=== PATIENT | female | born 1955 | race Caucasian/White ===

== ENCOUNTER 2017-08-23 13:00 | Outpatient (RCR) | payer MEDICAID, SELFPAY ==
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
--- NOTE | 2017-10-09 13:05 | HP.PT.NRP ---
HP - Discharge Summary (1) - Patient Information SONAM LUGO was seen in my office for initial evaluation on 07/31/17. The following Plan of Care was established for this patient: Initial Frequency: 2-3x /Week Initial Duration: 4 Weeks - Anticipated Interventions Patient/Client Instruction: Educate patient on: Condition, Plan of Care For the Purpose of:: To improve self management Therapeutic Exercise to Include: Strength training, Endurance training, Flexibilty training, In an aquatic setting, Dynamic Lumbar Stabilization For the Purpose of:: To decrease pain, To increase ROM, To improve muscle performance and motor function This patient was last seen in our office . Pertinent comments regarding their Physical therapy will appear below: Pt was last schduled for PT on the date of 08/27/17 for her LBP. Pt cancelled on that date and has not returned through todays date. Pt is discontinued at this time. At this point I will be discontinuing this patient from physical therapy. I would be happy to see this patient again in the future if found appropriate by the physician. Thank you! Stephen Grimm, PT,
== END 2017-08-23 19:00 | disposition home or self-care (01) ==
LOC: PT 13:00
PROVIDERS: Family Provider Family Medicine; PCP Family Medicine
DX: T14.8XXD Other injury of unspecified body region, subsequent encounter (principal); M54.16 Radiculopathy, lumbar region; M47.816 Spondylosis without myelopathy or radiculopathy, lumbar region; M51.36 Other intervertebral disc degeneration, lumbar region; M51.34 Other intervertebral disc degeneration, thoracic region; M47.894 Other spondylosis, thoracic region
CPT/HCPCS: 97113; 97162

== ENCOUNTER 2018-04-22 13:30 | Outpatient (RCR) | payer MEDICAID, SELFPAY ==
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
--- NOTE | 2018-04-22 14:02 | HP.PTDCSUM ---
HP - PT D/C Summary It has been my pleasure to treat SONAM LUOG under orders from DARWIN LARA, for the diagnosis of Compression Fx; Lumbar/Thoracic Degeneration for a total of 9 visit(s). Discharge Date: Please see the following information for a summary of their discharge status. - Subjective Subjective: Pt reports she is in no pain now, she feels 100% better in her LB - Pain low back Pain Intensity (Out of 10): 0 R knee Pain Intensity (Out of 10): 0 - Overall Improvement % Improvement: 100 - Objective Objective/Function: pain is rated at 0/10 this date. B LE strength now 5/5. Pt is now I with posture. Pt has full L/S ROM. Pt reports no functional limitations with IADL's. Rx goals achieved - Goals Goal 1:: Patient will increase core and low back strength by 1 muscle grade for improved posture Goal Progress: Goal Met Goal 2:: Patient will increase B hip strength by 1 muscle grade for improved performance with functional activities Goal Progress: Goal Met Goal 3:: Patient will maintain good upright standing posture for 5 minutes with no verbal prompting Goal Progress: Goal Met Goal 4:: Patient will increase hamstring flexibility by 10* bilaterally for improved mobility Goal Progress: Goal Met Goal 5:: Patient will demonstrate pain free, lumbar motion in all planes for improved mobility Goal Progress: Goal Met - Plan Plan: Discharge - D/C Information If there are questions or concerns regarding this patient's physical therapy, please feel free to call me at [phone]. Thank you for the referral of this patient. Sincerely, Stephen Grimm, PT,
== END 2018-04-22 14:16 | disposition home or self-care (01) ==
LOC: PT 13:30
PROVIDERS: Family Provider Internal Medicine; PCP Internal Medicine
DX: S32.000D Wedge compression fracture of unspecified lumbar vertebra, subsequent encounter for fracture with routine healing (principal); M54.16 Radiculopathy, lumbar region; M47.816 Spondylosis without myelopathy or radiculopathy, lumbar region; M51.36 Other intervertebral disc degeneration, lumbar region; M51.34 Other intervertebral disc degeneration, thoracic region; M47.894 Other spondylosis, thoracic region
CPT/HCPCS: 97113; 97162; 97530

== ENCOUNTER → 2018-10-07 13:36 | Outpatient (CLI) | payer MEDICAID, SELFPAY ==
--- NOTE | 2018-10-07 13:43 | CT_ITS ---
HISTORY: HEARING LOSS TECHNIQUE:Routine noncontrast CT protocol was performed of the internal auditory canals and temporal bones. 2-D reformats were performed by the technologist. A radiation dose optimization technique was used for this scan. IV Contrast dosage and agent: None. COMPARISON: None FINDINGS: The right external auditory canal shows short length focal narrowing which appears developmental rather than postinflammatory. On the right, metallic stapes prosthesis which appears in appropriate position. The middle and inner ear structures on the right show no CT abnormality. The external, middle, and inner ear structures on the left show no CT abnormality. The mastoids are well developed and appear clear. No bony erosions or soft tissue inflammatory change to suggest cholesteatoma. Pansinusitis with mucosal thickening of all sinuses. Bilateral middle meatal antrostomy defects and bilateral partial ethmoidectomies. The surgical defects remain patent. Cerebello-pontine angle regions, as visualized, are unremarkable. Bilateral cavernous carotid calcifications. CT/Orb Sella Post Fossa Ear w/o IMPRESSION: 1. The right external auditory canal shows short length narrowing which appears developmental rather than postinflammatory. 2. The right stapes prosthesis appears in appropriate position. 3. No cholesteatoma, otitis, or inflammatory change of the ears. 4. Pansinusitis with previous intranasal surgery. The surgical defects remain patent. Individualized dose optimization techniques were used for this CT. at 0829 Reported and signed by: Tyshawn Jennings MD Electronically Signed: Tyshawn Jennings, at 8:28 EST Tel , Service support ,
== END ==
PROVIDERS: Family Provider Family Medicine; PCP Family Medicine; Referring Provider Otolaryngology; Visit Provider Otolaryngology
DX: H90.11 Conductive hearing loss, unilateral, right ear, with unrestricted hearing on the contralateral side (principal)
CPT/HCPCS: 70480

== ENCOUNTER 2018-11-17 07:26 | Day surgery (SDC) | payer MEDICAID, SELFPAY ==
[2018-11-06 10:18] VITALS: BP 118/66; PULSE 85; RESP 16; TEMP 36.5; O2SAT 96; BMI 23.1
--- NOTE | 2018-11-06 10:32 | SDCEKG_ITS ---
Test Reason : Blood Pressure : / mmHG Vent. Rate : 082 BPM Atrial Rate : 082 BPM P-R Int : 144 ms QRS Dur : 078 ms QT Int : 384 ms P-R-T Axes : 062 037 051 degrees QTc Int : 448 ms Normal sinus rhythm Normal ECG Confirmed by CHINMAY SANDHU, JAVIER ([id number]), order editor JAN ZUNIGA ([id number]) on 11/11/2018 9:47:57 AM Referred By: Rafal Clemens Confirmed By:JAVIER MOY MD
[2018-11-06 10:49] LABS: Hematocrit 45.7 % (37-47); Hemoglobin 15.1 g/dl (12.0-15.0); Mean Corpuscular Hgb 32.1 pg (27.0-32.0); Mean Corpuscular Volume 97.2 fL (81-99); Mean Platelet Vol. 10.4 fl (6.2-12.0); Platelet Count 204 K/mm3 (150-450); RBC Distribution Width CV 13.1 % (11.6-14.6); RBC Distribution Width SD 46.6 fl (35.1-43.9); White Blood Count 8.1 K/mm3 (4.4-11.0)
[2018-11-06 10:55] LABS: Scan Indicated on CBC? Y/N NO
[2018-11-06 11:14] LABS: Anion Gap 6 (5-15); BUN 6 mg/dL (7-18); BUN/Creat Ratio 9.6 RATIO (10-20); Chloride 105 mmol/L (98-107); Creatinine, Serum 0.63 mg/dL (0.55-1.02); EST Glomerular Filtration Rate 103 mL/min (>60); Est Glom Filt Rate - Afr Amer 124 mL/min (>60); Estimated Creatinine Clearance 87.79 ml/min; Glucose 95 mg/dL (74-106); Potassium 3.8 mmol/L (3.5-5.1); Sodium Level 137 mmol/L (136-145)
[2018-11-17 08:06] VITALS: BP 127/78; PULSE 95; RESP 14; TEMP 36.4; O2SAT 97; BMI 23.1
[2018-11-17] MEDS: Ciprofloxacin 0.3% 2.5ml Bottle 1 DRP (09:30)
--- NOTE | 2018-11-17 09:50 | DCINST_ITS ---
You will use the following diet at home:: Regular Discharge Activity: Return to Normal Activity Additional Activity Instructions:: Change cotton ball as needed. Keep the inside of the right ear dry. Allergies/Adverse Reactions: Allergies No Known Allergies Allergy (Verified 11/06/18 09:48) Medications to take at Discharge Albuterol IH (ProAir) [Proair Hfa] 1 puff INHALATION Q12H PRN PRN 09/29/14 Fluticasone/Salmeterol [Advair 250/50 Mcg Diskus] 2 puff INHALATION BID 09/29/14 Alendronate Sodium 70 mg PO QWEEK 03/02/16 Acetaminophen [Tylenol Extra Strength] 500 - 1,000 mg PO Q6H PRN PRN 11/06/18 Cholecalciferol (VIT D3) [Vitamin D] 1,000 unit PO DAILY 11/06/18 Cyclobenzaprine [Flexeril] 10 mg PO PRN PRN 11/06/18 Duloxetine Hcl [Cymbalta] 30 mg PO DAILY 11/06/18 Gabapentin [Neurontin] 400 mg PO TIDCM 11/06/18 Primary Care Physician: Divina Stewart NP-C [Primary Care Provider] - Test Results: Test results from this visit will be discussed in further detail at your follow- up appointment, if applicable.
[2018-11-17] MEDS: Neomycin/Bacitracin/Polymyxin Ointment 1 APPLIC (10:54)
[2018-11-17 12:00] VITALS: BP 124/78; BP 127/78; PULSE 95; RESP 16; TEMP 36.1; O2SAT 92
--- NOTE | 2018-11-17 12:03 | PCM.OPRPT ---
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 It was not on the incus (Mccauley). New SMART piston placed on foreshortened incus and into oval window fenestra. Type of Anesthesia:: General Anesthesiologist: Bruce Brennan Specimen's removed: none Drains: none Estimated Blood Loss (mL): minimal Description of Procedure: The patient was taken to the OR on 11/17/18. She was placed in the supine position on the operating room table. She was given sufficient general endotracheal anesthesia. The table was turned 90 degrees counter clockwise. The right ear was prepped and draped steriley. The operating microscope was used throughout the entire case. A speculum was inserted into the right ear. 1% lidocaine with epinephrine was injected into the ear canal skin. The speculum stephenson was used. An incision was made from 12 to 6 O clock posteriorly with a round [place] blade. The tympanomeatal flap was elevated sharply and the middle ear was entered. A gimmick was used to reflect the flap anteriorly. There was a mass of scar encasing the bucket of a Mccauley prothesis that was clearly adjacent to the incus. The incus appeared foreshortened. I dissected the scar from the surrounding tissue and dissected the old prosthesis from the scar with a Hanson pick and Belucci scissors. Once the prosthesis was removed from the scar the prosthesis was removed. There was a small fenestra in the oval window once scar was removed from this area. Next, I sized the distance from the oval window to the incus. I chose a 4 mm SMART piston. I placed this into the middle ear. The piston portion was placed into the oval window opening. The hook was draped on top of the incus. I then used the omni guide CO2 laser to crimp the prosthesis. This allowed the prosthesis to nicely petroleum laboratory technician the incus. I then checked the mobility by wiggling the malleus. There was clear movement of the piston with this motion. I placed some of the old scar around the prosthesis. I then placed a few small pieces of cipro impregnated gelfoam on top of that. The tympanomeatal flap was redraped. Antibiotic ointment was placed on the incision. All instrumentation was removed. A cotton ball was placed in the ear canal. The patient was awoken and brought to the recovery room in stable condition. Blood loss minimal, replacement none. Sponge, needle and instrument count were correct at the end of the procedure. Grafts/Implants Used: 4.0x .5 mm SMART piston ([employer])
[2018-11-17 12:15] VITALS: BP 127/78; BP 130/74; PULSE 85; RESP 16; O2SAT 96
--- NOTE | 2018-11-17 12:16 | OP.PCM_ITS ---
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 It was not on the incus (Mccauley). New SMART piston placed on foreshortened incus and into oval window fenestra. Type of Anesthesia:: General Anesthesiologist: Bruce Brennan Specimen's removed: none Drains: none Estimated Blood Loss (mL): minimal Description of Procedure: The patient was taken to the OR on 11/17/18. She was placed in the supine position on the operating room table. She was given sufficient general endo tracheal anesthesia. The table was turned 90 degrees counter clockwise. The right ear was prepped and draped steriley. The operating microscope was used throughout the entire case. A speculum was inserted into the right ear. 1% lidocaine with epinephrine was injected into the ear canal skin. The speculum stephenson was used. An incision was made from 12 to 6 O clock posteriorly with a round [place] blade. The tympanomeatal flap was elevated sharply and the middle ear was entered. A gimmick was used to reflect the flap anteriorly. There was a mass of scar encasing the bucket of a Mccauley prothesis that was clearly adjacent to the incus. The incus appeared foreshortened. I dissected the scar from the surrounding tissue and dissected the old prosthesis from the scar with a Hanson pick and Belucci scissors. Once the prosthesis was removed from the scar the prosthesis was removed. There was a small fenestra in the oval window once scar was removed from this area. Next, I sized the distance from the oval window to the incus. I chose a 4 mm SMART piston. I placed this into the middle ear. The piston portion was placed into the oval window opening. The hook was draped on top of the incus. I then used the omni guide CO2 laser to crimp the prosthesis. This allowed the prosthesis to nicely aerospace engineer officer armament the incus. I then checked the mobility by wiggling the malleus. There was clear movement of the piston with this motion. I placed some of the old scar around the prosthesis. I then placed a few small pieces of cipro impregnated gelfoam on top of that. The tympanomeatal flap was redraped. Antibiotic ointment was placed on the incision. All instrumentation was removed. A cotton ball was placed in the ear canal. The patient was awoken and brought to the recovery room in stable condition. Blood loss minimal, replacement none. Sponge, needle and instrument count were correct at the end of the procedure. Grafts/Implants Used: 4.0x .5 mm SMART piston ([employer])
[2018-11-17 12:30] VITALS: BP 127/78; BP 135/74; PULSE 78; RESP 16; O2SAT 94
[2018-11-17 12:42] VITALS: BP 127/78; BP 138/83; PULSE 85; RESP 16; TEMP 36.4; O2SAT 93
[2018-11-17 13:42] VITALS: BP 127/78; BP 129/73; PULSE 96; RESP 18; TEMP 36.3; O2SAT 93
== END 2018-11-17 13:40 | disposition home or self-care (01) ==
LOC: SDC 07:27 → AC 07:27
PROVIDERS: Family Provider Family Medicine; PCP Family Medicine; Referring Provider Otolaryngology; Visit Provider Otolaryngology
PROC: (CPT 69662; principal; 2018-11-17 09:15)
DX: H80.01 Otosclerosis involving oval window, nonobliterative, right ear (principal); H90.71 Mixed conductive and sensorineural hearing loss, unilateral, right ear, with unrestricted hearing on the contralateral side; H74.21 Discontinuity and dislocation of right ear ossicles; I10 Essential (primary) hypertension; E78.00 Pure hypercholesterolemia, unspecified; J45.909 Unspecified asthma, uncomplicated; F17.210 Nicotine dependence, cigarettes, uncomplicated; Z79.899 Other long term (current) drug therapy
CPT/HCPCS: 00120; 69662; 80048; 85027; 93005; J7120; J2405

== ENCOUNTER → 2019-04-20 13:40 | Outpatient (CLI) | payer MEDICAID, SELFPAY ==
--- NOTE | 2019-04-20 13:50 | CT_ITS ---
STUDY: LOW DOSE CT LUNG CANCER SCREENING REASON FOR EXAM: Female, 64 years old. 50 year smoking history. Lung cancer screening RADIATION DOSAGE (If Supplied By Facility): CTDIvol = ( 1.7 ) mGy, DLP = ( 54.67 ) mGycm Individualized dose optimization techniques were used for this CT. TECHNIQUE: No contrast was administered. Low dose technique was utilized (average mAS-38 and kVp 120). Thin slice transaxial CT imaging of the chest. Nodule measured using lung windows on PACS and/or independent workstation with automated measurement of minimum and maximum diameter. Nodule measurement reported as average diameter rounded to the nearest whole number. Growth is defined as an increase ins size of greater than 1.5 mm. COMPARISON: None. FINDINGS: Total lung nodules (excluding granulomas): There are innumerable tiny pulmonary nodules in the lungs bilaterally. The largest of these pulmonary nodules measures approximately 4.4 mm. Emphysema: Lungs exhibit generalized hyperlucency consistent with COPD with mild features of centrilobular emphysema in particular at the apices. Scattered parenchymal and subpleural reticulation in a pattern consistent with smoking history. Endobronchial lesion: None Aorta: Nonaneurysmal ectasia of the ascending aorta and proximal arch 3.5 cm. Mild/moderate arch atherosclerosis. Coronary arteries: Coronary calcifications are observed in the left main, proximal LAD, proximal circumflex. Heart: No cardiomegaly or pericardial effusion. Pulmonary artery: Nondilated. Mediastinal nodes: Calcified mediastinal and hilar lymph nodes in addition to calcified pulmonary nodules are consistent with old granulomatous disease. No acute lymphadenopathy. Mildly patulous esophagus. Small sliding hiatal hernia. Mild circumferential thickening of wall the distal esophagus may be associated with reflux. Other chest and abdominal findings: Upper abdomen, body wall soft tissues, supraclavicular soft tissues, osseous structures exhibit no acute process. CT/Low Dose CT Lung Screening IMPRESSION: Innumerable tiny pulmonary nodules in the lungs bilaterally. These may be a manifestation of old granulomatous disease without calcification or sequela of other infectious process. Malignancy is considered unlikely. Additional calcified pulmonary nodules and calcified mediastinal and hilar lymph nodes are consistent with old grade robust disease. ACR lung RADS category 2, benign appearance. Follow-up low dose CT chest is recommended for surveillance purposes in 1 year. IMPORTANT NOTES FOR USE: ACR Lung-RADS Version 1.0 Assessment Categories Release Date: December 28, 2013 Category: Coded 0-4 bases on nodule(s) with highest degree of suspicion. Negative screen is defined as categories 1 and 2; a positive screen is defined as categories 3 and 4. Category 3 and 4A nodules that are unchanged on interval CT should be coded as category 2, and individuals returned to screening in 12 months. Category 4X: Category 3 or 4 nodules with additional imaging findings that increase the suspicion of lung cancer, such as spiculation, That doubles in size in 1 year, enlarged lymph notes, etc. Category Modifiers: S (significant finding unrelated to lung cancer) and C (prior history of treated lung cancer) may be added to the 0-4 Lung-RADS Electronically Signed: Theron Harris MD at 15:39 EDT Tel , Service support ,
== END ==
PROVIDERS: Family Provider Nurse Practitioner Primary Care; PCP Nurse Practitioner Primary Care
DX: Z12.2 Encounter for screening for malignant neoplasm of respiratory organs (principal); F17.200 Nicotine dependence, unspecified, uncomplicated
CPT/HCPCS: G0297

== ENCOUNTER 2023-07-30 18:44 | Emergency (ER) | payer MEDICARE, MEDICAID, SELFPAY ==
[2023-07-30 18:45] VITALS: BP 89/65; PULSE 124; RESP 17; TEMP 36.2; O2SAT 98
--- NOTE | 2023-07-30 18:51 | ED.RN ---
PD brought pt in. Per PD they were called because pt says she needs a ride to [place] but she does not live there anymore and lives with her daughter in [place]. Per pt daughter will not give her pain meds or blood thinners. Says she does not know why either. PD stating that daughter told them pt has been selling all her meds to her friends. Social Work consulted and updated.
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
--- NOTE | 2023-07-30 20:05 | CT_ITS ---
EXAM: CT CHEST WITHOUT INTRAVENOUS CONTRAST CLINICAL INDICATION: left sided rib pain TECHNIQUE: Helically acquired images were obtained of the chest without intravenous contrast. This CT exam was performed using one or more of the following dose reduction techniques: automated exposure control, adjustment of the mA and/or kV according to patient size, and/or use of iterative reconstruction technique. COMPARISON: No relevant prior studies available. FINDINGS: LUNGS AND PLEURAL SPACES: Calcified right middle lobe granuloma. No mass. No pleural effusion or thickening. No pneumothorax. HEART: Unremarkable. Heart size is normal. No pericardial effusion. No significant coronary artery calcifications. MEDIASTINUM: Dense calcified subcarinal lymph nodes. Dense, calcified right hilar nodes. No hiatal hernia. THYROID: Unremarkable. No thyroid lesions. BONES/JOINTS: Unremarkable. No suspicious lytic or blastic abnormality. VASCULATURE: Unremarkable. Thoracic aorta is non-dilated. 1.9 cm low-attenuation lesion upper pole right kidney not characterized without contrast. CT/Chest without Contrast IMPRESSION: No acute findings in the chest. Old granulomatous disease. Electronically Signed: Lainey Pablo MD at 21:56 EST Reading Location ID and State: [id number] / Tel , Service support ,
--- NOTE | 2023-07-30 20:05 | CT_ITS ---
STUDY: CT BRAIN WITHOUT CONTRAST REASON FOR EXAM: Female, 68 years old. AMS RADIATION DOSAGE (If Supplied By Facility): CTDIvol = ( 44.99 ) mGy, DLP = ( 1067.27 ) mGycm TECHNIQUE: Transaxial CT imaging of the brain was performed without administration of intravenous contrast material. Individualized dose optimization techniques were used for this CT. COMPARISON: No relevant priors. FINDINGS: Normal soft tissue structures. Normal calvarium. There is mild cerebral atrophy with widening of the extra-axial spaces and ventricular dilatation. There are areas of decreased attenuation within the white matter tracts of the supratentorial brain, consistent with microvascular disease changes. There is no intracranial hemorrhage. There are no findings of an acute ischemic infarction. Mild mucosal thickening right maxillary sinus consistent with chronic sinusitis. CT/Brain/Head without Contrast IMPRESSION: No acute findings. Microvascular ischemic changes. Atrophy. Electronically Signed: Lainey Pablo MD at 21:36 EST Reading Location ID and State: [id number] / Tel , Service support ,
--- NOTE | 2023-07-30 20:06 | EKG12_ITS ---
Test Reason : DYSRHYTHMIA Blood Pressure : / mmHG Vent. Rate : 112 BPM Atrial Rate : 112 BPM P-R Int : 134 ms QRS Dur : 068 ms QT Int : 322 ms P-R-T Axes : 089 092 076 degrees QTc Int : 439 ms Sinus tachycardia Rightward axis Borderline ECG Confirmed by SILVIA SANDHU, CASI ([id number]), managing editor NATALI FRASER ([id number]) on 08/01/2023 10:42:14 AM Referred By: Confirmed By:CASI VEGA MD
[2023-07-30 20:22] VITALS: BP 127/85; RESP 24; O2SAT 98
[2023-07-30 20:27] LABS: Absolute Lymphocyte Count 1.39 X10^3/uL (0.83-4.51); Absolute Neutrophil Count 4.2 X10^3/uL (2.0-7.7); Basophil# 0.06 X10^3/uL; Basophil% 0.9 % (0-1); Eosinophils% 1.6 % (0-5); Hematocrit 40.1 % (37-47); Hemoglobin 13.5 g/dL (12.0-15.0); Lymphocyte # 1.39 X10^3/ul (0.83-4.51); Lymphocyte % 21.7 % (19-41); Mean Corp Hgb Conc 33.7 g/dL (32-36); Mean Corpuscular Hgb 33.5 pg (27.0-32.0); Mean Corpuscular Volume 99.5 fL (81-99); Mean Platelet Vol. 9.6 fl (6.2-12.0); Monocyte# 0.65 X10^3/uL; Monocyte% 10.1 % (0-10); NRBC Flagged by Analyzer 0 % (0-5); Neutrophil # 4.18 X10^3/uL (2.7-7.7); Neutrophil % 65.2 % (47-70); Platelet Count 289 K/mm3 (150-450); RBC Distribution Width CV 14.2 % (11.6-14.6); RBC Distribution Width SD 52.5 fl (35.1-43.9); Red Blood Count 4.03 M/mm3 (4.2-5.4); White Blood Count 6.4 K/mm3 (4.4-11.0)
[2023-07-30 20:49] LABS: Prothrombin Time (Protime)PT. 12.6 SECONDS (11.7-14.9)
[2023-07-30 21:05] LABS: AST(SGOT) 29 U/L (15-37); Alanine Aminotransfer ALT/SGPT 17 U/L (13-56); Albumin, Serum 2.7 g/dL (3.2-5.0); Alkaline Phosphatase 125 U/L (45-117); Anion Gap 7 (5-15); BUN 5 mg/dL (7-18); BUN/Creat Ratio 5.9 RATIO (10-20); Bilirubin, Direct 0.08 mg/dL (0.00-0.30); Calcium,Total 8.1 mg/dL (8.5-10.1); Chloride 106 mmol/L (98-107); Creatinine, Serum 0.85 mg/dL (0.55-1.02); EST Glomerular Filtration Rate 71 mL/min (>60); Est Glom Filt Rate - Afr Amer 86 mL/min (>60); Globulin 3.5 g/dL (2.2-4.2); Glucose 103 mg/dL (74-106); Lipase 47 U/L (13-75); Potassium 3.8 mmol/L (3.5-5.1); Protein, Total 6.2 g/dL (6.4-8.2); Sodium Level 139 mmol/L (136-145); Troponin-I HS 16 pg/mL (3.0-54.0)
[2023-07-30] MEDS: 0.9% Normal Saline (500mL Bag) 500 ML 1000 ML IV (21:05)
[2023-07-30 21:08] VITALS: BP 141/82; PULSE 95; RESP 18; O2SAT 93
[2023-07-30 21:26] LABS: Bacteria 0 SEEN /hpf (None Seen); Mucous, Urine 0 SEEN /hpf (<or=2+); Red Blood Cells-Urine 0 SEEN /hpf (0-5); White Blood Cells 0 SEEN /hpf (0-5)
[2023-07-30 21:34] LABS: Color, Urine Yellow (Yellow); Glucose, Dipstick Normal (Normal); Ketone-Dipstick Negative (Negative); Leukocyte Esterase-Dipstick Negative /ul (Negative); Nitrite-Dipstick Negative (Negative); Occult Blood-Urine Negative /ul (Negative); Protein-Dipstick Negative (Negative); Urine Bilirubin Dipstick Negative (Negative); Urine Clarity Clear (Clear); Urine Urobilinogen Normal (Normal)
[2023-07-30 21:58] LABS: Squamous Epithelial Cells - UA 0-5 SEEN /hpf (5-10); Yeast-Urine RARE /hpf (None Seen)
[2023-07-30 22:29] VITALS: BP 120/88; PULSE 102; RESP 20; O2SAT 92
== END 2023-07-30 23:03 | disposition home or self-care (01) ==
PROVIDERS: Emergency Provider Emergency Medicine; PCP Nurse Practitioner Primary Care; Visit Provider Emergency Medicine
DX: F03.90 Unspecified dementia, unspecified severity, without behavioral disturbance, psychotic disturbance, mood disturbance, and anxiety (principal); F17.210 Nicotine dependence, cigarettes, uncomplicated; I25.10 Atherosclerotic heart disease of native coronary artery without angina pectoris
CPT/HCPCS: 70450; 71250; 80048; 80076; 81001; 83690; 84484; 85025; 85610; 87428; 93005; 96360; 99285; J7030; A4216

== ENCOUNTER 2023-09-10 01:46 | Emergency (ER) | payer MEDICARE, MEDICAID, SELFPAY ==
[2023-09-10 01:48] VITALS: BP 173/107; PULSE 81; RESP 16; TEMP 36; O2SAT 96; BMI 18.2
--- NOTE | 2023-09-10 02:00 | ED.RN ---
Per Dr Guajardo, patient does not require a sitter. Pt denies SI at this time. Will be assessed by crisis after medically cleared.
--- NOTE | 2023-09-10 02:29 | EKG12_ITS ---
Test Reason : DYSRHYTHMIA Blood Pressure : / mmHG Vent. Rate : 073 BPM Atrial Rate : 073 BPM P-R Int : 146 ms QRS Dur : 072 ms QT Int : 376 ms P-R-T Axes : 060 087 070 degrees QTc Int : 414 ms Normal sinus rhythm Normal ECG Confirmed by SILVIA SANDHU, CASI ([id number]), online editor TITO YORK ([id number]) on 09/11/2023 9:07:49 AM Referred By: Confirmed By:CASI VEGA MD
--- NOTE | 2023-09-10 02:30 | EDS_ITS ---
HPI HPI - Psych History of Present Illness Chief Complaint: Chest Pain Narrative Narrative: Skin physical is limited secondary to psychiatric condition. EMS was called by patient's daughter because of reported suicidal ideation, although patient denies this. Patient complains of chest pain that she has had for months, and is constant. She is a smoker. She denies any exacerbating or alleviating factors to her chest pain. She states she does have bronchitis and asthma from her smoking. According to triage note, she has had increased alcohol consumption as well. PFSH PFS Medical History Asthma CAD (coronary artery disease) COPD (chronic obstructive pulmonary disease) Deficient knowledge of percutaneous coronary intervention (PCI) and stenting ETOH abuse Tobacco abuse Home Medications clopidogrel 75 mg tablet 75 mg PO DAILY 07/30/23 [History Last Taken Unknown] duloxetine 60 mg capsule,delayed release 60 mg PO DAILY 09/10/23 [History Last Taken Unknown] Allergy/AdvReac Type Severity Reaction Status Date / Time No Known Allergies Allergy Verified 09/10/23 01:54 Surgical History History of hysterectomy Social History Smoking Status: Current every day smoker tobacco type: cigarettes ROS ROS ED ROS Narrative Constitutional: No fever, no chills. HEENT: No sore throat. No neck pain. No loss of vision. No rhinorrhea. Cardiovascular: Positive chest pain. No palpitations. No pedal edema. Respiratory: No cough, no shortness of breath. Abdominal: No abdominal pain. No nausea. No vomiting. Genitourinary: No dysuria. No hematuria. Musculoskeletal: No myalgias. No arthralgias. Neurologic: No headaches. No dizziness. No lightheadedness. Skin: No rash. No change in color. Psychiatric: No depression. No anxiety. Reported suicidal ideation by daughter according to EMS. Patient denies suicidal ideation. EXAM Physical Exam Narrative Exam Narrative: Afebrile. Vital signs noted. HEENT: Normocephalic. Atraumatic. PERRL, EOMI. Neck soft and supple. No point tenderness or step off. Cardiovascular: Regular rate and rhythm. No murmurs, rubs, or gallops appreciated. Respiratory: No tachypnea. No rhonchi bilateral lung ferreira. No overt wheezing. Moving a good amount of air. Gastrointestinal: Abdomen soft, nontender, with normoactive bowel sounds. No rebound or guarding. Neurological: Awake. Alert. Nonfocal, nonlateralizing. Skin: No rash. Normal color. No pallor. Musculoskeletal: No pedal edema. Full range of motion extremities. Const Vital Signs: 09/10/23 01:48 09/10/23 01:55 09/10/23 04:54 Temperature 96.8 F L Temperature Source Temporal Pulse Rate 81 68 Respiratory Rate 16 16 Respiratory Pattern Normal Blood Pressure 173/107 H 102/67 Blood Pressure Mean 129 78 Pulse Ox 96 98 Oxygen Delivery Method Room Air Room Air 09/10/23 05:00 09/10/23 06:00 Temperature Temperature Source Pulse Rate 80 Respiratory Rate 16 18 Respiratory Pattern Blood Pressure 102/68 180/105 H Blood Pressure Mean 79 130 Pulse Ox 96 Oxygen Delivery Method Room Air Room Air MDM MDM MDM Narrative Medical decision making narrative: As there is concern for suicidal ideation, medical clearance labs will be obtained. I will obtain a troponin, patient states she has had chest pain for months, so I do not feel that she requires serial enzymes to help rule out acute coronary syndrome/non-STEMI. EKG obtained and interpreted by myself independently as normal sinus rhythm at 73 bpm without ectopy or acute ST changes. No STEMI. I feel that she has more baseline artifact in lead V4 than any ST elevation and there are no reciprocal changes noted on the EKG. I reviewed her laboratory work and she has a normal white count of 5.0, hemoglobin slightly hemoconcentrated at 16.0 with hematocrit 46.2, platelet count normal at 212. Potassium slightly low at 3.4 which can be replaced orally. Carbon dioxide is slightly elevated at 33, consistent with COPD and she is a smoker. Creatinine slightly low at 0.47 with BUN also low at 6. LFTs show AST elevated at 39 which I think is nonspecific, the same goes for alk phos of 121. High- sensitivity troponin is 12. She states she been having chest pain for months. I do not feel she requires serial enzymes. I feel she has been essentially ruled out for ACS. Chest x-ray 1 view interpreted by myself shows no evidence of pneumothorax or pneumonia. I reviewed the radiology report which confirms my independent interpretation. As it was stated that she was reportedly suicidal, urine for drugs of abuse was obtained and is negative. Her alcohol level is elevated at 166. This will be repeated prior to crisis counselor evaluation. Second redraw of her EtOH will be at 6 AM. Her repeat alcohol level was reviewed and is 86. At this point in time, I do feel she is medically cleared to be evaluated by the crisis counselor. Of note, she was actually being seen for the chest pain that she has had for months. I do feel that a single troponin has ruled out her ischemia. Additionally, she was pink slipped because she had told her family that she wanted to take her cat and not come back. She had made comments to her daughter and 2 other people that she was waiting for got to come get her. At this point in time, she will be signed out to the oncoming physician, Dr. Osmani Bach, who will make final disposition after evaluation by the crisis counselor. Patient is in stable condition. History & Record Review Discussion w/independent historian: Patient Additional record(s) reviewed:: Prior ED visit and Prior labs Lab Data Attestation: I reviewed the patient's lab results. Labs: Laboratory Results - last 24 hr 09/10/23 09/10/23 09/10/23 01:55 02:45 06:05 WBC 5.0 RBC 4.79 Hgb 16.0 H Hct 46.2 MCV 96.5 MCH 33.4 H MCHC 34.6 RDW Std Deviation 47.8 H RDW Coeff of Talon 13.4 Plt Count 212 MPV 10.5 Immature Gran % (Auto) 0.400 Neut % (Auto) 36.2 L Lymph % (Auto) 49.0 H [place] % (Auto) 11.6 H Eos % (Auto) 1.4 Baso % (Auto) 1.4 H Absolute Neuts (auto) 1.8 L Absolute Lymphs (auto) 2.46 Nucleated RBC % 0 Sodium 138 Potassium 3.4 L Chloride 100 Carbon Dioxide 33.0 H Anion Gap 5 BUN 6 L Creatinine 0.47 L Estim Creat Clear Calc 42.20 Est GFR (MDRD) Af Amer 170 Est GFR (MDRD) Non-Af 141 BUN/Creatinine Ratio 12.8 Glucose 95 Calcium 8.5 Total Bilirubin 0.30 AST 39 H ALT 21 Alkaline Phosphatase 121 H Troponin I High Sens 12 Total Protein 6.7 Albumin 3.1 L Globulin 3.6 Albumin/Globulin Ratio 0.9 Urine Opiates Screen NEGATIVE Urine Methadone Screen NEGATIVE Ur Barbiturates Screen NEGATIVE Ur Phencyclidine Scrn NEGATIVE Ur Amphetamines Screen NEGATIVE MDMA (Ecstasy) Screen NEGATIVE U Benzodiazepines Scrn NEGATIVE Urine Cocaine Screen NEGATIVE U Cannabinoids Screen NEGATIVE Ur Drug Screen Comment Ethyl Alcohol 166.0 86.0 Radiography Diagnostic Testing: Clinical Impression(s) from Imaging Studies Chest X-Ray 09/10/23 02:50 IMPRESSION: No acute focal airspace disease. Again is noted diffuse nodular interstitial process. Electronically Signed: Theodore Landaverde MD at 3:41 EST , Discharge Plan Triage Chief Complaint: Chest Pain Other Complaint: Mental Health ED Provider: Keven Guajardo Dx/Rx/DC Orders Prescriptions: No Action clopidogrel 75 mg tablet 75 mg PO DAILY Patient Comments: take 1 tablet by mouth daily duloxetine 60 mg capsule,delayed release(DR/EC) 60 mg PO DAILY Patient Comments: take 1 capsule by mouth once daily Primary Care Provider: Marcus Thomas NP Referrals: Marcus Thomas JUNIOR PROJECT MANAGER, JUNIOR PROJECT MANAGER-C [Primary Care Provider] -
[2023-09-10 02:37] LABS: Absolute Lymphocyte Count 2.46 X10^3/uL (0.83-4.51); Absolute Neutrophil Count 1.8 X10^3/uL (2.0-7.7); Basophil# 0.07 X10^3/uL; Basophil% 1.4 % (0-1); Eosinophil# 0.07 X10^3/uL; Eosinophils% 1.4 % (0-5); Hematocrit 46.2 % (37-47); Lymphocyte # 2.46 X10^3/ul (0.83-4.51); Mean Corp Hgb Conc 34.6 g/dL (32-36); Mean Corpuscular Hgb 33.4 pg (27.0-32.0); Mean Corpuscular Volume 96.5 fL (81-99); Mean Platelet Vol. 10.5 fl (6.2-12.0); Monocyte# 0.58 X10^3/uL; Monocyte% 11.6 % (0-10); NRBC Flagged by Analyzer 0 % (0-5); Neutrophil # 1.82 X10^3/uL (2.7-7.7); Neutrophil % 36.2 % (47-70); Platelet Count 212 K/mm3 (150-450); RBC Distribution Width CV 13.4 % (11.6-14.6); RBC Distribution Width SD 47.8 fl (35.1-43.9); Red Blood Count 4.79 M/mm3 (4.2-5.4)
--- NOTE | 2023-09-10 02:50 | RAD_ITS ---
INDICATION: shortness of breath EXAMINATION/TECHNIQUE: X-RAY - XR Chest 1 View COMPARISON: Chest CT 08/21/2023 Findings: Single frontal view of the chest. LUNG PARENCHYMA: No acute focal airspace disease or mass lesion. Again is noted diffuse nodular interstitial process. Densely calcified right lung base and right hilar granulomas. PLEURA: No pleural effusion. No pneumothorax. HEART/GREAT VESSELS: Cardiomediastinal silhouette is unremarkable. BONES: Osseous structures are unremarkable for age. RAD/Chest 1 View (Portable) IMPRESSION: No acute focal airspace disease. Again is noted diffuse nodular interstitial process. Electronically Signed: Theodore Landaverde MD at 3:41 EST ,
--- OUTSIDE RECORDS SUMMARY | 2023-09-10 02:52 | XMS RPT_ITS | CCD ---
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 Name Role Phone Erin Rodriguez Unavailable Unavailable ERIN FRANCO Primary Care Physician ([phone]) Elizabeth Church PT Unavailable Unavailable Juni Zamora Primary Care Provider Juni Zamora Primary Care Provider ERIN FRANCO Primary Care Physician ([phone]) Erin Rodriguez APRN.CNP Primary Care Provider 1([phone]) SORAIDA GODOY Admitting Unavailable SORAIDA GODOY Attending Unavailable JUNI ZAMORA Primary Care Unavail able SORAIDA GODOY Attending Unavailable SORAIDA GODOY Referring Unavailable ERIN RODRIGUEZ Primary Care Unavailable MATILDE HAYWARD Attending Unavailable JUNI ZAMORA Primary Care Unavail able MATILDE HAYWARD Referring Unavailable JUNI ZAMORA Primary Care Unavail able MATILDE HAYWARD Attending Unavailable JUNI ZAMORA Primary Care Unavail able SORAIDA GODOY Attending Unavailable JUNI ZAMORA Primary Care Unavail able JENNIFER HUGGINSN-LIGIA, ERIN Primary Care Unavailelizabeth GALLAGHER PEBBLES Attending Unavailable JIGNESH SANDHU, DR PERCY Mas Attending Guille RODRIGUEZ APRN-LIGIA, ERIN Primary Care Unavailabl e JENNIFER JOB TRAINER-LIGIA, ERIN Primary Care UnavailJUNI Rodriguez MD Attending Unavailable LENCHO KIMBROUGH MD Attending Unavailable JENNIFER HUGGINSN-TRAFFIC SIGNAL MECHANIC, ERIN Primary Care Unavailabl e DAYAMITES JOB TRAINER-TRAFFIC SIGNAL MECHANIC, ERIN Attending Unavailabl e DAYAMITES JOB TRAINER-TRAFFIC SIGNAL MECHANIC, ERIN Primary Care Unavailabl e BALTES JOB TRAINER-TRAFFIC SIGNAL MECHANIC, ERIN Attending Unavailabl e DAYAMITES JOB TRAINER-TRAFFIC SIGNAL MECHANIC, ERIN Primary Care Unavailabl e BALTES JOB TRAINER-TRAFFIC SIGNAL MECHANIC, ERIN Primary Care Unavailabl e BALTES JOB TRAINER-TRAFFIC SIGNAL MECHANIC, ERIN Attending Unavailabl e Allergies Allergy Classification Reported Allergen(s) Allergy Type Date of Onset Reaction(s) Facility (20 sources) Ibuprofen; Translations: [ibuprofen] Drug Allergy 2 Unknown [facility] Work Phone: (20 sources) Naproxen; Translations: [Naproxen] Drug Allergy 2 Unknown [facility] (20 sources) Acetaminophen / traMADol; Translations: [acetaminophen-tr amadol] Drug Allergy 2 [facility] (1 source) Ibuprofen; Translations: [IBUPROFEN] Drug Allergy 2 [facility] (1 source) TRAMADOL-ACETAMIN OPHEN; Translations: [TRAMADOL-ACETAMI NOPHEN] Propensity to adverse reactions to drug (disorder) 2 [facility] Medications Current Medications Medication Drug Class(es) Dates Sig (Normalized) Sig (Original) acetaminophen 500 mg oral tablet (13 sources) Start: 11-06-2018 acetaminophen 500 mg oral tablet Dose : 1,000 mg = 2 tab(s), Oral, TID, PRN as needed for pain, 0 Refill(s) Start Date: 06/20/21 Status: Ordered Completed/Discontinued Medications Medication Drug Class(es) Dates Sig (Normalized) Sig (Original) acetaminophen 325 mg / HYDROcodone bitartrate 10 mg oral tablet (20 sources) Opioid Agonist Start: 08-14-2023 acetaminophen-hydr ocodone 325 mg-10 mg oral tablet Dose = 1 tab(s), Oral, TID, PRN for pain, 0 Refill(s), 46 Start Date: 08/14/23 Status: Ordered Problems Active Problems Problem Classification Problem Date Documented Da te Episodic/Chronic Alcohol-related disorders (20 sources) Alcoholism; Translations: [Alcohol dependence, uncomplicated] Onset: 6 01-06-2020 Chronic Alcohol-related disorders (2 sources) H/O: alcoholism; Translations: [History of alcoholism] Episodic Anxiety disorders (13 sources) Anxiety; Translations: [Anxiety disorder, unspecified] Onset: 3 04-02-2023 Chronic Anxiety disorders (1 source) Irritability and anger 08-19-2023 Episodic Aortic and peripheral arterial embolism or thrombosis (2 sources) 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 Asthma (20 sources) Moderate persistent asthma controlled; Translations: [Moderate persistent asthma, uncomplicated] Onset: 6 09-07-2015 Chronic Chronic obstructive pulmonary disease and bronchiectasis (20 sources) Emphysematous bronchitis; Translations: [Chronic obstructive pulmonary disease, unspecified] Onset: 6 08-28-2021 Chronic Chronic obstructive pulmonary disease and bronchiectasis (20 sources) Bronchitis; Translations: [Bronchitis, not specified as acute or chronic] Onset: 3 12-08-2013 Episodic Disorders of lipid metabolism (20 sources) Hyperlipidemia; Translations: [Hyperlipidemia, unspecified] Onset: 3 01-06-2020 Chronic Esophageal disorders (13 sources) Gastroesophageal reflux disease without esophagitis; Translations: [Gastro-esophageal reflux disease without esophagitis] Onset: 3 04-02-2023 Chronic Essential hypertension (20 sources) Hypertensive disorder; Translations: [Essential hypertension] Onset: 6 01-06-2020 Chronic Gastritis and duodenitis (20 sources) Gastritis; Translations: [Gastritis, unspecified, without bleeding] Onset: 3 01-06-2020 Episodic Gastroduodenal ulcer (except hemorrhage) (20 sources) Duodenal ulcer without hemorrhage, without perforation AND without obstruction; Translations: [Duodenal ulcer, unspecified as acute or chronic, without hemorrhage or perforation] Onset: 6 08-28-2021 Chronic Gastroduodenal ulcer (except hemorrhage) (4 sources) H/O: peptic ulcer; Translations: [History of peptic ulcer] Episodic Gastrointestinal hemorrhage (15 sources) Hematemesis; Translations: [Hematemesis] Onset: 3 04-02-2023 Episodic Nausea and vomiting (1 source) Nausea 08-14-2023 Episodic Osteoarthritis (20 sources) Arthritis; Translations: [Osteoarthritis of bilateral hip joints] Onset: 7 12-08-2013 Chronic Osteoporosis (20 sources) Osteoporosis; Translations: [Age-related osteoporosis without current pathological fracture] Onset: 6 01-06-2020 Chronic Other aftercare (5 sources) Taking high risk medication; Translations: [Other chcf (current) drug therapy] Episodic Other aftercare (20 sources) Patient encounter status; Translations: [custodial (current) use of opiate analgesic] Onset: 7 04-02-2023 Episodic Other aftercare (1 source) 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; Translations: [High risk medication use] Onset: 3 Episodic Other and unspecified benign neoplasm (16 sources) History of polyp of colon; Translations: [Personal history of colonic polyps] Onset: 3 04-02-2023 Episodic Other connective tissue disease (2 sources) H/O: back problem; Translations: [History of chronic back pain] Episodic Other connective tissue disease (15 sources) H/O: arthritis; Translations: [Personal history of other diseases of the musculoskeletal system and connective tissue] Onset: 3 04-02-2023 Episodic Other connective tissue disease (20 sources) Recurrent falls ; Translations: [Repeated falls] Onset: 6 08-28-2021 Episodic Other connective tissue disease (2 sources) Myofascial pain syndrome; Translations: [Myalgia, other site] 04-02-2023 Episodic Other connective tissue disease (2 sources) Trochanteric bursitis; Translations: [Trochanteric bursitis, right hip] 04-02-2023 Episodic Other connective tissue disease (2 sources) Trochanteric bursitis, right hip; Translations: [Greater trochanteric bursitis of both hips] Onset: 3 Episodic Other connective tissue disease (2 sources) Trochanteric bursitis, left hip; Translations: [Greater trochanteric bursitis of both hips] Onset: 3 Episodic Other connective tissue disease (1 source) Myalgia, other site; Translations: [Myofascial pain syndrome] Onset: 3 Episodic Other diseases of bladder and urethra (20 sources) Overactive bladder; Translations: [Overactive bladder] Onset: 3 04-26-2022 Chronic Other disorders of stomach and duodenum (15 sources) Indigestion; Translations: [Functional dyspepsia] Onset: 3 04-02-2023 Episodic Other ear and sense organ disorders (20 sources) Hearing loss; Translations: [Unspecified hearing loss, unspecified ear] Onset: 3 07-07-2019 Chronic Past or Other Problems Problem Classification Problem Date Documented Date Episodic/Chronic Genitourinary symptoms and ill-defined conditions (2 sources) Dysuria; Translations: [Dysuria] Onset: 01-23-2023 Episodic Other connective tissue disease (13 sources) Fibromyositis; Translations: [Fibromyalgia] Onset: 09-05-2016 04-02-2023 Episodic Other fractures (13 sources) Compression fracture of vertebral column; Translations: [Collapsed vertebra, not elsewhere classified, site unspecified, initial encounter for fracture] Onset: 11-13-2016 04-02-2023 Episodic Other nervous system disorders (13 sources) Abnormal gait; Translations: [Unspecified abnormalities of gait and mobility] Onset: 09-05-2016 04-02-2023 Episodic Other nervous system disorders (13 sources) Numbness of upper limb; Translations: [Anesthesia of skin] Onset: 05-21-2019 04-02-2023 Episodic Other non-traumatic joint disorders (1 source) Pain in right hip; Translations: [Pain in right hip] Onset: 08-14-2022 Episodic Residual codes; unclassified (20 sources) Past history of procedure; Translations: [Personal history of other medical treatment] Onset: 09-11-2015 08-28-2021 Episodic Residual codes; unclassified (13 sources) Noncompliance with medication regimen; Translations: [Noncompliance with medication regimen] Onset: 09-30-2018 04-02-2023 Episodic Results Test Name Value Interpretation Reference Range Facil it Vital Signs Date Time Vital Sign Value Performing Clinician Facility 07-01-2023 08:38-0400 Body height 173.7 cm Soraida Godoy DO Work Phone: [facility] 07-01-2023 08:38-0400 Body weight 48.53 kg Soraida Godoy DO Work Phone: [facility] 07-01-2023 08:38-0400 Diastolic blood pressure 69 mm[Hg] Soraida Godoy DO Work Phone: [facility] 07-01-2023 08:38-0400 Heart rate 118 /min Soraida Godoy DO Work Phone: [facility] 07-01-2023 08:38-0400 Respiratory rate 19 /min Soraida Godoy DO Work Phone: [facility] 07-01-2023 08:38-0400 SaO2% (BldA) [Mass fraction] 98 % Soraida Godoy DO Work Phone: [facility] 07-01-2023 08:38-0400 Systolic blood pressure 101 mm[Hg] Soraida Godoy DO Work Phone: [facility] 06-17-2023 15:13-0400 Diastolic Blood Pressure Non-Invasive 74 1 JUNI JULIO MD [facility] 06-17-2023 15:13-0400 Heart rate 93 /min JUNI JULIO MD [facility] 06-17-2023 15:13-0400 Respiratory rate 16 /min JUNI JULIO MD [facility] 06-17-2023 15:13-0400 Systolic Blood Pressure Non-Invasive 107 1 JUNI JULIO MD [facility] 06-17-2023 14:45-0400 Diastolic Blood Pressure Non-Invasive 83 1 JUNI JULIO MD [facility] 06-17-2023 14:45-0400 Heart rate 97 /min JUNI JULIO MD [facility] 06-17-2023 14:45-0400 Respiratory rate 16 /min JUNI JULIO MD [facility] 06-17-2023 14:45-0400 Systolic Blood Pressure Non-Invasive 128 1 JUNI JULIO MD [facility] 06-17-2023 14:20-0400 Diastolic Blood Pressure Non-Invasive 61 1 JUNI JULIO MD [facility] 06-17-2023 14:20-0400 Heart rate 97 /min JUNI JULIO MD [facility] 06-17-2023 14:20-0400 Respiratory rate 16 /min JUNI JULIO MD [facility] 06-17-2023 14:20-0400 Systolic Blood Pressure Non-Invasive 97 1 JUNI JULIO MD [facility] 06-17-2023 12:01-0400 Heart rate 81 /min JUNI JULIO MD [facility] 06-17-2023 12:01-0400 Mean blood pressure 86 mm[Hg] JUNI JULIO MD [facility] 06-17-2023 11:55-0400 Body temperature 97.7 [degF] JUNI JULIO MD [facility] 06-17-2023 11:55-0400 Heart rate 86 /min JUNI JULIO MD [facility] 06-17-2023 11:55-0400 Mean blood pressure 81 mm[Hg] JUNI JULIO MD [facility] 06-17-2023 11:47-0400 Heart rate 85 /min JUNI JULIO MD [facility] 06-17-2023 11:47-0400 Mean blood pressure 75 mm[Hg] JUNI JULIO MD [facility] 06-17-2023 11:30-0400 Body temperature 97.7 [degF] JUNI JULIO MD [facility] 06-17-2023 11:10-0400 Blood Pressure Cuff Size JUNI JULIO MD [facility] 06-17-2023 11:10-0400 Blood Pressure Location JUNI JULIO MD [facility] 06-17-2023 11:10-0400 Blood Pressure Method JUNI JULIO MD [facility] 06-17-2023 11:10-0400 Body temperature 97.7 [degF] JUNI JULIO MD [facility] 06-17-2023 11:10-0400 Reason For Taking VItal Signs JUNI JULIO MD [facility] 06-17-2023 08:33-0400 Body height 165.1 cm JUNI JULIO MD [facility] 06-17-2023 08:33-0400 Body weight 16.69 kg/m2 JUNI JULIO MD [facility] 06-17-2023 08:33-0400 Body weight 45.5 kg JUNI JULIO MD [facility] 05-22-2023 02:46-0400 Body temperature 98.24 [degF] LENCHO KIMBROUGH MD [facility] 05-22-2023 02:46-0400 Diastolic Blood Pressure Non-Invasive 68 1 LENCHO KIMBROUGH MD [facility] 05-22-2023 02:46-0400 Heart rate 69 /min LENCHO KIMBROUGH MD [facility] 05-22-2023 02:46-0400 Respiratory rate 18 /min LENCHO KIMBROUGH MD [facility] 05-22-2023 02:46-0400 Systolic Blood Pressure Non-Invasive 134 1 LENCHO KIMBROUGH MD [facility] 05-22-2023 01:17-0400 Body height 167.6 cm LENCHO KIMBROUGH MD [facility] 05-22-2023 01:17-0400 Body temperature 97.7 [degF] LENCHO KIMBROUGH MD [facility] 05-22-2023 01:17-0400 Body weight 56.9 kg LENCHO KIMBROUGH MD [facility] 05-22-2023 01:17-0400 Diastolic Blood Pressure Non-Invasive 67 1 LENCHO KIMBROUGH MD [facility] 05-22-2023 01:17-0400 Heart rate 75 /min LENCHO KIMBROUGH MD [facility] 05-22-2023 01:17-0400 Respiratory rate 20 /min LENCHO KIMBROUGH MD [facility] 05-22-2023 01:17-0400 Systolic Blood Pressure Non-Invasive 125 1 LENCHO KIMBROUGH MD [facility] 04-17-2023 09:52-0400 Diastolic blood pressure 73 mm[Hg] Soraida Godoy DO Work Phone: [facility] 04-17-2023 09:52-0400 Heart rate 98 /min Soraida Godoy DO Work Phone: [facility] 04-17-2023 09:52-0400 Respiratory rate 18 /min Soraida Godoy DO Work Phone: [facility] 04-17-2023 09:52-0400 SaO2% (BldA) [Mass fraction] 99 % Soraida Godoy DO Work Phone: [facility] 04-17-2023 09:52-0400 Systolic blood pressure 127 mm[Hg] Soraida Godoy DO Work Phone: [facility] 04-17-2023 09:10-0400 Body temperature 98.71 [degF] Soraida Godoy DO Work Phone: [facility] 04-02-2023 10:11-0400 Body height 170.7 cm Soraida Godoy DO Work Phone: [facility] 04-02-2023 10:11-0400 Body weight 51.71 kg Soraida Godoy DO Work Phone: [facility] 04-02-2023 10:11-0400 Diastolic blood pressure 75 mm[Hg] Soraida Godoy DO Work Phone: [facility] 04-02-2023 10:11-0400 Heart rate 86 /min Soraida Godoy DO Work Phone: [facility] 04-02-2023 10:11-0400 Respiratory rate 19 /min Soraida Godoy DO Work Phone: [facility] 04-02-2023 10:11-0400 SaO2% (BldA) [Mass fraction] 98 % Soraida Godoy DO Work Phone: [facility] 04-02-2023 10:11-0400 Systolic blood pressure 124 mm[Hg] Soraida Godoy DO Work Phone: [facility] 11-12-2022 09:25-0400 Diastolic blood pressure 90 mm[Hg] Matilde Luis JOB TRAINER.MANAGER CONTINUOUS IMPROVEMENT Work Phone: [facility] 11-12-2022 09:25-0400 Heart rate 80 /min Matilde Luis JOB TRAINER.MANAGER CONTINUOUS IMPROVEMENT Work Phone: [facility] 11-12-2022 09:25-0400 Respiratory rate 16 /min Matilde Luis JOB TRAINER.MANAGER CONTINUOUS IMPROVEMENT Work Phone: [facility] 11-12-2022 09:25-0400 SaO2% (BldA) [Mass fraction] 95 % Matilde [place] JOB TRAINER.MANAGER CONTINUOUS IMPROVEMENT Work Phone: [facility] 11-12-2022 09:25-0400 Systolic blood pressure 143 mm[Hg] Matilde [place] JOB TRAINER.MANAGER CONTINUOUS IMPROVEMENT Work Phone: [facility] 08-14-2022 10:55-0500 Diastolic blood pressure 72 mm[Hg] Matilde [place] JOB TRAINER.MANAGER CONTINUOUS IMPROVEMENT Work Phone: [facility] 08-14-2022 10:55-0500 Heart rate 96 /min Matilde [place] JOB TRAINER.MANAGER CONTINUOUS IMPROVEMENT Work Phone: [facility] 08-14-2022 10:55-0500 SaO2% (BldA) [Mass fraction] 98 % Matilde Luis JOB TRAINER.MANAGER CONTINUOUS IMPROVEMENT Work Phone: [facility] 08-14-2022 10:55-0500 Systolic blood pressure 121 mm[Hg] Matilde Luis JOB TRAINER.MANAGER CONTINUOUS IMPROVEMENT Work Phone: [facility] 03-20-2022 09:38-0400 Diastolic blood pressure 97 mm[Hg] Matilde Luis JOB TRAINER.MANAGER CONTINUOUS IMPROVEMENT Work Phone: [facility] 03-20-2022 09:38-0400 Heart rate 78 /min Matilde [place] JOB TRAINER.MANAGER CONTINUOUS IMPROVEMENT Work Phone: [facility] 03-20-2022 09:38-0400 SaO2% (BldA) [Mass fraction] 96 % Matilde Luis JOB TRAINER.MANAGER CONTINUOUS IMPROVEMENT Work Phone: [facility] 03-20-2022 09:38-0400 Systolic blood pressure 136 mm[Hg] Matilde [place] JOB TRAINER.MANAGER CONTINUOUS IMPROVEMENT Work Phone: [facility] Encounters Encounter Date Encounter Type Care Provider Facility Start: 08-30-2023 End: 08-31-2023 ambulatory ERIN RODRIGUEZ JOB TRAINER-TRAFFIC SIGNAL MECHANIC Facility:B Start: 08-30-2023 End: 08-30-2023 Minor Procedure PEBBLES GALLAGHER MD [facility] Start: 07-15-2023 End: 07-16-2023 ambulatory ERIN RODRIGUEZ JOB TRAINER-TRAFFIC SIGNAL MECHANIC Facility:[facility] Start: 07-15-2023 End: 07-15-2023 Patient encounter procedure ERIN RODRIGUEZ JOB TRAINER-TRAFFIC SIGNAL MECHANIC [facility] Start: 07-01-2023 End: 07-01-2023 ambulatory SORAIDA GODOY Facility:[id number] Start: 07-01-2023 End: 07-01-2023 Patient encounter procedure Soraida Zhang Miguel Angel DO Work Phone: Pain Management Procedures Date Procedure Procedure Detail Performing Clinician Start: 04-17-2023 End: 04-17-2023 Arthrocentesis aspir&/inj major jt/bursa w/o us Soraida Zhang Miguel Angel DO Work Phone: Start: 04-02-2023 ETHANOL BIOMARKERS, MS, UR RFX Hugorobert Holcomb Miguel Angel DO Work Phone: Start: 04-02-2023 GABAPENTIN, MS, UR RFX Soraida Godoy DO Work Phone: Start: 04-02-2023 TOXASSURE FLEX 23, URINE Hugorobert Moran is DO Work Phone: Start: 08-14-2022 Radex hips bilateral with pelvis minimum 5 views Matilde Hayward APRN.MANAGER CONTINUOUS IMPROVEMENT Work Phone: Start: 10-28-2019 Esophagogastroduodenoscopy ERIN RODRIGUEZ JOB TRAINER-TRAFFIC SIGNAL MECHANIC Start: 11-17-2018 Entitic (property) (qualifier value) ERIN RODRIGUEZ JOB TRAINER-TRAFFIC SIGNAL MECHANIC Plan of Treatment Date Care Activity Detail Author Start: 04-15-2032 Urine microalbumin profile DTaP,Tdap,Td Vaccine (2 - Td or Tdap) [facility] Start: 07-01-2024 BP Controlled (<130/80) BP Controlled (<130/80) [facility] Start: 04-02-2024 BP CONTROLLED (<130/80) BP CONTROLLED (<130/80) [facility] Start: 08-14-2023 BP CONTROLLED (<130/80) BP CONTROLLED (<130/80) [facility] in Start: 07-01-2023 End: 09-30-2023 TOXASSURE FLEX 23, URINE TOXASSURE FLEX 23, URINE Lab Routine Chronic pain syndrome Osteoarthritis of both hips, unspecified osteoarthritis type Greater trochanteric bursitis of both hips Expected: 07/01/2023, Expires: 09/30/2023 [facility] Work Phone: Immunizations Immunization Date Immunization Notes Care Provider Jackie gallego 06-25-2023 influenza, high dose seasonal, preservative-free; Translations: [Fluad Quadrivalent PF ] ERIN RODRIGUEZ JOB TRAINER-[facility] 04-15-2022 influenza virus vaccine, unspecified formulation ERIN RODRIGUEZ JOB TRAINER-[facility] 04-15-2022 tetanus toxoid, reduced diphtheria toxoid, and acellular pertussis vaccine, adsorbed ERIN RODRIGUEZ JOB TRAINER-[facility] 01-31-2022 pneumococcal (PCV20) vaccine, 20 valent (PREVNAR 20) Matilde Hayward JOB TRAINER.MANAGER CONTINUOUS IMPROVEMENT Work Phone: [facility] 01-31-2022 pneumococcal 20-neo nt conjugate vaccine ERIN RODRIGUEZ JOB TRAINER-[facility] 10-01-2021 SARS-CoV-2 mRNA (tonjwqkpepn-uckn-roho ose) vaccine ERIN RODRIGUEZ JOB TRAINER-[facility] 08-07-2021 influenza virus vaccine, unspecified formulation ERIN RODRIGUEZ JOB TRAINER-[facility] 08-07-2021 influenza, injectabl e, quadrivalent, contains preservative Soraida Godoy Work Phone: [facility] 08-07-2021 influenza, injectabl e, quadrivalent, preservative free Matilde Hayward APRN.MANAGER CONTINUOUS IMPROVEMENT Work Phone: [facility] 02-09-2021 SARS-CoV-2 mRNA (tozinameran) vaccine ERIN RODRIGUEZ JOB TRAINER-[facility] Payers Date Payer Category Payer Medicare [id number] 2023 Unknown [id number] 2022 Medicaid [id number] 2022 Unknown [id number] 2022 Unknown [id number] 2022 Medicare [id number] 2021 Medicaid [id number] 28712.[facility] 2021 Medicaid [id number] 2014 Medicaid [place] [id number] 2014-[facility] [phone] [place] [id number] Medicaid [id number] 1957 Unknown [id number] 1957 Unknown [id number] 1957 Unknown [id number] 1957 Unknown [id number] 1957 Unknown [id number] 1957 Unknown [id number] 1957 Unknown [id number] Social History Date Type Detail Facility Start: 06-29-2020 Light tobacco smoker (finding) [facility] Sex Assigned At Female [facility] Start: 05-11-2015 End: 07-01-2023 Tobacco smoking status NHIS Smokes tobacco daily [facility] Work Phone: Start: 05-11-2015 End: 07-01-2023 Tobacco use and exposure Smokeless tobacco non-user [facility] Work Phone: Start: 09-19-2015 End: 04-02-2023 Alcohol intake Current drinker of alcohol (finding) [facility] Start: 1955 End: 1955 Sex Assigned At Not on file [facility] History of tobacco use Cigarette Smoker [facility] Work Phone: Start: 05-11-2015 End: 02-12-2023 Cigarettes smoked current (pack per day) - Reported 0.[address] [facility] Start: 03-20-2022 History SDOH Alcohol Comment on holidays [facility] Start: 03-10-2022 End: 03-20-2022 Exposure to SARS-CoV-2 (event) Not sure [facility] Start: 02-12-2023 End: 04-02-2023 Tobacco use panel [facility] National Score (1-100), lower number is lower risk [address] [facility] Start: 04-02-2023 Tobacco Comment Started age 16 yo Cl [facility] Start: 06-14-2023 Tobacco smoking status Heavy t obacco smoker (finding) [facility] Start: 07-01-2023 Alcohol intake Ex-drinker (finding) [facility] Start: 07-01-2023 Tobacco Comment Started age 16 yo, down to 2 cigs/day [facility] NEGATED: Highlighted row - - [facility] Work Phone: Functional Status Date Assessment Result Facility 08-30-2023 Functional Status NPO Status Maintained A [facility] 06-17-2023 Functional Status Awake [facility] 06-17-2023 Functional Status Room check performed [facility] 06-17-2023 Functional Status Hospital bed [facility] 06-17-2023 Functional Status Maintained [facility] [facility] Functional Status Assistive Device None A [facility] NEGATED: Highlighted row Functional performance Functional status health issues are not documented Disease [facility] Work Phone: Mental Status Date Assessment Result Facility 06-17-2023 Mental Status Oriented x 4 [facility] 06-17-2023 Mental Status [facility] 06-17-2023 Mental Status [facility] 06-17-2023 Mental Status [facility] 05-22-2023 Mental Status Orientation Orie nted x 4 [facility] NEGATED: Highlighted row Cognitive function [Interpretation] Cognitive status health issues are not documented Disease [facility] [employer] Work Phone: Clinical Notes 01-02-2021 to 07-15-2023 Note Date & Type Note Facility [facility] 10-30-2023 NoteHNO ID: [id number] Author: Soraida Godoy, DO Service: ? Author Type: Physician Type: Progress Notes Filed: 07/01/2023 9:06 AM Note Text: Summary: Pain management office follow-up visit DATE: July 01, 2023 Chief Complaint: Low back pain History of Present Illness: Sonam Casillas is a 68 year old female being seen at [facility] for a evaluation and/or management of their chronic pain. She states that since the last visit symptoms have been persistent. The patient was last seen on 04/02/23 and the plan of care was as follows: Continue norco 10325 one tab tid PRN. Last refill was on 01/13/2023. Discussed taking medication consistently. Patient states her boyfriend is supposed to track her medication refills. Wlll send in 1 week supply. Patient to call each week for refills in order to stay compliant in the office. Continue Flexeril 5 mg tablet TID prn - refills for 7 days. Patient to call for each refill weekly to stay compliant in office. Avoid NSAIDS due to GERD and gastric ulcers Encouraged to continue to reduce tobacco use Schedule bilateral trochanteric bursa injections UDS obtained Followup in 3 months with [facility] Pain level:10 Location: back, b/l hip pain Denies ED visits or hospitalizations since last office visit Reports pain worse with standing and walking short time, bending, weather changes Reports pain better with medications, TENS Describes pain in lower back as constant ache that is stabbing at times Radiates to bilateral hips Denies numbness/tingling Weakness: b/l legs with walking Denies falls. Uses walker. She denies any bowel or bladder dysfunction. She gets 3 hours of uninterrupted sleep at nights and wakes up feeling unrested in the mornings. She broke up with her boyfriend and is now living with her daughter Saw Dr. Julio on 06/17/23 for a vascular study. She is scheduled to go back on 07/04/23. Last injection: 04/17/23 B/L greater trochanteric hip bursa injection. Reports 50% improvement. She is interested in doing more injections. States she no longer drinks alcohol. Denies use of marijuana and CBD products Patient is hard of hearing with bilateral hearing aids 06/10/23: Vascular study results:1. RT: Severe AN stenosis. Short segment severe stenosis of the IIA. 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 Multifocal moderate and severe SFA stenoses including short segment distal occlusion. Popliteal artery severe stenosis and occlusion. 2 vessel runoff. 2. LT: Occluded AN and EIA. Multifocal moderate SFA stenoses including short segment occlusion distally. Moderate popliteal artery stenosis. Three-vessel runoff. 3. Ao: No AAA. 4. 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 NON-ARTERIAL: 1. No acute finding. 2. Age indeterminate mild compression deformity of L4. Last UDS: Ordered. Summary Report Date Value Ref Range Status 04/02/2023 FINAL Final Comment: Ethanol Biomarkers, MS, Ur RFX Gabapentin, MS, Ur RFX ToxAssure Flex 23, Ur Specimen Alert Note: Urinary creatinine is low; ability to detect some drugs may be compromised. Interpret results with caution. Test Result Flag Units Drug Present Ethyl Glucuronide 531253 ng/mg creat Ethyl Sulfate 56351 ng/mg creat EtG and EtS are metabolites of ethyl alcohol; EtG may be a fermentation product of glucose, but EtS is not known to be formed by fermentation. Incidental exposure to alcohol may result in detectable levels of EtG and/or EtS. EtG/EtS results should be interpreted in the context of all available clinical and behavioral information. Gabapentin PRESENT Test Result Flag Units Ref Range Creatinine 16 L mg/dL >=20 Declared Medications: Medication list was not provided. For clinical consultation, please call . Summary Report (Summary) Date Value Ref Range Status 03/20/2022 FINAL Final Comment: TOXASSURE COMP DRUG ANALYSIS,UR Specimen Alert Note: Urinary creatinine is low; ability to detect some drugs may be compromised. Interpret resu (more content not included)...[facility]10-30-2023 Instructions* Patient Instructions* Soraida Godoy DO - 07/01/2023 8:48 AM EDT Continue norco 10/325 one tab tid PRN. We were finally able to pull an OARRS report consistently. She will not be able to get a 30-day supply. Continue Flexeril 5 mg tablet TID prn - refills for 30 days. Patient to call for each refill weeklyto stay compliant in office. Avoid NSAIDS due to GERD and gastric ulcers Encouraged to continue to reduce tobacco use OARRS reviewed and consistent UDS obtained Followup in 3 months with or [facility] Patient scheduled to follow-up with Dr. Julio, vascular surgeon on July 04 for multiple vascular occlusions. Patient currently on Plavix. [facility] History of Present illness Narrative* Soraida Godoy DO - 07/01/2023 8:45 AM EDTSummary: Pain management office follow-up visit DATE: July 01, 2023 Chief Complaint: Low back pain History of Present Illness: Sonam Casillas is a 68 [facility]. She states that since the last visit symptoms have been persistent. The patient was last seen on 04/02/23 and the plan of care was as follows: Continue norco 10/325 one tab tid PRN. Last refill was on 01/13/2023. Discussed taking medication consistently. Patient states her boyfriend is supposed to track her medication refills. Wlll send in 1week supply. Patient to call each week for refills in order to stay compliant in the office. Continue Flexeril 5 mg tablet TID prn - refills for 7 days. Patient to call for each refill weekly to stay compliant in office. Avoid NSAIDS due to GERD and gastric ulcers Encouraged to continue to reduce tobacco use Schedule bilateral trochanteric bursa injections UDS obtained Followup in 3 months with [facility] Pain level:06/11 Location: back, b/l hip pain Denies ED visits or hospitalizations since last office visit Reports pain worse with standing and walking short time, bending, weather changes Reports pain better with medications, TENS Describes pain in lower back as constant ache that is stabbing at times Radiates to bilateral hips Denies numbness/tingling Weakness: b/l legs with walking Denies falls. Uses walker. She denies any bowel or bladder dysfunction. She gets 3 hours of uninterrupted sleep at nights and wakes up feeling unrested in the mornings. She broke up with her boyfriend and is now living with her daughter Saw Dr. Julio on 06/17/23 for a vascular study. She is scheduled to go back on 07/04/23. Last injection: 04/17/23 B/L greater trochanteric hip bursa injection. Reports 50% improvement. She is interested in doing more injections. States she no longer drinks alcohol. Denies use of marijuana and CBD products Patient is hard of hearing with bilateral hearing aids 06/10/23: Vascular study results:1. RT: Severe AN stenosis. Short segment severe stenosis of the IIA. 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 Multifocal moderate and severe SFA stenoses including short segment distal occlusion. Popliteal artery severe stenosis and occlusion. 2 vessel runoff. 2. LT: Occluded AN and EIA. Multifocal moderate SFA stenoses including short segment occlusion distally. Moderate popliteal artery stenosis. Three-vessel runoff. 3. Ao: No AAA. 4. 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 NON-ARTERIAL: 1. No acute finding. 2. Age indeterminate mild compression deformity of L4. Last UDS: Ordered. Summary Report Date Value Ref Range Status 04/02/2023 FINAL Final Comment: Ethanol Biomarkers, MS, Ur RFX Gabapentin, MS, Ur RFX ToxAssure Flex 23, Ur Specimen Alert Note: Urinary creatinine is low; ability to detect some drugs may be compromised. Interpret results with caution. Test Result Flag Units Drug Present Ethyl Glucuronide 389793 ng/mg creat Ethyl Sulfate 73686 ng/mg creat EtG and EtS are metabolites of ethyl alcohol; EtG may be a fermentation product of glucose, but EtS is not known to be formed by fermentation. Incidental exposure to alcohol may result in detectable levels of EtG and/or EtS. EtG/EtS results should be interpreted in the context of all available clinical and behavioral information. Gabapentin PRESENT Test Result Flag Units Ref Range Creatinine 16 L mg/dL >=20 Declared Medications: Medication list was not provided. For clinical consultation, please call . Summary Report (Summary) Date Value Ref Range Status 03/20/2022 FINAL Final Comment: TOXASSURE COMP DRUG ANALYSIS,UR Specimen Alert Note: Urinary creatinine is low; ability to detect some drugs may be compromised. Interpret results with caution. Test Result Flag Units Drug Present Gabapentin PRESENT Acetaminophen PRESENT Test Result Flag Units Ref Range Creatinine 11 L mg/dL >=20 Declared Medications: Medication list was not provided. For clinical consultation, please call . Chronic Pain Functional Assessment Tools Pain Disability Index: Pain Disability Index 07/01/2023 Family/Home Responsibilities 7 Recreation 7 Social Activity 7 Occupation 7 Sexual Behavior 7 Self Care 7 Life Support Activity 7 PDI Score 49 Pain Enjoyment of Life and General Activity Scale (0-10): PEG: A Three-Item Scale Assessing Pain Intensity and Interference What number best describes your pain on average in the past week?: 9 (07/01/2023 8:00 AM) What number best describes how, during the past week, pain has interfered with your enjoyment of life?: 7 (07/01/2023 8:00 AM) What number best describes how, during the past week, pain has interfered with your general activity?: 7 (07/01/2023 8:00 AM) REVIEW OF SYSTEMS: GENERAL: No weight loss, malaise or fevers RESPIRATORY: Negative for cough, hemoptysis, wheezing, COPD, dyspnea or shortness of breath. CARDIOVASCULAR: Negative for chest pain, leg swelling, hypertension, CHF or palpitations GI: No nausea, vomiting, or diarrhea. MUSCULOSKELETAL: Back and B/L hip pain PAST MEDICAL HISTORY Diagnosis Date Alcoholism (HCC) Arthritis Asthma Back pain Cigarette smoker COPD (chronic obstructive pulmonary disease) (HCC) Genital herpes Hearing loss bilateral hearing aides Hypertension Osteoporosis PAST SURGICAL HISTORY Procedure Laterality Date HYSTERECTOMY HX 1991 PAST SURGICAL HISTORY OF amputation tip of right little finger due to abscess, Dr. Zina Matias PAST SURGICAL HISTORY OF arthroscopy twice right shoulder PAST SURGICAL HISTORY OF two surgeries on right ear for hearing FAMILY HISTORY Problem Relation Age of Onset Cancer Mother Coronary Artery Disease Father Diabetes Daughter Diabetes Daughter Cancer Daughter cervical Diabetes Grandchild Stroke Sister Alcohol/Drug Daughter Social History Tobacco Use Smoking status: Every Day Packs/day: .25 Types: Cigarettes Smokeless tobacco: Never Tobacco comments: Started age 16 yo, down to 2 cigs/day Substance Use Topics Alcohol use: Not Currently Drug use: No Work Status: Disabled Allergies: Ibuprofen Unknown Naproxen Unknown Tramadol-Acetaminop* GI Upset Current Outpatient Medications Medication Sig clopidogrel (PLAVIX) 75 mg tablet Take 1 tablet by mouth every afternoon. HYDROcodone-Acetaminophen (NORCO) 10-325 mg per tablet Take 1 tablet by mouth three times a day as needed for pain for up to 7 days. doxycycline hyclate (VIBRAMYCIN) 100 mg capsule take 1 capsule by mouth twice a day for 10 days fluconazole (DIFLUCAN) 150 mg tablet TAKE 1 NOW AND TAKE SECOND DOSE IN 3 DAYS predniSONE (DELTASONE) 20 mg tablet Take 2 tablets by mouth once daily. traZODone (DESYREL) 50 mg tablet Take 50 mg by mouth daily at bedtime. gabapentin (NEURONTIN) 300 mg capsule oxybutynin ER (DITROPAN XL) 10 mg 24 hr tablet atorvastatin (LIPITOR) 10 mg tablet cetirizine (ZYRTEC) 10 mg tablet DULoxetine (CYMBALTA) 30 mg capsule Take 30 mg by mouth once daily. fluticasone-salmeterol (ADVAIR, WIXELA) 250-50 mcg/dose inhaler Inhale as instructed. Melatonin 5 mg cap oxybutynin XL (DITROPAN XL) 5 mg 24 hr tablet Take 5 mg by mouth once daily. pantoprazole DR (PROTONIX) 40 mg tablet TAKE 1 TABLET BY MOUTH EVERY DAY BEFORE MEAL alendronate (FOSAMAX) 70 mg tablet Take 1 tablet by mouth once each week. Take with a full glass ofwater, on an empty stomach; do NOT lie down for 30minutes. albuterol HFA (PROAIR HFA) 90 mcg/actuation inhaler Inhale 2 Puffs as instructed every 6 hours as needed. cyclobenzaprine (FLEXERIL) 5 mg tablet Take 1 tablet by mouth three times daily as needed for up to7 days. No current facility-administered medications for this visit. PHYSICAL EXAMINATION: Vitals: BP 101/69 Pulse 118 Resp 19 Ht 5' 8.4 (1.74m) Wt 107 lb (48.5kg) SpO2 98% BMI 16.09 kg/(m^2). GENERAL: General appearance: Well appearing, in no acute distress, alert. Patient is hard of hearing with bilateral hearing aids noted. Psych: Mood and affect appropriate. Skin: Skin color, texture, turgor normal, no rashes or lesions. Pulm: no conversational shortness of breath Musculoskeletal: Deferred toe and heel raise and knee bend. Lumbar major range of motion mildly restricted in all planes. Positive straight leg raise from seated position bilaterally.Positive Tim sign bilaterally Positive lumbar facet loading bilaterally. No muscle spasms or trigger points appreciated in the paraspinal or gluteal muscles. Positive tenderness with palpation with both hips bilateral hip range of motion with tenderness with all motion. 4/5 bilateral muscle strength lower extremities. ASSESSMENT: Chronic pain syndrome (primary encounter diagnosis) Osteoarthritis of both hips, unspecified osteoarthritis type Greater trochanteric bursitis of both hips Lumbar spondylosis Spinal stenosis, lumbar region with neurogenic claudication High risk medication use Ddd (degenerative disc disease), lumbar Spinal stenosis, lumbar region without neurogenic claudication Lumbar radiculopathy Myofascial pain syndrome Pain in right hip Patient is stable. Chronic pain is persistent. Medications are helping Sonam Casillas to have an improved quality of life. Patient compliance with Opioid Contract: patient is compliant PDMP website checked and validated. OARRS report reviewed on July 01, 2023 by Soraida Godoy DO and is consistent with the patients medical history and medication intake. PLAN: The patient understands the goal of our treatment is a reduction in pain and/or an improved level of functioning with activities of daily living. If at any time the patient does not feel the medications are helping them to achieve these goals, the medications may be discontinued. The patient reports a reduction in pain and/or an improved level of functioning with activities of daily living, denies any significant adverse effects, is compliant with the pain management agreement and there are no signs of medication misuse, abuse or diversion; therefore, the medications will be continued. Scribed for Soraida Godoy DO, by Roberta Rincon, medical scientific liaison, July 01, 2023. documented [facility] Miscellaneous Notes* Telephone Encounter - Soraida Godoy DO - 06/26/2023 9:13 PM EDT The following approved medication requests have been transmitted electronically. Requested Prescriptions Pending Prescriptions Disp Refills HYDROcodone-Acetaminophen (NORCO) 10-325 mg per tablet 21 tablet 0 Sig: Take 1 tablet by mouth three times a day as needed for pain for up to 7 days. Soraida Godoy DO * Telephone Encounter - Denise Farmer RN - 06/24/2023 10:15 AM EDT Patient phones requesting refills as follows: Requested Prescriptions Pending Prescriptions Disp Refills HYDROcodone-Acetaminophen (NORCO) 10-325 mg per tablet 21 tablet 0 Sig: Take 1 tablet by mouth three times a day as needed for pain for up to 7 days. Last UDS: No specialty comments available. Summary Report Date Value Ref Range Status 04/02/2023 FINAL Final Comment: Ethanol Biomarkers, MS, Ur RFX Gabapentin, MS, Ur RFX ToxAssure Flex 23, Ur Specimen Alert Note: Urinary creatinine is low; ability to detect some drugs may be compromised. Interpret results with caution. Test Result Flag Units Drug Present Ethyl Glucuronide 593304 ng/mg creat Ethyl Sulfate 61816 ng/mg creat EtG and EtS are metabolites of ethyl alcohol; EtG may be a fermentation product of glucose, but EtS is not known to be formed by fermentation. Incidental exposure to alcohol may result in detectable levels of EtG and/or EtS. EtG/EtS results should be interpreted in the context of all available clinical and behavioral information. Gabapentin PRESENT Test Result Flag Units Ref Range Creatinine 16 L mg/dL >=20 Declared Medications: Medication list was not provided. For clinical consultation, please call . @FLOW([id number])@ Lab Results Component Value Date SUMM FINAL 04/02/2023 Summary Report (Summary) Date Value Ref Range Status 03/20/2022 FINAL Final Comment: TOXASSURE COMP DRUG ANALYSIS,UR Specimen Alert Note: Urinary creatinine is low; ability to detect some drugs may be compromised. Interpret results with caution. Test Result Flag Units Drug Present Gabapentin PRESENT Acetaminophen PRESENT Test Result Flag Units Ref Range Creatinine 11 L mg/dL >=20 Declared Medications: Medication list was not provided. For clinical consultation, please call . Please review and advise. Denise Farmer RN documented in this [facility]23 Summary of episode note Discharge Instructions Thank you for allowing [facility] to assist you with your healthcare needs. The following is importantdischarge information regarding your hospital visit. Your Care Team ERIN RODRIGUEZ What to do next Scheduled Follow-Up Appointments Appointment Type When With Where Contact InformationGI OV Consult 06/19/2023 10:00 AM EDT [address] [id number] PC OV 08/01/2023 11:00 AM EST ERIN RODRIGUEZ [address] [id number] Follow Up Appointments Follow Up with JUNI JULIO MD, [facility], Surgery, Vascular Surgeons When Within 1-2 days Why: Follow-up as scheduled Where: [address] [place] [address] [address] [facility] [place] [address] [id number] The Following Activity and Diet Have Been Ordered for You Discharge Activity - Ordered -- Lifting Restricted less than 10 pounds May Shower No bending, twisting, crawling or squatt Sexual [place] Restricted, No driving x 2 days, 06/17/23 12:21:00 EDT Discharge Diet - Ordered -- No changes were made to your diet during your hospital stay. Please resume your pre hospitalization diet on discharge., 06/17/23 12:21:00 EDT The Following Equipment Has Been Ordered for You Discharge Home Equipment Discharge Wound Care - Ordered -- Dressing Type: Bioclusive drsg, Leave dressing on for 48hours. Then keep site clean and dry. Report any drainage, reddness, swelling to Dr. Devon fox, 06/17/23 12:21:00 EDT Allergies acetaminophen-tramadol (UPSET STOMACHE) ibuprofen naproxen Medications Please ask your primary doctor or pharmacist before taking any other medication not listed, including over the counter drugs, herbal medications, vitamins and or supplements as they may interact withyour home medications. What How Much When Why Instructions Last Dose Unchanged acetaminophen (acetaminophen 500 mg oral tablet) 2 tab(s) by mouth Three (3) times a day as needed for as needed for pain Unchanged albuterol (ProAir HFA MDI (90 mcg/ inh) inhalation aerosol) 2 puff(s) by inhalation Every 4 hours as needed for Shortness of breath (SOB) Unchanged atorvastatin (atorvastatin 10 mg oral tablet) 1 tab(s) by mouth Every day Unchanged cetirizine (cetirizine 10 mg oral tablet) 1 tab(s) by mouth Once a day Unchanged clopidogrel (Plavix 75 mg oral tablet) 1 tab(s) by mouth Once a day (in the morning) Duration: 30 Days Unchanged cyclobenzaprine (cyclobenzaprine 10 mg oral tablet) 1 tab(s) by mouth Three (3) times a day as needed for for muscle spasm Unchanged DULoxetine (DULoxetine 30 mg oral delayed release capsule) 1 cap by mouth Once a day Unchanged DULoxetine (DULoxetine 30 mg oral delayed release capsule) 1 cap by mouth Once a day Polyneuropathy Unchanged traZODone (traZODone 50 mg oral tablet) 1 tab(s) by mouth Daily at bedtime Please take this list to your next doctor s visit. Bring all medications you take, including over the counter medications, herbals and other supplements with you to your doctor s visit. Patients and families are reminded to discard old lists and to update any records with all medication providers or retail pharmacies. Education Materials PERIPHERAL ANGIOPLASTY/STENTING Discharge Instructions This information has been developed to provide you with written guidelines to supplement the verbalinstructions your doctor has reviewed with you. It is very important that you follow any additionalinstructions your doctor has provided. Home instructions: An adult must stay with you overnight. Relax for 24 hours, keeping legs elevated. Drink plenty of fluids to flush out your kidneys. Resume your regular diet. Keep a bandage on the insertion site for 48 hours. Avoid strenuous exercise of lifting anything over 10 pounds for at least 2 days. No Bending, twisting, crawling, squatting on intercourse for 2 days. Do not take a bath or shower for at least [address] for 2 days Discomfort, swelling and bruising are expected at the incision site. Watch the groin area where thecatheter was inserted for such things as, but not limited to: redness, swelling, pus or red streaksrunning down the leg. If any concerns, notify our office at . If bleeding is noted through the bandage: Lie flat and apply pressure for 10 to 15 minutes. If the bleeding does not stop, or if your foot feels numb, cold or turns blue, go to the Emergency Department immediately. If you do not have an arranged appointment, please call the office upon discharge at and make an appointment to see the doctor in 2 weeks. If you have concern after regular office hours, you can reach the doctor by calling . Follow all instructions given to you by your doctor Moderate Conscious Sedation, Adult, Care After These instructions provide you with information about caring for yourself after your procedure. Your health care provider may also give you more specific instructions. Your treatment has been plannedaccording to current medical practices, but problems sometimes occur. Call your health care provider if you have any problems or questions after your procedure. What can I expect after the procedure? After your procedure, it is common: To feel sleepy for several hours. To feel clumsy and have poor balance for several hours. To have poor judgment for several hours. To vomit if you eat too soon. Follow these instructions at home: For at least 24 hours after the procedure: Do not: ? Participate in activities where you could fall or become injured. ? Drive. ? Use heavy machinery. ? Drink alcohol. ? Take sleeping pills or medicines that cause drowsiness. ? Make important decisions or sign legal documents. ? Take care of children on your own. Rest. Eating and drinking Follow the diet recommended by your health care provider. If you vomit: ? Drink water, juice, or soup when you can drink without vomiting. ? Make sure you have little or no nausea before eating solid foods. General instructions Have a responsible adult stay with you until you are awake and alert. Take yphm-hsg-qialqyf and prescription medicines only as told by your health care provider. If you smoke, do not smoke without supervision. Keep all follow-up visits as told by your health care provider. This is important. Contact a health care provider if: You keep feeling nauseous or you keep vomiting. You feel light-headed. You develop a rash. You have a fever. Get help right away if: You have trouble breathing. This information is not intended to replace advice given to you by your health care provider. Make sure you discuss any questions you have with your health care provider. Document Released: 06/09/2014 Document Revised: 08/01/2018 Document Reviewed: 12/08/2016 ElseFormatta Patient Education 2020 [employer] Additional Information VACCINATE! IT SAVES LIVES! Members of the community who have not yet received the COVID-19 vaccine and would like to receive it can visit one of [facility] vaccine clinics. There are many vaccine clinic locations within the [facility]. For locations and available times, please visit [email or web address]/. It is important to note that some COVID mobile vaccine clinics are held outdoors and may be canceled in rainy or stormy conditions. To learn more about pediatric vaccinations (ages 5-11), we invite you to visit the [facility] webpage. [email or web address].[email or web address].org/pages/[email or web address]-[email or web address]-[email or web address] [email or web address].htmlTo learn more about the COVID-19 vaccine, we invite you to visit the CDC website for a list of frequently asked questions.https://www.cdc.gov/coronavirus/2019-ncov/vaccines/faq.html [facility] Patient Portal Access Instructions: Stay connected with your healthcare team and access your personal medical information anytime with the [facility] Patient Portal. Please follow the directions below to create your [facility] account: 1.Access the email account you provided upon registration to the hospital/physician office.2.Look for an invitation email from [facility].3.Open the email and access the invitation link: AcceptInvitation to [facility].4.Fill in the required ferreira to create your account. To access your account, visit [email or web address]. Click the blue button labeled Access Patient Portal and then log in with the username and password that you created in the steps above. You will be able to view your test results, lab results, a summary of your visits, upcoming appointments and more. There is also a convenient messaging option where you can send secure messages to your p rovider. In addition, you will have the ability to download any documents or summaries to your computer and/or send the information securely to a physician. Remember that your healthcare information is confidential, so carefully consider who you will allowto register on the [facility] [facility] Patient Portal for access to your information. You can also access the [facility] Patient Portal on the [place] [facility] ob[facility]ulio. Simply click on Patient Portal and then log into your account. If you would like to receive a full copy of your medical records, please contact the [facility] Medical Records Department by calling [phone], Saturday through Saturday between 8 a.m. and 4:30 p.m. HOW TO SAFELY DISPOSE OF PRESCRIPTION MEDICATIONS Please use one of the following methods to safely dispose of your unused medications. 1.Use a drug disposal kit: the drug disposal pouch allows you to safely discard your old and unuseddrugs. Ask your nurse to give you one when you are discharged.2.Visit a local take-back location: Many local pharmacies and police departments have programs that collect old and unwanted prescriptiondrugs. Call your local pharmacy or go to http://Bl[employer] Systems.BeehiveID/0F2Yy2b to find one close to you.3.Make use of household items: Use cat litter or old coffee grounds to dispose medications if other options arenot available. Mix your drugs with these household products, seal them in an airtight container andthrow it into the garbage. Call [facility]: [phone] to be sure your drugs can be disposed of in this way. Some medicines may require a different approach.4.Never flush your medications down the toilet. IF YOU HAVE BEEN PRESCRIBED AN OPIOID FOR PAIN If you have been prescribed an opioid (such as hydrocodone, oxycodone or morphine), it is critical to understand the possible side effects and risks of opioid pain medications. Even when taken as directed, opioids can have several side effects including: Tolerance, meaning you might need to take more of a medication for the same pain relief. Nausea, vomiting and/or constipation. Sleepiness, dizziness, dry mouth, confusion, depression or itching. Physical dependence, meaning you have withdrawal symptoms when a medication is stopped, can develop within a few days. KNOW YOUR RESPONSIBILITIES It is important to know exactly how much and how often to take the opioid pain medications you are prescribed. Never take opioids in higher amounts or more often than prescribed. Do not combine opioids with alcohol or other drugs that cause drowsiness, such as benzodiazepines, also known as benzos, including diazepam and alprazolam, muscle relaxants or sleep aids. Never sell or share prescription opioids. This is illegal. Store opioids in a secure place and out of reach of others (including children, family, friends and visitors). The last page of this document has been signed and retained as a CHART COPY. Signatures Patient Education Materials 3- Peripheral angioplasty//stent 10/2019 (CUSTOM) Moderate Conscious Sedation, Adult, Care After Medication Leaflets My discharge plan and instructions have been reviewed and explained to me and I,SONAM CASILLAS understand my current condition and have read and understand these discharge instructions. I have received a written copy of the plan/instructions. If I have questions, I am aware that I should contact my doctor. Patient/Director Dietetics Department Signature: Date/Time: Relationship to Patient: Witness Name/Signature: Date/Time: [id number] Discharge instructions Patient Education 06/17/2023 12:35:16 3- Peripheral angioplasty//stent 10/2019 (CUSTOM) PERIPHERAL ANGIOPLASTY/STENTING Discharge Instructions This information has been developed to provide you with written guidelines to supplement the verbalinstructions your doctor has reviewed with you. It is very important that you follow any additionalinstructions your doctor has provided. Home instructions: An adult must stay with you overnight. Relax for 24 hours, keeping legs elevated. Drink plenty of fluids to flush out your kidneys. Resume your regular diet. Keep a bandage on the insertion site for 48 hours. Avoid strenuous exercise of lifting anything over 10 pounds for at least 2 days. No Bending, twisting, crawling, squatting on intercourse for 2 days. Do not take a bath or shower for at least [address] for 2 days Discomfort, swelling and bruising are expected at the incision site. Watch the groin area where thecatheter was inserted for such things as, but not limited to: redness, swelling, pus or red streaksrunning down the leg. If any concerns, notify our office at . If bleeding is noted through the bandage: Lie flat and apply pressure for 10 to 15 minutes. If the bleeding does not stop, or if your foot feels numb, cold or turns blue, go to the Emergency Department immediately. If you do not have an arranged appointment, please call the office upon discharge at and make an appointment to see the doctor in 2 weeks. If you have concern after regular office hours, you can reach the doctor by calling . Follow all instructions given to you by your doctor 06/17/2023 12:34:26 Moderate Conscious Sedation, Adult, Care After Moderate Conscious Sedation, Adult, Care After These instructions provide you with information about caring for yourself after your procedure. Your health care provider may also give you more specific instructions. Your treatment has been plannedaccording to current medical practices, but problems sometimes occur. Call your health care provider if you have any problems or questions after your procedure. What can I expect after the procedure? After your procedure, it is common: To feel sleepy for several hours. To feel clumsy and have poor balance for several hours. To have poor judgment for several hours. To vomit if you eat too soon. Follow these instructions at home: For at least 24 hours after the procedure: Do not: ?Participate in activities where you could fall or become injured. ?Drive. ?Use heavy machinery. ?Drink alcohol. ?Take sleeping pills or medicines that cause drowsiness. ?Make important decisions or sign legal documents. ?Take care of children on your own. Rest. Eating and drinking Follow the diet recommended by your health care provider. If you vomit: ?Drink water, juice, or soup when you can drink without vomiting. ?Make sure you have little or no nausea before eating solid foods. General instructions Have a responsible adult stay with you until you are awake and alert. Take ylkq-fuq-wwmirej and prescription medicines only as told by your health care provider. If you smoke, do not smoke without supervision. Keep all follow-up visits as told by your health care provider. This is important. Contact a health care provider if: You keep feeling nauseous or you keep vomiting. You feel light-headed. You develop a rash. You have a fever. Get help right away if: You have trouble breathing. This information is not intended to replace advice given to you by your health care provider. Make sure you discuss any questions you have with your health care provider. Document Released: 06/09/2014 Document Revised: 08/01/2018 Document Reviewed: 12/08/2016 [employer] By Search Patient Education [email or web address] Follow Up Care 06/11/2023 12:30:21 With:JUNI JULIO MD, [facility], Surgery, Vascular Surgeons Address: [address] [place] [address] [place] [address] [id number] When:1-2 days Comments:Follow-up as scheduled [facility] 10-16-2023 Note ORIGINAL Images acquired, not reported on this accession number.[facility] 06-17-2023 Anesthesiology Consult note Patient: SONAM CASILLAS Age: 68 years Sex: Female : 1955 Associated Diagnoses: None Author: KILEY ARTHUR DO Preoperative Information Greater than 6 hours Anesthesia history Patient's history: negative. Family's history: negative. Review of Systems Ear/Nose/Mouth/Throat: Negative except as documented in history of present illness. Respiratory: Negative except as documented in history of present illness, Smoker. Cardiovascular: Negative except as documented in history of present illness, Severe PVD for Angio/intervention. Gastrointestinal: Negative except as documented in history of present illness. Genitourinary: Negative except as documented in history of present illness. Endocrine: Negative except as documented in history of present illness. Musculoskeletal: Negative except as documented in history of present illness. Integumentary: Negative except as documented in history of present illness. Neurologic: Negative except as documented in history of present illness. Health Status Allergies: Allergic Reactions (Selected) Severity Not Documented Acetaminophen-tramadol- Upset stomache. Ibuprofen- No reactions were documented. Nonallergic Reactions (Selected) Severity Not Documented Naproxen- No reactions were documented., Allergies (3) ActiveReaction acetaminophen-tramadolUPSET STOMACHE ibuprofenNone Documented naproxenNone Documented Current medications: (Selected) Inpatient Medications Ordered NS 1,000 mL: 20 mL/hr, Intravenous Prescriptions Prescribed DULoxetine 30 mg oral delayed release capsule: 30 mg, 1 cap(s), Oral, qDay, 90 cap(s), 3 Refill(s) Plavix 75 mg oral tablet: 75 mg, 1 tab(s), Oral, qAM, for 30 day(s), 30 tab(s), 2 Refill(s) ProAir HFA MDI (90 mcg/inh) inhalation aerosol: 2 puff(s), Inhalation, q4h, PRN: Shortness of breath (SOB), 3 EA, 3 Refill(s) Documented Medications Documented DULoxetine 30 mg oral delayed release capsule: 30 mg, 1 cap(s), Oral, qDay, 0 Refill(s) acetaminophen 500 mg oral tablet: 1,000 mg, 2 tab(s), Oral, TID, PRN: as needed for pain, 0 Refill(s) atorvastatin 10 mg oral tablet: 10 mg, 1 tab(s), Oral, Daily, 100 tab(s), 0 Refill(s) cetirizine 10 mg oral tablet: 10 mg, 1 tab(s), Oral, qDay, 30 tab(s), 0 Refill(s) cyclobenzaprine 10 mg oral tablet: 10 mg, 1 tab(s), Oral, TID, PRN: for muscle spasm, 0 Refill(s) traZODone 50 mg oral tablet: 50 mg, 1 tab(s), Oral, qHS, 30 tab(s), 0 Refill(s), Medications (1) Active Scheduled: (0) Continuous: (1) NS (0.9% nacl) 1,000 mL 1,000 mL, Intravenous, 20 mL/hr PRN: (0) Problem list: Medical Alcoholism / SNOMED CT 87094942 / Confirmed Arthritis / SNOMED CT [id number] / Confirmed Bronchitis / SNOMED CT [id number] / Confirmed Chronic back pain / SNOMED CT [id number] / Confirmed Antral gastritis / SNOMED CT 7006095 / Confirmed Hard of hearing / SNOMED CT 532677764 / Confirmed Hyperlipidemia / SNOMED CT [id number] / Confirmed Hypertension / SNOMED CT [id number] / Confirmed Insomnia / SNOMED CT 181225964 / Confirmed Moderate COPD (chronic obstructive pulmonary disease) / SNOMED CT 038707061 / Confirmed Osteoporosis / SNOMED CT 021348551 / Confirmed Overactive bladder / SNOMED CT 5036719911 / Confirmed Screening mammogram, encounter for / SNOMED CT 884398766 / Confirmed Screening for colon cancer / SNOMED CT 998543083 / Confirmed Polyneuropathy / SNOMED CT 04927523 / Confirmed Tobacco use / SNOMED CT 3767235556 / Confirmed, Active Problems (23) Alcoholism Antral gastritis Arthritis Asthma Bronchitis Chronic back pain Colon polyps GERD (gastroesophageal reflux disease) Hard of hearing Hearing aid Hyperlipidemia Hypertension Insomnia Moderate COPD (chronic obstructive pulmonary disease) On anticoagulant therapy Osteoporosis Overactive bladder Polyneuropathy Screening for colon cancer Screening mammogram, encounter for Seasonal allergy Stricture of artery Tobacco use Histories Past Medical History: Active Bronchitis ([id number]) Arthritis ([id number]) Hyperlipidemia ([id number]) Hypertension ([id number]) Chronic back pain ([id number]) Alcoholism (41375962) Family History: Diabetes mellitus Daughter Heart disease Father Arthritis Father Comments: 03/30/2019 6:53 Parul Chamberlain LPN Rheumatoid Hyperchloremia Daughter Malignant tumor of lung Mother [place] - Myocardial infarction Father HTN - Hypertension Daughter Procedure history: Esophagogastroduodenoscopy ([id number]) on 10/28/2019 at 64 Years. ENT, ear surgery ([id number]) on 11/17/2018 at 63 Years. Comments: 03/30/2019 7:54 Chandni Walker LPN surgery to replace metal tube Mammogram ([id number]) on 04/09/2018 at 63 Years. Colonoscopy ([id number]) on 06/18/2016 at 61 Years. Comments: 07/19/2020 15:33 Parul Razo LPN Diverticular disease, polyectomy-repeat 3 yrs. [facility] Arthroscopy knee (49293841) in 2001 at 46 Years. Comments: 03/30/2019 7:56 Chandni Walker LPN right knee Rotator cuff repair (29046813) in 1999 at 44 Years. Resection of large bowel (320663858) in 1997 at 42 Years. Myringoplasty (5727992304) in 1987 at 32 Years. Hysterectomy (633171433). Hearing aid (17981432). Comments: 10/28/2019 7:37 SONYA MCLEAN RN bilateral Social History Social & Psychosocial Habits Alcohol 06/17/2023 Use: Current Type: Beer Frequency: Daily Average drinks per episode in last year: 2 Maximum drinks per episode in last year: 6 Previous treatment: None Comment: 2-3 big boy beers - 05/18/2019 03:32 - JOSUÉ Zazueta; Just got done drinking a beer but I'm done - 01/06/2020 10:11 - Parul Estrella LPN; States I drink a beer once in awhile but ntall the time - 04/26/2022 11:02 - Parul Estrella LPN; States has cut down, one can. - 05/23/2023 11:18 - Parul Estrella CHASITY Substance Abuse 06/17/2023 Use: Denies Tobacco 06/17/2023 Tobacco Use: 10 or more cigarettes (1/ Type: Cigarettes Started at age: 16 Years Home/Environment 06/17/2023 Domestic Concerns None Living situation: Home/Independent Current Home Treatments None Special Services and Community Resources None Other risks in environment: daily smoke exposure Nutrition/Health 06/17/2023 Type of diet: Regular Appetite Good Eating Difficulties No teeth, gums it Caffeine intake amount: One coffee daily . Physical Examination Vital Signs(last 24 hrs) Last Charted Temp Oral37.1 DegC (JUN 17 08:) Resp Rate 16 br/min (JUN 17:) ZAE051 mmHg (JUN 17:) DBP72 mmHg (JUN 17:) BMI16.69 (JUN 17:) General: Alert and oriented. Airway: Normal temporomandibular joint mobility, Normal mouth, Normal throat, Normal neck range of motion, Trachea midline. Mallampati classification: II (soft palate, fauces, uvula visible). Head: Normocephalic. Dentition Evaluation: Dentures, lower, Dentures, upper. Neck: Supple. Respiratory: Lungs are clear to auscultation. Cardiovascular: Normal rate. Heart Sounds: Normal. Gastrointestinal: Soft. Musculoskeletal Normal range of motion. Integumentary: Intact, Warm, Dry, Axis. Neurologic: Alert, Oriented. Review / Management Results review: Labs (Last four charted values) WBC 4.9(JUN 17) Hgb 15.0(JUN 17) Hct 44.0(JUN 17) Plt 237(JUN 17) Na L 133(JUN 17) K 3.8(JUN 17) CO2 28(JUN 17) Cl 100(JUN 17) Cr 0.50(JUN 17) BUN L <5.0(JUN 17) Glucose 99(JUN 17) Ca 9.2(JUN 17) . Assessment and Plan [place] [employer] Anesthesiologists (ASA) physical status classification: Class IV. Anesthetic Preoperative Plan Premedication: None. Anesthetic technique: General, MAC. Induction: intravenously. Maintenance airway: Mask. Special techniques: Warming device, no Extracorporeal. Special Monitoring. Postoperative pain management: Per surgeon. Risks discussed: nausea, vomiting, headache, sore throat, dental injury, hypotension, allergic reaction, serious complications. Informed consent: signed by patient. Beta Jay: Beta Jay Taken Within 24 Hrs: Yes. Digitally Signed by KILEY ARTHUR DO on 06/17/2023 10:14 AM [id number] Miscellaneous Notes* Telephone Encounter - Soraida Godoy DO - 06/13/2023 5:41 PM EDT The following approved medication requests have been transmitted electronically. Requested Prescriptions Pending Prescriptions Disp Refills HYDROcodone-Acetaminophen (NORCO) 10-325 mg per tablet 21 tablet 0 Sig: Take 1 tablet by mouth three times a day as needed for pain for up to 7 days. Soraida Godoy DO * Telephone Encounter - Elizabeth Mena RN - 06/13/2023 8:51 AM EDT Patient phones requesting refills as follows: Requested Prescriptions Pending Prescriptions Disp Refills HYDROcodone-Acetaminophen (NORCO) 10-325 mg per tablet 21 tablet 0 Sig: Take 1 tablet by mouth three times a day as needed for pain for up to 7 days. Last UDS: Summary Report Date Value Ref Range Status 04/02/2023 FINAL Final Comment: Ethanol Biomarkers, MS, Ur RFX Gabapentin, MS, Ur RFX ToxAssure Flex 23, Ur Specimen Alert Note: Urinary creatinine is low; ability to detect some drugs may be compromised. Interpret results with caution. Test Result Flag Units Drug Present Ethyl Glucuronide 782000 ng/mg creat Ethyl Sulfate 23183 ng/mg creat EtG and EtS are metabolites of ethyl alcohol; EtG may be a fermentation product of glucose, but EtS is not known to be formed by fermentation. Incidental exposure to alcohol may result in detectable levels of EtG and/or EtS. EtG/EtS results should be interpreted in the context of all available clinical and behavioral information. Gabapentin PRESENT Test Result Flag Units Ref Range Creatinine 16 L mg/dL >=20 Declared Medications: Medication list was not provided. For clinical consultation, please call . @FLOW([id number])@ Lab Results Component Value Date SUMM FINAL 04/02/2023 Summary Report (Summary) Date Value Ref Range Status 03/20/2022 FINAL Final Comment: TOXASSURE COMP DRUG ANALYSIS,UR Specimen Alert Note: Urinary creatinine is low; ability to detect some drugs may be compromised. Interpret results with caution. Test Result Flag Units Drug Present Gabapentin PRESENT Acetaminophen PRESENT Test Result Flag Units Ref Range Creatinine 11 L mg/dL >=20 Declared Medications: Medication list was not provided. For clinical consultation, please call . Please review and advise. Elizabeth Mena RN [facility] Miscellaneous Notes* Telephone Encounter - Soraida Godoy DO - 06/06/2023 4:03 PM EDT The following approved medication requests have been transmitted electronically. Requested Prescriptions Pending Prescriptions Disp Refills HYDROcodone-Acetaminophen (NORCO) 10-325 mg per tablet 21 tablet 0 Sig: Take 1 tablet by mouth three times a day as needed for pain for up to 7 days. Soraida Godoy DO * Telephone Encounter - Elizabeth Mena RN - 06/06/2023 3:57 PM EDT Checked [facility] and it has been updated Elizabeth Mena RN June 06, 2023 3:57 PM * Telephone Encounter - Elizabeth Mena RN - 05/29/2023 3:37 PM EDT Patient phones requesting refills as follows: Requested Prescriptions Pending Prescriptions Disp Refills HYDROcodone-Acetaminophen (NORCO) 10-325 mg per tablet 21 tablet 0 Sig: Take 1 tablet by mouth three times daily as needed for pain for up to 7 days. Last UDS: Summary Report Date Value Ref Range Status 04/02/2023 FINAL Final Comment: Ethanol Biomarkers, MS, Ur RFX Gabapentin, MS, Ur RFX ToxAssure Flex 23, Ur Specimen Alert Note: Urinary creatinine is low; ability to detect some drugs may be compromised. Interpret results with caution. Test Result Flag Units Drug Present Ethyl Glucuronide 778251 ng/mg creat Ethyl Sulfate 67191 ng/mg creat EtG and EtS are metabolites of ethyl alcohol; EtG may be a fermentation product of glucose, but EtS is not known to be formed by fermentation. Incidental exposure to alcohol may result in detectable levels of EtG and/or EtS. EtG/EtS results should be interpreted in the context of all available clinical and behavioral information. Gabapentin PRESENT Test Result Flag Units Ref Range Creatinine 16 L mg/dL >=20 Declared Medications: Medication list was not provided. For clinical consultation, please call . @FLOW([id number])@ Lab Results Component Value Date SUMM FINAL 04/02/2023 Summary Report (Summary) Date Value Ref Range Status 03/20/2022 FINAL Final Comment: TOXASSURE COMP DRUG ANALYSIS,UR Specimen Alert Note: Urinary creatinine is low; ability to detect some drugs may be compromised. Interpret results with caution. Test Result Flag Units Drug Present Gabapentin PRESENT Acetaminophen PRESENT Test Result Flag Units Ref Range Creatinine 11 L mg/dL >=20 Declared Medications: Medication list was not provided. For clinical consultation, please call . Please review and advise. Elizabeth Mena RN documented [facility] Miscellaneous Notes* Telephone Encounter - Sanjuana Murdock RN - 05/30/2023 8:42 AM EDT Called and spoke with [facility] Lopez, they had the pt's birthday date as [birth year], according to her last IDscanned into the chart it is [birth year]. Called pt and verified her birthday, she states 59. [facility] Lopez filled the [place] today 05/30/23 and they will work on changing her birthday on the [facility]. Please advise. Sanjuana Murdock RN May 30, 2023 8:45 AM * Telephone Encounter - Sanjuana Murdock RN - 05/30/2023 8:08 AM EDT Please contact patient and pharmacy to inquire about why her prescriptions are not showing on the OARRS report. No prescription will be sent until confirmation about whether she is getting these filled. Per Dr. Godoy documented in [facility] Hospital Discharge instructions Patient Education 05/22/2023 02:33:30 Ankle Sprain (Adult) Ankle Sprain (Adult) An ankle sprain is a stretching or tearing of the ligaments that hold the ankle joint together. There are no broken bones. An ankle sprain is a common injury for both children and adults. It happens when the ankle turns, twists, or rolls in an awkward way. This can be caused by a sports injury. Or it can happen from doing something as simple as stepping on an uneven surface. Ligaments are made of tough connective tissue. Normally, ligaments stretch a certain amount and then go back to their normal place. A sprain happens when a ligament is forced to stretch more than thenormal amount. A severe sprain can actually tear the ligaments. If you have a severe sprain, you may have felt or heard something like a pop when you were injured. Ankle sprains are given a grade depending on whether they are mild, moderate, or severe: Grade 1 sprain. A mild sprain with minor stretching and damage to the ligament. Grade 2 sprain. A moderate sprain where the ligament is partly torn. Grade 3 sprain. The most severe kind of sprain. The ligament is completely torn. Most sprains take about 4 to 6 weeks to heal. A severe sprain can take several months to recover. Your healthcare provider may order X-rays to be sure you don t have a fracture, or broken bone. The injured area will feel sore. Swelling and pain may make it hard to walk. You may need crutches if walking is painful. Or your provider may have you use a cast boot or air splint. This will dependon the grade of ankle sprain that you have. Home care For a Grade 1 sprain, use RICE (rest, ice, compression, and elevation): Rest your ankle. Don t walk on it. Ice should be used right away to help control swelling. Place an ice pack over the injured area for20 minutes. Do this every 3 to 6 hours for the first 24 to 48 hours. Keep using ice packs to ease pain and swelling as needed. To make an ice pack, put ice cubes in a plastic bag that seals at the top. Wrap the bag in a clean, thin towel or cloth. Never put ice or an ice pack directly on the skin. The ice pack can be put right on the cast, bandage, or splint. As the ice melts, be careful that thecast, bandage, or splint doesn t get wet. If you have a boot, open it to apply an ice pack, unless told otherwise by your provider. Compression devices help to control swelling. They also keep the ankle from moving and support yourinjured ankle. These devices include dressings, bandages, and wraps. Elevate or raise your ankle above the level of your heart when sitting or lying down. This is very important for the first 48 hours. Follow the RICE guidelines for a Grade 2 sprain. This type of sprain will take longer to heal. Yourprovider may have you wear a splint, cast, or brace to keep your ankle from moving. If you have a Grade 3 sprain, you are at risk for long-term ankle instability. In rare cases, surgery may be needed. Your provider may have you wear a short leg cast or a walking boot for 2 to 3 weeks. After 48 hours, it may be helpful to apply heat for 20 minutes several times a day. You can do thiswith a heating pad or warm compress. Or you may want to go back and forth between using ice and heat. Never apply heat directly to the skin. Always wrap the heating pad or warm compress in a clean, thin towel or cloth. You may use txmt-ceg-xkvfpqt pain medicine (NSAIDS or nonsteroidal anti- inflammatory drugs) to control pain, unless another pain medicine was prescribed. Talk with your provider before using these medicines if you have chronic liver or kidney disease, or have ever had a stomach ulcer or gastrointestinal bleeding. Follow any rehabilitation exercises your provider gives you. These can help you be more flexible and improve your balance and coordination. This is helpful in preventing long-term ankle problems. Prevention To help prevent ankle sprains, it s important to have good strength, balance, and flexibility. Be sure to: Always warm up before you exercise or do something very active Be careful when walking or running on uneven or cracked surfaces Wear shoes that are in good condition and fit well Listen to your body s signals to slow down when you are in pain or tired Follow-up care Any X-rays you had today don t show any broken bones, breaks, or fractures. Sometimes fractures dont show up on the first X-ray. Bruises and sprains can sometimes hurt as much as a fracture. These injuries can take time to heal completely. If your symptoms don t get better or they get worse, talk with your healthcare provider. You may need a repeat X-ray. Follow up with your healthcare provider, or as advised. Check for any warning signs listed below. When to seek medical advice Call your healthcare provider right away if any of these occur: Fever of 100.4 F (38 C) or higher, or as directed by your healthcare provider Chills The injury doesn t seem to be healing The swelling comes back The cast or splint has a bad smell The plaster cast or splint gets wet or soft The fiberglass cast or splint gets wet and does not dry for 24 hours The pain or swelling increases, or redness appears Your toes become cold, blue, numb, or tingly The skin is discolored (looks blue, purple, or thompson), has blisters, or is irritated You re-injure your ankle [id number] [employer]. [address] [place] [address]. All rights reserved. This information is not intended as a substitute for professional medical care. Always follow yourhealthcare professional's instructions. Follow Up Care 05/22/2023 01:10:44 With:ERIN RODRIGUEZ Address: [address] [facility] [place], [place] [id number]- [phone] Business (1) When:Within 1 Week(s) Comments:Follow-up as needed if not improving.Limit weightbearing as tolerated, use crutches for assistance with ambulation.Use Eagle wrap for compression and support.Continue to ice and elevate the injured ankle as much as possible.Continue Tylenol for pain as needed.Return to the ED if symptoms worsen. [facility] 09-20-2023 Note Discharge Instructions Thank you for allowing [facility] to assist you with your healthcare needs. The following is importantdischarge information regarding your hospital visit. Diagnosis from Today's Visit Ankle pain-swelling What to Do Next Instructions from Your Care Team No qualifying data available. Post Acute Orders No qualifying data available. You Need to Schedule the Following Appointments Follow Up with ERIN RODRIGUEZ When In 1 week Why: Follow-up as needed if not improving. Limit weightbearing as tolerated, use crutches for assistance with ambulation. Use Eagle wrap for compression and support. Continue to ice and elevate the injured ankle as much as possible. Continue Tylenol for pain as needed. Return to the ED if symptoms worsen. Where: [address] [place] [address] [place] [address] [phone] Business (1) Allergies acetaminophen-tramadol (UPSET STOMACHE) ibuprofen naproxen Medications Please ask your primary doctor or pharmacist before taking any other medication not listed, including over the counter drugs, herbal medications, vitamins and or supplements as they may interact withyour home medications. What How Much When Why Instructions Last Dose Unchanged acetaminophen (acetaminophen 500 mg oral tablet) 2 tab(s) by mouth Three (3) times a day as needed for pain or fever Unchanged albuterol (ProAir HFA MDI (90 mcg/ inh) inhalation aerosol) 2 puff(s) by inhalation Every 4 hours as needed for Shortness of breath (SOB) Unchanged alendronate (alendronate 70 mg oral tablet) 1 tab(s) by mouth Every Saturday Osteoporosis Unchanged atorvastatin (atorvastatin 10 mg oral tablet) 1 tab(s) by mouth Once a day Hyperlipidemia take 1 tablet by mouth once daily Unchanged cetirizine (cetirizine 10 mg oral tablet) 1 tab(s) by mouth Once a day Seasonal allergies Unchanged cyclobenzaprine (cyclobenzaprine 10 mg oral tablet) 1 tab(s) by mouth Three (3) times a day as needed for for spasm PM Unchanged DULoxetine (DULoxetine 30 mg oral delayed release capsule) 1 cap by mouth Once a day Polyneuropathy Unchanged fluconazole (fluconazole 150 mg oral tablet) See instructions Polyneuropathy One now and take second dose in 3 days Unchanged traZODone (traZODone 50 mg oral tablet) 1 tab(s) by mouth Daily at bedtime Insomnia Please take this list to your next doctor s visit. Bring all medications you take, including over the counter medications, herbals and other supplements with you to your doctor s visit. Patients and families are reminded to discard old lists and to update any records with all medication providers or retail pharmacies. Education Materials Ankle Sprain (Adult) An ankle sprain is a stretching or tearing of the ligaments that hold the ankle joint together. There are no broken bones. An ankle sprain is a common injury for both children and adults. It happens when the ankle turns, twists, or rolls in an awkward way. This can be caused by a sports injury. Or it can happen from doing something as simple as stepping on an uneven surface. Ligaments are made of tough connective tissue. Normally, ligaments stretch a certain amount and then go back to their normal place. A sprain happens when a ligament is forced to stretch more than thenormal amount. A severe sprain can actually tear the ligaments. If you have a severe sprain, you may have felt or heard something like a pop when you were injured. Ankle sprains are given a grade depending on whether they are mild, moderate, or severe: Grade 1 sprain. A mild sprain with minor stretching and damage to the ligament. Grade 2 sprain. A moderate sprain where the ligament is partly torn. Grade 3 sprain. The most severe kind of sprain. The ligament is completely torn. Most sprains take about 4 to 6 weeks to heal. A severe sprain can take several months to recover. Your healthcare provider may order X-rays to be sure you don t have a fracture, or broken bone. The injured area will feel sore. Swelling and pain may make it hard to walk. You may need crutches if walking is painful. Or your provider may have you use a cast boot or air splint. This will dependon the grade of ankle sprain that you have. Home care For a Grade 1 sprain, use RICE (rest, ice, compression, and elevation): Rest your ankle. Don t walk on it. Ice should be used right away to help control swelling. Place an ice pack over the injured area for20 minutes. Do this every 3 to 6 hours for the first 24 to 48 hours. Keep using ice packs to ease pain and swelling as needed. To make an ice pack, put ice cubes in a plastic bag that seals at the top. Wrap the bag in a clean, thin towel or cloth. Never put ice or an ice pack directly on the skin. The ice pack can be put right on the cast, bandage, or splint. As the ice melts, be careful that thecast, bandage, or splint doesn t get wet. If you have a boot, open it to apply an ice pack, unless told otherwise by your provider. Compression devices help to control swelling. They also keep the ankle from moving and support yourinjured ankle. These devices include dressings, bandages, and wraps. Elevate or raise your ankle above the level of your heart when sitting or lying down. This is very important for the first 48 hours. Follow the RICE guidelines for a Grade 2 sprain. This type of sprain will take longer to heal. Yourprovider may have you wear a splint, cast, or brace to keep your ankle from moving. If you have a Grade 3 sprain, you are at risk for long-term ankle instability. In rare cases, surgery may be needed. Your provider may have you wear a short leg cast or a walking boot for 2 to 3 weeks. After 48 hours, it may be helpful to apply heat for 20 minutes several times a day. You can do thiswith a heating pad or warm compress. Or you may want to go back and forth between using ice and heat. Never apply heat directly to the skin. Always wrap the heating pad or warm compress in a clean, thin towel or cloth. You may use ncvr-yon-tztpsmb pain medicine (NSAIDS or nonsteroidal anti- inflammatory drugs) to control pain, unless another pain medicine was prescribed. Talk with your provider before using these medicines if you have chronic liver or kidney disease, or have ever had a stomach ulcer or gastrointestinal bleeding. Follow any rehabilitation exercises your provider gives you. These can help you be more flexible and improve your balance and coordination. This is helpful in preventing long-term ankle problems. Prevention To help prevent ankle sprains, it s important to have good strength, balance, and flexibility. Be sure to: Always warm up before you exercise or do something very active Be careful when walking or running on uneven or cracked surfaces Wear shoes that are in good condition and fit well Listen to your body s signals to slow down when you are in pain or tired Follow-up care Any X-rays you had today don t show any broken bones, breaks, or fractures. Sometimes fractures dont show up on the first X-ray. Bruises and sprains can sometimes hurt as much as a fracture. These injuries can take time to heal completely. If your symptoms don t get better or they get worse, talk with your healthcare provider. You may need a repeat X-ray. Follow up with your healthcare provider, or as advised. Check for any warning signs listed below. When to seek medical advice Call your healthcare provider right away if any of these occur: Fever of 100.4 F (38 C) or higher, or as directed by your healthcare provider Chills The injury doesn t seem to be healing The swelling comes back The cast or splint has a bad smell The plaster cast or splint gets wet or soft The fiberglass cast or splint gets wet and does not dry for 24 hours The pain or swelling increases, or redness appears Your toes become cold, blue, numb, or tingly The skin is discolored (looks blue, purple, or thompson), has blisters, or is irritated You re-injure your ankle [id number] [employer]. [address] [place] [address]. All rights reserved. This information is not intended as a substitute for professional medical care. Always follow yourhealthcare professional's instructions. Additional Information VACCINATE! IT SAVES LIVES! Members of the community who have not yet received the COVID-19 vaccine and would like to receive it can visit one of [facility] vaccine clinics. There are many vaccine clinic locations within the [facility]. For locations and available times, please visit [email or web address]/. It is important to note that some COVID mobile vaccine clinics are held outdoors and may be canceled in rainy or stormy conditions. To learn more about pediatric vaccinations (ages 5-11), we invite you to visit the [facility] webpage. [email or web address]/[email or web address] learn more about the COVID-19 vaccine, we invite you to visit the CDC website for a list of frequently asked questions. https://www.cdc.gov/coronavirus/2019-ncov/vaccines/faq.html [facility] Patient Portal Access Instructions: Stay connected with your healthcare team and access your personal medical information anytime with the [facility] Patient Portal. If you would like a full copy of your medical records please contact the [facility] Medical Records Department Saturday through Saturday between 8a.m. and 4:30p.m. Please follow the directions below to access the portal: 1.Access the email account you provided upon registration to the hospital.2.Look for an invitation email from [facility].3.Open the email and access the invitation link: Accept Invitation to [facility]4.Fill in the required ferreira to create your account. Sign into [email or web address] with your username and password that you created in the above steps to stay up to date. You can then view a summary of results, a summary of your visits, and the ability to download your summaries to your computer or send the information securely to a physician. Remember that your healthcare information is confidential, so carefully consider who you will allow to register on the [facility] Patient Portal for access to your information. You can also access the [facility] Patient Portal on the [address] Simply click on Health Records under [employer] and then click on the [employer] logo. HOW TO SAFELY DISPOSE OF PRESCRIPTION MEDICATIONS Please use one of the following methods to safely dispose of your unused medications. 1.Use a drug disposal kit: the drug disposal pouch allows you to safely discard your old and unuseddrugs. Ask your nurse to give you one when you are discharged.2.Visit a local take-back location: Many local pharmacies and police departments have programs that collect old and unwanted prescriptiondrugs. Call your local pharmacy or go to http://[employer].BeehiveID/6X4Rr2a to find one close to you.3.Make use of household items: Use cat litter or old coffee grounds to dispose medications if other options arenot available. Mix your drugs with these household products, seal them in an airtight container andthrow it into the garbage. Call [facility]: [phone] to be sure your drugs can be disposed of in this way. Some medicines may require a different approach.4.Never flush your medications down the toilet. IF YOU HAVE BEEN PRESCRIBED AN OPIOIDS FOR PAIN If you have been prescribed an opioid (such as hydrocodone, oxycodone or morphine), it is critical to understand the possible side effects and risks of opioid pain medications. Even when taken as directed, opioids can have several side effects including: Tolerance, meaning you might need to take more of a medication for the same pain relief. Nausea, vomiting and/or constipation. Sleepiness, dizziness, dry mouth, confusion, depression or itching. Physical dependence, meaning you have withdrawal symptoms when a medication is stopped ? this can develop within a few days. KNOW YOUR RESPONSIBILITIES It is important to know exactly how much and how often to take the opioid pain medications you are prescribed. Never take opioids in higher amounts or more often than prescribed. Do not combine opioids with alcohol or other drugs that cause drowsiness, such as benzodiazepines, also known as benzos,including diazepam and alprazolam, muscle relaxants or sleep aids. Never sell or share prescriptionopioids. This is illegal. Store opioids in a secure place and out of reach of others (including children, family, friends and visitors). The last page(s) of this document has been signed and retained as a CHART COPY Signatures Patient Education Materials Ankle Sprain (Adult) Medication Leaflets My discharge plan and instructions have been reviewed and explained to me and I,SONAM CASILLAS understand my current condition and have read and understand these discharge instructions. I have received a written copy of the plan/instructions. If I have questions, I am aware that I should contact my doctor. Patient/Director Dietetics Department Signature: Date/Time: Relationship to Patient: Witness Name/Signature: Date/Time: [facility]09-20-2023 Note ORIGINAL EXAMINATION: THREE XRAY VIEWS OF THE RIGHT ANKLE05/22/2023 2:25 am COMPARISON: None available. HISTORY: ORDERING SYSTEM PROVIDED HISTORY: Reason for Exam: Fall. Ankle pain. FINDINGS: The bones are demineralized. There is no acute fracture or dislocation. There is calcaneal enthesopathy. IMPRESSION: No acute osseous abnormality identified. Osseous demineralization. I have personally reviewed the images of this examination, and agree with the resident's findings and interpretation. Interpreted by: Peter Herrmann MD Preliminary Report By: Mark Serra Electronically signed By Peter Herrmann MD Dictated Date: 05/22/2023 2:27:20 AM Prelim Date: 05/22/2023 2:30:24 AM Sign Date: 05/22/2023 2:35:31 AM Ordering Provider: [place] [id number] Miscellaneous Notes* Telephone Encounter - Zana Jennings APRN.CNP - 05/15/2023 11:11 AM EDT The following approved medication requests have been transmitted electronically. Requested Prescriptions Signed Prescriptions Disp Refills HYDROcodone-Acetaminophen (NORCO) 10-325 mg per tablet 21 tablet 0 Sig: Take 1 tablet by mouth three times daily as needed for pain for up to 7 days. Do not start before May 16, 2023. Authorizing Provider: ZANA JENNINGS APRN.CNP I spoke to the pharmacist and she said the [place] was last filled on 05/09/23 for a 7 day supply. * Telephone Encounter - Elizabeth Mena RN - 05/15/2023 10:41 AM EDT Fyi last ov states 1 week at a time Patient phones requesting refills as follows: Requested Prescriptions Pending Prescriptions Disp Refills HYDROcodone-Acetaminophen (NORCO) 10-325 mg per tablet 21 tablet 0 Sig: Take 1 tablet by mouth three times daily as needed for pain for up to 7 days. Do not start before May 30, 2023. Last UDS: Summary Report Date Value Ref Range Status 04/02/2023 FINAL Final Comment: Ethanol Biomarkers, MS, Ur RFX Gabapentin, MS, Ur RFX ToxAssure Flex 23, Ur Specimen Alert Note: Urinary creatinine is low; ability to detect some drugs may be compromised. Interpret results with caution. Test Result Flag Units Drug Present Ethyl Glucuronide 166949 ng/mg creat Ethyl Sulfate 06238 ng/mg creat EtG and EtS are metabolites of ethyl alcohol; EtG may be a fermentation product of glucose, but EtS is not known to be formed by fermentation. Incidental exposure to alcohol may result in detectable levels of EtG and/or EtS. EtG/EtS results should be interpreted in the context of all available clinical and behavioral information. Gabapentin PRESENT Test Result Flag Units Ref Range Creatinine 16 L mg/dL >=20 Declared Medications: Medication list was not provided. For clinical consultation, please call . @FLOW([id number])@ Lab Results Component Value Date SUMM FINAL 04/02/2023 Summary Report (Summary) Date Value Ref Range Status 03/20/2022 FINAL Final Comment: TOXASSURE COMP DRUG ANALYSIS,UR Specimen Alert Note: Urinary creatinine is low; ability to detect some drugs may be compromised. Interpret results with caution. Test Result Flag Units Drug Present Gabapentin PRESENT Acetaminophen PRESENT Test Result Flag Units Ref Range Creatinine 11 L mg/dL >=20 Declared Medications: Medication list was not provided. For clinical consultation, please call . Please review and advise. Elizabeth Mena RN [facility] Miscellaneous Notes* Telephone Encounter - Elizabeth Mena RN - 05/09/2023 10:24 AM EDT Fyi, last ov states 1 week at a time for compliance Elizabeth Mena RN May 09, 2023 10:25 AM [facility] Miscellaneous Notes* Telephone Encounter - Soraida Godoy DO - 04/24/2023 9:05 PM EDT We need to have the updated OARRS in her chart and the pharmacy is responsible for putting her correct information in OARRS. We have no control over this in [employer].Will only send 7 day supply. * Telephone Encounter - Denise Farmer RN - 04/24/2023 3:[address] Godoy- Please check pharmacy with medication refills. I do not see any prescriptions for [place] being filled on the OARRS report. This is why she was only given a 7-day supply. Dr Godoy From the last office visit on 04/02/23- Patient states her boyfriend is supposed to track her medication refills. Wlll send in 1 week supply. Patient to call each week for refills in order to stay compliant in the office. I called the pharmacy and they have pts information under 57 . I was able to pull an OARRS with this . Just FYI. I checked her photo ID and her is 59. Denise Farmer RN April 24, 2023 4:02 PM [facility] Miscellaneous Notes* Telephone Encounter - Soraida Godoy DO - 04/24/2023 3:47 PM EDT The following approved medication requests have been transmitted electronically. Requested Prescriptions Pending Prescriptions Disp Refills HYDROcodone-Acetaminophen (NORCO) 10-325 mg per tablet 21 tablet 0 Sig: Take 1 tablet by mouth three times daily as needed for pain for up to 7 days. Soraida Godoy DO * Telephone Encounter - Denise Farmer RN - 04/23/2023 2:53 PM EDT Patient phones requesting refills as follows: Requested Prescriptions Pending Prescriptions Disp Refills HYDROcodone-Acetaminophen (NORCO) 10-325 mg per tablet 21 tablet 0 Sig: Take 1 tablet by mouth three times daily as needed for pain for up to 7 days. Last UDS: Summary Report Date Value Ref Range Status 04/02/2023 FINAL Final Comment: Ethanol Biomarkers, MS, Ur RFX Gabapentin, MS, Ur RFX ToxAssure Flex 23, Ur Specimen Alert Note: Urinary creatinine is low; ability to detect some drugs may be compromised. Interpret results with caution. Test Result Flag Units Drug Present Ethyl Glucuronide 102212 ng/mg creat Ethyl Sulfate 05138 ng/mg creat EtG and EtS are metabolites of ethyl alcohol; EtG may be a fermentation product of glucose, but EtS is not known to be formed by fermentation. Incidental exposure to alcohol may result in detectable levels of EtG and/or EtS. EtG/EtS results should be interpreted in the context of all available clinical and behavioral information. Gabapentin PRESENT Test Result Flag Units Ref Range Creatinine 16 L mg/dL >=20 Declared Medications: Medication list was not provided. For clinical consultation, please call . @FLOW([id number])@ Lab Results Component Value Date SUMM FINAL 04/02/2023 Summary Report (Summary) Date Value Ref Range Status 03/20/2022 FINAL Final Comment: TOXASSURE COMP DRUG ANALYSIS,UR Specimen Alert Note: Urinary creatinine is low; ability to detect some drugs may be compromised. Interpret results with caution. Test Result Flag Units Drug Present Gabapentin PRESENT Acetaminophen PRESENT Test Result Flag Units Ref Range Creatinine 11 L mg/dL >=20 Declared Medications: Medication list was not provided. For clinical consultation, please call . Please review and advise. Denise Farmer RN documented [facility] Miscellaneous Notes* Telephone Encounter - Matilde Hayward APRN.CNS - 04/18/2023 4:07 PM EDT The following approved medication requests have been transmitted electronically. Requested Prescriptions Signed Prescriptions Disp Refills HYDROcodone-Acetaminophen (NORCO) 10-325 mg per tablet 21 tablet 0 Sig: Take 1 tablet by mouth three times daily as needed for pain for up to 7 days. Authorizing Provider: MATILDE HAYWARD APRN.CNS * Telephone Encounter - Sanjuana Murdock RN - 04/18/2023 1:56 PM EDT Patient phones requesting refills as follows: Requested Prescriptions Pending Prescriptions Disp Refills HYDROcodone-Acetaminophen (NORCO) 10-325 mg per tablet 21 tablet 0 Sig: Take 1 tablet by mouth three times daily as needed for pain for up to 7 days. Last UDS: Summary Report Date Value Ref Range Status 04/02/2023 FINAL Final Comment: Ethanol Biomarkers, MS, Ur RFX Gabapentin, MS, Ur RFX ToxAssure Flex 23, Ur Specimen Alert Note: Urinary creatinine is low; ability to detect some drugs may be compromised. Interpret results with caution. Test Result Flag Units Drug Present Ethyl Glucuronide 219784 ng/mg creat Ethyl Sulfate 88279 ng/mg creat EtG and EtS are metabolites of ethyl alcohol; EtG may be a fermentation product of glucose, but EtS is not known to be formed by fermentation. Incidental exposure to alcohol may result in detectable levels of EtG and/or EtS. EtG/EtS results should be interpreted in the context of all available clinical and behavioral information. Gabapentin PRESENT Test Result Flag Units Ref Range Creatinine 16 L mg/dL >=20 Declared Medications: Medication list was not provided. For clinical consultation, please call . @FLOW([id number])@ Lab Results Component Value Date SUMM FINAL 04/02/2023 Summary Report (Summary) Date Value Ref Range Status 03/20/2022 FINAL Final Comment: TOXASSURE COMP DRUG ANALYSIS,UR Specimen Alert Note: Urinary creatinine is low; ability to detect some drugs may be compromised. Interpret results with caution. Test Result Flag Units Drug Present Gabapentin PRESENT Acetaminophen PRESENT Test Result Flag Units Ref Range Creatinine 11 L mg/dL >=20 Declared Medications: Medication list was not provided. For clinical consultation, please call . Please review and advise. Sanjuana Murdock RN documented in this encounter[facility] Surgical operation note* Operative Report - Soraida Godoy DO - 04/17/2023 9:11 AM EDTSummary: B/L greater trochanteric hip bursa Injection PROCEDURE: B/L Greater trochanteric bursa injection DATE OF SERVICE:04/17/23 PREPROCEDURE DIAGNOSIS:1. B/L greater trochanteric bursitis POSTPROCEDURE DIAGNOSIS:1. Same ANESTHESIA:Ethyl Chloride spray COMPLICATIONS:None CONSENT: Risks of the procedure including bleeding, infection, nerve damage, seizure, abscess formation, hematoma formation, headache, failure of the pain to improve and potential worsening of the pain, were explained in full to the patient who verbalized understanding and wishes to proceed with the injection at this time. Written informed consent was thereby obtained. BRIEF HISTORY: See Chart DESCRIPTION OF PROCEDURE: After informed consent was obtained, the patient was placed on the examination room table in the _right lateral decubitus position. The __left hip was flexed and the ___left___ greater trochanter was palpated. The patient's pain was reproduced and the skin was marked. The skin was sterilely prepped with ___Chloroprep swabs . An injectate consisting of ___5 ml 0.25% Marcaine mixed with Kenalog 40 mg was drawn up into a 10 mL syringe. A __22 gauge 3.5 inch spinal needle was advanced toward the _left_ greater trochanter until os was contacted. After negative aspiration to heme, a total of ___5 ml 0.25% Marcaine mixed with Kenalog 40 mg of the injectate was given slowly. There were no complications noted upon injection. The needle tip was removed intact. The patient remained neurovascularly intact both pre- and postprocedure. Thearea was wiped clean and a Band-Aid was applied as appropriate. After a period of observation, the patient was discharged home in good condition. The patient remained neurovascularly intact both pre- and postprocedure. COMMENTS: The procedure was performed bilaterally using the same injectate technique and solution. The documentation for this encounter was entered by Marya Tony, medical scientific liaison for Dr. Soraida Godoy on April 17, 2023. I, Dr. Soraida Godoy, personally performed the services described in this documentation. All medical record entries made by the scribe were at my direction and in my presence. I have reviewed the chart and discharge instructions and agree that the record reflects my personal performance and is accurate and complete. Electronically Signed: Dr. Godoy. April 17, 2023. documented in this encounter[facility]23 Miscellaneous Notes* Telephone Encounter - Matilde Hayward APRN.MANAGER [employer]IN[employer]OUS [employer]OVEMENT - 04/11/2023 10:35 AM EDT The following approved medication requests have been transmitted electronically. Requested Prescriptions Signed Prescriptions Disp Refills HYDROcodone-Acetaminophen (NORCO) 10-325 mg per tablet 21 tablet 0 Sig: Take 1 tablet by mouth three times daily as needed for pain for up to 7 days. Authorizing Provider: MATILDE HAYWARD APRN.MANAGER [employer]IN[employer]OVEMENT * Telephone Encounter - Elizabeth Mena RN - 04/11/2023 9:59 AM EDT Patient phones requesting refills as follows: Requested Prescriptions Pending Prescriptions Disp Refills HYDROcodone-Acetaminophen (NORCO) 10-325 mg per tablet 21 tablet 0 Sig: Take 1 tablet by mouth three times daily as needed for pain for up to 7 days. Last UDS: Summary Report Date Value Ref Range Status 04/02/2023 FINAL Final Comment: Ethanol Biomarkers, MS, Ur RFX Gabapentin, MS, Ur RFX ToxAssure Flex 23, Ur Specimen Alert Note: Urinary creatinine is low; ability to detect some drugs may be compromised. Interpret results with caution. Test Result Flag Units Drug Present Ethyl Glucuronide 044588 ng/mg creat Ethyl Sulfate 68127 ng/mg creat EtG and EtS are metabolites of ethyl alcohol; EtG may be a fermentation product of glucose, but EtS is not known to be formed by fermentation. Incidental exposure to alcohol may result in detectable levels of EtG and/or EtS. EtG/EtS results should be interpreted in the context of all available clinical and behavioral information. Gabapentin PRESENT Test Result Flag Units Ref Range Creatinine 16 L mg/dL >=20 Declared Medications: Medication list was not provided. For clinical consultation, please call . @FLOW([id number])@ Lab Results Component Value Date SUMM FINAL 04/02/2023 Summary Report (Summary) Date Value Ref Range Status 03/20/2022 FINAL Final Comment: TOXASSURE COMP DRUG ANALYSIS,UR Specimen Alert Note: Urinary creatinine is low; ability to detect some drugs may be compromised. Interpret results with caution. Test Result Flag Units Drug Present Gabapentin PRESENT Acetaminophen PRESENT Test Result Flag Units Ref Range Creatinine 11 L mg/dL >=20 Declared Medications: Medication list was not provided. For clinical consultation, please call . Please review and advise. Elizabeth Mena RN documented in this encounterMount [facility]. [facility]08-[facility]-2023 NoteHNO ID: [id number] Author: Soraida Godoy, Service: ? Author Type: Physician Type: Progress Notes Filed: 04/08/2023 10:27 PM Note Text: Summary: Pain Management follow-up DATE: April 02, 2023 Chief Complaint: Back and B/L hip pain History of Present Illness: Sonam Casillas is a 68 year old female being seen at [facility] for a evaluation and/or management of their chronic pain. The patient was last seen in the office on 11/12/2022 by Matilde Hayward NP, and the plan of care was as follows: Continue norco one tab tid PRN This helps patient perform ADL, interact with family and friends. OARRS reviewed and consistent UDS reviewed and consistent with OARRS From OARRS no gabapentin from PCP Continue flexeril Avoid NSAIDS due to GERD and gastric ulcers Encouraged to reduce tobacco use 08/14/22 bilateral hip xrays-Mild degenerative changes bilateral hips, slightly progressed from the prior study. PA and schedule bilateral trochanteric bursa injections Followup in 3 months She continues to have pain. She fell last month and hit her head. Her legs gave out. She did not go to the ED after the fall. The pain continues in her back after the fall mostly on her left hip. The previously ordered bilateral trochanteric bursa injections were not done. She said that she showed up in the office and she was turned away. We also discussed taking the medications consistently. Her last refill on the norco was on 01/13/2023. She has not refilled the Flexeril consistently as well. She said she cannot hear people talking over the phone and that her boyfriend normally makes the phones call for the refills. We again discussed x-ray of B/L hips taken on 08/14/22 that showed mild degenerative changes bilateral hips, slightly progressed from the prior study. Pain level:06/11 Location: back, b/l hip pain Denies ED visits or hospitalizations since last office visit Reports pain worse with standing and walking short time, bending, weather changes Reports pain better with medications, TENS Describes pain in neck as constant pain that extends to her shoulders Describes pain in lower back as constant ache that is stabbing at times Radiates to back Describes pain in left hip as constant pain Denies numbness/tingling Weakness: b/l legs with walking Fall: 03/2023. Legs gave out. Uses walker. She denies any bowel or bladder dysfunction. She gets 3 hours of uninterrupted sleep at nights and wakes up feeling unrested in the mornings. Last UDS: consistent Summary Report Date Value Ref Range Status 04/02/2023 FINAL Final Comment: Ethanol Biomarkers, MS, Ur RFX Gabapentin, MS, Ur RFX ToxAssure Flex 23, Ur Specimen Alert Note: Urinary creatinine is low; ability to detect some drugs may be compromised. Interpret results with caution. Test Result Flag Units Drug Present Ethyl Glucuronide 740298 ng/mg creat Ethyl Sulfate 69949 ng/mg creat EtG and EtS are metabolites of ethyl alcohol; EtG may be a fermentation product of glucose, but EtS is not known to be formed by fermentation. Incidental exposure to alcohol may result in detectable levels of EtG and/or EtS. EtG/EtS results should be interpreted in the context of all available clinical and behavioral information. Gabapentin PRESENT Test Result Flag Units Ref Range Creatinine 16 L mg/dL >=20 Declared Medications: Medication list was not provided. For clinical consultation, please call . Summary Report (Summary) Date Value Ref Range Status 03/20/2022 FINAL Final Comment: TOXASSURE COMP DRUG ANALYSIS,UR Specimen Alert Note: Urinary creatinine is low; ability to detect some drugs may be compromised. Interpret results with caution. Test Result Flag Units Drug Present Gabapentin PRESENT Acetaminophen PRESENT Test Result Flag Units Ref Range Creatinine 11 L mg/dL >=20 (more content not included)...[facility]08-01-2023 Instructions* Patient Instructions* Soraida Godyo DO - 04/02/2023 10:08 AM EDT Continue norco one tab tid PRN. Last refill was on 01/13/2023. Discussed taking medication consistently. Patient states her boyfriend is supposed to track her medication refills. Wlll send in 1week supply. Patient to call each week for refills in order to stay compliant in the office. Continue Flexeril 5 mg tablet TID prn - refills for 7 days. Patient to call for each refill weekly to stay compliant in office. Avoid NSAIDS due to GERD and gastric ulcers Encouraged to continue to reduce tobacco use Schedule bilateral trochanteric bursa injections UDS obtained Followup in 3 months with [facility] documented [facility] History of Present illness Narrative* Soraida Godoy, DO - 04/02/2023 9:45 AM EDTSumadam: Pain Management follow-up DATE: April 02, 2023 Chief Complaint: Back and B/L hip pain History of Present Illness: Sonam Casillas is a 68 [facility]. The patient was last seen in the office on 11/12/2022 by Matilde Hayward NP, and the plan of care was as follows: Continue norco one tab tid PRN This helps patient perform ADL, interact with family and friends. OARRS reviewed and consistent UDS reviewed and consistent with OARRS From OARRS no gabapentin from PCP Continue flexeril Avoid NSAIDS due to GERD and gastric ulcers Encouraged to reduce tobacco use 08/14/22 bilateral hip xrays-Mild degenerative changes bilateral hips, slightly progressed from theprior study. PA and schedule bilateral trochanteric bursa injections Followup in 3 months She continues to have pain. She fell last month and hit her head. Her legs gave out. She did not goto the ED after the fall. The pain continues in her back after the fall mostly on her left hip. Thepreviously ordered bilateral trochanteric bursa injections were not done. She said that she showed up in the office and she was turned away. We also discussed taking the medications consistently. Herlast refill on the norco was on 01/13/2023. She has not refilled the Flexeril consistently as well. She said she cannot hear people talking over the phone and that her boyfriend normally makes the phones call for the refills. We again discussed x-ray of B/L hips taken on 08/14/22 that showed mild degenerative changes bilateral hips, slightly progressed from the prior study. Pain level:10/10 Location: back, b/l hip pain Denies ED visits or hospitalizations since last office visit Reports pain worse with standing and walking short time, bending, weather changes Reports pain better with medications, TENS Describes pain in neck as constant pain that extends to her shoulders Describes pain in lower back as constant ache that is stabbing at times Radiates to back Describes pain in left hip as constant pain Denies numbness/tingling Weakness: b/l legs with walking Fall: 03/2023. Legs gave out. Uses walker. She denies any bowel or bladder dysfunction. She gets 3 hours of uninterrupted sleep at nights and wakes up feeling unrested in the mornings. Last UDS: consistent Summary Report Date Value Ref Range Status 04/02/2023 FINAL Final Comment: Ethanol Biomarkers, MS, Ur RFX Gabapentin, MS, Ur RFX ToxAssure Flex 23, Ur Specimen Alert Note: Urinary creatinine is low; ability to detect some drugs may be compromised. Interpret results with caution. Test Result Flag Units Drug Present Ethyl Glucuronide 037440 ng/mg creat Ethyl Sulfate 41682 ng/mg creat EtG and EtS are metabolites of ethyl alcohol; EtG may be a fermentation product of glucose, but EtS is not known to be formed by fermentation. Incidental exposure to alcohol may result in detectable levels of EtG and/or EtS. EtG/EtS results should be interpreted in the context of all available clinical and behavioral information. Gabapentin PRESENT Test Result Flag Units Ref Range Creatinine 16 L mg/dL >=20 Declared Medications: Medication list was not provided. For clinical consultation, please call . Summary Report (Summary) Date Value Ref Range Status 03/20/2022 FINAL Final Comment: TOXASSURE COMP DRUG ANALYSIS,UR Specimen Alert Note: Urinary creatinine is low; ability to detect some drugs may be compromised. Interpret results with caution. Test Result Flag Units Drug Present Gabapentin PRESENT Acetaminophen PRESENT Test Result Flag Units Ref Range Creatinine 11 L mg/dL >=20 Declared Medications: Medication list was not provided. For clinical consultation, please call . Chronic Pain Functional Assessment Tools Pain Disability Index: No flowsheet data found. Pain Enjoyment of Life and General Activity Scale (0-10): PEG: A Three-Item Scale Assessing Pain Intensity and Interference What number best describes your pain on average in the past week?: 7 (04/02/2023 9:00 AM) What number best describes how, during the past week, pain has interfered with your enjoyment of life?: 6 (04/02/2023 9:00 AM) What number best describes how, during the past week, pain has interfered with your general activity?: 7 (04/02/2023 9:00 AM) REVIEW OF SYSTEMS: GENERAL: No weight loss, malaise or fevers RESPIRATORY: Negative for cough, hemoptysis, wheezing, COPD, dyspnea or shortness of breath. CARDIOVASCULAR: Negative for chest pain, leg swelling, hypertension, CHF or palpitations GI: No nausea, vomiting, or diarrhea. MUSCULOSKELETAL: Back and B/L hip pain PAST MEDICAL HISTORY Diagnosis Date Alcoholism (HCC) Arthritis Asthma Back pain Cigarette smoker COPD (chronic obstructive pulmonary disease) ([facility]) Genital herpes Hearing loss bilateral hearing aides Hypertension Osteoporosis PAST SURGICAL HISTORY Procedure Laterality Date HYSTERECTOMY HX 1991 PAST SURGICAL HISTORY OF amputation tip of right little finger due to abscess, Dr. Zina Matias PAST SURGICAL HISTORY OF arthroscopy twice right shoulder PAST SURGICAL HISTORY OF two surgeries on right ear for hearing FAMILY HISTORY Problem Relation Age of Onset Cancer Mother Coronary Artery Disease Father Diabetes Daughter Diabetes Daughter Cancer Daughter cervical Diabetes Grandchild Stroke Sister Alcohol/Drug Daughter Social History Tobacco Use Smoking status: Every Day Packs/day: 0.50 Types: Cigarettes Smokeless tobacco: Never Tobacco comments: Started age 16 yo Substance Use Topics Alcohol use: Yes Comment: on holidays Drug use: No Work Status: disabled Allergies: Ibuprofen Unknown Naproxen Unknown Tramadol-Acetaminop* GI Upset Current Outpatient Medications Medication Sig doxycycline hyclate (VIBRAMYCIN) 100 mg capsule take 1 capsule by mouth twice a day for 10 days fluconazole (DIFLUCAN) 150 mg tablet TAKE 1 NOW AND TAKE SECOND DOSE IN 3 DAYS predniSONE (DELTASONE) 20 mg tablet Take 2 tablets by mouth once daily. traZODone (DESYREL) 50 mg tablet Take 50 mg by mouth daily at bedtime. cyclobenzaprine (FLEXERIL) 5 mg tablet Take 1 tablet by mouth three times daily as needed for up to7 days. gabapentin (NEURONTIN) 300 mg capsule oxybutynin ER (DITROPAN XL) 10 mg 24 hr tablet atorvastatin (LIPITOR) 10 mg tablet cetirizine (ZYRTEC) 10 mg tablet DULoxetine (CYMBALTA) 30 mg capsule Take 30 mg by mouth once daily. fluticasone-salmeterol (ADVAIR, WIXELA) 250-50 mcg/dose inhaler Inhale as instructed. Melatonin 5 mg cap oxybutynin XL (DITROPAN XL) 5 mg 24 hr tablet Take 5 mg by mouth once daily. pantoprazole DR (PROTONIX) 40 mg tablet TAKE 1 TABLET BY MOUTH EVERY DAY BEFORE MEAL alendronate (FOSAMAX) 70 mg tablet Take 1 tablet by mouth once each week. Take with a full glass ofwater, on an empty stomach; do NOT lie down for 30minutes. albuterol HFA (PROAIR HFA) 90 mcg/actuation inhaler Inhale 2 Puffs as instructed every 6 hours as needed. HYDROcodone-Acetaminophen (NORCO) 10-325 mg per tablet Take 1 tablet by mouth three times daily as needed for pain for up to 7 days. No current facility-administered medications for this visit. PHYSICAL EXAMINATION: Vitals: BP 124/75 Pulse 86 Resp 19 Ht 5' 7.2 (1.71m) Wt 114 lb (51.7kg) SpO2 98% BMI 17.75 kg/(m^2). GENERAL: General appearance: Well appearing, in no acute distress, alert. Psych: Mood and affect appropriate. Skin: Skin color, texture, turgor normal, no rashes or lesions. Pulm: no conversational shortness of breath Musculoskeletal: Deferred toe and heel raise and knee bend. Lumbar major range of motion mildly restricted in all planes. Positive straight leg raise from seated position bilaterally.Positive Tim sign bilaterally Positive lumbar facet loading bilaterally. No muscle spasms or trigger points appreciated in the paraspinal or gluteal muscles. Positive tenderness with palpation with both hips bilateral hip range of motion with tenderness with all motion. . 4/5 bilateral muscle strength lower extremities. ASSESSMENT: Spinal stenosis, lumbar region with neurogenic claudication (primary encounter diagnosis) Chronic pain syndrome Lumbar radiculopathy Osteoarthritis of both hips, unspecified osteoarthritis type High risk medication use Myofascial pain syndrome Greater trochanteric bursitis of both hips Patient is stable. Chronic pain is persistent. Medications are helping Sonam Casillas to have an improved quality of life. Patient compliance with Opioid Contract: patient is compliant PDMP website checked and validated. OARRS report reviewed on April 02, 2023 by Marya Tony and is consistent with the patients medical history and medication intake. PLAN: The patient understands the goal of our treatment is a reduction in pain and/or an improved level of functioning with activities of daily living. If at any time the patient does not feel the medications are helping them to achieve these goals, the medications may be discontinued. The patient reports a reduction in pain and/or an improved level of functioning with activities of daily living, denies any significant adverse effects, is compliant with the pain management agreement and there are no signs of medication misuse, abuse or diversion; therefore, the medications will be continued. The documentation for this encounter was entered by Marya Tony, medical scientific liaison for Dr. Soraida Godoy on April 02, 2023. I, Dr. Soraida Godoy, personally performed the services described in this documentation. All medical record entries made by the scribe were at my direction and in my presence. I have reviewed the chart and discharge instructions and agree that the record reflects my personal performance and is accurate and complete. Electronically Signed: Dr. Godoy. April 02, 2023. documented in this [facility]23 Note. MICRO - Microbiology PROCEDURE: Urine Culture [*1] SOURCE: Urine, Clean Catch BODY SITE: COLLECTED DATE/TIME: 01/23/2023 11:52 EDT RECEIVED DATE/TIME: 01/23/2023 19:01 EDT START DATE/TIME: 01/23/2023 19:01 EDT FREE TEXT SOURCE: FINAL REPORTS Final Report [] Verified Date/Time/Personnel: 01/25/2023 07:59 EDT 50,000 - 100,000 cfu/ml Escherichia coli PRELIMINARY REPORTS Preliminary Report [] Verified Date/Time/Personnel: 01/24/2023 11:05 EDT 50,000 - 100,000 cfu/ml Escherichia coli ALLIE to follow SUSCEPTIBILITY RESULTS Escherichia coli Antibiotic ALLIE Dilut ALLIE Inter Ampicillin <=8 Susceptible Ampicillin/ <=4/2 Susceptible Sulbactam Aztreonam <=4 Susceptible Cefazolin <=2 Susceptible Ciprofloxacin <=0.25 Susceptible Ertapenem <=0.5 Susceptible Gentamicin <=2 Susceptible Imipenem <=1 Susceptible Levofloxacin <=0.5 Susceptible Meropenem <=1 Susceptible Minocycline <=4 Susceptible Nitrofurantoin <=32 Susceptible Trimethoprim/ <=0.5/9.5 Susceptible Sulfa Performing Locations *1: This test was performed at: [facility], [facility] [address] [place] [address], [facility] , [facility] ([place])12-12-2022 Miscellaneous Notes* Telephone Encounter - Matilde Hayward APRN.CNS - 12/12/2022 11:31 AM EDT The following approved medication requests have been transmitted electronically. Requested Prescriptions Signed Prescriptions Disp Refills HYDROcodone-Acetaminophen (NORCO) 10-325 mg per tablet 90 tablet 0 Sig: Take 1 tablet by mouth three times daily as needed for pain for up to 30 days. Do not start before December 14, 2022. Authorizing Provider: MATILDE HAYWARD APRN.MANAGER CONTINUOUS IMPROVEMENT * Telephone Encounter - Denise Farmer RN - 12/12/2022 8:36 AM EDT Patient phones requesting refills as follows: Requested Prescriptions Pending Prescriptions Disp Refills HYDROcodone-Acetaminophen (NORCO) 10-325 mg per tablet 90 tablet 0 Sig: Take 1 tablet by mouth three times daily as needed for pain for up to 30 days. Last UDS: Summary Report Date Value Ref Range Status 08/14/2022 FINAL Final Comment: Gabapentin, MS, Ur RFX Acetaminophen, MS, Ur RFX ToxAssure Flex 23, Ur Specimen Alert Note: Urinary creatinine is low; ability to detect some drugs may be compromised. Interpret results with caution. Test Result Flag Units Drug Present Gabapentin PRESENT Acetaminophen PRESENT Test Result Flag Units Ref Range Creatinine 11 L mg/dL >=20 Declared Medications: Medication list was not provided. For clinical consultation, please call . @FLOW([id number])@ Lab Results Component Value Date SUMM FINAL 08/14/2022 Summary Report (Summary) Date Value Ref Range Status 03/20/2022 FINAL Final Comment: TOXASSURE COMP DRUG ANALYSIS,UR Specimen Alert Note: Urinary creatinine is low; ability to detect some drugs may be compromised. Interpret results with caution. Test Result Flag Units Drug Present Gabapentin PRESENT Acetaminophen PRESENT Test Result Flag Units Ref Range Creatinine 11 L mg/dL >=20 Declared Medications: Medication list was not provided. For clinical consultation, please call . Please review and advise. Denise Farmer RN documented [facility] NoteHNO ID: [id number] Author: Matilde Hayward APRN.MANAGER CONTINUOUS IMPROVEMENT Service: ? Author Type: Clinical Nurse Specialist Type: Progress Notes Filed: 11/12/2022 9:48 AM Note Text: SUBJECTIVE: Sonam Casillas presents to [facility] for a follow-up appointment for back and hip pain. Last seen by me on 08/14/22 with plan of care gabapentin from PCP, norco , avoid NSAIDS, xray, UDS Pain level:1010 Denies ED visits or hospitalizations since last office visit Reports pain worse with standing and walking short time, bending, weather changes Reports pain better with medications, TENS Describes pain in neck as constant pain that extends to her shoulders Describes pain in lower back as constant ache that is stabbing at times States pain radiates to hips, butt, and legs. Describes pain in left hip as constant pain Denies numbness/tingling Denies falls REVIEW OF SYSTEMS: GENERAL: No weight loss, malaise or fevers. HEENT: Negative for frequent or significant headaches. RESPIRATORY: Negative for cough, wheezing or shortness of breath. CARDIOVASCULAR: Negative for chest pain, leg swelling or palpitations. Dizzy if get up too fast GI: Negative for abdominal discomfort, blood in stools or black stools or change in bowel habits. : denies issues PSYCH: states her old man is leaving her after 28 years. Sleep disturbed. States her adult grandson will move in to help her when leaves Past Medical History: PAST MEDICAL HISTORY Diagnosis Date Alcoholism (HCC) Arthritis Asthma Back pain Cigarette smoker COPD (chronic obstructive pulmonary disease) (HCC) Genital herpes Hearing loss bilateral hearing aides Hypertension Osteoporosis Past Surgical History: PAST SURGICAL HISTORY Procedure Laterality Date HYSTERECTOMY HX 1991 PAST SURGICAL HISTORY OF amputation tip of right little finger due to abscess, Dr. Zina Matias PAST SURGICAL HISTORY OF arthroscopy twice right shoulder PAST SURGICAL HISTORY OF two surgeries on right ear for hearing Family History: FAMILY HISTORY Problem Relation Age of Onset Cancer Mother Coronary Artery Disease Father Diabetes Daughter Diabetes Daughter Cancer Daughter cervical Diabetes Grandchild Stroke Sister Alcohol/Drug Daughter Social History: Social History Tobacco Use Smoking status: Every Day Packs/day: 0.50 Types: Cigarettes Smokeless tobacco: Never Substance Use Topics Alcohol use: Yes Comment: on holidays Drug use: No OBJECTIVE: BP 143/90 Pulse 80 Resp 16 SpO2 95% PHYSICAL EXAMINATION: General appearance: Well appearing, in no acute distress, alert. Psych: Mood and affect appropriate. Skin: Skin color, texture, turgor normal, no rashes or lesions. Pulm: no conversational shortness of breath Musculoskeletal: Deferred toe and heel raise and knee bend. Lumbar major range of motion mildly restricted in all planes. Positive straight leg raise from seated position bilaterally.Positive Tim sign bilaterally Positive lumbar facet loading bilaterally. No muscle spasms or trigger points appreciated in the paraspinal or gluteal muscles. Positive tenderness with palpation with both hips bilateral hip range of motion with tenderness with all motion. . 4/5 bilateral muscle strength lower extremities. ASSESSMENT: . (M48.062) Spinal stenosis, lumbar region with neurogenic claudication (primary encounter diagnosis) (G89.4) Chronic pain syndrome (M54.16) Lumbar radiculopathy (M16.0) Osteoarthritis of both hips, unspecified osteoarthritis type (Z79.899) High risk medication use PLAN: Continue norco 10/325 one tab tid PRN This helps patient perform ADL, interact with family and friends. OARRS reviewed and consistent UDS reviewed and consistent with OARRS From OARRS no gabapentin from PCP Continue flexeril Avoid NSAIDS due to GERD and gastric ulcers Encouraged to reduce tobacco use 08/14/22 bilateral hip xrays-Mild degenerative changes bilateral hips, slightly progressed from the prior study. PA and schedule bilateral trochanteric bursa injections Followup in 3 months The above plan and management options were discussed at length with the patient. The patient is in agreement with the above and verbalized understanding. Matilde Hayward APRN.HONG November 12, 2022[facility]03-13-2023 Instructions* Patient Instructions * Matilde Hayward APRN.MANAGER CONTINUOUS IMPROVEMENT - 11/12/2022 9:36 AM EDT Continue norco 10/325 one tab tid PRN This helps patient perform ADL, interact with family and friends. OARRS reviewed and consistent UDS reviewed and consistent with OARRS From OARRS no gabapentin from PCP Continue flexeril Avoid NSAIDS due to GERD and gastric ulcers Encouraged to reduce tobacco use 08/14/22 bilateral hip xrays-Mild degenerative changes bilateral hips, slightly progressed from theprior study. PA and schedule bilateral trochanteric bursa injections Followup in 3 months [facility]23 History of Present illness Narrative* Matilde Hayward APRN.MANAGER CONTINUOUS IMPROVEMENT - 11/12/2022 9:30 AM EDT SUBJECTIVE: Sonam Casillas presents to [facility] for a follow-up appointment for back and hip pain. Last seen by me on 08/14/22 with plan of care gabapentin from PCP, norco 10/325, avoid NSAIDS, xray, UDS Pain level:1010 Denies ED visits or hospitalizations since last office visit Reports pain worse with standing and walking short time, bending, weather changes Reports pain better with medications, TENS Describes pain in neck as constant pain that extends to her shoulders Describes pain in lower back as constant ache that is stabbing at times States pain radiates to hips, butt, and legs. Describes pain in left hip as constant pain Denies numbness/tingling Denies falls REVIEW OF SYSTEMS: GENERAL: No weight loss, malaise or fevers. HEENT: Negative for frequent or significant headaches. RESPIRATORY: Negative for cough, wheezing or shortness of breath. CARDIOVASCULAR: Negative for chest pain, leg swelling or palpitations. Dizzy if get up too fast GI: Negative for abdominal discomfort, blood in stools or black stools or change in bowel habits. : denies issues PSYCH: states her old man is leaving her after 28 years. Sleep disturbed. States her adult grandsonwill move in to help her when leaves Past Medical History: PAST MEDICAL HISTORY Diagnosis Date Alcoholism (HCC) Arthritis Asthma Back pain Cigarette smoker COPD (chronic obstructive pulmonary disease) (HCC) Genital herpes Hearing loss bilateral hearing aides Hypertension Osteoporosis Past Surgical History: PAST SURGICAL HISTORY Procedure Laterality Date HYSTERECTOMY HX 1991 PAST SURGICAL HISTORY OF amputation tip of right little finger due to abscess, Dr. Zina Matias PAST SURGICAL HISTORY OF arthroscopy twice right shoulder PAST SURGICAL HISTORY OF two surgeries on right ear for hearing Family History: FAMILY HISTORY Problem Relation Age of Onset Cancer Mother Coronary Artery Disease Father Diabetes Daughter Diabetes Daughter Cancer Daughter cervical Diabetes Grandchild Stroke Sister Alcohol/Drug Daughter Social History: Social History Tobacco Use Smoking status: Every Day Packs/day: 0.50 Types: Cigarettes Smokeless tobacco: Never Substance Use Topics Alcohol use: Yes Comment: on holidays Drug use: No OBJECTIVE: BP 143/90 Pulse 80 Resp 16 SpO2 95% PHYSICAL EXAMINATION: General appearance: Well appearing, in no acute distress, alert. Psych: Mood and affect appropriate. Skin: Skin color, texture, turgor normal, no rashes or lesions. Pulm: no conversational shortness of breath Musculoskeletal: Deferred toe and heel raise and knee bend. Lumbar major range of motion mildly restricted in all planes. Positive straight leg raise from seated position bilaterally.Positive Tim sign bilaterally Positive lumbar facet loading bilaterally. No muscle spasms or trigger points appreciated in the paraspinal or gluteal muscles. Positive tenderness with palpation with both hips bilateral hip range of motion with tenderness with all motion. . 4/5 bilateral muscle strength lower extremities. ASSESSMENT: . (M48.062) Spinal stenosis, lumbar region with neurogenic claudication (primary encounter diagnosis) (G89.4) Chronic pain syndrome (M54.16) Lumbar radiculopathy (M16.0) Osteoarthritis of both hips, unspecified osteoarthritis type (Z79.899) High risk medication use PLAN: Continue norco 10/325 one tab tid PRN This helps patient perform ADL, interact with family and friends. OARRS reviewed and consistent UDS reviewed and consistent with OARRS From OARRS no gabapentin from PCP Continue flexeril Avoid NSAIDS due to GERD and gastric ulcers Encouraged to reduce tobacco use 08/14/22 bilateral hip xrays-Mild degenerative changes bilateral hips, slightly progressed from theprior study. PA and schedule bilateral trochanteric bursa injections Followup in 3 months The above plan and management options were discussed at length with the patient. The patient is in agreement with the above and verbalized understanding. Matilde Hayward APRN.CNS November 12, [address] [facility]23 Miscellaneous Notes* Telephone Encounter - Matilde Hayward APRN.CNS - 09/10/2022 10:28 AM EST The following approved medication requests have been transmitted electronically. Requested Prescriptions Signed Prescriptions Disp Refills HYDROcodone-Acetaminophen (NORCO) 10-325 mg per tablet 90 tablet 0 Sig: Take 1 tablet by mouth three times daily as needed for pain for up to 30 days. Do not start before September 13, 2022. Authorizing Provider: MATILDE HAYWARD APRN.CNS * Telephone Encounter - Sanjuana Murdock RN - 09/10/2022 10:19 AM EST Pt requesting refill as follows Requested Prescriptions Pending Prescriptions Disp Refills HYDROcodone-Acetaminophen (NORCO) 10-325 mg per tablet 90 tablet 0 Sig: Take 1 tablet by mouth three times daily as needed for up to 30 days. Please review and advise. Sanjuana Murdock RN documented in this encounter[facility]12-[facility]-2022 NoteHNO ID: [id number] Author: RT Meredith(Antonia) Service: Radiology Author Type: Technologist Type: Progress Notes Filed: 08/14/2022 12:41 PM Note Text: Summary: BILATERAL HIPS Radiology Service Progress Note PATIENT NAME: Sonam Casillas DATE OF SERVICE: August 14, 2022 TIME: 12:41 PM PATIENT IDENTITY VERIFICATION COMPLETED USING TWO (2) IDENTIFIERS: Name and Date of confirmed by patient verbally. FALL SCREENING: Has the patient had 2 falls in the last year or 1 fall with injury or currently using an Ambulatory Assistive Device (Walker, Cane, Wheelchair, Crutches, etc.)? No PATIENT GENDER DATA: Female. status: : No status: NO. PATIENT RELEVANT IMPLANT DATA REVIEWED: Not Applicable RADIOLOGY DEPARTMENT: General X-ray: Exam(s) Completed: Pelvis X-Ray: Pelvis with Hip Bilateral PERIPHERAL IV DATA: Not applicable SIGNED BY: RT Meredith(R) August 14, 2022 12:41 PM[facility]-2022 NoteHNO ID: [id number] Author: Matilde Hayward APRN.MANAGER CONTINUOUS IMPROVEMENT Service: ? Author Type: Clinical Nurse Specialist Type: Progress Notes Filed: 08/14/2022 11:21 AM Note Text: Patient was last seen by me on 03/20/22 for back and hip pain Plan of care: Continue [place] 10-325 mg TID PRN. This helps patient perform ADL, interact with family and friends. No misuse or aberrant behaviors detected. OARRS reviewed and consistent. UDS reviewed and consistent Order UDS Encouraged to follow instructions of PCP and specialists Continue Flexeril. Continue Gabapentin 600 mg TID.from PCP Avoid oral NSAID's due to GERD and h/o gastric ulcers Continue lumbar support brace Continue HEP. Encouraged to reduce tobacco cessation Prescribe medrol dose pack Follow-up in 3 months Pain level States her daughter took her to [facility] ED last month after fell and hit back of her head. States has mammogram later this month States she falls over her kittens Worse: stand and walking short time, bending, weather changes Reports pain better with medications, TENS Describes pain in neck as stiff that extends to her shoulders Describes pain in lower back as constant ache States pain radiates to hips, butt, and legs. Right greater than left Denies numbness/tingling Denies issues with bowels or bladder Denies nausea or vomiting State has dizziness when get up too fast States has some headaches Physical assessment: Alert and oriented x3. Wearing hearing aid in her left ear. Skin pink, warm, dry. No conversational shortness of breath appreciated. Wearing facemask. Mood Pleasant and cooperative. Able to ascend and descend from sitting position with some difficulty Deferred toe and heel raise and knee bend. Lumbar major range of motion mildly restricted in all planes. Positive straight leg raise from seated position bilaterally. Positive Tim sign on right negative on left. Positive lumbar facet loading bilaterally. No muscle spasms or trigger points appreciated in the paraspinal or gluteal muscles. Positive tenderness with palpation on the right hip. Right hip range of motion with tenderness with all motion. Left hip with no tenderness or restriction. 4/5 bilateral muscle strength lower extremities.[facility]12-13-2022 History of Present illness Narrative* RT Meredith(R) - 08/14/2022 11:45 AM ESTSummary: BILATERAL HIPS Radiology Service Progress Note PATIENT NAME: Sonam Casillas DATE OF SERVICE: August 14, 2022 TIME: 12:41 PM PATIENT IDENTITY VERIFICATION COMPLETED USING TWO (2) IDENTIFIERS: Name and Date of confirmedby patient verbally. FALL SCREENING: Has the patient had 2 falls in the last year or 1 fall with injury or currently using an Ambulatory Assistive Device (Walker, Cane, Wheelchair, Crutches, etc.)? No PATIENT GENDER DATA: Female. status: : No status: NO. PATIENT RELEVANT IMPLANT DATA REVIEWED: Not Applicable RADIOLOGY DEPARTMENT: General X-ray: Exam(s) Completed: Pelvis X-Ray: Pelvis with Hip Bilateral PERIPHERAL IV DATA: Not applicable SIGNED BY: RT Meredith(R) August 14, 2022 12:41 PM documented [facility] [address] [facility]12-13-2022 Instructions* Patient Instructions* Matilde Hayward APRN.MANAGER CONTINUOUS IMPROVEMENT - 08/14/2022 11:11 AM EST Patient has chronic back and hip pain tolerated with following medications: norco, flexeril, gabapentin Continue norco 10/325 one tab tid PRN OARRS reviewed and consistent UDS reviewed and consistent Order Uds Continue gabapentin from PCP Continue flexeril Avoid NSAIDS due to GERD and gastric ulcers Encouraged to reduce tobacco use Order xray bilateral hips May want to consider right hip injection Followup in 3 months [facility]12-[facility]2022 History of Present illness Narrative* Matilde Hayward APRN.MANAGER CONTINUOUS IMPROVEMENT - 08/14/2022 10:00 AM EST Patient was last seen by me on 03/20/22 for back and hip pain Plan of care: Continue [place] 10-325 mg TID PRN. This helps patient perform ADL, interact with family and friends.No misuse or aberrant behaviors detected. OARRS reviewed and consistent. UDS reviewed and consistent Order UDS Encouraged to follow instructions of PCP and specialists Continue Flexeril. Continue Gabapentin 600 mg TID.from PCP Avoid oral NSAID's due to GERD and h/o gastric ulcers Continue lumbar support brace Continue HEP. Encouraged to reduce tobacco cessation Prescribe medrol dose pack Follow-up in 3 months Pain level States her daughter took her to [facility] ED last month after fell and hit back of her head. States has mammogram later this month States she falls over her kittens Worse: stand and walking short time, bending, weather changes Reports pain better with medications, TENS Describes pain in neck as stiff that extends to her shoulders Describes pain in lower back as constant ache States pain radiates to hips, butt, and legs. Right greater than left Denies numbness/tingling Denies issues with bowels or bladder Denies nausea or vomiting State has dizziness when get up too fast States has some headaches Physical assessment: Alert and oriented x3. Wearing hearing aid in her left ear. Skin pink, warm, dry. No conversationalshortness of breath appreciated. Wearing facemask. Mood Pleasant and cooperative. Able to ascend and descend from sitting position with some difficulty Deferred toe and heel raise and knee bend. Lumbar major range of motion mildly restricted in all planes. Positive straight leg raise from seated position bilaterally. Positive Tim sign on right negative on left. Positive lumbar facet loading bilaterally. No musclespasms or trigger points appreciated in the paraspinal or gluteal muscles. Positive tenderness withpalpation on the right hip. Right hip range of motion with tenderness with all motion. Left hip with no tenderness or restriction. 4/5 bilateral muscle strength lower extremities. documented in this [facility]07-19-2022 Instructions* Patient Instructions* Matilde Hayward APRN.CNS - 03/20/2022 9:19 AM EDT Continue [place] 10-325 mg TID PRN. This helps patient perform ADL, interact with family and friends.No misuse or aberrant behaviors detected. OARRS reviewed and consistent. UDS reviewed and consistent Order UDS Encouraged to follow instructions of PCP and specialists Continue Flexeril. Continue Gabapentin 600 mg TID.from PCP Avoid oral NSAID's due to GERD and h/o gastric ulcers Continue lumbar support brace Continue HEP. Encouraged to reduce tobacco cessation Prescribe medrol dose pack Follow-up in 3 months [facility]07-[facility]-2022 History of Present illness Narrative* Matilde Hayward APRN.CNS - 03/19/2022 11:30 AM EDT Patient was last seen by me for back and hip pain on 12/18/2021 Plan of care: 1) Continue [place] 10-325 mg TID PRN. This helps patient perform ADL, interact with family and friends. No misuse or aberrant behaviors detected. OARRS reviewed and consistent. UDS reviewed and consistent 2) Encouraged to follow instructions of PCP and specialists 3) Continue Flexeril. 4) Continue Gabapentin 600 mg TID.from PCP 5) Avoid oral NSAID's due to GERD and h/o gastric ulcers 6) Continue lumbar support brace 7) Continue HEP. 8) Encouraged to reduce tobacco cessation 9) Follow-up in 3 months in office Pain level:10/10 Denies any ED visits or hospitalizations since last office visit Reports pain worse with stand,walking, bending, weather changes Reports pain better with medications, TENS Describes pain in neck as stiffness in mornings Describes pain in lower back as constant ache that becomes stabbing States pain radiates to hips, butt, and legs. left greater than right States has numbness in left foot. States fell taking cat to vet on slippery pavement which made pain worse. This occurred 03/07/22 Denies issues with bowels or bladder Denies nausea or vomiting State has dizziness when get up too fast States has some headaches Physical assessment: Alert and oriented x3 Wearing hearing aide in left ear. Skin pink, warm, and dry. No conversationalshortness of breath appreciated. Wearing face mask. Mood pleasant and cooeprative. Able to ascend and descend from sitting position without difficulty Examination of the lumbosacral spine reveals no scars, curvature or abnormalities. Lumbar range of motion is mildly restricted in all planes On standing examination, lumbar flexion at 90 degrees and extension less than 10 to 15 degrees. There is mild tenderness upon palpation of the lumbar spine, gr eatest on the left. Positive lumbar facet loading bilaterally. There are no muscle spasms or trigger points noted in the paraspinal musculature or gluteal muscles. Muscle strength of the lower extremities is 4/5 bilaterally Great toe extension is intact bilaterally, slight weakness noted in the left. Positive straight leg raise on the left at the L4-5 and S1 dermatomes. Sensation in the lower extremities is diminished on the left side, she is unable to feel light touch. Increased sensitivity with light touch along the left L5 and S1 dermatomes. Positive Tim's test on the left. Negative on the right. Positive left greater trochanteric tenderness on palpation. She reports neck stiffness with motion. Diminished sensation in the left upper extremitiy along with numbness. The left arm is slightly weaker than the right. Hand grasp is slightly weaker on the left. Neagtive cervical facet tenderness bilaterally. Negative Spurling sign bilaterally. documented in this encounterMount [facility]06-[facility]-2021 NotePhysical Therapy Outpatient Progress Summary Medical Diagnosis: LUMBAR SPINAL STENOSIS; LUMBAR RADICULOPATHY; LUMB Therapy Diagnosis: Rank Code Description Date of Onset 1 M54.5 Low back pain 01/02/2021 2 M48.06 Spinal stenosis, lumbar region 01/02/2021 3 M54.16 Radiculopathy, lumbar region 01/02/2021 4 M47.816 Spondylosis without myelopathy or 01/02/2021 radiculopathy, lumbar region 5 M51.36 Other intervertebral disc degeneration, lumbar 01/02/2021 region 6 M51.34 Other intervertebral disc degeneration, 01/02/2021 thoracic region 7 M47.894 Other spondylosis, thoracic region 01/02/2021 8 M53.3 Sacrococcygeal disorders, not elsewhere 01/02/2021 classified 9 G89.4 Chronic pain syndrome 01/02/2021 10 R26.9 Unspecified abnormalities of gait and mobility 01/02/2021 11 M16.12 Unilateral primary osteoarthritis, left hip 01/02/2021 Demographics: Age: 65Y Gender: Female Medications: Significant rehabilitation considerations: see scanned list Allergies: Significant rehabilitation considerations: grass Rehabilitation Precautions/Restrictions: pain precautions, fall risk Referring/Attending MD:Soraida Godoy Patient Report: Patient continues to deny any pain and states she feels fine with no ongoing concerns. Patient has no set f/u with physician. Patient notes that she feels able to perform HEP independently at this time. Temperature and COVID check completed. Temperature WNL and Negative for COVID exposure and symptoms Patient/Caregiver Goals: improve the pain and the walking Pain: Patient currently without complaints of pain. Interventions: Therapeutic Activities: Patient participates in reassessment of pain, ROM, strength, transfers, and functional mobility. Patient completes care connections assessment with assistance of therapist. Patient educated on progress made towards goals and plan to d/c from PT services at this time. Pain Reassessment: No significant change in pain during session. [facility] PATIENT NAME: SONAM CASILLAS [address] MEDICAL REC #: [id number] [place] [address] ADMIT DATE: SERVICE DATE: 02/08/21 Physical Therapy Re-Assessment ATTENDING TODD: Soraida Godoy DO Education: The patient's preferred learning method is: Explanation Barriers to Learning: No barriers Learning Needs: Plan of care. Education Provided: Plan of care. Audience: Patient. Mode: Explanation. Response: Verbalized understanding. Initial Evaluation Date: 01/02/2021 Reporting Period: 01/02/2021 to 02/08/2021 Number of Visits to Date: Total # of visits to date with patient: 9 Physical Therapy Program to Date: In summary, the program has included: ther ex, ther act, NMR, manual therapy, gait training, modalities Activity/Participation Problem List and Goals: Mobility: Walking and Moving Around Goal: Care connections score from 67% limited to 37% limited Status: 20% limited upon d/c Functions/Structures Problem List and Goals: Pain: 0/10 pain at rest and with activity Status: goal met Range of Motion: WNL lumbar ROM and SLR with no increase in pain at end ranges Status: lumbar ROM all WNL with no pain at end ranges passive SLR @ 70 deg bilat with c/o HS tightness sonly, no pain Strength: Grossly 5/5 MMT BLE >10 sec trunk flexion endurance hold Status: patient still unable to hold trunk flexion positioning in hooklying, however no pain MMT of 4+/5 hip flex, 4/5 hip ab/ad; 4/5 knee flex/ext; 4+/5 DF B Transfers: Ability to perform bed mobility and transfers independently with improved postural control and proper body mechanics for no increase in pain Status: independent with bed mobility and STS with no increase in pain Mobility: TUG <14 sec for decreased risk for falls Ability to ambulate community distances independently with more normalized gait, improved posture, no LOB, and no increase in pain Status: no ongoing concerns with gait or balance; TUG completed in 11 sec with [facility] PATIENT NAME: PARISHSONAM L [address] [facility] [address] MEDICAL REC #: [id number] [place] [address] ADMIT DATE: SERVICE DATE: 02/08/21 Physical Therapy Re-Assessment ATTENDING PHY: Soraida Godoy DO no AD and no LOB Progress Summary: Patient has met all goals and will be d/c from PT services at this time. Equipment Provided: None issued this visit. Rehabilitation Potential: no further improvements anticipated through PT services at this time . Recommendations: Physical Therapy services are discontinued at this time secondary to: Goals have been MET. No need for skilled therapy intervention at this time. Patient is independent (able to return demonstrate) home exercise program. Visit Number: Today's visit is number 10 Medicare (more content not included)...[facility]05-03-2021 NotePhysical Therapy Outpatient Low Spine and Sacroiliac Evaluation Medical Diagnosis: LUMBAR SPINAL STENOSIS; LUMBAR RADICULOPATHY; LUMB Therapy Diagnosis: Rank Code Description Date of Onset 1 M54.5 Low back pain 01/02/2021 2 M48.06 Spinal stenosis, lumbar region 01/02/2021 3 M54.16 Radiculopathy, lumbar region 01/02/2021 4 M47.816 Spondylosis without myelopathy or 01/02/2021 radiculopathy, lumbar region 5 M51.36 Other intervertebral disc degeneration, lumbar 01/02/2021 region 6 M51.34 Other intervertebral disc degeneration, 01/02/2021 thoracic region 7 M47.894 Other spondylosis, thoracic region 01/02/2021 8 M53.3 Sacrococcygeal disorders, not elsewhere 01/02/2021 classified 9 G89.4 Chronic pain syndrome 01/02/2021 10 R26.9 Unspecified abnormalities of gait and mobility 01/02/2021 11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 general adult medical examination without abnormal findings Procedures EST PATIENT VISIT LEVEL 1 Soraida Godoy DO [address] [facility] [place] [phone] Pain [facility] [address] [place] [place] [address] Referral ID Status Reason Start Date Expiration Date V isits Requested Visits Authorized [id number] Closed OON/Self Pay Override 05/01/2023 07/30/2023 1 1 Reason Comments Back Pain Hip Pain Reason Onset Date Comments Refill Request 09/10/2022 Reason Comments Back Pain Hip Pain Reason Onset Date Comments Refill Request 12/12/2022 Reason Comments Back Pain Leg Pain Reason Onset Date Comments Refill Request 04/11/2023 Specialty Diagnoses / Procedures Referred By Iraida diaz Referred To Contact Diagnoses Trochanteric bursitis of both hips Procedures ARTHROCENTESIS ASPIR&/INJ MAJOR JT/BURSA W/O US ARTHROCENTESIS,ASPIRATION AND/OR INJECTION,MAJOR JOINT OR BURSA W/O GUIDANCE Mr Pain Management [address] [place] [address] Referral ID Status Reason Start Date Expiration Date Visits Re quested Visits Authorized [id number] 1 1 Reason Onset Date Comments Refill Request 04/18/2023 Reason Onset Date Comments Refill Request 04/23/2023 Reason Comments Medication Problem Reason Onset Date Comments Refill Request 05/09/2023 Reason Onset Date Comments Refill Request 05/15/2023 Reason Onset Date Comments Refill Request 05/29/2023 Refill Request 06/06/2023 Reason Onset Date Comments Refill Request 06/13/2023 Reason Onset Date Comments Refill Request 06/24/2023 Care Team (unrecognized sect ion and content) Care Team Personnel Name: ERIN RODRIGUEZ APRN-LIGIA Position: P4 Advanced Practice Nurse Member Role: Primary Care Physician Address: Address: [address] [place] [id number]- Name: Nicole Church Clerananda Johnson PT Position: P3 Scheduling - [employer] Professional Advanced Member Role: Other Name: MATILDE HAYWARD CNP Address: Address: [address] [place] [address] [place], [place] [address] Name: SORAIDA GODOY DO Address: Address: [place] [id number] Care Team Related Persons Name: BLAS STEWART Name: DINA MARTINEZ Care Team Personnel Name: ERIN RODRIGUEZ Position: P4 Advanced Practice Nurse Member Role: Primary Care Physician Address: Address: [address] [place] [id number] Name: Nicole Church Clerk Elizabeth PT Position: P3 Scheduling - High School Professional Advanced Member Role: Other Name: MATILDE HAYWARD TRAFFIC SIGNAL MECHANIC Member Role: Pain Management Address: Address: [address] [place] [address] [place] [id number] Name: SORAIDA GODOY DO Member Role: Pain Management Address: Address: [address] Care Team Related Persons Name: BLAS STEWART Name: DINA MARTINEZ PRRey Active and Recently Administ ered Medications (unrecognized section and content) FOR RECORDS PERTAINING TO PATIENTS WHO ARE OR HAVE BEEN ENROLLED IN A CHEMICAL DEPENDENCY/SUBSTANCEABUSE PROGRAM, SOME INFORMATION MAY BE OMITTED. This clinical summary was aggregated from multiple sources. Caution should be exercised in using it in the provision of clinical care. This summary normalizes information from multiple sources, and as a consequence, information in this document may materially change the coding, format and clinical context of patient data. In addition, data may be omitted in some cases. CLINICAL DECISIONS SHOULD BE BASED ON THE PRIMARY CLINICAL RECORDS. [employer] (?) [facility]. provides no warranty or guarantee of the accuracy or completeness of information in this document.
[2023-09-10 02:58] LABS: ALB/GLOB Ratio 0.9 RATIO (0.9-2.4); AST(SGOT) 39 U/L (15-37); Alanine Aminotransfer ALT/SGPT 21 U/L (13-56); Albumin, Serum 3.1 g/dL (3.2-5.0); Alkaline Phosphatase 121 U/L (45-117); Anion Gap 5 (5-15); BUN 6 mg/dL (7-18); BUN/Creat Ratio 12.8 RATIO (10-20); Calcium,Total 8.5 mg/dL (8.5-10.1); Chloride 100 mmol/L (98-107); Creatinine, Serum 0.47 mg/dL (0.55-1.02); EST Glomerular Filtration Rate 141 mL/min (>60); Est Glom Filt Rate - Afr Amer 170 mL/min (>60); Globulin 3.6 g/dL (2.2-4.2); Glucose 95 mg/dL (74-106); Potassium 3.4 mmol/L (3.5-5.1); Protein, Total 6.7 g/dL (6.4-8.2); Sodium Level 138 mmol/L (136-145); Troponin-I HS 12 pg/mL (3.0-54.0)
[2023-09-10 04:19] LABS: Amphetamine Urine VISTA NEGATIVE (<1000 ng/mL); Barbiturate Urine VISTA NEGATIVE (< 200 ng/mL); Benzodiazepine Urine VISTA NEGATIVE (< 200 ng/mL); Cocaine Urine VISTA NEGATIVE (< 300 ng/mL); Ecstacy Urine VISTA NEGATIVE (< 500 ng/mL); Methadone Urine VISTA NEGATIVE (< 300 ng/mL); PCP Urine VISTA NEGATIVE (< 25 ng/mL); THC Urine VISTA NEGATIVE (< 50 ng/mL); Vista UDS pH Range 7
[2023-09-10 04:54] VITALS: BP 102/67; PULSE 68; RESP 16; O2SAT 98
--- NOTE | 2023-09-10 04:59 | ED.RN ---
daughter called and updated on plan of care and patient condition at this time
[2023-09-10 05:00] VITALS: BP 102/68; RESP 16
[2023-09-10 06:00] VITALS: BP 180/105; PULSE 80; RESP 18; O2SAT 96
--- NOTE | 2023-09-10 06:53 | NURSING ---
CALLED CRISIS AT [phone]
--- NOTE | 2023-09-10 10:00 | ED.RN ---
called and left a message for pt daughter and informed pt is being discharged and will need a ride home
[2023-09-10 10:17] VITALS: RESP 18
== END 2023-09-10 10:18 | disposition home or self-care (01) ==
PROVIDERS: Emergency Provider Emergency Medicine; PCP Nurse Practitioner Primary Care; Visit Provider Emergency Medicine
DX: R07.9 Chest pain, unspecified (principal); J44.9 Chronic obstructive pulmonary disease, unspecified; R45.851 Suicidal ideations; E87.6 Hypokalemia; I25.10 Atherosclerotic heart disease of native coronary artery without angina pectoris; F17.210 Nicotine dependence, cigarettes, uncomplicated; F10.10 Alcohol abuse, uncomplicated; Y90.6 Blood alcohol level of 120-199 mg/100 ml; Z62.820 Parent-biological child conflict; Z79.02 Long term (current) use of antithrombotics/antiplatelets
CPT/HCPCS: 71045; 80053; 80307; 80320; 84484; 85025; 93005; 99284; A4216; G0480

== ENCOUNTER 2023-10-09 19:44 | Inpatient (IN) | payer MEDICARE, MEDICAID, SELFPAY ==
[2023-10-09 19:48] VITALS: BP 122/97; PULSE 85; RESP 12; TEMP 36.6; O2SAT 98; BMI 21.3
--- NOTE | 2023-10-09 21:06 | EX.ED.DYSGE1 ---
HPI History of Present Illness Chief Complaint: General Illness Detail of Chief Complaint: Possible upper GI bleed. Reported hematemesis of dark blood. Informant: patient Onset/Context/Timing Onset: Today and Hours Context: Sudden Onset Current Severity: Mild Maximum Severity: Mild Narrative Narrative: 68-year-old female history of alcohol use. Currently living with her daughter. States that she had 2 alcoholic beverages today. Around 5:00 she had nausea and vomiting and says she threw up several times of dark blood. About a cupful. Denies clots. Denies melena or black stools. No history of GI bleed. She has not had any recent endoscopy. Patient believes she is on Plavix. Prior similar symptoms: No Recent Illness/Hospitalization: No PFSH PFSH Medical History Asthma CAD (coronary artery disease) COPD (chronic obstructive pulmonary disease) Deficient knowledge of percutaneous coronary intervention (PCI) and stenting ETOH abuse Tobacco abuse Home Medications clopidogrel 75 mg tablet 75 mg PO DAILY 07/30/23 [History Last Taken Unknown] duloxetine 60 mg capsule,delayed release 60 mg PO DAILY 09/10/23 [History Last Taken Unknown] Allergy/AdvReac Type Severity Reaction Status Date / Time No Known Allergies Allergy Verified 10/09/23 19:51 Surgical History History of hysterectomy Social History Smoking Status: Current every day smoker tobacco type: cigarettes ROS ROS ED ROS Narrative No recent illness. Review of Systems ROS Unobtainable: Denies due to encephalopathy Constitutional Constitutional ED: Denies chills or fever(s) Eyes Eyes: Denies blurry vision ENT ENT ED: Denies ear pain Cardiovascular Cardiovascular: Denies chest pain Respiratory/Chest Respiratory/Chest: Denies cough Gastrointestinal Gastrointestinal: Reports other Details: Possible hematemesis today ; Denies abdominal pain, constipation, diarrhea, melena, nausea or vomiting Genitourinary Genitourinary ED: Denies dysuria or hematuria Musculoskeletal Musculoskeletal: Denies arthralgias Integumentary Denies abscess Neurologic Neurologic: Denies headache(s) Psychiatric Psychiatric: Denies anxiety Endocrine Endocrinology: Denies cold intolerance Hematologic/Lymphatic Hematologic/Lymphatic: Reports none Allergic/Immunologic Allergic/Immunologic ED: Denies mouth swelling, tongue swelling or urticaria EXAM Physical Exam Narrative Exam Narrative: Well-appearing 68-year-old female. Vital signs are stable afebrile. HEENT exam unremarkable. No signs of blood in posterior pharynx. Neck nontender. Lungs clear. Heart regular rhythm no murmur. Abdomen soft, nondistended normal bowel sounds no peritoneal signs. No tenderness. Moving all 4 extremities. Nontender no edema. No bruising. Neurologically she is awake and alert answering questions following commands. No focal motor deficits. Const Vital Signs: 10/09/23 19:48 10/09/23 19:51 10/09/23 22:11 Temperature 97.8 F Temperature Source Temporal Pulse Rate 85 74 Respiratory Rate 12 17 Respiratory Effort Normal Non-Labored Respiratory Pattern Normal Blood Pressure 122/97 H 146/82 H Blood Pressure Mean 105 103 Pulse Ox 98 96 Oxygen Delivery Method Room Air Room Air Positive well nourished and well developed; Negative for obese, cachectic, contractures or unkempt General Appearance ED: well developed and NAD; Negative for unkempt, cachectic, contractures, cyanotic, diaphoretic or pallor Nutritional Appearance: Negative for cachectic or obese HEENT Reports moist mucous membranes; Denies dry mucous membranes Negative for trauma or tenderness Mouth ED: No dry mucous membranes Mouth: No dry mucous membranes Eyes PERRL and EOMs intact bilaterally General Eye ED: Negative for pale conjunctiva, scleral icterus or other Neck no lymphadenopathy, supple and no JVD General: Negative for tenderness Lymph Lymphatic: Negative for other Chest Wall inspection of chest normal and palpation of chest normal Chest: Negative for other Resp normal respiratory effort and clear to auscultation bilaterally Effort and Inspection: Negative for retractions Auscultation: Negative for rales, rhonchi or wheezes Cardio regular rate, regular rhythm, S1 normal heart sound, S2 normal heart sound and no murmurs Palpation: Negative for palpable S3 or palpable S4 Rate: Negative for bradycardia or tachycardic Rhythm: Negative for abnormal rhythm GI normal to inspection, nondistended, normoactive bowel sounds, non-tender, non-distended and no masses Inspection: Negative for abdominal distention Auscultation: normoactive bowel sounds Palpation: soft; Negative for tender, guarding or rebound tenderness present Back/Spine no CVA tenderness General Back: Negative for CVA tenderness Cervical Spine: Negative for cervical spine tenderness Thoracic Spine / Upper Back: Negative for thoracic spinal tenderness Lumbar Spine / Lower Back: Negative for lumbar spinal tenderness Extremity normal to inspection General Extremety ED: Negative for edema, tenderness or other findings General Extremity: Negative for edema or other findings Neuro oriented x3 and CN's II-XII intact bilaterally Sensorium / Orientation: alert; Negative for orientation impaired, lethargic or stuporous Motor Exam: strength 5/5 throughout Psych mental status grossly normal Appearance: Negative for unkempt Attitude: No agitated Mood & Affect: Negative for depressed, anxious or tearful Skin no rashes or lesions noted and no wounds General Skin Exam: Negative for jaundice or pallor Lesions: No lesion noted Rashes: No rashes noted Trauma: Negative for abrasion Wounds: Negative for wounds noted MDM MDM MDM Narrative Medical decision making narrative: 68-year-old female history of alcohol abuse with possible upper GI bleed tonight. Screening labs will be obtained along with a type and screen. She will be treated with IV Protonix. She is reportedly on Plavix. Repeat exam patient is doing well at 11:20 PM. Abdomen is benign. No peritoneal signs.Patient has a history of alcohol abuse. She is on Plavix. States she threw up blood the night and did not sound like a Bridget-Dunaway tear. I will have the hospitalist admit her for possible endoscopy tomorrow.Currently she is stable and doing well. History & Record Review Discussion w/independent historian: Patient Additional record(s) reviewed:: Prior inpatient record, Prior outpatient record, Prior ED visit and Prior labs Lab Data Attestation: I reviewed the patient's lab results. Lab results narrative: CBC unremarkable. White count of 5. H&H of 13 and 40. Platelets 245. PT/INR normal. PTT normal. Electrolytes unremarkable. Normal BUN and creatinine. Glucose 86. Liver enzymes are normal. Lipase is normal at 28. Alcohol is elevated at 103. Labs: Laboratory Results - last 24 hr 10/09/23 10/09/23 20:55 21:10 WBC 5.3 RBC 4.18 L Hgb 13.6 Hct 40.2 MCV 96.2 MCH 32.5 H MCHC 33.8 RDW Std Deviation 49.4 H RDW Coeff of Talon 13.8 Plt Count 245 MPV 10.2 Immature Gran % (Auto) 0.600 Neut % (Auto) 52.0 Lymph % (Auto) 34.5 [place] % (Auto) 9.5 Eos % (Auto) 2.3 Baso % (Auto) 1.1 H Absolute Neuts (auto) 2.8 Absolute Lymphs (auto) 1.82 Nucleated RBC % 0 PT 12.6 INR 0.9 APTT 30.6 Sodium 138 Potassium 3.5 Chloride 104 Carbon Dioxide 31.0 Anion Gap 3 L BUN 12 Creatinine 0.67 Estim Creat Clear Calc 59.73 Est GFR (MDRD) Af Amer 112 Est GFR (MDRD) Non-Af 93 BUN/Creatinine Ratio 17.8 Glucose 86 Calcium 8.6 Total Bilirubin 0.30 AST 25 ALT 21 Alkaline Phosphatase 99 Total Protein 6.4 Albumin 3.1 L Globulin 3.3 Albumin/Globulin Ratio 0.9 Lipase 28 Ethyl Alcohol 103.0 Blood Type O NEGATIVE Antibody Screen NEGATIVE Rhythm Strip Rhythm Strip: Sinus Rhythm Rate: 80 Ectopy: None EKG Initial EKG: Attestation: I personally reviewed and interpreted this EKG as follows: Interpretation: Sinus Rhythm and No Acute Injury Pattern Comments: Normal sinus rhythm rate 80 no acute signs of UT, nor ischemia nor dysrhythmia. Discharge Plan Dx/Rx/DC Orders Clinical Impression: Alcohol abuse, Alcohol intoxication, Hematemesis Disposition Disposition: Acute Care [facility]
--- NOTE | 2023-10-09 21:22 | ED.RN ---
PATIENTS DAUGHTER REQUESTING INFORMATION REGARDING WHAT TESTS ARE BEING RUN. RN STATES WE ARE WAITING ON THE RESULTS OF BLOODWORK. DAUGHTER STATES SHE TOLD THE NURSE TO HAVE THE DOCTOR CALL HER. RN STATED THAT USUALLY DOES NOT HAPPEN UNLESS THE PATIENT IS IN CRITICAL CONDITION. PATIENT BECAME UPSET WITH RN AND WANTS TO BE NOTIFIED OF BLOODWORK. RHEA NOTIFIED
[2023-10-09 21:25] LABS: Absolute Lymphocyte Count 1.82 X10^3/uL (0.83-4.51); Absolute Neutrophil Count 2.8 X10^3/uL (2.0-7.7); Basophil# 0.06 X10^3/uL; Basophil% 1.1 % (0-1); Eosinophil# 0.12 X10^3/uL; Eosinophils% 2.3 % (0-5); Hematocrit 40.2 % (37-47); Hemoglobin 13.6 g/dL (12.0-15.0); Lymphocyte # 1.82 X10^3/ul (0.83-4.51); Lymphocyte % 34.5 % (19-41); Mean Corp Hgb Conc 33.8 g/dL (32-36); Mean Corpuscular Hgb 32.5 pg (27.0-32.0); Mean Corpuscular Volume 96.2 fL (81-99); Mean Platelet Vol. 10.2 fl (6.2-12.0); Monocyte% 9.5 % (0-10); NRBC Flagged by Analyzer 0 % (0-5); Neutrophil # 2.75 X10^3/uL (2.7-7.7); Platelet Count 245 K/mm3 (150-450); RBC Distribution Width CV 13.8 % (11.6-14.6); RBC Distribution Width SD 49.4 fl (35.1-43.9); Red Blood Count 4.18 M/mm3 (4.2-5.4); White Blood Count 5.3 K/mm3 (4.4-11.0)
[2023-10-09 21:32] LABS: International Normalized Ratio 0.9; Partial Thromboplast Time 30.6 Seconds (24.1-36.2); Prothrombin Time (Protime)PT. 12.6 SECONDS (11.7-14.9)
[2023-10-09] MEDS: Pantoprazole Sodium 80 MG in 0.9% Normal Saline (50mL Bag) 15 ML 420 MG IV BOLUS (21:40)
--- OUTSIDE RECORDS SUMMARY | 2023-10-09 21:40 | XMS RPT_ITS | CCD ---
Author Name Unknown Address [address] [place] [address] Organization [facility] Care Team Providers Care Workers' Compensation Mediator Name Role Phone Erin Rodriguez Unavailable Unavailable JENNIFER MONOMER PURIFICATION OPERATOR-DIRECT MAIL COORDINATOR, ERIN Primary Care Physician ([phone]) Elizabeth Church PT Unavailable Unavailable Juni Zamora Primary Care Provider Juni Zamora Primary Care Provider JENNIFER MONOMER PURIFICATION OPERATOR-DIRECT MAIL COORDINATOR, ERIN Primary Care Physician [phone]) Jennifer MONOMER PURIFICATION OPERATOR.DIRECT MAIL COORDINATOR, Erin Primary Care Provider [phone] DAYAMITES MONOMER PURIFICATION OPERATOR-DIRECT MAIL COORDINATOR, ERIN Primary Care Unavailelizabeth GALLAGHER MD, PEBBLES W Attending Unavailable JIGNESH SANDHU, DR PERCY Mas Attending Guille RODRIGUEZ MONOMER PURIFICATION OPERATOR-DIRECT MAIL COORDINATOR, ERIN Primary Care Unavailabl e BALTES MONOMER PURIFICATION OPERATOR-DIRECT MAIL COORDINATOR, ERIN Primary Care UnavailJUNI Rodriguez MD Attending Unavailable LENCHO KIMBROUGH MD Attending Unavailable BALTES MONOMER PURIFICATION OPERATOR-DIRECT MAIL COORDINATOR, ERIN Primary Care Unavailabl e BALTES MONOMER PURIFICATION OPERATOR-DIRECT MAIL COORDINATOR, ERIN Attending Unavailabl e BALTES MONOMER PURIFICATION OPERATOR-DIRECT MAIL COORDINATOR, ERIN Primary Care Unavailabl e BALTES MONOMER PURIFICATION OPERATOR-DIRECT MAIL COORDINATOR, ERIN Attending Unavailabl e BALTES MONOMER PURIFICATION OPERATOR-DIRECT MAIL COORDINATOR, ERIN Primary Care Unavailabl e BALTES MONOMER PURIFICATION OPERATOR-DIRECT MAIL COORDINATOR, ERIN Primary Care Unavailabl e BALTES MONOMER PURIFICATION OPERATOR-DIRECT MAIL COORDINATOR, ERIN Attending Unavailabl e Baltes LIGIA, [place] Primary Care Provider [phone] SORAIDA GODOY Admitting Unavailable SORAIDA GODOY Attending Unavailable JUNI ZAMORA Primary Care Unavail able SORAIDA GODOY Attending Unavailable SORAIDA GODOY Referring Unavailable BALTES, ERIN Primary Care Unavailable JAYDON RITCHIE Attending Unavailable JENNIFER, ERIN Referring Unavailable BALTES, ERIN Primary Care Unavailable MATILDE HAYWARD Attending Unavailable JUNI ZAMORA Primary Care Unavail able SORAIDA GODOY Attending Unavailable JUNI ZAMORA Primary Care Unavail able Allergies Allergy Classification Reported Allergen(s) Allergy Type Date of Onset Reaction(s) Facility (20 sources) Ibuprofen; Translations: [ibuprofen] Drug Allergy 2 Unknown [facility] Work Phone: (20 sources) Naproxen; Translations: [Naproxen] Drug Allergy 2 Unknown [facility] Work Phone: (20 sources) Acetaminophen / traMADol; Translations: [acetaminophen-tr amadol] Drug Allergy 2 [facility] (1 source) Ibuprofen; Translations: [IBUPROFEN] Drug Allergy 2 [facility] (1 source) TRAMADOL-ACETAMIN OPHEN; Translations: [TRAMADOL-ACETAMI NOPHEN] Propensity to adverse reactions to drug (disorder) 2 [facility] Medications Current Medications Medication Drug Class(es) [...] oral tablet (20 sources) Opioid Agonist Start: 06-26-2023 End: 07-31-2023 take 1 tablet by mouth three times daily as needed for pain HYDROcodone-Aceta minophen (NORCO) 10-325 mg per tablet Indications: Chronic pain syndrome Take 1 tablet by mouth three times a day as needed for pain for up to 30 days. 90 tablet 0 07/01/2023 Active Problems Active Problems Problem Classification Problem Date Documented Date Episodic/Chronic Alcohol-related disorders (20 sources) Alcoholism; Translations: [Alcohol dependence, uncomplicated] Onset: 09-07-2015 01-06-2020 Chronic Alcohol-related disorders (2 sources) H/O: alcoholism; Translations: [History of alcoholism] Episodic Anxiety disorders (15 sources) Anxiety; Translations: [Anxiety disorder, unspecified] Onset: 04-02-2023 04-02-2023 Chronic Anxiety disorders (1 source) Irritability and anger 08-19-2023 Episodic Aortic and peripheral arterial embolism or thrombosis (2 sources) 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 Asthma (20 sources) Moderate persistent asthma controlled; Translations: [Moderate persistent asthma, uncomplicated] Onset: 09-07-2015 09-07-2015 Chronic Chronic obstructive pulmonary disease and bronchiectasis (20 sources) Emphysematous bronchitis; Translations: [Chronic obstructive pulmonary disease, unspecified] Onset: 09-11-2015 08-28-2021 Chronic Disorders of lipid metabolism (20 sources) Hyperlipidemia; Translations: [Hyperlipidemia, unspecified] Onset: 04-02-2023 01-06-2020 Chronic Esophageal disorders (15 sources) Gastroesophageal reflux disease without esophagitis; Translations: [Gastro-esophageal reflux disease without esophagitis] Onset: 04-02-2023 04-02-2023 Chronic Essential hypertension (20 sources) Hypertensive disorder; Translations: [Essential hypertension] Onset: 09-07-2015 01-06-2020 Chronic Gastroduodenal ulcer (except hemorrhage) (20 sources) Duodenal ulcer without hemorrhage, without perforation AND without obstruction; Translations: [Duodenal ulcer, unspecified as acute or chronic, without hemorrhage or perforation] Onset: 09-11-2015 08-28-2021 Chronic Gastroduodenal ulcer (except hemorrhage) (4 sources) H/O: peptic ulcer; Translations: [History of peptic ulcer] Episodic Nausea and vomiting (1 source) Nausea 08-14-2023 Episodic Osteoarthritis (20 sources) Arthritis; Translations: [Osteoarthritis of bilateral hip joints] Onset: 09-05-2016 12-08-2013 Chronic Osteoporosis (20 sources) Osteoporosis; Translations: [Age-related osteoporosis without current pathological fracture] Onset: 09-07-2015 01-06-2020 Chronic Other aftercare (5 sources) Taking high risk medication; Translations: [Other termite renewal inspector (current) drug therapy] Episodic Other connective tissue disease (2 sources) H/O: back problem; Translations: [History of chronic back pain] Episodic Other connective tissue disease (3 sources) Myofascial pain syndrome; Translations: [Myalgia, other site] 04-02-2023 Episodic Other connective tissue disease (2 sources) Trochanteric bursitis; Translations: [Trochanteric bursitis, right hip] 04-02-2023 Episodic Other diseases of bladder and urethra (20 sources) Overactive bladder; Translations: [Overactive bladder] Onset: 04-02-2023 04-26-2022 Chronic Other ear and sense organ disorders (20 sources) Hearing loss; Translations: [Unspecified hearing loss, unspecified ear] Onset: 04-02-2023 07-07-2019 Chronic Past or Other Problems Problem Classification Problem Date Documented Da te Episodic/Chronic Chronic obstructive pulmonary disease and bronchiectasis (20 sources) Bronchitis; Translations: [Bronchitis, not specified as acute or chronic] Onset: 04-02-2023 12-08-2013 Episodic Gastritis and duodenitis (20 sources) Gastritis; Translations: [Gastritis, unspecified, without bleeding] Onset: 04-02-2023 01-06-2020 Episodic Gastrointestinal hemorrhage (17 sources) Hematemesis; Translations: [Hematemesis] Onset: 04-02-2023 04-02-2023 Episodic Genitourinary symptoms and ill-defined conditions (2 sources) Dysuria; Translations: [Dysuria] Onset: 01-23-2023 Episodic Other aftercare (20 sources) Patient encounter status; Translations: [FCI (current) use of opiate analgesic] Onset: 09-05-2016 04-02-2023 Episodic Other aftercare (1 source) Other termite renewal inspector (current) drug therapy; Translations: [High risk medication use] Onset: 07-01-2023 Episodic Other and unspecified benign neoplasm (18 sources) History of polyp of colon; Translations: [Personal history of colonic polyps] Onset: 04-02-2023 04-02-2023 Episodic Other connective tissue disease (17 sources) H/O: arthritis; Translations: [Personal history of other diseases of the musculoskeletal system and connective tissue] Onset: 04-02-2023 04-02-2023 Episodic Other connective tissue disease (20 sources) Recurrent falls ; Translations: [Repeated falls] Onset: 09-11-2015 08-28-2021 Episodic Other connective tissue disease (15 sources) Fibromyositis; Translations: [Fibromyalgia] Onset: 09-05-2016 04-02-2023 Episodic Other connective tissue disease (2 sources) Trochanteric bursitis, right hip; Translations: [Greater trochanteric bursitis of both hips] Onset: 04-17-2023 Episodic Other connective tissue disease (2 sources) Trochanteric bursitis, left hip; Translations: [Greater trochanteric bursitis of both hips] Onset: 04-17-2023 Episodic Other connective tissue disease (1 source) Myalgia, other site; Translations: [Myofascial pain syndrome] Onset: 07-01-2023 Episodic Other disorders of stomach and duodenum (17 sources) Indigestion; Translations: [Functional dyspepsia] Onset: 04-02-2023 04-02-2023 Episodic Other fractures (15 sources) Compression fracture of vertebral column; Translations: [Collapsed vertebra, not elsewhere classified, site unspecified, initial encounter for fracture] Onset: 11-13-2016 04-02-2023 Episodic Other hematologic conditions (17 sources) H/O: anemia; Translations: [Personal history of diseases of the blood and blood-forming organs and certain disorders involving the immune mechanism] Onset: 04-02-2023 04-02-2023 Episodic Other lower respiratory disease (17 sources) H/O: bronchitis; Translations: [Personal history of other diseases of the respiratory system] Onset: 04-02-2023 04-02-2023 Episodic Other nervous system disorders (15 sources) Abnormal gait; Translations: [Unspecified abnormalities of gait and mobility] Onset: 09-05-2016 04-02-2023 Episodic Other nervous system disorders (15 sources) Numbness of upper limb; Translations: [Anesthesia of skin] Onset: 05-21-2019 04-02-2023 Episodic Other non-traumatic joint disorders (20 sources) Pain in right hip joint; Translations: [Pain in right hip] Onset: 08-14-2022 Episodic Other non-traumatic joint disorders (1 source) Pain in right hip; Translations: [Pain in right hip] Onset: 08-14-2022 Episodic Other nutritional; endocrine; and metabolic disorders (17 sources) H/O: raised blood lipids; Translations: [Personal history of other endocrine, nutritional and metabolic disease] Onset: 04-02-2023 04-02-2023 Episodic Residual codes; unclassified (20 sources) Chronic back pain ; Translations: [Dorsalgia, unspecified] Onset: 09-11-2015 05-20-2015 Episodic Residual codes; unclassified (20 sources) Past history of procedure; Translations: [Personal history of other medical treatment] Onset: 09-11-2015 08-28-2021 Episodic Residual codes; unclassified (20 sources) Insomnia; Translations: [Insomnia, unspecified] Onset: 04-02-2023 07-31-2022 Episodic Residual codes; unclassified (15 sources) Noncompliance with medication regimen; Translations: [Noncompliance with medication regimen] Onset: 09-30-2018 04-02-2023 Episodic Spondylosis; intervertebral disc disorders; other back problems (20 sources) Spinal stenosis of lumbar region; Translations: [Spinal stenosis, lumbar region without neurogenic claudication] Onset: 09-05-2016 Episodic Viral infection (15 sources) Condyloma acuminata of vagina; Translations: [Anogenital (venereal) warts] Onset: 04-02-2023 04-02-2023 Episodic Results Test Name Value Interpretation Reference Range Facil ity Vital Signs Date Time Vital Sign Value Performing Clinician Facility 10-03-2023 09:43-0500 Body weight 51.62 kg Jaydon Ritchie MD Work Phone: [facility] 10-03-2023 09:43-0500 Diastolic blood pressure 75 mm[Hg] Jaydon Ritchie MD Work Phone: [facility] 10-03-2023 09:43-0500 Heart rate 56 /min Jaydon Ritchie MD Work Phone: [facility] 10-03-2023 09:43-0500 SaO2% (BldA) [Mass fraction] 87 % Jaydon Ritchie MD Work Phone: [facility] 10-03-2023 09:43-0500 Systolic blood pressure 101 mm[Hg] Jaydon Ritchie MD Work Phone: [facility] 07-01-2023 08:38-0400 Body height 173.7 cm Soraida Godoy DO Work Phone: [facility] 07-01-2023 08:38-0400 Body weight 48.53 kg Soraida Godoy DO Work Phone: [facility] 07-01-2023 08:38-0400 Diastolic blood pressure 69 mm[Hg] Soraida Godoy DO Work Phone: [facility] 07-01-2023 08:38-0400 Heart rate 118 /min Soraida Godoy DO Work Phone: [facility] 07-01-2023 08:38-0400 Respiratory rate 19 /min Soraida Godoy DO Work Phone: [facility] 07-01-2023 08:38-0400 SaO2% (BldA) [Mass fraction] 98 % Soraida Godoy DO Work Phone: [facility] 07-01-2023 08:38-0400 Systolic blood pressure 101 mm[Hg] Soraida Godoy DO Work Phone: [facility] 06-17-2023 15:13-0400 Diastolic Blood Pressure Non-Invasive 74 1 JUNI JULIO MD [facility] 06-17-2023 15:13-0400 Heart rate 93 /min JUNI JULIO MD [facility] 06-17-2023 15:13-0400 Respiratory rate 16 /min JUNI JULIO MD [facility] 06-17-2023 15:13-0400 Systolic Blood Pressure Non-Invasive 107 1 JUNI JULIO MD [facility] 06-17-2023 14:45-0400 Diastolic Blood Pressure Non-Invasive 83 1 JUNI JULIO MD [facility] 06-17-2023 14:45-0400 Heart rate 97 /min JUNI JULIO MD [facility] 06-17-2023 14:45-0400 Respiratory rate 16 /min JUNI JULIO MD [facility] 06-17-2023 14:45-0400 Systolic Blood Pressure Non-Invasive 128 1 JUNI JULIO MD [facility] 06-17-2023 14:20-0400 Diastolic Blood Pressure Non-Invasive 61 1 JUNI JULIO MD [facility] 06-17-2023 14:20-0400 Heart rate 97 /min JUNI JULIO MD [facility] 06-17-2023 14:20-0400 Respiratory rate 16 /min JUNI JULIO MD [facility] 06-17-2023 14:20-0400 Systolic Blood Pressure Non-Invasive 97 1 JUNI JULIO MD [facility] 06-17-2023 12:01-0400 Heart rate 81 /min JUNI JULIO MD [facility] 06-17-2023 12:01-0400 Mean blood pressure 86 mm[Hg] JUNI JULIO MD [facility] 06-17-2023 11:55-0400 Body temperature 97.7 [degF] JUNI JULIO MD [facility] 06-17-2023 11:55-0400 Heart rate 86 /min JUNI JULIO MD [facility] 06-17-2023 11:55-0400 Mean blood pressure 81 mm[Hg] JUNI JULIO MD [facility] 06-17-2023 11:47-0400 Heart rate 85 /min JUNI JULIO MD [facility] 06-17-2023 11:47-0400 Mean blood pressure 75 mm[Hg] JUNI JULIO MD [facility] 06-17-2023 11:30-0400 Body temperature 97.7 [degF] JUNI JULIO MD [facility] 06-17-2023 11:10-0400 Blood Pressure Cuff Size JUNI JULIO MD [facility] 06-17-2023 11:10-0400 Blood Pressure Location JUNI JULIO MD [facility] 06-17-2023 11:10-0400 Blood Pressure Method JUNI JULIO MD [facility] 06-17-2023 11:10-0400 Body temperature 97.7 [degF] JUNI JULIO MD [facility] 06-17-2023 11:10-0400 Reason For Taking VItal Signs JUNI JULIO MD [facility] 06-17-2023 08:33-0400 Body height 165.1 cm JUNI JULIO MD [facility] 06-17-2023 08:33-0400 Body weight 16.69 kg/m2 JUNI JULIO MD [facility] 06-17-2023 08:33-0400 Body weight 45.5 kg JUNI JULIO MD [facility] 05-22-2023 02:46-0400 Body temperature 98.24 [degF] LENCHO KIMBROUGH MD [facility] 05-22-2023 02:46-0400 Diastolic Blood Pressure Non-Invasive 68 1 LENCHO KIMBROUGH MD [facility] 05-22-2023 02:46-0400 Heart rate 69 /min LENCHO KIMBROUGH MD [facility] 05-22-2023 02:46-0400 Respiratory rate 18 /min LENCHO KIMBROUGH MD [facility] 05-22-2023 02:46-0400 Systolic Blood Pressure Non-Invasive 134 1 LENCHO KIMBROUGH MD [facility] 05-22-2023 01:17-0400 Body height 167.6 cm LENCHO KIMBROUGH MD [facility] 05-22-2023 01:17-0400 Body temperature 97.7 [degF] LENCHO KIMBROUGH MD [facility] 05-22-2023 01:17-0400 Body weight 56.9 kg LENCHO KIMBROUGH MD [facility] 05-22-2023 01:17-0400 Diastolic Blood Pressure Non-Invasive 67 1 LENCHO KIMBROUGH MD [facility] 05-22-2023 01:17-0400 Heart rate 75 /min LENCHO KIMBROUGH MD [facility] 05-22-2023 01:17-0400 Respiratory rate 20 /min LENCHO KIMBROUGH MD [facility] 05-22-2023 01:17-0400 Systolic Blood Pressure Non-Invasive 125 1 LENCHO KIMBROUGH MD [facility] 04-17-2023 09:52-0400 Diastolic blood pressure 73 mm[Hg] Soraida Godoy DO Work Phone: [facility] 04-17-2023 09:52-0400 Heart rate 98 /min Soraida Godoy DO Work Phone: [facility] 04-17-2023 09:52-0400 Respiratory rate 18 /min Soraida Godoy DO Work Phone: [facility] 04-17-2023 09:52-0400 SaO2% (BldA) [Mass fraction] 99 % Soraida Godoy DO Work Phone: [facility] 04-17-2023 09:52-0400 Systolic blood pressure 127 mm[Hg] Soraida Godoy DO Work Phone: [facility] 04-17-2023 09:10-0400 Body temperature 98.71 [degF] Soraida Godoy DO Work Phone: [facility] 04-02-2023 10:11-0400 Body height 170.7 cm Soraida Godoy DO Work Phone: [facility] 04-02-2023 10:11-0400 Body weight 51.71 kg Soraida Godoy DO Work Phone: [facility] 04-02-2023 10:11-0400 Diastolic blood pressure 75 mm[Hg] Soraida Godoy DO Work Phone: [facility] 04-02-2023 10:11-0400 Heart rate 86 /min Soraida Godoy DO Work Phone: [facility] 04-02-2023 10:11-0400 Respiratory rate 19 /min Soraida Godoy DO Work Phone: [facility] 04-02-2023 10:11-0400 SaO2% (BldA) [Mass fraction] 98 % Soraida Godoy DO Work Phone: [facility] 04-02-2023 10:11-0400 Systolic blood pressure 124 mm[Hg] Soraida Godoy DO Work Phone: [facility] 11-12-2022 09:25-0400 Diastolic blood pressure 90 mm[Hg] Matilde Hydes MONOMER PURIFICATION OPERATOR.ELECTROPLATER APPRENTICE Work Phone: [facility] 11-12-2022 09:25-0400 Heart rate 80 /min Matilde Hydes MONOMER PURIFICATION OPERATOR.ELECTROPLATER APPRENTICE Work Phone: [facility] 11-12-2022 09:25-0400 Respiratory rate 16 /min Matilde Luis MONOMER PURIFICATION OPERATOR.ELECTROPLATER APPRENTICE Work Phone: [facility] 11-12-2022 09:25-0400 SaO2% (BldA) [Mass fraction] 95 % Matilde Hydes MONOMER PURIFICATION OPERATOR.ELECTROPLATER APPRENTICE Work Phone: [facility] 11-12-2022 09:25-0400 Systolic blood pressure 143 mm[Hg] Matilde Hydes MONOMER PURIFICATION OPERATOR.ELECTROPLATER APPRENTICE Work Phone: [facility] 08-14-2022 10:55-0500 Diastolic blood pressure 72 mm[Hg] Matilde Luis MONOMER PURIFICATION OPERATOR.ELECTROPLATER APPRENTICE Work Phone: [facility] 08-14-2022 10:55-0500 Heart rate 96 /min Matilde Hydes MONOMER PURIFICATION OPERATOR.ELECTROPLATER APPRENTICE Work Phone: [facility] 08-14-2022 10:55-0500 SaO2% (BldA) [Mass fraction] 98 % Matilde Luis MONOMER PURIFICATION OPERATOR.ELECTROPLATER APPRENTICE Work Phone: [facility] 08-14-2022 10:55-0500 Systolic blood pressure 121 mm[Hg] Matilde Luis MONOMER PURIFICATION OPERATOR.ELECTROPLATER APPRENTICE Work Phone: [facility] 03-20-2022 09:38-0400 Diastolic blood pressure 97 mm[Hg] Matilde Luis MONOMER PURIFICATION OPERATOR.ELECTROPLATER APPRENTICE Work Phone: [facility] 03-20-2022 09:38-0400 Heart rate 78 /min Matilde Luis MONOMER PURIFICATION OPERATOR.ELECTROPLATER APPRENTICE Work Phone: [facility] 03-20-2022 09:38-0400 SaO2% (BldA) [Mass fraction] 96 % Matilde Luis MONOMER PURIFICATION OPERATOR.ELECTROPLATER APPRENTICE Work Phone: [facility] 03-20-2022 09:38-0400 Systolic blood pressure 136 mm[Hg] Matilde Luis MONOMER PURIFICATION OPERATOR.ELECTROPLATER APPRENTICE Work Phone: [facility] Encounters Encounter Date Encounter Type Care Provider Facility Start: 10-03-2023 Telephone encounter Jaydon Ritchie MD Work Phone: [facility] Procedures Date Procedure Procedure Detail Performing Clinician Start: 04-17-2023 End: 04-17-2023 Arthrocentesis aspir&/inj major jt/bursa w/o us Soraida Godoy DO Work Phone: Start: 04-02-2023 ETHANOL BIOMARKERS, MS, UR RFX Soraida Godoy DO Work Phone: Start: 04-02-2023 GABAPENTIN, MS, UR RFX Soraida Godoy DO Work Phone: Start: 04-02-2023 TOXASSURE FLEX 23, URINE Hugorobert Moran is DO Work Phone: Start: 08-14-2022 Radex hips bilateral with pelvis minimum 5 views Matilde Hayward ELECTROPLATER APPRENTICE Work Phone: Start: 10-28-2019 Esophagogastroduodenoscopy ERIN RODRIGUEZ MONOMER PURIFICATION OPERATOR-DIRECT MAIL COORDINATOR Start: 11-17-2018 Entitic (property) (qualifier value) ERIN RODRIGUEZ MONOMER PURIFICATION OPERATOR-DIRECT MAIL COORDINATOR Plan of Treatment Date Care Activity Detail Author Start: 04-15-2032 Urine microalbumin profile DTaP,Tdap,Td Vaccine (2 - Td or Tdap) [facility] Start: 10-03-2024 BP Controlled (<130/80) BP Controlled (<130/80) [facility] Start: 07-01-2024 BP Controlled (<130/80) BP Controlled (<130/80) [facility] Start: 04-02-2024 BP CONTROLLED (<130/80) BP CONTROLLED (<130/80) [facility] Start: 09-02-2023 Advance Directive Discussion Advance Directive Discussion [facility] Start: 09-02-2023 Depression Assessment Depression Assessment [facility] Start: 08-14-2023 BP CONTROLLED (<130/80) BP CONTROLLED (<130/80) [facility] Start: 07-01-2023 End: 09-30-2023 TOXASSURE FLEX 23, URINE TOXASSURE FLEX 23, URINE Lab Routine Chronic pain syndrome Osteoarthritis of both hips, unspecified osteoarthritis type Greater trochanteric bursitis of both hips Expected: 07/01/2023, Expires: 09/30/2023 [facility] Work Phone: Immunizations Immunization Date Immunization Notes Care Provider Jackie keys 06-25-2023 influenza, high dose seasonal, preservative-free; Translations: [Fluad Quadrivalent PF ] ERIN RODRIGUEZ MONOMER PURIFICATION OPERATOR-DIRECT MAIL COORDINATOR [facility] 04-15-2022 influenza virus vaccine, unspecified formulation ERIN RODRIGUEZ MONOMER PURIFICATION OPERATOR-DIRECT MAIL COORDINATOR [facility] 04-15-2022 tetanus toxoid, reduced diphtheria toxoid, and acellular pertussis vaccine, adsorbed ERIN RODRIGUEZ MONOMER PURIFICATION OPERATOR-DIRECT MAIL COORDINATOR [facility] 01-31-2022 pneumococcal (PCV20) vaccine, 20 valent (PREVNAR 20) Matilde Hayward APRN.ELECTROPLATER APPRENTICE Work Phone: [facility] 01-31-2022 pneumococcal 20-neo nt conjugate [facility] MON[facility]ER PURIFICATION OPERATOR-DIRECT MAIL COORDINATOR [facility] 10-01-2021 SARS-CoV-2 mRNA (hqxdsoidism-dssh-lhsp ose) vaccine ERIN BANNERROGER MONOMER PURIFICATION OPERATOR-DIRECT MAIL COORDINATOR [facility] 08-07-2021 influenza virus vaccine, unspecified formulation ERIN RODRIGUEZ MONOMER PURIFICATION OPERATOR-DIRECT MAIL COORDINATOR [facility] 08-07-2021 influenza, injectabl e, quadrivalent, contains preservative Soraida Godoy Work Phone: [facility] 08-07-2021 influenza, injectabl e, quadrivalent, preservative free [facility] Work Phone: [facility] 02-09-2021 SARS-CoV-2 mRNA (tozinameran) vaccine [facility] MONOMER PURIFICATION OPERATOR-DIRECT MAIL COORDINATOR [facility] Payers Date Payer Category Payer Private Health Insurance [id number] 2023 Unknown [id number] 2022 Unknown [id number] 2022 Unknown [id number] 2022 Unknown [id number] 2022 Medicare [id number] 2021 Medicaid [id number] 2021 Unknown [id number] 2014 Medicaid [place] [employer] [place] [employer] [id number] 2014-Present [phone] [address] [place] [address] Medicaid [id number] 1957 Unknown [id number] 1957 Unknown [id number] 1957 Unknown [id number] 1955 Unknown [id number] 1955 Unknown [id number] 27 1955 Unknown [id number] 27 1955 Unknown [id number] 27 Social History Date Type Detail Facility Start: 06-29-2020 Light tobacco smoker (finding) [facility] Sex Assigned At Female [facility] Start: 05-11-2015 End: 07-01-2023 Tobacco smoking status NHIS Smokes tobacco daily [facility] Work Phone: Start: 05-11-2015 End: 07-01-2023 Tobacco use and exposure Smokeless tobacco non-user [facility] Work Phone: Start: 09-19-2015 End: 04-02-2023 Alcohol intake Current drinker of alcohol (finding) [facility] Start: 1955 End: 1955 Sex Assigned At Not on file [facility] History of tobacco use Cigarette Smoker [facility] Work Phone: Start: 05-11-2015 End: 10-03-2023 Cigarettes smoked current (pack per day) - Reported 0.5 [facility] Start: 03-20-2022 History SDOH Alcohol Comment on holidays [facility] Start: 03-10-2022 End: 03-20-2022 Exposure to SARS-CoV-2 (event) Not sure [facility] Start: 04-02-2023 End: 10-03-2023 Tobacco use panel [facility] National Score (1-100), lower number is lower risk 74 [facility] Start: 04-02-2023 Tobacco Comment Started age 16 yo [facility] Start: 06-14-2023 Tobacco smoking status Heavy t obacco smoker (finding) [facility] Start: 07-01-2023 End: 10-03-2023 Alcohol intake Ex-drinker (finding) [facility] Start: 07-01-2023 Tobacco Comment Started age 16 yo, down to 2 cigs/day [facility] NEGATED: Highlighted row - - [facility] Work Phone: Functional Status Date Assessment Result Facility 08-30-2023 Functional Status NPO Status Maintained A [facility] 06-17-2023 Functional Status Awake [facility] 06-17-2023 Functional Status Room check performed [facility] 06-17-2023 Functional Status Hospital bed [facility] 06-17-2023 Functional Status Maintained [facility] 05-22-2023 Functional Status Assistive Device None A [facility] NEGATED: Highlighted row Functional performance Functional status health issues are not documented Disease [facility] Work Phone: Mental Status Date Assessment Result Facility 06-17-2023 [facility]23 [facility] 05-22-[facility]23 Mental Status Orientation Orie nted x 4 [facility] NEGATED: Highlighted row Cognitive function [Interpretation] Cognitive status health issues are not documented Disease [facility] Work Phone: Clinical Notes 01-02-2021 to 10-03-2023 Telephone Encounter - Jaydon Ritchie MD - 10/03/2023 12:44 PM ESTTelephone Encounter - Denise Farmer RN - 10/03/2023 12:39 PM ESTJaydon Ritchie MD - 10/03/2023 9:45 AM EST Note Date & Type Note Facility 10-03-2023 Miscellaneous Notes Formattin g of this note might be different from the original. Noted. Call received from Erin STRONG with Dr Rodriguez office. Discussed the office visit notes from today regarding restarting her blood thinners. Per Erin pt was on Plavix but he thought the vascular surgeon was ordering this for pt. He noted that he would look into this further and make sure her blood thinner was addressed and restarted. Just FYI. Denise Farmer, RN October 03, 2023 12:41 PM documented in this encounter [facility] 10-03-2023 Note HNO ID: [id number] Author: JAYDON RITCHIE MD Service: ? Author Type: Anesthesiologist Type: Progress Notes Filed: 10/03/2023 10:20 Note Text: Dragon was used to dictate this note and therefore there may be some typographical errors. I attest to the fact that I spent a total of 20 min with the patient to include: Face to face time and non face to face time such as: Reviewing test's, reviewing medical records, reviewing imaging studies, ordering tests, etc. Patient was last seen on 07/01/[address] Godoy. Patient is been followed by Dr. Godoy and her staff. This first visit for this patient with me. According to notes, patient was to be maintained on Grafton 10/325 3 times a day, Flexeril 5 mg 3 times a day, avoid NSAIDs due to GERD and gastric ulcers, reduce tobacco use, remain as active as possible. This again is a first visit for this patient with me. PE: Alert and oriented in some discomfort. Mood and affect within normal limits. Vital signs indicated. Multiple trigger points and points to the lumbar erector spinae group. 5/5 strength lower extremities. Pain with lumbar flexion with extension. Dx: Bilateral hip osteoarthritis, bilateral hip pain, gait disturbance, lumbar spinal stenosis, lumbar foraminal stenosis, lumbar DDD, lumbar DJD, lumbar facet arthropathy, lumbar facet syndrome, low back pain, intermittent lumbar radiculitis, neurogenic claudication, hypertension, hyperlipidemia, tobacco use, COPD, chronic pain syndrome, chronic opioid usage. Plan: As above, the patient was last seen on 07/01/[address] Godoy. Patient is been followed by Dr. Godoy and her staff. This first visit for this patient with me. According to notes, patient was to be maintained on Grafton 10/325 3 times a day, Flexeril 5 mg 3 times a day, avoid NSAIDs due to GERD and gastric ulcers, reduce tobacco use, remain as active as possible. This again is a first visit for this patient with me. OARRS Checked The patient has been off of Grafton for over 4 months. She would like a refill simply of her Flexeril 5 mg 3 times a day. Will schedule her for trigger point to the bilateral lumbar sacral region using steroids since logistically is very difficult for the patient to get to our office. She apparently has been off of her blood thinner for 5 months. She not sure what blood thinner she takes. We will call her primary care physician's office, Dr. Rodriguez, in [place] to see if they can reorder her blood thinner. Follow-up office visit in 4 months. Patient agrees to the above. [facility] 10-03-2023 History of Presen t illness Narrative Dragon was used to dictate this note and therefore there may be some typographical errors. I attest to the fact that I spent a total of 20 min with the patient to include: Face to face time and non face to face time such as: Reviewing test's, reviewing medical records, reviewing imaging studies, ordering tests, etc. Patient was last seen on 07/01/[address] Godoy. Patient is been followed by Dr. Godoy and her staff. This first visit for this patient with me. According to notes, patient was to be maintained on Grafton 10/325 3 times a day, Flexeril 5 mg 3 times a day, avoid NSAIDs due to GERD and gastric ulcers, reduce tobacco use, remain as active as possible. This again is a first visit for this patient with me. PE: Alert and oriented in some discomfort. Mood and affect within normal limits. Vital signs indicated. Multiple trigger points and points to the lumbar erector spinae group. 5/5 strength lower extremities. Pain with lumbar flexion with extension. Dx: Bilateral hip osteoarthritis, bilateral hip pain, gait disturbance, lumbar spinal stenosis, lumbar foraminal stenosis, lumbar DDD, lumbar DJD, lumbar facet arthropathy, lumbar facet syndrome, low back pain, intermittent lumbar radiculitis, neurogenic claudication, hypertension, hyperlipidemia, tobacco use, COPD, chronic pain syndrome, chronic opioid usage. Plan: As above, the patient was last seen on 07/01/[address] Godoy. Patient is been followed by Dr. Godoy and her staff. This first visit for this patient with me. According to notes, patient was to be maintained on Grafton 10/325 3 times a day, Flexeril 5 mg 3 times a day, avoid NSAIDs due to GERD and gastric ulcers, reduce tobacco use, remain as active as possible. This again is a first visit for this patient with me. OARRS Checked The patient has been off of Grafton for over 4 months. She would like a refill simply of her Flexeril 5 mg 3 times a day. Will schedule her for trigger point to the bilateral lumbar sacral region using steroids since logistically is very difficult for the patient to get to our office. She apparently has been off of her blood thinner for 5 months. She not sure what blood thinner she takes. We will call her primary care physician's office, Dr. Rodriguez, in [place] to see if they can reorder her blood thinner. Follow-up office visit in 4 months. Patient agrees to the above. documented in this encounter [facility] 10-30-2023 NoteHNO ID: [id number] Author: Soraida Godoy, DO Service: ? Author Type: Physician Type: Progress Notes Filed: 07/01/2023 9:06 AM Note Text: Summary: Pain management office follow-up visit DATE: July 01, 2023 Chief Complaint: Low back pain History of Present Illness: Sonam Casillas is a 68 year old female being seen at [facility] for a evaluation and/or management of their chronic pain. She states that since the last visit symptoms have been persistent. The patient was last seen on 04/02/23 and the plan of care was as follows: Continue norco one tab tid PRN. Last [...] UDS obtained Followup in 3 months with [facility] Pain level:06/11 Location: back, b/l hip pain [...] segment severe stenosis of the IIA. Moderate CODING VALIDATOR stenosis. Multifocal moderate and severe SFA stenoses [...] Result Flag Units Drug Present Ethyl Glucuronide 097292 ng/mg creat Ethyl Sulfate 12252 ng/mg creat EtG and EtS are metabolites [...] be compromised. Interpret resu (more content not included)...[facility]10-30-2023 Instructions* Patient Instructions* Soraida Godoy, DO - 07/01/2023 8:48 AM EDT Continue [...] obtained Followup in 3 months with or [facility] Patient scheduled to follow-up with Dr. Julio, vascular surgeon on July 04 for multiple vascular occlusions. Patient currently on Plavix. [facility] History of Present illness Narrative* Soraida Godoy DO - 07/01/2023 8:45 AM EDTSummary: Pain management office follow-up visit DATE: July 01, 2023 Chief Complaint: Low back pain History of Present Illness: Sonam Casillas is a 68 year old [facility] [...] UDS obtained Followup in 3 months with [facility] Pain level:06/11 Location: back, b/l hip pain [...] segment severe stenosis of the IIA. Moderate CODING VALIDATOR stenosis. Multifocal moderate and severe SFA stenoses [...] Result Flag Units Drug Present Ethyl Glucuronide 457966 ng/mg creat Ethyl Sulfate 87367 ng/mg creat EtG and EtS are metabolites [...] Scribed for Soraida Godoy DO, by Roberta Rincon director medical science, July 01, 2023. documented in this encounter[facility]10-25-2023 Miscellaneous Notes* Telephone Encounter - Soraida Godoy [...] Result Flag Units Drug Present Ethyl Glucuronide 438521 ng/mg creat Ethyl Sulfate 40983 ng/mg creat EtG and EtS are metabolites [...] provided. For clinical consultation, please call . @FLOW([id number])@ Lab Results Component Value Date SUMM FINAL [...] advise. Denise Farmer RN documented in this encounterKind[facility]10-16-2023 Summary of episode note Discharge Instructions Thank you for allowing [facility] to assist you with your healthcare needs. The following is importantdischarge information regarding your hospital visit. Your Care Team BALTES, ERIN MONOMER PURIFICATION OPERATOR-DIRECT MAIL COORDINATOR What to do next Scheduled Follow-Up Appointments Appointment Type When With Where Contact InformationGI OV Consult 06/19/2023 10:00 AM EDT [facility] [address] [phone] PC OV 08/01/2023 11:00 AM WIL ERIN RODIRGUEZ KAROL-DIRECT MAIL COORDINATOR [address] [phone] Follow Up Appointments Follow Up with JUNI JULIO MD, [facility], Surgery, Vascular Surgeons When Within 1-2 days Why: Follow-up as scheduled Where: [address] [facility] [address] [facility] [place] [address] [phone] The Following Activity and Diet Have Been Ordered for You Discharge Activity - Ordered -- Lifting Restricted less than 10 pounds May Shower No bending, twisting, crawling or squatt Sexual Custar Restricted, No driving x 2 days, 06/17/23 [...] Report any drainage, reddness, swelling to Dr. Julio immediately, 06/17/23 12:21:00 EDT Allergies acetaminophen-tramadol (UPSET STOMACHE) [...] until you are awake and alert. Take vuiz-uve-jdomhyg and prescription medicines only as told by [...] 06/09/2014 Document Revised: 08/01/2018 Document Reviewed: 12/08/2016 [email or web address] Patient Education 2020 [email or web address] Additional Information VACCINATE! IT SAVES LIVES! Members of the community who have not yet received the COVID-19 vaccine and would like to receive it can visit one of [facility] vaccine clinics. There are many vaccine clinic locations within the [facility]. For locations and available times, please visit [email or web address] It is important to note that some COVID mobile vaccine clinics are held outdoors and may be canceled in rainy or stormy conditions. To learn more about pediatric vaccinations (ages 5-11), we invite you to visit the [facility] webpage. [email or web address] learn more about the COVID-19 vaccine, we invite you to visit the CDC website for a list of frequently asked questions.https://www.cdc.gov/coronavirus/2019-ncov/vaccines/faq.html [employer] Patient Portal Access Instructions: Stay connected with your healthcare team and access your personal medical information anytime with the [employer] Patient Portal. Please follow the directions below to create your [employer] account: 1.Access the email account you provided upon registration to the hospital/physician office.2.Look for an invitation email from [facility].3.Open the email and access the invitation link: AcceptInvitation to [employer].4.Fill in the required ferreira to create your account. To access your account, visit [email or web address]. Click the blue button labeled Access Patient [...] who you will allowto register on the [employer] Patient Portal for access to your information. You can also access the [employer] Patient Portal on the [employer]where obdulio. Simply click on Patient Portal and then log into your account. If you would like to receive a full copy of your medical records, please contact the [facility] Medical Records Department by calling [phone], Saturday through Saturday between 8 a.m. and [...] Call your local pharmacy or go to [email or web address] to find one close to you.3.Make use of household items: Use cat litter or old coffee grounds to dispose medications if other options arenot available. Mix your drugs with these household products, seal them in an airtight container andthrow it into the garbage. Call [facility]: [phone] to be sure your drugs can be [...] aware that I should contact my doctor. Patient/Mental Health Associate Signature: Date/Time: Relationship to Patient: Witness Name/Signature: Date/Time: [id number] Hospital Discharge instructions Patient Education 06/17/2023 12:35:16 [...] until you are awake and alert. Take wgri-iad-qsisbgr and prescription medicines only as told by [...] 06/09/2014 Document Revised: 08/01/2018 Document Reviewed: 12/08/2016 [email or web address] Patient Education 2020 [employer]. Follow Up Care 06/11/2023 12:30:21 With:JUNI JULIO MD, [facility], Surgery, Vascular Surgeons Address: [address] [place] [address] [place] [address] [phone] When:1-2 days Comments:Follow-up as scheduled [facility] 10-16-2023 Note ORIGINAL Images acquired, not reported on this accession number.[facility] 06-17-2023 Anesthesiology Consult note Patient: SONAM CASILLAS [...] Problem list: Medical Alcoholism / SNOMED CT 33819691 / Confirmed Arthritis / SNOMED CT [id number] / Confirmed Bronchitis / SNOMED CT [id number] / Confirmed Chronic back pain / SNOMED CT [id number] / Confirmed Antral gastritis / SNOMED CT 1169569 / Confirmed Hard of hearing / SNOMED CT 869071691 / Confirmed Hyperlipidemia / SNOMED CT [id number] / Confirmed Hypertension / SNOMED CT [id number] / Confirmed Insomnia / SNOMED CT 835844959 / Confirmed Moderate COPD (chronic obstructive pulmonary disease) / SNOMED CT 949391856 / Confirmed Osteoporosis / SNOMED CT 356191147 / Confirmed Overactive bladder / SNOMED CT 4005868051 / Confirmed Screening mammogram, encounter for / SNOMED CT 199287983 / Confirmed Screening for colon cancer / SNOMED CT 300207491 / Confirmed Polyneuropathy / SNOMED CT 04140047 / Confirmed Tobacco use / SNOMED CT 7007480613 / Confirmed, Active Problems (23) Alcoholism Antral gastritis Arthritis Asthma Bronchitis Chronic back pain Colon polyps GERD (gastroesophageal reflux disease) Hard of hearing Hearing aid Hyperlipidemia Hypertension Insomnia Moderate COPD (chronic obstructive pulmonary disease) On anticoagulant therapy Osteoporosis Overactive bladder Polyneuropathy Screening for colon cancer Screening mammogram, encounter for Seasonal allergy Stricture of artery Tobacco use Histories Past Medical History: Active Bronchitis ([id number]) Arthritis ([id number]) Hyperlipidemia ([id number]) Hypertension ([id number]) Chronic back pain ([id number]-[id number]) Alcoholism (35363523) Family History: Diabetes mellitus Daughter Heart disease Father Arthritis Father Comments: 03/30/2019 6:53 EDT - Parul Estrella LPN Rheumatoid Hyperchloremia Daughter Malignant tumor of lung Mother NC - Myocardial infarction Father HTN - Hypertension Daughter Procedure history: Esophagogastroduodenoscopy ([id number]) on 10/28/2019 at 64 Years. ENT, ear surgery ([id number]) on 11/17/2018 at 63 Years. Comments: 03/30/2019 7:54 EDT - Chandni Grimm LPN surgery to replace metal tube Mammogram (485123586) on 04/09/2018 at 63 Years. Colonoscopy (770507767) on 06/18/2016 at 61 Years. Comments: 07/19/2020 15:33 Parul Razo LPN Diverticular disease, polyectomy-repeat 3 yrs. [facility] Arthroscopy knee (87056044) in 2001 at 46 Years. Comments: 03/30/2019 7:56 EDT - Alfa Chandni LPN right knee Rotator cuff repair (59330106) in 1999 at 44 Years. Resection of large bowel (005119584) in 1997 at 42 Years. Myringoplasty (7851574696) in 1987 at 32 Years. Hysterectomy (950250885). Hearing aid (00984061). Comments: 10/28/2019 7:37 WIL - SONYA HORAN RN bilateral Social History Social & Psychosocial [...] can. - 05/23/2023 11:18 - Parul Estrella LPN Substance Abuse 06/17/2023 Use: Denies Tobacco 06/17/2023 [...] Last Charted Temp Oral37.1 DegC (JUN 17 08:33) Resp Rate 16 br/min (JUN 17 08:33) ZDH042 mmHg (JUN 17 08:33) DBP72 mmHg (JUN 17 08:33) BMI16.69 (JUN 17 08:33) General: Alert and oriented. Airway: Normal temporomandibular joint mobility, Normal mouth, Normal throat, Normal neck range of motion, Trachea midline. Mallampati classification: II (soft palate, fauces, uvula visible). Head: Normocephalic. Dentition Evaluation: Dentures, lower, Dentures, upper. Neck: Supple. Respiratory: Lungs are clear to auscultation. Cardiovascular: Normal rate. Heart Sounds: Normal. Gastrointestinal: Soft. Musculoskeletal Normal range of motion. Integumentary: Intact, Warm, Dry, [place]. Neurologic: Alert, Oriented. Review / Management Results review: Labs (Last four charted values) WBC 4.9(JUN 17) Hgb 15.0(JUN 17) Hct 44.0(JUN 17) Plt 237(JUN 17) Na L 133(JUN 17) K 3.8(JUN 17) CO2 28(JUN 17) Cl 100(JUN 17) Cr 0.50(JUN 17) BUN L <5.0(JUN 17) Glucose 99(JUN 17) Ca 9.2(JUN 17) . Assessment and Plan Citizen Of [place] Society of Anesthesiologists (ASA) physical status classification: [...] KILEY ARTHUR DO on 06/17/2023 10:[address] [id number] Miscellaneous Notes* Telephone Encounter - Soraida Godoy [...] Result Flag Units Drug Present Ethyl Glucuronide 502943 ng/mg creat Ethyl Sulfate 83795 ng/mg creat EtG and EtS are metabolites [...] provided. For clinical consultation, please call . @FLOW([id number])@ Lab Results Component Value Date SUMM FINAL [...] advise. Elizabeth Mena RN documented in this encounterKind[facility]10-05-2023 Miscellaneous Notes* Telephone Encounter - Soraida Godoy, DO - 06/06/2023 4:03 PM EDT The [...] Result Flag Units Drug Present Ethyl Glucuronide 250613 ng/mg creat Ethyl Sulfate 71146 ng/mg creat EtG and EtS are metabolites [...] provided. For clinical consultation, please call . @FLOW([id number])@ Lab Results Component Value Date SUMM FINAL [...] advise. Elizabeth Mena RN documented in this encounterKindred Healthcare09-28-2023 Miscellaneous Notes* Telephone Encounter - Sanjuana Murdock RN - 05/30/2023 8:42 AM EDT Called and spoke with Jose Antonio Lopez, they had the pt's birthday date as [birth year], according to her last IDscanned into the chart it is [birth year]. Called pt and verified her birthday, she states 59. Jose Antonio Lopez filled the Grafton today 05/30/23 and they will work on [...] filled. Per Dr. Godoy documented in this encounterKindred Healthcare09-20-2023 Hospital Discharge instructions Patient Education 05/22/2023 02:33:30 [...] thin towel or cloth. You may use sunl-ojp-cjnuves pain medicine (NSAIDS or nonsteroidal anti- inflammatory [...] or is irritated You re-injure your ankle [phone] [employer]. [address] [place] [address]. All rights reserved. This information is not intended as a substitute for professional medical care. Always follow yourhealthcare professional's instructions. Follow Up Care 05/22/2023 01:10:44 With:ERIN RODRIGUEZ Address: [address] [place] [address]- [phone] Business (1) When:Within 1 Week(s) Comments:Follow-up as needed if not improving.Limit weightbearing as tolerated, use crutches for assistance with ambulation.Use Eagle wrap for compression and support.Continue to ice and elevate the injured ankle as much as possible.Continue Tylenol for pain as needed.Return to the ED if symptoms worsen. [facility] 09-20-2023 Note Discharge Instructions Thank you for allowing [facility] to assist you with your healthcare needs. [...] to the ED if symptoms worsen. Where: [address] [place] [address] [phone] Business (1) Allergies acetaminophen-tramadol (UPSET STOMACHE) ibuprofen [...] thin towel or cloth. You may use ookr-enj-jqgyyoa pain medicine (NSAIDS or nonsteroidal anti- inflammatory [...] or is irritated You re-injure your ankle [phone] [employer], [employer]. [address] [place] [address], [place] [address]. All rights reserved. This information is not intended as a substitute for professional medical care. Always follow yourhealthcare professional's instructions. Additional Information VACCINATE! IT SAVES LIVES! Members of the community who have not yet received the COVID-19 vaccine and would like to receive it can visit one of [facility] vaccine clinics. There are many vaccine clinic locations within the [facility]. For locations and available times, please visit www.gettheshot.coronavirus.[place].gov/. It is important to note that some COVID mobile vaccine clinics are held outdoors and may be canceled in rainy or stormy conditions. To learn more about pediatric vaccinations (ages 5-11), we invite you to visit the [facility] webpage. https://www.[employer].org/pages/9130-Yxwgr-Tthkgopvhdn-Rsooukjoqc-Mbxxt-Yit stions.htmlTo learn more about the COVID-19 vaccine, we invite you to visit the CDC website for a list of frequently asked questions. https://www.cdc.gov/coronavirus/2019-ncov/vaccines/faq.html [facility] Patient Portal Access Instructions: Stay connected with your healthcare team and access your personal medical information anytime with the [facility] Patient Portal. If you would like a full copy of your medical records please contact the [facility] Medical Records Department Saturday through Saturday between 8a.m. and 4:30p.m. Please follow the directions below to access the portal: 1.Access the email account you provided upon registration to the hospital.2.Look for an invitation email from [facility].3.Open the email and access the invitation link: Accept Invitation to [facility]4.Fill in the required ferreira to create your account. Sign into [email or web address] with your username and password that you [...] you will allow to register on the [employer] Patient Portal for access to your information. You can also access the [employer] Patient Portal on the [employer] obdulio. Simply click on Health Records under MDSave and then click on the [employer] logo. HOW TO SAFELY DISPOSE OF PRESCRIPTION [...] Call your local pharmacy or go to [email or web address] to find one close to you.3.Make use of household items: Use cat litter or old coffee grounds to dispose medications if other options arenot available. Mix your drugs with these household products, seal them in an airtight container andthrow it into the garbage. Call [facility]: [phone] to be sure your drugs can be [...] been reviewed and explained to me and I,VINNY SONAM Jeannette understand my current condition and have read and understand these discharge instructions. I have received a written copy of the plan/instructions. If I have questions, I am aware that I should contact my doctor. Patient/Mental Health Associate Signature: Date/Time: Relationship to Patient: Witness Name/Signature: Date/Time: [facility]09-20-2023 Note ORIGINAL EXAMINATION: THREE XRAY VIEWS [...] Sign Date: 05/22/2023 2:35:31 AM Ordering Provider: LENCHO [facility]09-13-2023 Miscellaneous Notes* Telephone Encounter - Dick, Zana Chandler APRN.DIRECT MAIL COORDINATOR - 05/15/2023 11:11 AM EDT The following [...] to the pharmacist and she said the Grafton was last filled on 05/09/23 for a [...] Result Flag Units Drug Present Ethyl Glucuronide 209847 ng/mg creat Ethyl Sulfate 16409 ng/mg creat EtG and EtS are metabolites [...] provided. For clinical consultation, please call . @FLOW([id number])@ Lab Results Component Value Date SUMM FINAL [...] advise. Elizabeth Mena RN documented [facility] this [facility]09-07-2023 Miscellaneous Notes* Telephone Encounter - Elizabeth Mena RN - 05/09/2023 10:24 AM EDT Fy, last ov states 1 week at a time for compliance Elizabeth Mena RN May 09, 2023 10:25 AM documented in this encounterKindred Healthcare08-23-2023 Miscellaneous Notes* Telephone Encounter - Soraida Godoy DO - 04/24/2023 9:05 PM EDT We need to have the updated OARRS in her chart and the pharmacy is responsible for putting her correct information in OARRS. We have no control over this in [facility].Will only send 7 day supply. * Telephone Encounter - Denise Farmer RN - 04/24/2023 3:[address] Godoy- Please check pharmacy with medication refills. I do not see any prescriptions for Grafton being filled on the OARRS report. This [...] pull an OARRS with this . Just FY. I checked her photo ID and her is 59. Denise Farmer RN April 24, 2023 4:02 PM documented in this encounterKindred Healthcare08-23-2023 Miscellaneous Notes* Telephone Encounter - Soraida Godoy [...] Result Flag Units Drug Present Ethyl Glucuronide 707232 ng/mg creat Ethyl Sulfate 49003 ng/mg creat EtG and EtS are metabolites [...] provided. For clinical consultation, please call . @FLOW([id number])@ Lab Results Component Value Date SUMM FINAL [...] call . Please review and advise. Denise Farmer, RN documented in this encounterKindred Healthcare08-17-2023 Miscellaneous Notes* Telephone Encounter - Matilde Hayward [...] Result Flag Units Drug Present Ethyl Glucuronide 960658 ng/mg creat Ethyl Sulfate 22461 ng/mg creat EtG and EtS are metabolites [...] provided. For clinical consultation, please call . @FLOW([id number])@ Lab Results Component Value Date SUMM FINAL [...] advise. Sanjuana Murdock RN documented in this encounterKindred Healthcare08-16-2023 Surgical operation note* Operative Report - Soraida Godoy, DO - 04/17/2023 9:11 AM EDTSummary: B/L [...] this encounter was entered by Marya Tony, director medical science for Dr. Soraida Godoy on April 17, [...] Godoy. April 17, 2023. documented in this encounterKindred Healthcare08-10-2023 Miscellaneous Notes* Telephone Encounter - Matilde Hayward APRN.CNS - 04/11/2023 10:35 AM EDT The following approved medication requests have been transmitted electronically. Requested Prescriptions Signed Prescriptions Disp Refills HYDROcodone-Acetaminophen (NORCO) 10-325 mg per tablet 21 tablet 0 Sig: Take 1 tablet by mouth three times daily as needed for pain for up to 7 days. Authorizing Provider: MATILDE HAYWARD APRN.CNS * Telephone Encounter - Elizabeth Mena RN [...] Result Flag Units Drug Present Ethyl Glucuronide 750982 ng/mg creat Ethyl Sulfate 45403 ng/mg creat EtG and EtS are metabolites [...] provided. For clinical consultation, please call . @FLOW([id number])@ Lab Results Component Value Date SUMM FINAL [...] advise. Elizabeth Mena RN documented in this encounterKindred Healthcare08-01-2023 NoteHNO ID: [id number] Author: Soraida Godoy, DO Service: ? Author Type: Physician Type: Progress Notes Filed: 04/08/2023 10:27 PM Note Text: Summary: Pain Management follow-up DATE: April 02, 2023 Chief Complaint: Back and B/L hip pain History of Present Illness: Sonam Casillas is a 68 year old female being seen at [facility] for a evaluation and/or management of their chronic pain. The patient was last seen in the office on 11/12/2022 by Matilde Hayward NP, and the plan of care was as follows: Continue norco 10/ one tab tid PRN This helps patient [...] Result Flag Units Drug Present Ethyl Glucuronide 250661 ng/mg creat Ethyl Sulfate 28380 ng/mg creat EtG and EtS are metabolites [...] 11 L mg/dL >=20 (more content not included)...[facility]08-01-2023 Instructions* Patient Instructions* Soraida Godoy DO - 04/02/2023 10:08 AM EDT Continue norco 10/ one tab tid PRN. Last refill was [...] UDS obtained Followup in 3 months with CHILLER HAND documented in this encounterKindred Healthcare08-01-2023 History of Present illness Narrative* Soraida Godoy DO - 04/02/2023 9:45 AM EDTSummary: Pain Management follow-up DATE: April 02, 2023 Chief Complaint: Back and B/L hip pain History of Present Illness: Sonam Casillas is a 68 year old [facility] management of their chronic pain. The patient was last seen in the office on 11/12/2022 by Matilde Hayward NP, and the plan of care was as follows: Continue norco 10/325 one tab tid PRN [...] slightly progressed from the prior study. Pain level:1010 Location: back, b/l hip pain Denies ED [...] Result Flag Units Drug Present Ethyl Glucuronide 343397 ng/mg creat Ethyl Sulfate 87303 ng/mg creat EtG and EtS are metabolites [...] for this encounter was entered by Marya Tony director medical science for Dr. Soraida Godoy on April 02, [...] Godoy. April 02, 2023. documented in this encounterKindred Healthcare05-26-2023 Note. MICRO - Microbiology PROCEDURE: Urine Culture [...] Locations *1: This test was performed at: [facility], [address] [place] [address], [id number] , [facility] ([place])12-12-2022 Miscellaneous Notes* Telephone Encounter - Matilde Hayward [...] December 14, 2022. Authorizing Provider: MATILDE HAYWARD APRN.ELECTROPLATER APPRENTICE * Telephone Encounter - Denise Farmer RN [...] provided. For clinical consultation, please call . @FLOW([id number])@ Lab Results Component Value Date SUMM FINAL [...] advise. Denise Farmer RN documented in this encounterKindred Healthcare03-13-2023 NoteHNO ID: [id number] Author: Matilde Hayward APRN.ELECTROPLATER APPRENTICE Service: ? Author Type: Clinical Nurse Specialist Type: Progress Notes Filed: 11/12/2022 9:48 AM Note Text: SUBJECTIVE: [facility] a follow-up appointment for back and hip pain. Last seen by me on 08/14/22 with plan of care gabapentin from PCP, michelle , avoid NSAIDS, xray, UDS Pain level:06/11 Denies ED visits or hospitalizations since last [...] verbalized understanding. Matilde Hayward APRN.CNS November 12, 2022[facility]03-13-2023 Instructions* Patient Instructions * Matilde Hayward APRN.CNS - 11/12/2022 9:36 AM EDT Continue norco [...] Followup in 3 months documented in this encounterKindred Healthcare03-13-2023 History of Present illness Narrative* Matilde Hayward APRN.ELECTROPLATER APPRENTICE - 11/12/2022 9:30 AM EDT SUBJECTIVE: Sonam Casillas [facility] for a follow-up appointment for back and hip pain. Last seen by me on 08/14/22 with plan of care gabapentin from PCP, norco , avoid NSAIDS, xray, UDS Pain level:06/11 Denies ED visits or hospitalizations since last [...] APRN.CNS November 12, 2022 documented in this encounterKindred Healthcare01-09-2023 Miscellaneous Notes* Telephone Encounter - Matilde Hayward [...] advise. Sanjuana Murdock RN documented in this encounterKindred Healthcare12-13-2022 History of Present illness Narrative* RT Meredith(R) [...] 14, 2022 12:41 PM documented in this encounterKindred Healthcare12-13-2022 Instructions* Patient Instructions* Matilde Hayward APRN.ELECTROPLATER APPRENTICE - 08/14/2022 11:11 AM EST Patient has [...] Followup in 3 months documented in this encounterKindred Healthcare12-13-2022 History of Present illness Narrative* Matilde Hayward APRN.CNS - 08/14/2022 10:00 AM EST Patient was last seen by me on 03/20/22 for back and hip pain Plan of care: Continue Grafton 10-325 mg TID PRN. This helps patient [...] level States her daughter took her to [facility] ED last month after fell and hit [...] muscle strength lower extremities. documented in this encounterKindred Healthcare07-19-2022 Instructions* Patient Instructions* Matlide Hayward APRN.CNS - 03/20/2022 9:19 AM EDT Continue Grafton 10-325 mg TID PRN. This helps patient [...] Follow-up in 3 months documented in this encounterKindred Healthcare07-18-2022 History of Present illness Narrative* Matilde Hayward APRN.CNS - 03/19/2022 11:30 AM EDT Patient was last seen by me for back and hip pain on 12/18/2021 Plan of care: 1) Continue Grafton 10-325 mg TID PRN. This helps patient [...] Negative Spurling sign bilaterally. documented in this encounterKindred Healthcare06-09-2021 NotePhysical Therapy Outpatient Progress Summary Medical Diagnosis: [...] No significant change in pain during session. [facility] PATIENT NAME: SONAM CASILLAS [address] [facility] [address] MEDICAL REC #: [id number] [place] [address] ADMIT DATE: SERVICE DATE: 02/08/21 Physical Therapy Re-Assessment ATTENDING PHY: Soraida Godoy H DO Education: The patient's preferred learning method [...] balance; TUG completed in 11 sec with [facility] PATIENT NAME: SONAM CASILLAS [address] [facility] [address] MEDICAL REC #: [id number] [place] [address] ADMIT DATE: SERVICE DATE: 02/08/21 Physical Therapy [...] is number 10 Medicare (more content not included)...[facility]05-03-2021 NotePhysical Therapy Outpatient Low Spine and Sacroiliac [...] Demographics: Age: 65Y Gender: Female Primary Language: Greenlandic Preferred Language: Greenlandic Initial Evaluation Date: 01/02/2021 Referring Clinician: Soraida [...] with anyone with a confirmed or suspected [facility] PATIENT NAME: SONAM CASILLAS [address] [facility] [address] MEDICAL REC #: [id number] [place] [address] ADMIT DATE: SERVICE DATE: 01/02/21 Physical Therapy Assessment Report ATTENDING PHY: Soraida Godoy DO diagnosis of COVID-19? No Medical Care Prior to Current Episode: OP PT last year in [facility] Past Medical History: asthma, [place], OA, chronic pain History of Present Illness: [...] years until participating in outpatient PT in [facility] last year with no significant improvements. Patient notes that she has more recently bee experiencing LLE instability with feeling that leg may go out. Patient describes an incident of falling in kitchen around [place] time. Patient now referred to OP PT [...] by: prolonged positioning, standing ADLs (dishes, sweeping), [facility] PATIENT NAME: SONAM CASILLAS [address] [facility] [address] MEDICAL REC #: [id number] [place] [address] ADMIT DATE: SERVICE DATE: 01/02/21 Physical Therapy [...] on disability Paresthesia: Colleen (more content not included)...[facility] Evaluation + Plan note Future Appointments Appointment Date:07/21/2021 01:30:00 PM Scheduled Provider: Location:[facility] Appointment Type:BD Bone Density DEXA Axial Skeleton Appointment Date:07/21/2021 02:30:00 PM Scheduled Provider: Location:[facility] Appointment Type:MA Mammogram Screening Bilateral w/ Jake Appointment Date:12/19/2021 09:30:00 AM Scheduled Provider:ERIN RODRIGUEZ Location:[facility] Appointment Type:PC OV Future Scheduled Tests [...] MA Mammo Screening Bilateral w/ Jake 07/21/21 [facility] Evaluation + Plan note Future Appointments Appointment Date:12/19/2021 09:30:00 AM Scheduled Provider:ERIN RODRIGUEZ Location:[facility] Appointment Type:[facility] Future Scheduled Tests Laboratory* Complete Blood [...] Ribs 2 Views Left/PA Chest (AO) 07/13/21 [facility] Evaluation + Plan note Future Appointments Appointment Date:04/12/2022 09:00:00 AM Scheduled Provider:ERIN RODRIGUEZ Location:[facility] Appointment Type:PC Wellness Medicare Future Scheduled Tests Laboratory* Complete Blood Count 06/20/21 * Complete Blood Count 01/04/22 * Lipid Profile 06/20/21 * Lipid Profile 01/04/22 * Complete Metabolic Panel 06/20/21 * Complete Metabolic Panel 01/04/22 Radiology* XR Ribs 2 Views Left/PA Chest (AO) 07/13/21 * XR Knee 3 Views Left 01/04/22 * XR Shoulder Minimum 2 Views Right 07/13/21 [facility] Evaluation + Plan note Future Appointments Appointment Date:07/31/2022 10:30:00 AM Scheduled Provider:ERIN RODRIGUEZ Location:[facility] Appointment Type:PC OV Future Scheduled Tests [...] XR Shoulder Minimum 2 Views Right 07/13/21 [facility] Evaluation + Plan note Future Appointments Appointment Date:01/30/2023 09:00:00 AM Scheduled Provider:ERIN RODRIGUEZ Location:[facility] Appointment Type:PC OV Future Scheduled Tests Laboratory* Complete Blood Count 04/26/22 * Complete Blood Count 01/04/22 * Lipid Profile 04/26/22 * Lipid Profile 01/04/22 * Microalbumin Level Urine 04/26/22 * Complete Metabolic Panel 04/26/22 * Complete Metabolic Panel 01/04/22 Radiology* MA Mammo Screening Bilateral w/ Jake 08/26/22 * XR Knee 3 Views Left 01/04/22 [facility] Evaluation + Plan note Future Appointments Appointment Date:08/01/2023 11:00:00 AM Scheduled Provider:ERIN RODRIGUEZ Location:[facility] Appointment Type:PC OV Future Scheduled Tests Laboratory* Microalbumin Level Urine 04/26/22 Radiology* MA Mammo Screening Bilateral w/ Jake 08/26/22 [facility] Evaluation + Plan note Future Appointments Appointment Date:08/01/2023 11:00:00 AM Scheduled Provider:ERIN RODRIGUEZ Location:[facility] Appointment Type:PC OV Future Scheduled Tests Radiology* MA Mammo Screening Bilateral w/ Jake 08/26/22 [facility] Evaluation + Plan note Future Appointments Appointment Date:06/19/2023 10:00:00 AM Scheduled Provider: Location:[facility] Appointment Type:GI OV Consult Appointment Date:08/01/2023 11:00:00 AM Scheduled Provider:ERIN RODRIGUEZ Location:[facility] Appointment Type:PC OV Future Scheduled Tests Radiology* MA Mammo Screening Bilateral w/ Jake 08/26/[address] [facility] Evaluation + Plan note Future Appointments Appointment Date:07/30/2023 12:30:00 PM Scheduled Provider:ERIN RODRIGUEZ Location:[facility] Appointment Type:PC OV Appointment Date:07/31/2023 11:00:00 AM Scheduled Provider: Location:[facility] Appointment Type:GI OV Consult Future Scheduled Tests Radiology* MA Mammo Screening Bilateral w/ Jake 08/26/22 [facility] Evaluation + Plan note Future Appointments Appointment Date:11/13/2023 10:30:00 AM Scheduled Provider:ERIN RODRIGUEZ Location:[facility] Appointment Type:PC OV Future Scheduled Tests Radiology* MA Mammo Screening Bilateral w/ Jake 08/26/22 [facility] evaluation note* Diagnosis Lumbar spondylosis- Primary [...] of other medications documented in this encounter [facility]* Diagnosis Chronic pain syndrome- Primary DDD (degenerative disc disease), lumbar Degeneration of lumbar or lumbosacral intervertebral disc Pain in right hip Pain in joint, pelvic region and thigh Spinal stenosis, lumbar region with neurogenic claudication High risk medication use Encounter for long-term (current) use of other medications [facility] Diagnosis Pain in right hip Pain in joint, pelvic region and thigh Chronic pain syndrome [facility] Diagnosis Chronic pain syndrome [facility]* Diagnosis Spinal stenosis, lumbar region with neurogenic claudication- Primary Chronic pain syndrome Lumbar radiculopathy Thoracic or lumbosacral neuritis or radiculitis, unspecified Osteoarthritis of both hips, unspecified osteoarthritis type High risk medication use Encounter for long-term (current) use of other medications documented in this [facility]* Diagnosis Chronic pain syndrome [facility]* Diagnosis Spinal stenosis, lumbar region with [...] of hip region documented [facility]* Diagnosis Chronic pain syndrome Trochanteric bursitis of both hips Enthesopathy of hip region [facility]* Diagnosis Chronic pain syndrome [facility]* Diagnosis [facility] pain syndrome [facility]* Diagnosis Chronic pain syndrome [facility]* Diagnosis Chronic pain syndrome [facility]* Diagnosis Chronic pain syndrome [facility]* Diagnosis Chronic pain syndrome- Primary Osteoarthritis [...] history of alcoholism documented in this encounter [facility]* Diagnosis Chronic pain syndrome- Primary History of alcoholism (HCC) Personal history of alcoholism Myofascial pain syndrome Mylagia and myositis, unspecified Myofascial pain syndrome Mylagia and myositis, unspecified documented in this encounter [facility] course Narrative No data available for this section [facility] Hospital Discharge instructions No data available for this section [facility] Progress note No data available for this section [facility] Reason for referral (narrative)* Diagnostic Procedure Only (Routine) - Closed Specialty Diagnoses / Procedures Referred By Contac t Referred To Contact XR IMAGING Diagnoses Pain in right hip Chronic pain syndrome Procedures XR HIP BILATERAL 5V PEL/AP/LAT EACH HIP RADEX HIPS BILATERAL WITH PELVIS MINIMUM 5 VIEWS Matilde Hayward APRN.ELECTROPLATER APPRENTICE [address] [place] [address] Xr Imaging Referral ID Status Reason Start Date Expiration Date V isits Requested Visits Authorized [id number] Closed Auto-Generate d Referral 08/14/2022 09/13/2023 1 1 [facility] for referral (narrative)* Diagnostic Procedure Only (Routine) - Closed Specialty Diagnoses / Procedures Referred By Contac t Referred To Contact XR IMAGING Diagnoses Pain in right hip Chronic pain syndrome Procedures XR HIP BILATERAL 5V PEL/AP/LAT EACH HIP RADEX HIPS BILATERAL WITH PELVIS MINIMUM 5 VIEWS Matilde Hayward APRN.CNS [address] [place] [address] Xr Imaging Referral ID Status Reason Start Date Expiration Date V isits Requested Visits Authorized [id number] Closed Auto-Generate d Referral 08/14/2022 09/13/2023 1 [facility]* Diagnostic Procedure Only (Routine) - Closed Specialty Diagnoses / Procedures Referred By Iraida diaz Referred To Contact XR IMAGING Diagnoses Pain in right hip Chronic pain syndrome Procedures XR HIP BILATERAL 5V PEL/AP/LAT EACH HIP RADEX HIPS BILATERAL WITH PELVIS MINIMUM 5 VIEWS Matilde Hayward APRN.CNS [address] [place] [address] Xr Imaging Referral ID Status Reason Start Date Expiration Date V isits Requested Visits Authorized [id number] Closed Auto-Generate d Referral 08/14/2022 09/13/2023 1 1 [facility] Family History No Family History Records Found [...] DATE CREATED AUTHOR AUTHOR'S ORGANIZ ATION 12/18/2021 [facility] Sonya Dhaliwal DATE CREATED AUTHOR AUTHOR'S ORGANIZ ATION 09/10/2023 [facility] ([place]) DATE CREATED AUTHOR AUTHOR'S ORGANIZ ATION 10/04/2023 [facility] Sonya menendez Source Comments (unrecognize d section and content) In the event this informatio n is protected by the Federal Confidentiality of Alcohol and Drug Abuse Patient Records regulations: The Federal rules restrict any use of the information to criminally investigate or prosecute any alcohol or drug abuse patient.[facility]red HealthcareIn the event this information is protected by the Federal Confidentiality of Alcohol and Drug Abuse Patient Records regulations: The Federal rules restrict any use of the information to criminally investigate or prosecute any alcohol or drug abuse patient.Kindred HealthcareIn the event this information is protected by the Federal Confidentiality of Alcohol and Drug Abuse Patient Records regulations: The Federal rules restrict any use of the information to criminally investigate or prosecute any alcohol or drug abuse patient.Kindred HealthcareIn the event this information is protected by the Federal Confidentiality of Alcohol and Drug Abuse Patient Records regulations: The Federal rules restrict any use of the information to criminally investigate or prosecute any alcohol or drug abuse patient.Kindred HealthcareIn the event this information is protected by the Federal Confidentiality of Alcohol and Drug Abuse Patient Records regulations: The Federal rules restrict any use of the information to criminally investigate or prosecute any alcohol or drug abuse patient.[facility] HealthcareIn the event this information is protected by the Federal Confidentiality of Alcohol and Drug Abuse Patient Records regulations: The Federal rules restrict any use of the information to criminally investigate or prosecute any alcohol or drug abuse patient.[facility] HealthcareIn the event this information is protected by the Federal Confidentiality of Alcohol and Drug Abuse Patient Records regulations: The Federal rules restrict any use of the information to criminally investigate or prosecute any alcohol or drug abuse patient.[facility] HealthcareIn the event this information is protected by the Federal Confidentiality of Alcohol and Drug Abuse Patient Records regulations: The Federal rules restrict any use of the information to criminally investigate or prosecute any alcohol or drug abuse patient.[facility] HealthcareIn the event this information is protected by the Federal Confidentiality of Alcohol and Drug Abuse Patient Records regulations: The Federal rules restrict any use of the information to criminally investigate or prosecute any alcohol or drug abuse patient.[facility] HealthcareIn the event this information is protected by the Federal Confidentiality of Alcohol and Drug Abuse Patient Records regulations: The Federal rules restrict any use of the information to criminally investigate or prosecute any alcohol or drug abuse patient.[facility] HealthcareIn the event this information is protected by the Federal Confidentiality of Alcohol and Drug Abuse Patient Records regulations: The Federal rules restrict any use of the information to criminally investigate or prosecute any alcohol or drug abuse patient.[facility] HealthcareIn the event this information is protected by the Federal Confidentiality of Alcohol and Drug Abuse Patient Records regulations: The Federal rules restrict any use of the information to criminally investigate or prosecute any alcohol or drug abuse patient.[facility] HealthcareIn the event this information is protected by the Federal Confidentiality of Alcohol and Drug Abuse Patient Records regulations: The Federal rules restrict any use of the information to criminally investigate or prosecute any alcohol or drug abuse patient.[facility] HealthcareIn the event this information is protected by the Federal Confidentiality of Alcohol and Drug Abuse Patient Records regulations: The Federal rules restrict any use of the information to criminally investigate or prosecute any alcohol or drug abuse patient.[facility] HealthcareIn the event this information is protected by the Federal Confidentiality of Alcohol and Drug Abuse Patient Records regulations: The Federal rules restrict any use of the information to criminally investigate or prosecute any alcohol or drug abuse patient.[facility] HealthcareIn the event this information is protected by the Federal Confidentiality of Alcohol and Drug Abuse Patient Records regulations: The Federal rules restrict any use of the information to criminally investigate or prosecute any alcohol or drug abuse patient.[facility] HealthcareIn the event this information is protected by the Federal Confidentiality of Alcohol and Drug Abuse Patient Records regulations: The Federal rules restrict any use of the information to criminally investigate or prosecute any alcohol or drug abuse patient.[facility] HealthcareIn the event this information is protected by the Federal Confidentiality of Alcohol and Drug Abuse Patient Records regulations: The Federal rules restrict any use of the information to criminally investigate or prosecute any alcohol or drug abuse patient.[facility] HealthcareIn the event this information is protected by the Federal Confidentiality of Alcohol and Drug Abuse Patient Records regulations: The Federal rules restrict any use of the information to criminally investigate or prosecute any alcohol or drug abuse patient.[facility] HealthcareIn the event this information is protected by the Federal Confidentiality of Alcohol and Drug Abuse Patient Records regulations: The Federal rules restrict any use of the information to criminally investigate or prosecute any alcohol or drug abuse patient.[facility] HealthcareIn the event this information is protected by the Federal Confidentiality of Alcohol and Drug Abuse Patient Records regulations: The Federal rules restrict any use of the information to criminally investigate or prosecute any alcohol or drug abuse patient.[facility] HealthcareIn the event this information is protected by the Federal Confidentiality of Alcohol and Drug Abuse Patient Records regulations: The Federal rules restrict any use of the information to criminally investigate or prosecute any alcohol or drug abuse patient.[facility] HealthcareIn the event this information is protected by the Federal Confidentiality of Alcohol and Drug Abuse Patient Records regulations: The Federal rules restrict any use of the information to criminally investigate or prosecute any alcohol or drug abuse patient.[facility] HealthcareIn the event this information is protected by the Federal Confidentiality of Alcohol and Drug Abuse Patient Records regulations: The Federal rules restrict any use of the information to criminally investigate or prosecute any alcohol or drug abuse patient.[facility] HealthcareIn the event this information is protected by the Federal Confidentiality of Alcohol and Drug Abuse Patient Records regulations: The Federal rules restrict any use of the information to criminally investigate or prosecute any alcohol or drug abuse patient.[facility] Care Teams (unrecognized sec tion and content) Workers' Compensation Mediator Relationship Specialty Start Date End Date Juni Zamora[address] [place] [address], [place] [phone] PCP - General 02/01/05 Workers' Compensation Mediator Relationship Specialty Start Date End Date Juni Zamora [address] [place] [address], [place] [phone] PCP - General 02/01/05 Workers' Compensation Mediator Relationship Specialty Start Date End Date Juni Zamora[address] [place] [address], [place] [phone] PCP - General 02/01/05 Workers' Compensation Mediator Relationship Specialty Start Date End Date Juni Zamora[address] [place] [address], [place] [phone] PCP - General 02/01/05 Workers' Compensation Mediator Relationship Specialty Start Date End Date Juni Zamora[address] [place] [address], [place] [phone] PCP - General 02/01/05 Workers' Compensation Mediator Relationship Specialty Start Date End Date Juni Zamora[address] [place] [phone] PCP - General 02/01/05 Workers' Compensation Mediator Relationship Specialty Start Date End Date ZamoraJuni [address] [place] [phone] PCP - General 02/01/05 Workers' Compensation Mediator Relationship Specialty Start Date End Date Juni Zamora [address] [place] [phone] PCP - General 02/01/05 Workers' Compensation Mediator Relationship Specialty Start Date End Date Erin Rodriguez MONOMER PURIFICATION OPERATOR.DIRECT MAIL COORDINATOR [address] [place] [address] PCP - General Family Medicine 04/15/23 Workers' Compensation Mediator Relationship Specialty Start Date End Date Erin Rodriguez MONOMER PURIFICATION OPERATOR.DIRECT MAIL COORDINATOR [address] [place] [address] PCP - General Family Medicine 04/15/23 Workers' Compensation Mediator Relationship Specialty Start Date End Date Erin Rodriguez MONOMER PURIFICATION OPERATOR.DIRECT MAIL COORDINATOR [address] [place] [address] PCP - General Family Medicine 04/15/23 Workers' Compensation Mediator Relationship Specialty Start Date End Date Erin Rodriguez MONOMER PURIFICATION OPERATOR.DIRECT MAIL COORDINATOR [address] [place] [address] PCP - General Family Medicine 04/15/23 Workers' Compensation Mediator Relationship Specialty Start Date End Date Erin Rodriguez MONOMER PURIFICATION OPERATOR.DIRECT MAIL COORDINATOR [address] [place] [address] PCP - General Family Medicine 04/15/23 Workers' Compensation Mediator Relationship Specialty Start Date End Date Erin Rodriguez MONOMER PURIFICATION OPERATOR.DIRECT MAIL COORDINATOR [address] [place] [phone] PCP - General Family Medicine 04/15/23 Workers' Compensation Mediator Relationship Specialty Start Date End Date Erin Rodriguez APRN.DIRECT MAIL COORDINATOR [address] [place] [phone] PCP - General Family Medicine 04/15/23 Workers' Compensation Mediator Relationship Specialty Start Date End Date Erin Rodriguez MONOMER PURIFICATION OPERATOR.DIRECT MAIL COORDINATOR [address] [place] [phone] PCP - General Family Medicine 04/15/23 Workers' Compensation Mediator Relationship Specialty Start Date End Date Erin Rodriguez APRN.DIRECT MAIL COORDINATOR [address] [place] [phone] PCP - General Family Medicine 04/15/23 Workers' Compensation Mediator Relationship Specialty Start Date End Date Erin Rodriguez CNP [address] [place] [phone] PCP - General Family Medicine 04/15/23 Workers' Compensation Mediator Relationship Specialty Start Date End Date Erin Rodriguez CNP [address] [place] [phone] PCP - General Family Medicine 04/15/23 Reason for Visit (unrecogniz ed section and content) Specialty Diagnoses / Procedures Referred By Contlindsey t Referred To Contact Anesthesiology / PAIN MANAGEMENT Diagnoses Chronic pain syndrome 3 month follow up Procedures OFFICE/OUTPATIENT ESTABLISHED HIGH MDM 40 MIN OFFICE/OUTPATIENT ESTABLISHED MOD MDM 30 MIN OFFICE/OUTPATIENT ESTABLISHED LOW MDM 20 MIN OFFICE/OUTPATIENT ESTABLISHED SF MDM 10 MIN EST PATIENT Erin Rodriguez CNP [address] [place] [address] Jaydon Ritchie MD [address] [place] [address] Referral ID Status Reason Start Date Expiration Date Visits Re quested Visits Authorized [id number] Closed 09/13/2023 09/01/2024 1 1 Specialty Diagnoses / Procedures Referred By Contac t Referred To Contact PAIN MANAGEMENT Diagnoses Encounter for general adult medical examination without abnormal findings Procedures EST PATIENT VISIT LEVEL 1 Soraida Godoy, DO [address] [place] [phone] [facility] [address] [place] [address] Referral ID Status Reason Start Date Expiration Date V isits Requested Visits Authorized [id number] Closed OON/Self Pay Override 05/01/2023 07/30/2023 1 1 Reason Comments Back Pain Hip Pain Reason Onset Date Comments Refill Request 09/10/2022 Reason Comments Back Pain Hip Pain Reason Onset Date Comments Refill Request 12/12/2022 Reason Comments Back Pain Leg Pain Reason Onset Date Comments Refill Request 04/11/2023 Specialty Diagnoses / Procedures Referred By Darleneac t Referred To Contact Diagnoses Trochanteric bursitis of both hips Procedures ARTHROCENTESIS ASPIR&/INJ MAJOR JT/BURSA W/O US ARTHROCENTESIS,ASPIRATION AND/OR INJECTION,MAJOR JOINT OR BURSA W/O US GUIDANCE [facility] [address] [place] [address] Referral ID Status Reason Start Date Expiration Date Visits Re quested Visits Authorized [id number] 1 1 Reason Onset Date Comments Refill Request 04/18/2023 Reason Onset Date Comments Refill Request 04/23/2023 Reason Comments Medication Problem Reason Onset Date Comments Refill Request 05/09/2023 Reason Onset Date Comments Refill Request 05/15/2023 Reason Onset Date Comments Refill Request 05/29/2023 Refill Request 06/06/2023 Reason Onset Date Comments Refill Request 06/13/2023 Reason Onset Date Comments Refill Request 06/24/2023 Reason Comments Patient Update Follow up from PCP Care Team (unrecognized sect ion and content) Care Team Personnel Name: ERIN RODRIGUEZ Position: P4 Advanced Practice Nurse Member Role: Primary Care Physician Address: Address: [address] Name: Nicole Church PT Position: P3 Scheduling - Corporate Traffic Manager Advanced Member Role: Other Name: MATILDE HAYWARD CNP Address: Address: [address] [place] [address] [address] Name: SORAIDA GODOY DO Address: Address: [address] Care Team Related Persons Name: BLAS STEWART Name: DINA MARTINEZ Care Team Personnel Name: ERIN RODRIGUEZDIRECT MAIL COORDINATOR Position: P4 Advanced Practice Nurse Member Role: Primary Care Physician Address: Address: [address] [place] [address] Name: Nicole Church PT Position: P3 Scheduling - Corporate Traffic Manager Advanced Member Role: Other Name: MATILDE HAYWARD CNP Member Role: Pain Management Address: Address: [address] [place] [address] [address] Name: SORAIDA GODOY DO Member Role: Pain Management Address: Address: [address] Care Team Related Persons Name: BLAS [...] BE BASED ON THE PRIMARY CLINICAL RECORDS. [employer] provides no warranty or guarantee of the accuracy or completeness of information in this document.
[2023-10-09 21:50] LABS: ALB/GLOB Ratio 0.9 RATIO (0.9-2.4); AST(SGOT) 25 U/L (15-37); Alanine Aminotransfer ALT/SGPT 21 U/L (13-56); Albumin, Serum 3.1 g/dL (3.2-5.0); Alkaline Phosphatase 99 U/L (45-117); Anion Gap 3 (5-15); BUN 12 mg/dL (7-18); BUN/Creat Ratio 17.8 RATIO (10-20); Calcium,Total 8.6 mg/dL (8.5-10.1); Chloride 104 mmol/L (98-107); Creatinine, Serum 0.67 mg/dL (0.55-1.02); EST Glomerular Filtration Rate 93 mL/min (>60); Est Glom Filt Rate - Afr Amer 112 mL/min (>60); Estimated Creatinine Clearance 59.73 ml/min; Globulin 3.3 g/dL (2.2-4.2); Glucose 86 mg/dL (74-106); Lipase 28 U/L (13-75); Potassium 3.5 mmol/L (3.5-5.1); Protein, Total 6.4 g/dL (6.4-8.2); Sodium Level 138 mmol/L (136-145)
[2023-10-09 22:11] VITALS: BP 146/82; PULSE 74; RESP 17; O2SAT 96
--- NOTE | 2023-10-09 23:40 | PCM.HP.STD ---
HPI - General General Date of Admission: 10/09/23 Date of Service: 10/09/23 Chief Complaint: Vomiting blood, abdominal pain started today HPI Narrative SONAM LUGO, is a 68 F with history of chronic alcohol use was brought to ED by EMS for vomiting blood. As per EMS report, her mother states that her mother has been drinking all day and mother and the patient in verbal altercation and stated that she does not want her mother to return to her residence. Patient does not appear intoxicated. In ED, she told me that she drinks 1 beer but it appears he drinks more than that. She had 3-4 times dark red vomiting blood. She also complained of abdominal pain all over but predominantly right upper quadrant, states continuous 1-2/10 intensity, sharp which radiates to the midline chest but not below the jaws, shoulder or arm or tingling or numbness. Patient further states that she drinks 12 pack beer daughter drinks the most current she drinks 1-2 beer about 3 to 4 days a week but appears that she drinks more than what she narrates. No fever or chills. Patient has darker stool but denies black tarry or red blood. Patient is on Plavix and duloxetine but denies NSAID Aleve Motrin or diclofenac. Not on oral anticoagulant. EMS vital shows heart rate 98 blood pressure 166/98. In ED vitals in normal parameters. H&H 13.6/40, platelet count 245,000. Patient is further admitted for management of upper GI bleed [facility] Medical History Asthma CAD (coronary artery disease) COPD (chronic obstructive pulmonary disease) Deficient knowledge of percutaneous coronary intervention (PCI) and stenting ETOH abuse Tobacco abuse Home Medications clopidogrel 75 mg tablet 75 mg PO DAILY CHOLESTEROL 07/30/23 [History Last Taken Unknown] duloxetine 60 mg capsule,delayed release 60 mg PO DAILY DEPRESSION/ANXIETY 09/10/23 [History Last Taken Unknown] Allergy/AdvReac Type Severity Reaction Status Date / Time No Known Allergies Allergy Verified 10/09/23 19:51 Surgical History History of hysterectomy Social History Smoking Status: Current every day smoker tobacco type: cigarettes ROS ROS Narrative Constitutional: Reports fatigue and weakness. No fever. HEENT: Reports systems reviewed and no addt'l complaints, except as documented Respiratory/Chest: No acute shortness of breath or respiratory distress or wheezing. CVS: Abdominal pain with radiation to midline chest. Does not seem cardiac. Gastrointestinal: As described in detail in HPI Genitourinary: Denies burning urination or new urinary tract symptoms Musculoskeletal: Denies acute joint pain or limited range of motion. No acute injury Neurologic: Denies seizure-like symptoms. skin: No ulcer. No rash Endocrinology: Reports systems reviewed and no addt'l complaints, except as documented Hematologic/Lymphatic: Reports systems reviewed and no addt'l complaints, except as documented Rest 14 ROS are negative except as mentioned in HPI Vital Signs Vital Signs Vital Signs: 10/09/23 19:48 10/09/23 19:51 10/09/23 22:11 Temperature 97.8 F Temperature Source Temporal Pulse Rate 85 74 Respiratory Rate 12 17 Respiratory Effort Normal Non-Labored Respiratory Pattern Normal Blood Pressure 122/97 H 146/82 H Blood Pressure Mean 105 103 Pulse Ox 98 96 Oxygen Delivery Method Room Air Room Air Weight Weight: 124 lb 1.924 oz Body Mass Index (BMI) 21.3 Physical Exam Narrative General: Alert, Oriented x3, Cooperative, BMI 21.3 kg/m?. HEENT: Atraumatic, PERRLA, EOMI, Normocephalic Oral: No Gingival or Mucosal Lesions/ Ulcerations Neck: Supple, No JVD, Negative Carotid Bruits Chest wall/Lungs: Air entry diminished in bilateral lung bases. No crepitation/rhonchi Cardiovascular: Regular rate, Regular Rhythm, Normal S1, Normal S2, No M/G/R Abdomen: Diffuse tenderness predominantly right upper quadrant. No guarding/rigidity. No rebound tenderness. Bowel Sounds Present, Non-Distended clinically does not seem ascites. : No dysuria. No renal angle tenderness. No suprapubic tenderness. Extremities: No edema, Capillary Refill Less than 3 Seconds Skin: No rashes, No breakdown Musculoskeletal: No Tenderness to Palpation of Joints or Extremities. Mild decrease in muscle bulk of extremities, thighs and calf muscles. Loss of subcutaneous fat. Neurological: Cranial nerves II-XII grossly intact, DTR 2+/4. No acute focal neurological deficit. Psych/Mental Status: Flat affect. Results Lab / Micro Data 10/09/23 20:55 10/09/23 20:55 Labs: Laboratory Results - last 24 hr 10/09/23 20:55: WBC 5.3, RBC 4.18 L, Hgb 13.6, Hct 40.2, MCV 96.2, MCH 32.5 H, MCHC 33.8, RDW Std Deviation 49.4 H, RDW Coeff of Talon 13.8, Plt Count 245, MPV 10.2, Immature Gran % (Auto) 0.600, Neut % (Auto) 52.0, Lymph % (Auto) 34.5, Harding % (Auto) 9.5, Eos % (Auto) 2.3, Baso % (Auto) 1.1 H, Absolute Neuts (auto) 2.8, Absolute Lymphs (auto) 1.82, Nucleated RBC % 0, PT 12.6, INR 0.9, APTT 30.6, Sodium 138, Potassium 3.5, Chloride 104, Carbon Dioxide 31.0, Anion Gap 3 L, BUN 12, Creatinine 0.67, Estim Creat Clear Calc 59.73, Est GFR (MDRD) Af Amer 112, Est GFR (MDRD) Non-Af 93, BUN/Creatinine Ratio 17.8, Glucose 86, Calcium 8.6, Total Bilirubin 0.30, AST 25, ALT 21, Alkaline Phosphatase 99, Total Protein 6.4, Albumin 3.1 L, Globulin 3.3, Albumin/Globulin Ratio 0.9, Lipase 28, Ethyl Alcohol 103.0 10/09/23 21:10: Blood Type O NEGATIVE, Antibody Screen NEGATIVE Rhythm Strip Rhythm Strip: Sinus Rhythm Rate: 80 Ectopy: None Assessment & Plan Assessment/Plan (1) GI bleed: QUALIFIERS: GI bleed type/associated pathology: unspecified gastrointestinal hemorrhage type Qualified Code(s): K92.2 - Gastrointestinal hemorrhage, unspecified PLAN: Plan This is a 68-year-old female being admitted for hematemesis and abdominal pain acute upper GI bleed most likely due to chronic alcohol use 1. Acute upper GI bleed most likely due to chronic alcohol use disorder: Patient is being admitted in PCU. Vitals, H&H and platelet count in normal parameters. PT/INR normal. CBC every 6 hourly. GI consulted for EGD. Right upper quadrant sonogram ordered. Started on IV fluid normal saline +20 mEq KCl. Blood type and group match. Patient started on pantoprazole 40 mg IV every 12 hourly and octreotide drip and IV ceftriaxone. Patient does not have clinically ascites. If varices is not found in EGD, can discontinue octreotide drip and IV ceftriaxone. Serum magnesium 1.9. 2. Right upper quadrant abdominal pain most likely due to chronic alcoholic hepatitis due to chronic alcohol use: Liver chemistry shows normal ALT AST alkaline phosphatase and total bilirubin. A/G ratio 0.9. Right upper quadrant sonogram ordered. 3. CAD: Patient on Plavix. No recent history of recent stent therefore we will hold it. 4. COPD/asthma and current everyday smoker, cigarette smoking: Patient not having shortness of breath or acute COPD exacerbation. DuoNeb as needed ordered. Nicotine patch ordered. Consult to quit alcohol and smoking. 5. DVT prophylaxis: Moderate risk: Pharmacological prophylaxis contrary in view of active GI bleed. Bilateral SCDs. Living will/advanced directive/end of life care: Patient does not have living will or advanced directive. She does not have designated power of night manager for health. Patient is states that she does not want her daughter next to kin. After discussion of benefits/risks procedures involved with full code, DNR CC arrest and DNR CC, the patient opted for DNRCC arrest with no intubation Patient doesn't want artificial life support including intubation, tube feed, ventilator and/chest compression, central venous catheter, vasopressor and DC shock if needed Total time spent in [id number] encounter in discussion of advanced directive 17 minutes. Laboratory Results 10/09/23 20:55: WBC 5.3, RBC 4.18 L, Hgb 13.6, Hct 40.2, MCV 96.2, MCH 32.5 H, MCHC 33.8, RDW Std Deviation 49.4 H, RDW Coeff of Talon 13.8, Plt Count 245, MPV 10.2, Immature Gran % (Auto) 0.600, Neut % (Auto) 52.0, Lymph % (Auto) 34.5, Harding % (Auto) 9.5, Eos % (Auto) 2.3, Baso % (Auto) 1.1 H, Absolute Neuts (auto) 2.8, Absolute Lymphs (auto) 1.82, Nucleated RBC % 0, PT 12.6, INR 0.9, APTT 30.6, Sodium 138, Potassium 3.5, Chloride 104, Carbon Dioxide 31.0, Anion Gap 3 L, BUN 12, Creatinine 0.67, Estim Creat Clear Calc 59.73, Est GFR (MDRD) Af Amer 112, Est GFR (MDRD) Non-Af 93, BUN/Creatinine Ratio 17.8, Glucose 86, Calcium 8.6, Magnesium 1.9, Total Bilirubin 0.30, AST 25, ALT 21, Alkaline Phosphatase 99, Total Protein 6.4, Albumin 3.1 L, Globulin 3.3, Albumin/Globulin Ratio 0.9, Lipase 28, Ethyl Alcohol 103.0 10/09/23 21:10: Blood Type O NEGATIVE, Antibody Screen NEGATIVE Charges/Coding Visit Charges Inpatient E&M: 47803 Init Hosp L3 Procedures Hospitalists Procedures: 59414 Advncd Care Plan 30 Min
--- NOTE | 2023-10-09 23:44 | CON.PCM.GI_ITS ---
HPI Consult Data Date of Consult: 10/09/23 HPI Narrative Reason for Consultation: GI bleeding HPI Narrative: SONAM LUGO, is a 68 F who presents vomiting blood. She has a history of chronic alcohol use was brought to ED by EMS for vomiting blood. As per EMS report, her mother states that her mother has been drinking all day and mother and the patient in verbal altercation and stated that she does not want her mother to return to her residence. In ED, she told me that she drinks 1 beer but it appears he drinks more than that. She had 3-4 times dark red vomiting blood. She also complained of abdominal pain all over but predominantly right upper quadrant, states continuous 1-2/10 intensity, sharp which radiates to the midline chest but not below the jaws, shoulder or arm or tingling or numbness. Patient further states that she drinks 12 pack beer daughter drinks the most current she drinks 1-2 beer about 3 to 4 days a week but appears that she drinks more than what she narrates.No fever or chills. Patient has darker stool but denies black tarry or red blood. Patient is on Plavix and duloxetine but denies NSAID Aleve Motrin or diclofenac. Not on oral anticoagulant. In ED vitals in normal parameters. H&H 13.6/40, platelet count 245,000. Patient was admitted for management of upper GI bleed [facility] Medical History Asthma CAD (coronary artery disease) COPD (chronic obstructive pulmonary disease) Deficient knowledge of percutaneous coronary intervention (PCI) and stenting ETOH abuse Tobacco abuse Home Medications clopidogrel 75 mg tablet 75 mg PO DAILY CHOLESTEROL 07/30/23 [History Last Taken Unknown] duloxetine 60 mg capsule,delayed release 60 mg PO DAILY DEPRESSION/ANXIETY 09/10/23 [History Last Taken Unknown] Allergy/AdvReac Type Severity Reaction Status Date / Time No Known Allergies Allergy Verified 10/09/23 19:51 Surgical History History of hysterectomy Social History Smoking Status: Current every day smoker tobacco type: cigarettes ROS ROS Narrative Constitutional: Reports fatigue and weakness. No fever. HEENT: Reports systems reviewed and no addt'l complaints, except as documented Respiratory/Chest: No acute shortness of breath or respiratory distress or wheezing. CVS: Abdominal pain with radiation to midline chest. Does not seem cardiac. Gastrointestinal: As described in detail in HPI Genitourinary: Denies burning urination or new urinary tract symptoms Musculoskeletal: Denies acute joint pain or limited range of motion. No acute injury Neurologic: Denies seizure-like symptoms. skin: No ulcer. No rash Endocrinology: Reports systems reviewed and no addt'l complaints, except as documented Hematologic/Lymphatic: Reports systems reviewed and no addt'l complaints, except as documented Rest 14 ROS are negative except as mentioned in HPI Physical Exam Narrative General: Alert, Oriented x3, Cooperative, BMI 21.3 kg/m?. HEENT: Atraumatic, PERRLA, EOMI, Normocephalic Oral: No Gingival or Mucosal Lesions/ Ulcerations Neck: Supple, No JVD, Negative Carotid Bruits Chest wall/Lungs: Air entry diminished in bilateral lung bases. No crepitation/rhonchi Cardiovascular: Regular rate, Regular Rhythm, Normal S1, Normal S2, No M/G/R Abdomen: Diffuse tenderness predominantly right upper quadrant. No guarding/rigidity. No rebound tenderness. Bowel Sounds Present, Non-Distended clinically does not seem ascites. : No dysuria. No renal angle tenderness. No suprapubic tenderness. Extremities: No edema, Capillary Refill Less than 3 Seconds Skin: No rashes, No breakdown Musculoskeletal: No Tenderness to Palpation of Joints or Extremities. Mild decrease in muscle bulk of extremities, thighs and calf muscles. Loss of subcutaneous fat. Neurological: Cranial nerves II-XII grossly intact, DTR 2+/4. No acute focal n eurological deficit. Psych/Mental Status: Flat affect. Lab / Micro Data 10/10/23 07:05 10/10/23 07:05 Labs: Laboratory Results - last 24 hr 10/09/23 20:55: WBC 5.3, RBC 4.18 L, Hgb 13.6, Hct 40.2, MCV 96.2, MCH 32.5 H, MCHC 33.8, RDW Std Deviation 49.4 H, RDW Coeff of Talon 13.8, Plt Count 245, MPV 10.2, Immature Gran % (Auto) 0.600, Neut % (Auto) 52.0, Lymph % (Auto) 34.5, Summers % (Auto) 9.5, Eos % (Auto) 2.3, Baso % (Auto) 1.1 H, Absolute Neuts (auto) 2.8, Absolute Lymphs (auto) 1.82, Nucleated RBC % 0, PT 12.6, INR 0.9, APTT 30.6, Sodium 138, Potassium 3.5, Chloride 104, Carbon Dioxide 31.0, Anion Gap 3 L, BUN 12, Creatinine 0.67, Estim Creat Clear Calc 59.73, Est GFR (MDRD) Af Amer 112, Est GFR (MDRD) Non-Af 93, BUN/Creatinine Ratio 17.8, Glucose 86, Calcium 8.6, Magnesium 1.9, Total Bilirubin 0.30, AST 25, ALT 21, Alkaline Phosphatase 99, Total Protein 6.4, Albumin 3.1 L, Globulin 3.3, Albumin/Globulin Ratio 0.9, Lipase 28, Ethyl Alcohol 103.0 10/09/23 21:10: Blood Type O NEGATIVE, Antibody Screen NEGATIVE 10/10/23 01:54: Hgb 14.6, Hct 43.5 10/10/23 07:05: WBC 5.4, RBC 4.32, Hgb 13.8, Hct 41.8, MCV 96.8, MCH 31.9, MCHC 33.0, RDW Std Deviation 48.8 H, RDW Coeff of Talon 13.6, Plt Count 263, MPV 10.2, Immature Gran % (Auto) 0.400, Neut % (Auto) 61.6, Lymph % (Auto) 23.8, Summers % (Auto) 10.9 H, Eos % (Auto) 2.2, Baso % (Auto) 1.1 H, Absolute Neuts (auto) 3.4, Absolute Lymphs (auto) 1.29, Nucleated RBC % 0, Sodium 137, Potassium 4.2, Chloride 107, Carbon Dioxide 26.0, Anion Gap 4 L, BUN 7, Creatinine 0.45 L, E stim Creat Clear Calc 52.96, Est GFR (MDRD) Af Amer 179, Est GFR (MDRD) Non-Af 148, BUN/Creatinine Ratio 15.5, Glucose 158 H, Calcium 8.6, Total Bilirubin 0.40, AST 40 H, ALT 22, Alkaline Phosphatase 115, Total Protein 6.3 L, Albumin 2.9 L, Globulin 3.4, Albumin/Globulin Ratio 0.9, TSH 0.73 Rhythm Strip Rhythm Strip: Sinus Rhythm Rate: 80 Ectopy: None Imaging Radiology Impression Abdomen Ultrasound 10/10/23 05:55 IMPRESSION: Heterogeneous liver from hepatic steatosis or other hepatocellular disease. No sonographic evidence of cholelithiasis. Small right renal cysts. Electronically Signed: Jerrica Bruner MD at 9:56 EST , Assessment & Plan Assessment/Plan (1) GI bleed: QUALIFIERS: GI bleed type/associated pathology: unspecified gastrointestinal hemorrhage type Qualified Code(s): K92.2 - Gastrointestinal hemorrhage, unspecified PLAN: Plan This is a 68-year-old female being admitted for hematemesis and abdominal pain acute upper GI bleed most likely due to chronic alcohol use Acute upper GI bleed most likely due to chronic alcohol use disorder: She will need to undergo emergent EGD. A Right upper quadrant sonogram ordered. She was started on IV fluid normal saline +20 mEq KCl. Blood type and group match. Patient started on pantoprazole 40 mg IV every 12 hourly and octreotide drip and IV ceftriaxone. Patient does not have clinically ascites. If varices is not found in EGD, can discontinue octreotide drip and IV ceftriaxone. Serum magne sium 1.9. Right upper quadrant abdominal pain most likely due to chronic alcoholic hepatitis due to chronic alcohol use: Liver chemistry shows normal ALT AST alkaline phosphatase and total bilirubin. A/G ratio 0.9. Right upper quadrant sonogram ordered. CAD: Patient on Plavix. hold plavix Laboratory Results Charges/Coding Visit Charges Inpatient E&M: 39878 Init Hosp L3
[2023-10-09 23:56] LABS: Magnesium 1.9 mg/dL (1.6-2.6)
[2023-10-10] VITALS (13 sets, daily range): BP systolic 109–179; BP diastolic 68–107; PULSE 67–97; RESP 14–20; TEMP 36.6–37.1; O2SAT 92–98; BMI 17.3; BMI 17.2
--- NOTE | 2023-10-10 | IMM_PTH ---
PATHOLOGY RESULTS PATIENT: SONAM LUGO LOC: [facility] U#:[id number] AGE/SX: 68/F ROOM: [facility] RE10/09/[address]: Dr. Bryce Colindres DO : 1955 BED: 1 DIS: 10/11/2023 SPEC #: [id number] RECD: 10/11/23 12:59 STATUS: ADRIANA REQ #: [id number] [place]: 10/10/23 00:[address]: Greg Maguire DEPT: IMMUNOHISTOCHEMISTRY RECD BY: Millie Slade ENTERED: 10/11/23 13:01 SP TYPE: IMMUNO OTHR DR: DO Dr. Anuj Rubalcava MD Ryan Baltes, [employer]-C Tissues: Esophageal mucous membrane Procedures: P53 (initial) KI-67 (add) Comments: @ Specimen number changed from [id number] to [id number] @ on 10/11/23 at 1355 by RGOOD. PHYSICIAN & [address] [address] SPECIMEN INFORMATION: Tissue Source: Distal esophagus Clinical Info: GI bleed Specimen Number: [id number] CPT code: 30075, 99602 METHODOLOGY: Deparaffinized sections of prefer/formalin-fixed tissue or PAP/DQ stained slides are incubated with monoclonal/polyclonal antibodies/oligonucleotide probes. Localization is made via biotin free immunoperoxidase method. Appropriate controls are performed and reacted as expected. Results on target cell population are indicated in the following table: RESULTS: ANTIBODY / CLONE RESULT P53 (DO-7) negative (null pattern) Ki-67 (30-9) positive, low These tests were developed and their performance characteristics determined by [facility]. They may not have been cleared or approved by the [place]. Food and Drug Administration. The FDA has determined that such clearance or approval is not necessary. The above immunohistochemical/dualISH markers are ordered and reviewed by the Pathologist. INTERPRETATION: Distal esophagus, biopsy: Negative for dysplasia. SOCRATES:yarelis 10/14/2023
--- OUTSIDE RECORDS SUMMARY | 2023-10-10 00:06 | XMS RPT_ITS | CCD ---
Author Name Unknown Address [address] [place] [address] Organization [facility] Care Team Providers Care Cotton Puller Name Role Phone Erin Rodriguez Unavailable Unavailable JENNIFER PAPETERIE TABLE ASSEMBLER-FIREFIGHTING EQUIPMENT SPECIALIST, ERIN Primary Care Physician ([phone]) Elizabeth Church PT Unavailable Unavailable Juni Zamora Primary Care Provider Juni Zamora Primary Care Provider JENNIFER PAPETERIE TABLE ASSEMBLER-FIREFIGHTING EQUIPMENT SPECIALIST, ERIN Primary Care Physician ([phone]) Jennifer PAPETERIE TABLE ASSEMBLER.FIREFIGHTING EQUIPMENT SPECIALIST, Erin Primary Care Provider [phone] DAYAMITES PAPETERIE TABLE ASSEMBLER-FIREFIGHTING EQUIPMENT SPECIALIST, ERIN Primary Care Unavailelizabeth GALLAGHER MD, PEBBLES W Attending Unavailable JIGNESH SANDHU, DR PERCY Mas Attending Guille RODRIGUEZ PAPETERIE TABLE ASSEMBLER-FIREFIGHTING EQUIPMENT SPECIALIST, ERIN Primary Care Unavailabl e BALTES PAPETERIE TABLE ASSEMBLER-FIREFIGHTING EQUIPMENT SPECIALIST, ERIN Primary Care UnavailJUNI Rodriguez MD Attending Unavailable LENCHO KIMBROUGH MD Attending Unavailable BALTES PAPETERIE TABLE ASSEMBLER-FIREFIGHTING EQUIPMENT SPECIALIST, ERIN Primary Care Unavailabl e BALTES PAPETERIE TABLE ASSEMBLER-FIREFIGHTING EQUIPMENT SPECIALIST, ERIN Attending Unavailabl e BALTES PAPETERIE TABLE ASSEMBLER-FIREFIGHTING EQUIPMENT SPECIALIST, ERIN Primary Care Unavailabl e BALTES PAPETERIE TABLE ASSEMBLER-FIREFIGHTING EQUIPMENT SPECIALIST, ERIN Attending Unavailabl e BALTES PAPETERIE TABLE ASSEMBLER-FIREFIGHTING EQUIPMENT SPECIALIST, ERIN Primary Care Unavailabl e BALTES PAPETERIE TABLE ASSEMBLER-FIREFIGHTING EQUIPMENT SPECIALIST, ERIN Primary Care Unavailabl e BALTES PAPETERIE TABLE ASSEMBLER-FIREFIGHTING EQUIPMENT SPECIALIST, ERIN Attending Unavailabl e Baltes LIGIA, Branch Primary Care Provider [phone] SORAIDA GODOY Admitting Unavailable SORAIDA GODOY Attending [...] Ibuprofen; Translations: [ibuprofen] Drug Allergy 2 Unknown [facility] Work Phone: (20 sources) Naproxen; Translations: [Naproxen] Drug Allergy 2 Unknown [facility] Work Phone: (20 sources) Acetaminophen / traMADol; Translations: [acetaminophen-tr amadol] Drug Allergy 2 [facility] (1 source) Ibuprofen; Translations: [IBUPROFEN] Drug Allergy 2 [facility] (1 source) TRAMADOL-ACETAMIN OPHEN; Translations: [TRAMADOL-ACETAMI NOPHEN] Propensity to adverse reactions to drug (disorder) 2 [facility] Medications Current Medications Medication Drug Class(es) [...] sources) Taking high risk medication; Translations: [Other long line teamster (current) drug therapy] Episodic Other connective tissue [...] aftercare (20 sources) Patient encounter status; Translations: [[facility] (current) use of opiate analgesic] Onset: 09-05-2016 04-02-2023 Episodic Other aftercare (1 source) Other long line teamster (current) drug therapy; Translations: [High risk medication [...] kg Jaydon Ritchie MD Work Phone: [facility] 10-03-2023 09:43-0500 Diastolic blood pressure 75 mm[Hg] Jaydon Ritchie MD Work Phone: [facility] 10-03-2023 09:43-0500 Heart rate 56 /min Jaydon Ritchie MD Work Phone: [facility] 10-03-2023 09:43-0500 SaO2% (BldA) [Mass fraction] 87 % Jaydon Ritchie MD Work Phone: [facility] 10-03-2023 09:43-0500 Systolic blood pressure 101 mm[Hg] Jaydon Ritchie MD Work Phone: [facility] 07-01-2023 08:38-0400 Body height 173.7 cm Soraida Godoy DO Work Phone: [facility] 07-01-2023 08:38-0400 Body weight 48.53 kg Soraida Godoy DO Work Phone: [facility] 07-01-2023 08:38-0400 Diastolic blood pressure 69 mm[Hg] Soraida Godoy DO Work Phone: [facility] 07-01-2023 08:38-0400 Heart rate 118 /min Soraida Godoy DO Work Phone: [facility] 07-01-2023 08:38-0400 Respiratory rate 19 /min Soraida Godoy DO Work Phone: [facility] 07-01-2023 08:38-0400 SaO2% (BldA) [Mass fraction] 98 % Soraida Godoy DO Work Phone: [facility] 07-01-2023 08:38-0400 Systolic blood pressure 101 mm[Hg] Soraida Godoy DO Work Phone: [facility] 06-17-2023 15:13-0400 Diastolic Blood Pressure Non-Invasive 74 1 JUNI JULIO MD [facility] 06-17-2023 15:13-0400 Heart rate 93 /min JUNI JULIO MD [facility] 06-17-2023 15:13-0400 Respiratory rate 16 /min JUNI JULIO MD [facility] 06-17-2023 15:13-0400 Systolic Blood Pressure Non-Invasive 107 1 JUNI JULIO MD [facility] 06-17-2023 14:45-0400 Diastolic Blood Pressure Non-Invasive 83 1 JUNI JULIO MD [facility] 06-17-2023 14:45-0400 Heart rate 97 /min JUNI JULIO MD [facility] 06-17-2023 14:45-0400 Respiratory rate 16 /min JUNI JULIO MD [facility] 06-17-2023 14:45-0400 Systolic Blood Pressure Non-Invasive 128 1 JUNI JULIO MD [facility] 06-17-2023 14:20-0400 Diastolic Blood Pressure Non-Invasive 61 1 JUNI JULIO MD [facility] 06-17-2023 14:20-0400 Heart rate 97 /min JUNI JULIO MD [facility] 06-17-2023 14:20-0400 Respiratory rate 16 /min JUNI JULIO MD [facility] 06-17-2023 14:20-0400 Systolic Blood Pressure Non-Invasive 97 1 JUNI JULIO MD [facility] 06-17-2023 12:01-0400 Heart rate 81 /min JUNI JULIO MD [facility] 06-17-2023 12:01-0400 Mean blood pressure 86 mm[Hg] JUNI JULIO MD [facility] 06-17-2023 11:55-0400 Body temperature 97.7 [degF] JUNI JULIO MD [facility] 06-17-2023 11:55-0400 Heart rate 86 /min JUNI JULIO MD [facility] 06-17-2023 11:55-0400 Mean blood pressure 81 mm[Hg] JUNI JULIO MD [facility] 06-17-2023 11:47-0400 Heart rate 85 /min JUNI JULIO MD [facility] 06-17-2023 11:47-0400 Mean blood pressure 75 mm[Hg] JUNI JULIO MD [facility] 06-17-2023 11:30-0400 Body temperature 97.7 [degF] JUNI JULIO MD [facility] 06-17-2023 11:10-0400 Blood Pressure Cuff Size JUNI JULIO MD [facility] 06-17-2023 11:10-0400 Blood Pressure Location JUNI JULIO MD [facility] 06-17-2023 11:10-0400 Blood Pressure Method JUNI JULIO MD [facility] 06-17-2023 11:10-0400 Body temperature 97.7 [degF] JUNI JULIO MD [facility] 06-17-2023 11:10-0400 Reason For Taking VItal Signs JUNI JULIO MD [facility] 06-17-2023 08:33-0400 Body height 165.1 cm JUNI JULIO MD [facility] 06-17-2023 08:33-0400 Body weight 16.69 kg/m2 JUNI JULIO MD [facility] 06-17-2023 08:33-0400 Body weight 45.5 kg JUNI JULIO MD [facility] 05-22-2023 02:46-0400 Body temperature 98.24 [degF] LENCHO KIMBROUGH MD [facility] 05-22-2023 02:46-0400 Diastolic Blood Pressure Non-Invasive 68 1 LENCHO KIMBROUGH MD [facility] 05-22-2023 02:46-0400 Heart rate 69 /min LENCHO KIMBROUGH MD [facility] 05-22-2023 02:46-0400 Respiratory rate 18 /min LENCHO KIMBROUGH MD [facility] 05-22-2023 02:46-0400 Systolic Blood Pressure Non-Invasive 134 1 LENCHO KIMBROUGH MD [facility] 05-22-2023 01:17-0400 Body height 167.6 cm LENCHO KIMBROUGH MD [facility] 05-22-2023 01:17-0400 Body temperature 97.7 [degF] LENCHO KIMBROUGH MD [facility] 05-22-2023 01:17-0400 Body weight 56.9 kg LENCHO KIMBROUGH MD [facility] 05-22-2023 01:17-0400 Diastolic Blood Pressure Non-Invasive 67 1 LENCHO KIMBROUGH MD [facility] 05-22-2023 01:17-0400 Heart rate 75 /min LENCHO KIMBROUGH MD [facility] 05-22-2023 01:17-0400 Respiratory rate 20 /min LENCHO KIMBROUGH MD [facility] 05-22-2023 01:17-0400 Systolic Blood Pressure Non-Invasive 125 1 LENCHO KIMBROUGH MD [facility] 04-17-2023 09:52-0400 Diastolic blood pressure 73 mm[Hg] Soraida Godoy DO Work Phone: [facility] 04-17-2023 09:52-0400 Heart rate 98 /min Soraida Godoy DO Work Phone: [facility] 04-17-2023 09:52-0400 Respiratory rate 18 /min Soraida Godoy DO Work Phone: [facility] 04-17-2023 09:52-0400 SaO2% (BldA) [Mass fraction] 99 % Soraida Godoy DO Work Phone: [facility] 04-17-2023 09:52-0400 Systolic blood pressure 127 mm[Hg] Soraida Godoy DO Work Phone: [facility] 04-17-2023 09:10-0400 Body temperature 98.71 [degF] Soraida Godoy DO Work Phone: [facility] 04-02-2023 10:11-0400 Body height 170.7 cm Soraida Godoy DO Work Phone: [facility] 04-02-2023 10:11-0400 Body weight 51.71 kg Soraida Godoy DO Work Phone: [facility] 04-02-2023 10:11-0400 Diastolic blood pressure 75 mm[Hg] Soraida Godoy DO Work Phone: [facility] 04-02-2023 10:11-0400 Heart rate 86 /min Soraida Godoy DO Work Phone: [facility] 04-02-2023 10:11-0400 Respiratory rate 19 /min Soraida Godoy DO Work Phone: [facility] 04-02-2023 10:11-0400 SaO2% (BldA) [Mass fraction] 98 % Soraida Godoy DO Work Phone: [facility] 04-02-2023 10:11-0400 Systolic blood pressure 124 mm[Hg] Soraida Godoy DO Work Phone: [facility] 11-12-2022 09:25-0400 Diastolic blood pressure 90 mm[Hg] Matilde [place]field PAPETERIE TABLE ASSEMBLER.PLANER OPERATOR Work Phone: [facility] 11-12-2022 09:25-0400 Heart rate 80 /min Matilde [place] PAPETERIE TABLE ASSEMBLER.PLANER OPERATOR Work Phone: [facility] 11-12-2022 09:25-0400 Respiratory rate 16 /min Matilde Luis PAPETERIE TABLE ASSEMBLER.PLANER OPERATOR Work Phone: [facility] 11-12-2022 09:25-0400 SaO2% (BldA) [Mass fraction] 95 % Matilde [place] PAPETERIE TABLE ASSEMBLER.PLANER OPERATOR Work Phone: [facility] 11-12-2022 09:25-0400 Systolic blood pressure 143 mm[Hg] Matilde [place] PAPETERIE TABLE ASSEMBLER.PLANER OPERATOR Work Phone: [facility] 08-14-2022 10:55-0500 Diastolic blood pressure 72 mm[Hg] Matilde Luis PAPETERIE TABLE ASSEMBLER.PLANER OPERATOR Work Phone: [facility] 08-14-2022 10:55-0500 Heart rate 96 /min Matilde [place] PAPETERIE TABLE ASSEMBLER.PLANER OPERATOR Work Phone: [facility] 08-14-2022 10:55-0500 SaO2% (BldA) [Mass fraction] 98 % Matilde Luis PAPETERIE TABLE ASSEMBLER.PLANER OPERATOR Work Phone: [facility] 08-14-2022 10:55-0500 Systolic blood pressure 121 mm[Hg] Matilde Luis PAPETERIE TABLE ASSEMBLER.PLANER OPERATOR Work Phone: [facility] 03-20-2022 09:38-0400 Diastolic blood pressure 97 mm[Hg] Matilde Luis PAPETERIE TABLE ASSEMBLER.PLANER OPERATOR Work Phone: [facility] 03-20-2022 09:38-0400 Heart rate 78 /min Matilde Luis PAPETERIE TABLE ASSEMBLER.PLANER OPERATOR Work Phone: [facility] 03-20-2022 09:38-0400 SaO2% (BldA) [Mass fraction] 96 % Matilde Luis PAPETERIE TABLE ASSEMBLER.PLANER OPERATOR Work Phone: [facility] 03-20-2022 09:38-0400 Systolic blood pressure 136 mm[Hg] Matilde Luis PAPETERIE TABLE ASSEMBLER.PLANER OPERATOR Work Phone: [facility] Encounters Encounter Date Encounter Type Care Provider [...] with pelvis minimum 5 views Matilde Hayward PLANER OPERATOR Work Phone: Start: 10-28-2019 Esophagogastroduodenoscopy ERIN RODRIGUEZ PAPETERIE TABLE ASSEMBLER-FIREFIGHTING EQUIPMENT SPECIALIST Start: 11-17-2018 Entitic (property) (qualifier value) ERIN RODRIGUEZ PAPETERIE TABLE ASSEMBLER-FIREFIGHTING EQUIPMENT SPECIALIST Plan of Treatment Date Care Activity Detail Author Start: 04-15-2032 Urine microalbumin profile DTaP,Tdap,Td Vaccine (2 - Td or Tdap) [facility] Start: 10-03-2024 BP Controlled (<130/80) BP Controlled (<130/80) [facility] in Start: 07-01-2024 BP Controlled (<130/80) BP Controlled (<130/80) [facility] in Start: 04-02-2024 BP CONTROLLED (<130/80) BP CONTROLLED (<130/80) [facility] Start: 09-02-2023 Advance Directive Discussion Advance Directive Discussion [facility] Start: 09-02-2023 Depression Assessment Depression Assessment [facility] Start: 08-14-2023 BP CONTROLLED (<130/80) BP CONTROLLED (<130/80) [facility] in Start: 07-01-2023 End: 09-30-2023 TOXASSURE FLEX 23, URINE TOXASSURE FLEX 23, URINE Lab Routine Chronic pain syndrome Osteoarthritis of both hips, unspecified osteoarthritis type Greater trochanteric bursitis of both hips Expected: 07/01/2023, Expires: 09/30/2023 [facility] Work Phone: Immunizations Immunization Date Immunization Notes Care Provider Jackie keys 06-25-2023 influenza, high dose seasonal, preservative-free; Translations: [Fluad Quadrivalent PF ] ERIN RODRIGUEZ PAPETERIE TABLE ASSEMBLER-FIREFIGHTING EQUIPMENT SPECIALIST [facility] [place] 04-15-2022 influenza virus vaccine, unspecified formulation ERIN RODRIGUEZ PAPETERIE TABLE ASSEMBLER-FIREFIGHTING EQUIPMENT SPECIALIST [facility] 04-15-2022 tetanus toxoid, reduced diphtheria toxoid, and acellular pertussis vaccine, adsorbed ERIN RODRIGUEZ PAPETERIE TABLE ASSEMBLER-FIREFIGHTING EQUIPMENT SPECIALIST [facility] 01-31-2022 pneumococcal (PCV20) vaccine, 20 valent (PREVNAR 20) Matilde Hayward APRN.PLANER OPERATOR Work Phone: [facility] 01-31-2022 pneumococcal 20-neo nt conjugate [facility] PAPETERIE TABLE ASSEMBLER-FIREFIGHTING EQUIPMENT SPECIALIST [facility] 10-01-2021 SARS-CoV-2 mRNA (xkixgurgwzw-zksk-tlus ose) vaccine [facility] PAPETERIE TABLE ASSEMBLER-FIREFIGHTING EQUIPMENT SPECIALIST [facility] 08-07-2021 influenza virus vaccine, unspecified formulation ERIN RODRIGUEZ PAPETERIE TABLE ASSEMBLER-FIREFIGHTING EQUIPMENT SPECIALIST [facility] 08-07-2021 influenza, injectabl e, quadrivalent, contains preservative Soraida Godoy Work Phone: [facility] 08-07-2021 influenza, injectabl e, quadrivalent, preservative free [facility] Work [facility]: [facility] 02-09-2021 SARS-CoV-2 mRNA (tozinameran) vaccine [facility] PAPETERIE TABLE ASSEMBLER-FIREFIGHTING EQUIPMENT SPECIALIST [facility] Payers Date Payer Category Payer Private Health Insurance 101 [id number] 2023 Unknown [id number] 2022 Unknown [id number] 2022 Unknown [id number] 2022 Unknown [id number] 2022 Medicare [id number] 2021 Medicaid [id number] 2021 Unknown [id number] 2014 Medicaid [place] [employer] [place] [employer] [id number] 2014-Present [phone] [address] [place] [address] Medicaid [id number] 1957 Unknown [id number] 27 1957 Unknown [id number] 27 1957 Unknown [id number] 27 1957 Unknown [id number] 27 1957 Unknown [id number] 27 1957 Unknown [id number] 27 1957 Unknown [id number] 27 Social History Date Type Detail Facility Start: 06-29-2020 Light tobacco smoker (finding) [facility] Sex Assigned At Female [facility] Start: 05-11-2015 End: 07-01-2023 Tobacco smoking status NHIS Smokes tobacco daily [facility] Work Phone: Start: 05-11-2015 End: 07-01-2023 Tobacco use and exposure Smokeless tobacco non-user [facility] Work Phone: Start: 09-19-2015 End: 04-02-2023 Alcohol intake Current drinker of alcohol (finding) [facility] Start: 1955 End: 1955 Sex Assigned At Not on file [facility] History of tobacco use Cigarette Smoker [facility] Work Phone: Start: 05-11-2015 End: 10-03-2023 Cigarettes smoked current (pack per day) - Reported 0.5 [facility] Start: 03-20-2022 History SDOH Alcohol Comment on holidays [facility] Start: 03-10-2022 End: 03-20-2022 Exposure to SARS-CoV-2 (event) Not sure [facility] Start: 04-02-2023 End: 10-03-2023 Tobacco use panel [facility] National Score (1-100), lower number is lower risk 74 [facility] Start: 04-02-2023 Tobacco Comment Started age 16 yo [facility] Start: 06-14-2023 Tobacco smoking status Heavy t obacco smoker (finding) [facility] Start: 07-01-2023 End: 10-03-2023 Alcohol intake Ex-drinker (finding) [facility] Start: 07-01-2023 Tobacco Comment Started age 16 yo, down to 2 cigs/day [facility] NEGATED: Highlighted row - - [facility] Work Phone: Functional Status Date Assessment Result Facility 08-30-2023 Functional Status NPO Status Maintained A [facility] 06-17-2023 Functional Status Awake [facility] 06-17-2023 Functional Status Room check performed [facility] 06-17-2023 Functional Status Hospital bed [facility] 06-17-2023 Functional Status Maintained [facility] 05-22-2023 Functional Status Assistive Device None A [facility] NEGATED: Highlighted row Functional performance Functional status health issues are not documented Disease [facility] Work Phone: Mental Status Date Assessment Result Facility 06-17-2023 [facility] Mental Status Orientation Orie nted x 4 [facility] NEGATED: Highlighted row Cognitive function [Interpretation] Cognitive status health issues are not documented Disease [facility] Work Phone: Clinical Notes 01-02-2021 to [...] 12:41 PM documented in this encounter [facility] 10-03-2023 Note HNO ID: [id number] Author: JAYDON RITCHIE MD Service: ? Author [...] notes, patient was to be maintained on [place] 10/325 3 times a day, Flexeril 5 [...] notes, patient was to be maintained on [place] 10/325 3 times a day, Flexeril 5 mg 3 times a day, avoid NSAIDs due to GERD and gastric ulcers, reduce tobacco use, remain as active as possible. This again is a first visit for this patient with me. OARRS Checked The patient has been off of [place] for over 4 months. She would like [...] primary care physician's office, Dr. Rodriguez, in [place] to see if they can reorder her blood thinner. Follow-up office visit in 4 months. Patient agrees to the above. [facility] 10-03-2023 History of Presen t illness Narrative [...] notes, patient was to be maintained on [place] 10/325 3 times a day, Flexeril 5 [...] notes, patient was to be maintained on [place] 10/325 3 times a day, Flexeril 5 mg 3 times a day, avoid NSAIDs due to GERD and gastric ulcers, reduce tobacco use, remain as active as possible. This again is a first visit for this patient with me. OARRS Checked The patient has been off of [place] for over 4 months. She would like [...] primary care physician's office, Dr. Rodriguez, in [place] to see if they can reorder her blood thinner. Follow-up office visit in 4 months. Patient agrees to the above. documented in this encounter [facility]ri Saldana 10-30-2023 NoteHNO ID: [id number] Author: Soraida Godoy, DO Service: ? Author Type: Physician Type: Progress Notes Filed: 07/01/2023 9:06 AM Note Text: Summary: Pain management office follow-up visit DATE: July 01, 2023 Chief Complaint: Low back pain History of Present Illness: Sonam Casillas is a 68 year old female being seen at [facility] for a evaluation [...] UDS obtained Followup in 3 months with VULCANIZED FIBER UNIT OPERATOR Pain level:06/11 Location: back, b/l hip pain [...] segment severe stenosis of the IIA. Moderate SUPERVISOR TESTING stenosis. Multifocal moderate and severe SFA stenoses [...] Result Flag Units Drug Present Ethyl Glucuronide 584002 ng/mg creat Ethyl Sulfate 53075 ng/mg creat EtG and EtS are metabolites [...] be compromised. Interpret resu (more content not included)...[facility]10-30-2023 Instructions* Patient Instructions* Soraida Godoy, DO - [...] obtained Followup in 3 months with or VULCANIZED FIBER UNIT OPERATOR Patient scheduled to follow-up with Dr. Julio, vascular surgeon on July 04 for multiple vascular occlusions. Patient currently on Plavix. [facility] History of Present illness Narrative* Soraida Godoy DO - 07/01/2023 8:45 AM EDTSummary: Pain management office follow-up visit DATE: July 01, 2023 Chief Complaint: Low back pain History of Present Illness: Sonam Casillas is a 68 year old female [facility]/or [...] UDS obtained Followup in 3 months with VULCANIZED FIBER UNIT OPERATOR Pain level:06/11 Location: back, b/l hip pain [...] segment severe stenosis of the IIA. Moderate SUPERVISOR TESTING stenosis. Multifocal moderate and severe SFA stenoses [...] Result Flag Units Drug Present Ethyl Glucuronide 753151 ng/mg creat Ethyl Sulfate 85178 ng/mg creat EtG and EtS are metabolites [...] for Soraida Godoy DO, by Roberta Rincon medical art therapist, July 01, 2023. [facility] Miscellaneous Notes* Telephone Encounter - Soraida Godoy [...] Result Flag Units Drug Present Ethyl Glucuronide 029222 ng/mg creat Ethyl Sulfate 54633 ng/mg creat EtG and EtS are metabolites [...] provided. For clinical consultation, please call . @FLOW([id number])@ Lab Results Component Value Date [facility] FINAL [...] Denise Farmer RN [facility] Summary of episode note Discharge Instructions Thank you for allowing [facility] to assist you with your healthcare needs. The following is importantdischarge information regarding your hospital visit. Your Care Team BALTES, ERIN PAPETERIE TABLE ASSEMBLER-FIREFIGHTING EQUIPMENT SPECIALIST What to do next Scheduled Follow-Up Appointments Appointment Type When With Where Contact InformationGI OV Consult 06/19/2023 10:00 AM EDT [facility] [address] [phone] PC OV 08/01/2023 11:00 AM WIL ERIN RODRIGUEZ KAROL-FIREFIGHTING EQUIPMENT SPECIALIST [address] [phone] Follow Up Appointments Follow Up with JUNI JULIO MD, [facility], Surgery, Vascular Surgeons When Within 1-2 days Why: Follow-up as scheduled Where: [address] [facility] [address] [facility] [place] [address] [id number] The Following Activity and Diet Have Been Ordered for You Discharge Activity - Ordered -- Lifting Restricted less than 10 pounds May Shower No bending, twisting, crawling or squatt Sexual [place] Restricted, No driving x 2 days, 06/17/23 [...] until you are awake and alert. Take fpmy-tfa-mudzsex and prescription medicines only as told by [...] 06/09/2014 Document Revised: 08/01/2018 Document Reviewed: 12/08/2016 [employer] Patient Education 2020 [employer]. Additional Information VACCINATE! IT SAVES LIVES! Members of the community who have not yet received the COVID-19 vaccine and would like to receive it can visit one of [facility] vaccine clinics. There are many vaccine clinic locations within the [facility]. For locations and available times, please visit https://[email or web address].[place].gov/. It is important to note that some COVID mobile vaccine clinics are held outdoors and may be canceled in rainy or stormy conditions. To learn more about pediatric vaccinations (ages 5-11), we invite you to visit the [facility] [facility] webpage. https://www.akronEdusons.org/pages/9208-Mfdzc-Wikapuruxil-Ctqjedwrtl-Hqshl-Sih stions.htmlTo learn more about the COVID-19 vaccine, we invite you to visit the CDC website for a list of frequently asked questions.https://www.cdc.gov/coronavirus/2019-ncov/vaccines/faq.html [employer] Patient Portal Access Instructions: Stay connected with your healthcare team and access your personal medical information anytime with the [employer] Patient Portal. Please follow the directions below to create your [employer] account: 1.Access the email account you provided upon registration to the hospital/physician office.2.Look for an invitation email from [facility].3.Open the email and access the invitation link: AcceptInvitation to [employer].4.Fill in the required ferreira to create your account. To access your account, visit [employer]/[facility] Institute[facility]. Click the blue button labeled Access Patient [...] who you will allowto register on the [employer] Patient Portal for access to your information. You can also access the [employer] Patient Portal on the [facility] Anywhere obdulio. Simply click on Patient Portal and then log into your account. If you would like to receive a full copy of your medical records, please contact the [facility] Medical Records Department by calling [phone], Saturday through Saturday between 8 a.m. and [...] Call your local pharmacy or go to http://[employer]Alfalight/1L9Sk8w to find one close to you.3.Make use of household items: Use cat litter or old coffee grounds to dispose medications if other options arenot available. Mix your drugs with these household products, seal them in an airtight container andthrow it into the garbage. Call [facility]: [phone] to be sure your drugs can be [...] aware that I should contact my doctor. Patient/Car Lot Attendant Signature: Date/Time: Relationship to Patient: Witness Name/Signature: Date/Time: [facility]ky[facility]9675 Hospital Discharge instructions Patient Education 06/17/2023 12:35:16 [...] until you are awake and alert. Take cujv-rml-dqfgsgb and prescription medicines only as told by [...] 06/09/2014 Document Revised: 08/01/2018 Document Reviewed: 12/08/2016 [employer] Patient Education 2020 [employer]. Follow Up Care 06/11/2023 12:30:21 With:JUNI JULIO MD, [facility], Surgery, Vascular Surgeons Address: [address] [place] [address] [place] [address] [phone] When:1-2 days Comments:Follow-up as scheduled [facility] 10-16-2023 Note ORIGINAL Images acquired, not reported on this accession number.[facility] 06-17-2023 Anesthesiology Consult note Patient: SONAM [...] Problem list: Medical Alcoholism / SNOMED CT 47325577 / Confirmed Arthritis / SNOMED CT [id number]-35I8-1V9L-HYQ7S039T707 / Confirmed Bronchitis / SNOMED CT B40884TE-[id number] / Confirmed Chronic back pain / SNOMED CT L0P74B1N-8U30-64F2-TO2F-0J940RADBJ77 / Confirmed Antral gastritis / SNOMED CT 5261575 / Confirmed Hard of hearing / SNOMED CT 691377153 / Confirmed Hyperlipidemia / SNOMED CT L4H7DP72-A087-2RI6-[id number] / Confirmed Hypertension / SNOMED CT IW59G8E1-41KH-5495-M2D7-V1AY0MO82D93 / Confirmed Insomnia / SNOMED CT 614982090 / Confirmed Moderate COPD (chronic obstructive pulmonary disease) / SNOMED CT 631439885 / Confirmed Osteoporosis / SNOMED CT 867361835 / Confirmed Overactive bladder / SNOMED CT 3496249319 / Confirmed Screening mammogram, encounter for / SNOMED CT 963092486 / Confirmed Screening for colon cancer / SNOMED CT 553105539 / Confirmed Polyneuropathy / SNOMED CT 75974487 / Confirmed Tobacco use / SNOMED CT 1651639262 / Confirmed, Active Problems (23) Alcoholism Antral gastritis Arthritis Asthma Bronchitis Chronic back pain Colon polyps GERD (gastroesophageal reflux disease) Hard of hearing Hearing aid Hyperlipidemia Hypertension Insomnia Moderate COPD (chronic obstructive pulmonary disease) On anticoagulant therapy Osteoporosis Overactive bladder Polyneuropathy Screening for colon cancer Screening mammogram, encounter for Seasonal allergy Stricture of artery Tobacco use Histories Past Medical History: Active Bronchitis ([id number]) Arthritis ([id number]-VLR8P924N417) Hyperlipidemia (E3K7SF99-[id number]) Hypertension (NK91G5Z4-52MD-3411-Q2Q5-L8RS6VZ90I32) Chronic back pain (M2Z78C2D-1B54-38K9-XU4B-0W712YXHWO51) Alcoholism (23196404) Family History: Diabetes mellitus Daughter Heart disease Father Arthritis Father Comments: 03/30/2019 6:53 EDT - Parul Estrella LPN Rheumatoid Hyperchloremia Daughter Malignant tumor of lung Mother NH - Myocardial infarction Father HTN - Hypertension Daughter Procedure history: Esophagogastroduodenoscopy (186610278) on 10/28/2019 at 64 Years. ENT, ear surgery ([id number]) on 11/17/2018 at 63 Years. Comments: 03/30/2019 7:54 EDT - Chandni Grimm LPN surgery to replace metal tube Mammogram ([id number]) on 04/09/2018 at 63 Years. Colonoscopy ([id number]) on 06/18/2016 at 61 Years. Comments: 07/19/2020 15:33 Parul Razo LPN Diverticular disease, polyectomy-repeat 3 yrs. [facility] Arthroscopy knee (59562941) in 2001 at 46 Years. Comments: 03/30/2019 7:56 EDT - Alfa Chandni LPN right knee Rotator cuff repair (97685750) in 1999 at 44 Years. Resection of large bowel (086326349) in 1997 at 42 Years. Myringoplasty (3457523483) in 1987 at 32 Years. Hysterectomy (398537279). Hearing aid (40423968). Comments: 10/28/2019 7:37 WIL - SONYA HORAN [...] Resp Rate 16 br/min (JUN 17 08:33) KHA243 mmHg (JUN 17 08:33) DBP72 mmHg (JUN [...] range of motion. Integumentary: Intact, Warm, Dry, [place]. Neurologic: Alert, Oriented. Review / Management Results review: Labs (Last four charted values) WBC 4.9(JUN 17) Hgb 15.0(JUN 17) Hct 44.0(JUN 17) Plt 237(JUN 17) Na L 133(JUN 17) K 3.8(JUN 17) CO2 28(JUN 17) Cl 100(JUN 17) Cr 0.50(JUN 17) BUN L <5.0(JUN 17) Glucose 99(JUN 17) Ca 9.2(JUN 17) . Assessment and Plan [place] [employer] Anesthesiologists (ASA) physical status classification: [...] KILEY ARTHUR DO on 06/17/2023 10:14 AM [facility] HospitalYitwmkup30-09-0126 Miscellaneous Notes* Telephone Encounter - Soraida Godoy [...] Result Flag Units Drug Present Ethyl Glucuronide 861648 ng/mg creat Ethyl Sulfate 80555 ng/mg creat EtG and EtS are metabolites [...] provided. For clinical consultation, please call . @FLOW([id number])@ Lab Results Component Value Date SUMM FINAL [...] Elizabeth Mena RN documented [facility] [place]23 Miscellaneous Notes* Telephone Encounter - Soraida Godoy, [...] Result Flag Units Drug Present Ethyl Glucuronide 258863 ng/mg creat Ethyl Sulfate 23368 ng/mg creat EtG and EtS are metabolites [...] provided. For clinical consultation, please call . @FLOW([id number])@ Lab Results Component Value Date SUMM FINAL [...] Elizabeth Mena RN documented in this encounterKindred [facility] [place]09-28-2023 Miscellaneous Notes* Telephone Encounter - Sanjuana Murdock RN - 05/30/2023 8:42 AM EDT Called and spoke with Jose Antonio Lopez, they had the pt's birthday date as [birth year], according to her last IDscanned into the chart it is 59. Called pt and verified her birthday, she states 59. Jose Antonio Lopez filled the [place] today 05/30/23 and they will work on [...] Per Dr. Godoy documented in this encounterKindred [facility] [place]09-20-2023 Hospital Discharge instructions Patient Education 05/22/2023 02:33:30 [...] thin towel or cloth. You may use vszb-uvg-aosknmm pain medicine (NSAIDS or nonsteroidal anti- inflammatory [...] or is irritated You re-injure your ankle 9091-3118 The [employer]. [address] [place] [address]. All rights reserved. This information is not intended as a substitute for professional medical care. Always follow yourhealthcare professional's instructions. Follow Up Care 05/22/2023 01:10:44 With:ERIN RODRIGUEZ Address: [address] [place] [address]- [phone] Business (1) When:Within 1 Week(s) Comments:Follow-up as needed if not improving.Limit weightbearing as tolerated, use crutches for assistance with ambulation.Use Eagle wrap for compression and support.Continue to ice and elevate the injured ankle as much as possible.Continue Tylenol for pain as needed.Return to the ED if symptoms worsen. [facility] 09-20-2023 Note Discharge Instructions Thank you for allowing [facility] to assist you with your healthcare needs. [...] to the ED if symptoms worsen. Where: [address] [place] [address] [phone] Business (1) Allergies acetaminophen-tramadol (UPSET STOMACHE) ibuprofen [...] thin towel or cloth. You may use rjpd-ynp-rjdcnfi pain medicine (NSAIDS or nonsteroidal anti- inflammatory [...] or is irritated You re-injure your ankle 5022-4655 The [employer]. [address] [place] [address], [place] [address]. All rights reserved. This information is not intended as a substitute for professional medical care. Always follow yourhealthcare professional's instructions. Additional Information VACCINATE! IT SAVES LIVES! Members of the community who have not yet received the COVID-19 vaccine and would like to receive it can visit one of [facility] vaccine clinics. There are many vaccine clinic locations within the [facility]. For locations and available times, please visit www.gettheshot.coronavirus.[place].gov/. It is important to note that some COVID mobile vaccine clinics are held outdoors and may be canceled in rainy or stormy conditions. To learn more about pediatric vaccinations (ages 5-11), we invite you to visit the [employer] [facility] webpage. https://www.[employer]s.org/pages/9403-Bnwbj-Xhfoqgcfyrb-Dmatxczltu-Tjknp-Syy stions.htmlTo learn more about the COVID-19 vaccine, we invite you to visit the CDC website for a list of frequently asked questions. https://www.cdc.gov/coronavirus/2019-ncov/vaccines/faq.html [facility] Patient Portal Access Instructions: Stay connected with your healthcare team and access your personal medical information anytime with the [facility] Patient Portal. If you would like a full copy of your medical records please contact the [facility] Medical Records Department Saturday through Saturday between 8a.m. and 4:30p.m. Please follow the directions below to access the portal: 1.Access the email account you provided upon registration to the hospital.2.Look for an invitation email from [facility].3.Open the email and access the invitation link: Accept Invitation to [facility]4.Fill in the required ferreira to create your account. Sign into www.[employer] with your username and password that you [...] you will allow to register on the [employer] Patient Portal for access to your information. You can also access the [employer] Patient Portal on the [employer] obdulio. Simply click on Health Records under Personal Factory and then click on the [facility] logo. HOW TO SAFELY DISPOSE OF PRESCRIPTION [...] Call your local pharmacy or go to http://[employer]Alfalight/1A9Dg0f to find one close to you.3.Make use of household items: Use cat litter or old coffee grounds to dispose medications if other options arenot available. Mix your drugs with these household products, seal them in an airtight container andthrow it into the garbage. Call [facility]: [phone] to be sure your drugs can be [...] been reviewed and explained to me and I,PARISH SONAM Jeannette understand my current condition and have read and understand these discharge instructions. I have received a written copy of the plan/instructions. If I have questions, I am aware that I should contact my doctor. Patient/Car Lot Attendant Signature: Date/Time: Relationship to Patient: Witness Name/Signature: Date/Time: [facility]09-20-2023 Note ORIGINAL EXAMINATION: THREE XRAY VIEWS OF [...] Date: 05/22/2023 2:35:31 AM Ordering Provider: LENCHO Golisano [facility]09-13-2023 Miscellaneous Notes* Telephone Encounter - Dick, Zana Chandler APRN.FIREFIGHTING EQUIPMENT SPECIALIST - 05/15/2023 11:11 AM EDT The following [...] to the pharmacist and she said the [place] was last filled on 05/09/23 for a [...] Result Flag Units Drug Present Ethyl Glucuronide 052746 ng/mg creat Ethyl Sulfate 23064 ng/mg creat EtG and EtS are metabolites [...] provided. For clinical consultation, please call . @FLOW([id number])@ Lab Results Component Value Date SUMM FINAL [...] Elizabeth Mena RN documented in this encounterKind[facility] [place]09-07-2023 Miscellaneous Notes* Telephone Encounter - Elizabeth Mena RN - 05/09/2023 10:24 AM EDT Fy, last ov states 1 week at a time for compliance Elizabeth Mena RN May 09, 2023 10:25 AM documented in this encounterKindred Hospital [facility]08-23-2023 Miscellaneous Notes* Telephone Encounter - Soraida Godoy DO - 04/24/2023 9:05 PM EDT We need to have the updated OARRS in her chart and the pharmacy is responsible for putting her correct information in OARRS. We have no control over this in [facility].Will only send 7 day supply. * Telephone Encounter - Denise Farmer RN - 04/24/2023 3:[address] Godoy- Please check pharmacy with medication refills. I do not see any prescriptions for [place] being filled on the OARRS report. This [...] 2023 4:02 PM documented in this encounterKindred Hospital [place]08-23-2023 Miscellaneous Notes* Telephone Encounter - Soraida Godoy [...] Result Flag Units Drug Present Ethyl Glucuronide 890654 ng/mg creat Ethyl Sulfate 68255 ng/mg creat EtG and EtS are metabolites [...] provided. For clinical consultation, please call . @FLOW([id number])@ Lab Results Component Value Date SUMM FINAL [...] Denise Farmer, RN documented in this encounterKindred Hospital [place]08-17-2023 Miscellaneous Notes* Telephone Encounter - Matilde Hayward [...] Result Flag Units Drug Present Ethyl Glucuronide 580102 ng/mg creat Ethyl Sulfate 36449 ng/mg creat EtG and EtS are metabolites [...] provided. For clinical consultation, please call . @FLOW([id number])@ Lab Results Component Value Date SUMM FINAL [...] Sanjuana Murdock RN documented in this encounterKindred Hospital [place]08-16-2023 Surgical operation note* Operative Report - Soraida [...] encounter was entered by Marya Tony, medical art therapist for Dr. Soraida Godoy on April 17, [...] April 17, 2023. documented in this encounterKindred Hospital [place]08-10-2023 Miscellaneous Notes* Telephone Encounter - Matilde Hayward [...] Result Flag Units Drug Present Ethyl Glucuronide 992740 ng/mg creat Ethyl Sulfate 31050 ng/mg creat EtG and EtS are metabolites [...] provided. For clinical consultation, please call . @FLOW([id number])@ Lab Results Component Value Date SUMM FINAL [...] Elizabeth Mena RN documented in this encounterKindred Hospital [place]08-01-2023 NoteHNO ID: [id number] Author: Soraida Godoy, DO Service: ? Author Type: Physician Type: Progress Notes Filed: 04/08/2023 10:27 PM Note Text: Summary: Pain Management follow-up DATE: April 02, 2023 Chief Complaint: Back and B/L hip pain History of Present Illness: Sonam Casillas is a 68 year old female being seen at [facility] for a evaluation [...] Result Flag Units Drug Present Ethyl Glucuronide 885806 ng/mg creat Ethyl Sulfate 87626 ng/mg creat EtG and EtS are metabolites [...] 11 L mg/dL >=20 (more content not included)...[facility]08-01-2023 Instructions* Patient Instructions* Soraida Godoy DO - [...] UDS obtained Followup in 3 months with VULCANIZED FIBER UNIT OPERATOR documented in this encounterKindred [facility] [place]08-01-2023 History of Present illness Narrative* Soraida Godoy DO - 04/02/2023 9:45 AM EDTSummary: Pain Management follow-up DATE: April 02, 2023 Chief Complaint: Back and B/L hip pain History of Present Illness: Sonam Casillas is a 68 year old female being [facility] and/or [...] Result Flag Units Drug Present Ethyl Glucuronide 335962 ng/mg creat Ethyl Sulfate 07947 ng/mg creat EtG and EtS are metabolites [...] this encounter was entered by Marya Tony medical art therapist for Dr. Soraida Godoy on April 02, [...] April 02, 2023. documented in this encounterKindred Hospital [place]05-26-2023 Note. MICRO - Microbiology PROCEDURE: Urine Culture [...] Locations *1: This test was performed at: [facility], [address] [place] [address], [address] , [facility] ([place])12-12-2022 Miscellaneous Notes* Telephone Encounter - Matilde Hayward [...] December 14, 2022. Authorizing Provider: MATILDE HAYWARD APRN.PLANER OPERATOR * Telephone Encounter - Denise Farmer RN [...] provided. For clinical consultation, please call . @FLOW([id number])@ Lab Results Component Value Date SUMM FINAL [...] Denise Farmer RN documented in this encounterKindred Hospital [place]03-13-2023 NoteHNO ID: [id number] Author: Matilde Hayward APRN.PLANER OPERATOR Service: ? Author Type: Clinical Nurse Specialist Type: Progress Notes Filed: 11/12/2022 9:48 AM Note Text: SUBJECTIVE: Sonam Casillas [facility] a follow-up appointment [...] verbalized understanding. Matilde Hayward APRN.CNS November 12, 2022[facility]03-13-2023 Instructions* Patient Instructions * Matilde Hayward APRN.CNS [...] in 3 months documented in this encounterKindred [facility] [place]03-13-2023 History of Present illness Narrative* Matilde Hayward APRN.PLANER OPERATOR - 11/12/2022 9:30 AM EDT SUBJECTIVE: Sonam Casillas [facility] to [facility] for a follow-up appointment [...] November 12, 2022 documented in this encounterKindred Hospital [place]01-09-2023 Miscellaneous Notes* Telephone Encounter - Matilde Hawyard APRN.CNS - 09/10/2022 10:28 AM EST The [...] Sanjuana Murdock RN documented in this encounterKindred [facility]12-13-2022 History of Present illness Narrative* RT Meredith(R) [...] 2022 12:41 PM documented in this encounterKindred Hospital [place]12-13-2022 Instructions* Patient Instructions* Matilde Hayward APRN.PLANER OPERATOR - 08/14/2022 11:11 AM EST Patient has [...] in 3 months documented in this encounterKindred Hospital [place]12-13-2022 History of Present illness Narrative* Matilde Hayward APRN.CNS - 08/14/2022 10:00 AM EST Patient was last seen by me on 03/20/22 for back and hip pain Plan of care: Continue [place] 10-325 mg TID PRN. This helps patient [...] level States her daughter took her to [facility] ED last month after fell and [...] strength lower extremities. documented in this encounterKindred Hospital [place]07-19-2022 Instructions* Patient Instructions* Matilde Hayward APRN.CNS - 03/20/2022 9:19 AM EDT Continue [place] 10-325 mg TID PRN. This helps patient [...] in 3 months documented in this encounterKindred [facility] [place]07-18-2022 History of Present illness Narrative* Matilde Hayward APRN.CNS - 03/19/2022 11:30 AM EDT Patient was last seen by me for back and hip pain on 12/18/2021 Plan of care: 1) Continue [place] 10-325 mg TID PRN. This helps patient [...] Spurling sign bilaterally. documented in this encounterKindred Hospital [place]06-09-2021 NotePhysical Therapy Outpatient Progress Summary Medical Diagnosis: [...] No significant change in pain during session. [facility] PATIENT NAME: SONAM CASILLAS [address] [facility] [address] MEDICAL REC #: [id number] [place] [address] ADMIT DATE: SERVICE DATE: 02/08/21 Physical Therapy [...] balance; TUG completed in 11 sec with [facility] PATIENT NAME: SONAM CASILLAS [address] [facility] [address] [place] MEDICAL REC #: [id number] [place] [address] ADMIT DATE: SERVICE DATE: 02/08/21 Physical Therapy [...] is number 10 Medicare (more content not included)...[facility]05-03-2021 NotePhysical Therapy Outpatient Low Spine and [...] Demographics: Age: 65Y Gender: Female Primary Language: Kinyarwanda Preferred Language: Kinyarwanda Initial Evaluation Date: 01/02/2021 Referring Clinician: Soraida [...] with anyone with a confirmed or suspected [facility] PATIENT NAME: SONAM CASILLAS [address] [facility] [address] [place] MEDICAL REC #: [id number] [place] [address] ADMIT DATE: SERVICE DATE: 01/02/21 Physical Therapy Assessment Report ATTENDING PHY: Soraida Godoy DO diagnosis of COVID-19? No Medical Care Prior to Current Episode: OP PT last year in [facility] Past Medical History: asthma, [place], OA, chronic pain History of Present Illness: [...] years until participating in outpatient PT in [facility] last year with no significant improvements. Patient notes that she has more recently bee experiencing LLE instability with feeling that leg may go out. Patient describes an incident of falling in kitchen around [place] time. Patient now referred to OP PT [...] by: prolonged positioning, standing ADLs (dishes, sweeping), [facility] PATIENT NAME: SONAM CASILLAS [address] [facility] [address] [place] MEDICAL REC #: [id number] [place] [address] ADMIT DATE: SERVICE DATE: 01/02/21 Physical Therapy [...] on disability Paresthesia: Colleen (more content not included)...[facility] Evaluation + Plan note Future Appointments Appointment Date:07/21/2021 01:30:00 PM Scheduled Provider: Location:[facility] Appointment Type:BD Bone Density DEXA Axial Skeleton Appointment Date:07/21/2021 02:30:00 PM Scheduled Provider: Location:[facility] Appointment Type:MA Mammogram Screening Bilateral w/ Jake Appointment Date:12/19/2021 09:30:00 AM Scheduled Provider:ERIN RODRIGUEZ Location:[facility] [...] MA Mammo Screening Bilateral w/ Jake 07/21/21 [facility] Evaluation + Plan note Future Appointments Appointment Date:12/19/2021 09:30:00 AM Scheduled Provider:ERIN RODRIGUEZ Location:[facility] Appointment Type:[facility] Future Scheduled Tests Laboratory* Complete Blood Count [...] Ribs 2 Views Left/PA Chest (AO) 07/13/21 [facility] Evaluation + Plan note Future Appointments Appointment Date:04/12/2022 09:00:00 AM Scheduled Provider:ERIN RODRIGUEZ Location:[facility] Appointment Type:PC Wellness Medicare Future Scheduled Tests Laboratory* Complete Blood Count 06/20/21 * Complete Blood Count 01/04/22 * Lipid Profile 06/20/21 * Lipid Profile 01/04/22 * Complete Metabolic Panel 06/20/21 * Complete Metabolic Panel 01/04/22 Radiology* XR Ribs 2 Views Left/PA Chest (AO) 07/13/21 * XR Knee 3 Views Left 01/04/22 * XR Shoulder Minimum 2 Views Right 07/13/21 [facility] Evaluation + Plan note Future Appointments Appointment Date:07/31/2022 10:30:00 AM Scheduled Provider:ERIN RODRIGUEZ Location:[facility] Appointment Type:PC OV Future Scheduled Tests Laboratory* [...] XR Shoulder Minimum 2 Views Right 07/13/21 [facility] Evaluation + Plan note Future Appointments Appointment Date:01/30/2023 09:00:00 AM Scheduled Provider:ERIN RODRIGUEZ Location:[facility] Appointment Type:PC OV Future Scheduled Tests Laboratory* Complete Blood Count 04/26/22 * Complete Blood Count 01/04/22 * Lipid Profile 04/26/22 * Lipid Profile 01/04/22 * Microalbumin Level Urine 04/26/22 * Complete Metabolic Panel 04/26/22 * Complete Metabolic Panel 01/04/22 Radiology* MA Mammo Screening Bilateral w/ Jake 08/26/22 * XR Knee 3 Views Left 01/04/22 [facility] Evaluation + Plan note Future Appointments Appointment Date:08/01/2023 11:00:00 AM Scheduled Provider:ERIN RODRIGUEZ Location:[facility] Appointment Type:PC OV Future Scheduled Tests Laboratory* Microalbumin Level Urine 04/26/22 Radiology* MA Mammo Screening Bilateral w/ Jake 08/26/22 [facility] Evaluation + Plan note Future Appointments Appointment Date:08/01/2023 11:00:00 AM Scheduled Provider:ERIN RODRIGUEZ Location:[facility] Appointment Type:PC OV Future Scheduled Tests Radiology* MA Mammo Screening Bilateral w/ Ajke 08/26/22 [facility] Evaluation + Plan note Future Appointments Appointment Date:06/19/2023 10:00:00 AM Scheduled Provider: Location:[facility] Appointment Type:GI OV Consult Appointment Date:08/01/2023 11:00:00 AM Scheduled Provider:ERIN RODRIGUEZ Location:[facility] Appointment Type:PC OV Future Scheduled Tests Radiology* MA Mammo Screening Bilateral w/ Jake 08/26/22 [facility] Evaluation + Plan note Future Appointments Appointment Date:07/30/2023 12:30:00 PM Scheduled Provider:ERIN RODRIGUEZ Location:[facility] Appointment Type:PC OV Appointment Date:07/31/2023 11:00:00 AM Scheduled Provider: Location:[facility] Appointment Type:GI OV Consult Future Scheduled Tests Radiology* MA Mammo Screening Bilateral w/ Jake 08/26/22 [facility] Evaluation + Plan note Future Appointments Appointment Date:11/13/2023 10:30:00 AM Scheduled Provider:ERIN RODRIGUEZ Location:[facility] Appointment Type:PC OV Future Scheduled Tests Radiology* MA Mammo Screening Bilateral w/ Jake 08/26/22 [facility] evaluation note* Diagnosis Lumbar spondylosis- Primary Lumbosacral [...] other [facility] Chronic pain syndrome- Primary DDD (degenerative disc disease), lumbar Degeneration of lumbar or lumbosacral intervertebral disc Pain in right hip Pain in joint, pelvic region and thigh Spinal stenosis, lumbar region with neurogenic claudication High risk medication use Encounter for long-term (current) use of other medications [facility] Diagnosis Pain in right hip Pain in joint, pelvic region and thigh Chronic pain syndrome [facility] Diagnosis [facility] Diagnosis Spinal stenosis, lumbar region with neurogenic claudication- Primary Chronic pain syndrome Lumbar radiculopathy Thoracic or lumbosacral neuritis or radiculitis, unspecified Osteoarthritis of both hips, unspecified osteoarthritis type High risk medication use Encounter for long-term (current) use of other medications [facility] Diagnosis Chronic pain syndrome [facility] Diagnosis Spinal stenosis, lumbar region [...] of hip region [facility] Diagnosis Chronic pain syndrome Trochanteric bursitis of both hips Enthesopathy of hip region [facility] Diagnosis Chronic pain syndrome [facility] Diagnosis [facility] pain syndrome [facility] Diagnosis [facility] pain syndrome [facility] Diagnosis Chronic pain syndrome [facility] Diagnosis Chronic pain syndrome [facility] Diagnosis Chronic pain syndrome- Primary Osteoarthritis [...] of alcoholism [facility] Diagnosis Chronic pain syndrome- Primary History of alcoholism (HCC) Personal history of alcoholism Myofascial pain syndrome Mylagia and myositis, unspecified Myofascial pain syndrome Mylagia and myositis, unspecified documented in this encounter [facility] course Narrative No data available for this section [facility] Hospital Discharge instructions No data available for this section [facility] Progress note No data available for this section [facility] Reason for referral (narrative)* Diagnostic Procedure Only (Routine) - Closed Specialty Diagnoses / Procedures Referred By Contac t Referred To Contact XR IMAGING Diagnoses Pain in right hip Chronic pain syndrome Procedures XR HIP BILATERAL 5V PEL/AP/LAT EACH HIP RADEX HIPS BILATERAL WITH PELVIS MINIMUM 5 VIEWS Matilde Hayward APRN.PLANER OPERATOR [address] [place] [address] Xr Imaging Referral ID Status Reason Start Date Expiration Date V isits Requested Visits Authorized [id number] Closed Auto-Generate d Referral 08/14/2022 09/13/2023 1 1 [facility] for referral (narrative)* Diagnostic Procedure Only (Routine) - Closed Specialty Diagnoses / Procedures Referred By Contac t Referred To Contact XR IMAGING Diagnoses Pain in right hip Chronic pain syndrome Procedures XR HIP BILATERAL 5V PEL/AP/LAT EACH HIP RADEX HIPS BILATERAL WITH PELVIS MINIMUM 5 VIEWS Matilde Hayward APRN.CNS [address] [place] [address] Xr Imaging Referral ID Status Reason Start Date Expiration Date V isits Requested Visits Authorized [id number] Closed Auto-Generate d Referral 08/14/2022 09/13/2023 1 1 [facility]* Diagnostic Procedure Only (Routine) - Closed Specialty Diagnoses / Procedures Referred By Iraida diaz Referred To Contact XR IMAGING Diagnoses Pain in right hip Chronic pain syndrome Procedures XR HIP BILATERAL 5V PEL/AP/LAT EACH HIP RADEX HIPS BILATERAL WITH PELVIS MINIMUM 5 VIEWS Matilde Hayward APRN.CNS [address] [place] [address] Xr Imaging Referral ID Status Reason Start Date Expiration Date V isits Requested Visits Authorized [id number] Closed Auto-Generate d Referral 08/14/2022 09/13/2023 1 1 [facility] Family History No Family History Records Found [...] DATE CREATED AUTHOR AUTHOR'S ORGANIZ ATION 12/18/2021 [facility] Sonya Dhaliwal DATE CREATED AUTHOR AUTHOR'S ORGANIZ ATION 09/10/2023 [facility] ([place]) DATE CREATED AUTHOR AUTHOR'S ORGANIZ ATION 10/04/2023 [facility] Sonya menendez Source Comments (unrecognize d section and content) In the event this informatio n is protected by the Federal Confidentiality of Alcohol and Drug Abuse Patient Records regulations: The Federal rules restrict any use of the information to criminally investigate or prosecute any alcohol or drug abuse patient.[facility] the event this information is protected by the Federal Confidentiality of Alcohol and Drug Abuse Patient Records regulations: The Federal rules restrict any use of the information to criminally investigate or prosecute any alcohol or drug abuse patient.[facility] the event this information is protected by the Federal Confidentiality of Alcohol and Drug Abuse Patient Records regulations: The Federal rules restrict any use of the information to criminally investigate or prosecute any alcohol or drug abuse patient.[facility] the event this information is protected by the Federal Confidentiality of Alcohol and Drug Abuse Patient Records regulations: The Federal rules restrict any use of the information to criminally investigate or prosecute any alcohol or drug abuse patient.[facility] the event this information is protected by the Federal Confidentiality of Alcohol and Drug Abuse Patient Records regulations: The Federal rules restrict any use of the information to criminally investigate or prosecute any alcohol or drug abuse patient.[facility] Dayton[facility] the event this information is protected by the Federal Confidentiality of Alcohol and Drug Abuse Patient Records regulations: The Federal rules restrict any use of the information to criminally investigate or prosecute any alcohol or drug abuse patient.[facility] Dayton[facility] the event this information is protected by the Federal Confidentiality of Alcohol and Drug Abuse Patient Records regulations: The Federal rules restrict any use of the information to criminally investigate or prosecute any alcohol or drug abuse patient.[facility] Dayton[facility] the event this information is protected by the Federal Confidentiality of Alcohol and Drug Abuse Patient Records regulations: The Federal rules restrict any use of the information to criminally investigate or prosecute any alcohol or drug abuse patient.[facility] Dayton[facility] the event this information is protected by the Federal Confidentiality of Alcohol and Drug Abuse Patient Records regulations: The Federal rules restrict any use of the information to criminally investigate or prosecute any alcohol or drug abuse patient.[facility] Dayton[facility] the event this information is protected by the Federal Confidentiality of Alcohol and Drug Abuse Patient Records regulations: The Federal rules restrict any use of the information to criminally investigate or prosecute any alcohol or drug abuse patient.[facility] Dayton[facility] the event this information is protected by the Federal Confidentiality of Alcohol and Drug Abuse Patient Records regulations: The Federal rules restrict any use of the information to criminally investigate or prosecute any alcohol or drug abuse patient.[facility] DaytonIn the event this information is protected by the Federal Confidentiality of Alcohol and Drug Abuse Patient Records regulations: The Federal rules restrict any use of the information to criminally investigate or prosecute any alcohol or drug abuse patient.[facility] Dayton[facility] the event this information is protected by the Federal Confidentiality of Alcohol and Drug Abuse Patient Records regulations: The Federal rules restrict any use of the information to criminally investigate or prosecute any alcohol or drug abuse patient.[facility] Dayton[facility] the event this information is protected by the Federal Confidentiality of Alcohol and Drug Abuse Patient Records regulations: The Federal rules restrict any use of the information to criminally investigate or prosecute any alcohol or drug abuse patient.[facility] DaytonIn the event this information is protected by the Federal Confidentiality of Alcohol and Drug Abuse Patient Records regulations: The Federal rules restrict any use of the information to criminally investigate or prosecute any alcohol or drug abuse patient.[facility] Dayton[facility] the event this information is protected by the Federal Confidentiality of Alcohol and Drug Abuse Patient Records regulations: The Federal rules restrict any use of the information to criminally investigate or prosecute any alcohol or drug abuse patient.[facility] DaytonIn the event this information is protected by the Federal Confidentiality of Alcohol and Drug Abuse Patient Records regulations: The Federal rules restrict any use of the information to criminally investigate or prosecute any alcohol or drug abuse patient.[facility] DaytonIn the event this information is protected by the Federal Confidentiality of Alcohol and Drug Abuse Patient Records regulations: The Federal rules restrict any use of the information to criminally investigate or prosecute any alcohol or drug abuse patient.[facility] DaytonIn the event this information is protected by the Federal Confidentiality of Alcohol and Drug Abuse Patient Records regulations: The Federal rules restrict any use of the information to criminally investigate or prosecute any alcohol or drug abuse patient.[facility] DaytonIn the event this information is protected by the Federal Confidentiality of Alcohol and Drug Abuse Patient Records regulations: The Federal rules restrict any use of the information to criminally investigate or prosecute any alcohol or drug abuse patient.[facility] DaytonIn the event this information is protected by the Federal Confidentiality of Alcohol and Drug Abuse Patient Records regulations: The Federal rules restrict any use of the information to criminally investigate or prosecute any alcohol or drug abuse patient.[facility] DaytonIn the event this information is protected by the Federal Confidentiality of Alcohol and Drug Abuse Patient Records regulations: The Federal rules restrict any use of the information to criminally investigate or prosecute any alcohol or drug abuse patient.[facility] DaytonIn the event this information is protected by the Federal Confidentiality of Alcohol and Drug Abuse Patient Records regulations: The Federal rules restrict any use of the information to criminally investigate or prosecute any alcohol or drug abuse patient.[facility] DaytonIn the event this information is protected by the Federal Confidentiality of Alcohol and Drug Abuse Patient Records regulations: The Federal rules restrict any use of the information to criminally investigate or prosecute any alcohol or drug abuse patient.[facility] DaytonIn the event this information is protected by the Federal Confidentiality of Alcohol and Drug Abuse Patient Records regulations: The Federal rules restrict any use of the information to criminally investigate or prosecute any alcohol or drug abuse patient.[facility] Care Teams (unrecognized sec tion and content) Cotton Puller Relationship Specialty Start Date End Date Juni Zamora[address] [place] [address], [place] [phone] PCP - General 02/01/05 Cotton Puller Relationship Specialty Start Date End Date Juni Zamora [address] [place] [address], [place] [phone] PCP - General 02/01/05 Cotton Puller Relationship Specialty Start Date End Date Juni Zamora[address] [place] [address], [place] [address] PCP - General 02/01/05 Cotton Puller Relationship Specialty Start Date End Date Juni Zamora[address] [place] [address], [place] [address] PCP - General 02/01/05 Cotton Puller Relationship Specialty Start Date End Date Juni Zamora[address] [place] [address], [place] [address] PCP - General 02/01/05 Cotton Puller Relationship Specialty Start Date End Date Juni Zamroa[address] [place] [phone] PCP - General 02/01/05 Cotton Puller Relationship Specialty Start Date End Date ZamoraJuni [address] [place] [phone] PCP - General 02/01/05 Cotton Puller Relationship Specialty Start Date End Date Juni Zamora [address] [place] [phone] PCP - General 02/01/05 Cotton Puller Relationship Specialty Start Date End Date Erin Rodriguez PAPETERIE TABLE ASSEMBLER.FIREFIGHTING EQUIPMENT SPECIALIST [address] [place] [address] PCP - General Family Medicine 04/15/23 Cotton Puller Relationship Specialty Start Date End Date Erin Rodriguez PAPETERIE TABLE ASSEMBLER.FIREFIGHTING EQUIPMENT SPECIALIST [address] [place] [address] PCP - General Family Medicine 04/15/23 Cotton Puller Relationship Specialty Start Date End Date Erin Rodriguez PAPETERIE TABLE ASSEMBLER.FIREFIGHTING EQUIPMENT SPECIALIST [address] [place] [address] PCP - General Family Medicine 04/15/23 Cotton Puller Relationship Specialty Start Date End Date Erin Rodriguez PAPETERIE TABLE ASSEMBLER.FIREFIGHTING EQUIPMENT SPECIALIST [address] [place] [address] PCP - General Family Medicine 04/15/23 Cotton Puller Relationship Specialty Start Date End Date Erin Rodriguez PAPETERIE TABLE ASSEMBLER.FIREFIGHTING EQUIPMENT SPECIALIST [address] [place] [address] PCP - General Family Medicine 04/15/23 Cotton Puller Relationship Specialty Start Date End Date Erin Rodriguez PAPETERIE TABLE ASSEMBLER.FIREFIGHTING EQUIPMENT SPECIALIST [address] [place] [address] PCP - General Family Medicine 04/15/23 Cotton Puller Relationship Specialty Start Date End Date Erin Rodriguez APRN.FIREFIGHTING EQUIPMENT SPECIALIST [address] [place] [address] PCP - General Family Medicine 04/15/23 Cotton Puller Relationship Specialty Start Date End Date Erin Rodriguez PAPETERIE TABLE ASSEMBLER.FIREFIGHTING EQUIPMENT SPECIALIST [address] [place] [address] PCP - General Family Medicine 04/15/23 Cotton Puller Relationship Specialty Start Date End Date Erin Rodriguez APRN.FIREFIGHTING EQUIPMENT SPECIALIST [address] [place] [address] PCP - General Family Medicine 04/15/23 Cotton Puller Relationship Specialty Start Date End Date Erin Rodriguez CNP [address] [place] [address] PCP - General Family Medicine 04/15/23 Cotton Puller Relationship Specialty Start Date End Date Erin Rodriguez CNP [address] [place] [address] PCP - General Family Medicine 04/15/23 Reason [...] EST PATIENT Erin Rodriguez CNP [address] [place] [address] Jaydon Ritchie MD [address] [place] [address] Referral ID Status Reason Start Date Expiration Date Visits Re quested Visits Authorized [id number] Closed 09/13/2023 09/01/2024 1 1 Specialty Diagnoses / Procedures Referred By Contac t Referred To Contact PAIN MANAGEMENT Diagnoses Encounter for general adult medical examination without abnormal findings Procedures EST PATIENT VISIT LEVEL 1 Soraida Godoy, DO [address] [place] [address] [facility] [address] [place] [address] Referral ID Status Reason Start Date Expiration Date V isits Requested Visits Authorized [id number] Closed OON/Self Pay Override 05/01/2023 07/30/2023 1 [...] GUIDANCE [facility] [address] [place] [address] Referral ID Status Reason Start Date Expiration Date Visits Re quested Visits Authorized [id number] 1 1 Reason Onset Date Comments Refill [...] Physician Address: Address: [address] Name: Nicole Church PT Position: P3 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 - Supervisor Sheet Manufacturing Advanced Member Role: Other Name: MATILDE HAYWARD CNP Address: Address: [address] [place] [address] [address] Name: SORAIDA GODOY DO Address: Address: [address] Care Team Related Persons Name: BLAS STEWART Name: DINA MARTINEZ Care Team Personnel Name: ERIN RODRIGUEZFIREFIGHTING EQUIPMENT SPECIALIST Position: P4 Advanced Practice Nurse Member Role: Primary Care Physician Address: Address: [address] [place] [address] Name: Nicole Church PT 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 [employer] provides no warranty or guarantee of the accuracy or completeness of information in this document.
[2023-10-10] MEDS: KCL 20MEQ in 0.9% NS 20 MEQ/1,000 ML IV.SOLN. 100 MEQ IV ×2 (02:15→11:10)
[2023-10-10] MEDS: Ceftriaxone 1 GM/50 ML BAG IV (02:21)
[2023-10-10 02:24] LABS: Hematocrit 43.5 % (37-47); Hemoglobin 14.6 g/dL (12.0-15.0)
[2023-10-10] MEDS: Octreotide 0.05 MG in Dextrose 5%-Water (50mL Bag) 50 ML 202 MG IV (02:29)
[2023-10-10] MEDS: 0.9% Saline Lock 10 ML Syringe IV ×3 (02:30→19:47)
--- OUTSIDE RECORDS SUMMARY | 2023-10-10 02:52 | XMS RPT_ITS | CCD ---
Author Name Unknown Address [address] [place] [address] Organization [facility] Care Team Providers Care Licensed Midwife Name Role Phone Erin Rodriguez Unavailable Unavailable JENNIFER TELEPHONE ORDER CLERK-WOOD STOCK BLANK HANDLER, ERIN Primary Care Physician [phone] Elizabeth Church PT Unavailable Unavailable Juni Zamora Primary Care Provider Juni Zamora Primary Care Provider JENNIFER TELEPHONE ORDER CLERK-WOOD STOCK BLANK HANDLER, ERIN Primary Care Physician ([phone] Jennifer TELEPHONE ORDER CLERK.WOOD STOCK BLANK HANDLER, Erin Primary Care Provider [phone] DAYAMITES TELEPHONE ORDER CLERK-WOOD STOCK BLANK HANDLER, ERIN Primary Care Unavailelizabeth GALLAGHER MD, PEBBLES W Attending Unavailable JIGNESH SANDHU, DR PERCY Mas Attending Guille RODRIGUEZ TELEPHONE ORDER CLERK-WOOD STOCK BLANK HANDLER, ERIN Primary Care Unavailabl e BALTES TELEPHONE ORDER CLERK-WOOD STOCK BLANK HANDLER, ERIN Primary Care UnavailJUNI Rodriguez MD Attending Unavailable LENCHO KIMBROUGH MD Attending Unavailable BALTES TELEPHONE ORDER CLERK-WOOD STOCK BLANK HANDLER, ERIN Primary Care Unavailabl e BALTES TELEPHONE ORDER CLERK-WOOD STOCK BLANK HANDLER, ERIN Attending Unavailabl e BALTES TELEPHONE ORDER CLERK-WOOD STOCK BLANK HANDLER, ERIN Primary Care Unavailabl e BALTES TELEPHONE ORDER CLERK-WOOD STOCK BLANK HANDLER, ERIN Attending Unavailabl e BALTES TELEPHONE ORDER CLERK-WOOD STOCK BLANK HANDLER, ERIN Primary Care Unavailabl e BALTES TELEPHONE ORDER CLERK-WOOD STOCK BLANK HANDLER, ERIN Primary Care Unavailabl e BALTES TELEPHONE ORDER CLERK-WOOD STOCK BLANK HANDLER, ERIN Attending Unavailabl e Baltes LIGIA, [place] Primary Care Provider [phone] SORAIDA GODOY Admitting Unavailable SORAIDA GODOY Attending [...] Ibuprofen; Translations: [ibuprofen] Drug Allergy 2 Unknown [facility] Work Phone: (20 sources) Naproxen; Translations: [Naproxen] Drug Allergy 2 Unknown [facility] Work Phone: (20 sources) Acetaminophen / traMADol; Translations: [acetaminophen-tr amadol] Drug Allergy 2 [facility] (1 source) Ibuprofen; Translations: [IBUPROFEN] Drug Allergy 2 [facility] (1 source) TRAMADOL-ACETAMIN OPHEN; Translations: [TRAMADOL-ACETAMI NOPHEN] Propensity to adverse reactions to drug (disorder) 2 [facility] Medications Current Medications Medication Drug [...] sources) Taking high risk medication; Translations: [Other intermediate frame tender (current) drug therapy] Episodic Other connective tissue [...] aftercare (20 sources) Patient encounter status; Translations: [halfway (current) use of opiate analgesic] Onset: 09-05-2016 04-02-2023 Episodic Other aftercare (1 source) Other intermediate frame tender (current) drug therapy; Translations: [High risk medication [...] 51.62 kg Jaydon Ritchie MD Work Phone: [facility] 10-03-2023 09:43-0500 Diastolic blood pressure 75 mm[Hg] Jaydon Ritchie MD Work Phone: [facility] 10-03-2023 09:43-0500 Heart rate 56 /min Jaydon Ritchie MD Work Phone: [facility] 10-03-2023 09:43-0500 SaO2% (BldA) [Mass fraction] 87 % Jaydon Ritchie MD Work Phone: [facility] 10-03-2023 09:43-0500 Systolic blood pressure 101 mm[Hg] Jaydon Ritchie MD Work Phone: [facility] 07-01-2023 08:38-0400 Body height 173.7 cm Soraida Godoy DO Work Phone: [facility] 07-01-2023 08:38-0400 Body weight 48.53 kg Soraida Godoy DO Work Phone: [facility] 07-01-2023 08:38-0400 Diastolic blood pressure 69 mm[Hg] Soraida Godoy DO Work Phone: [facility] 07-01-2023 08:38-0400 Heart rate 118 /min Soraida Godoy DO Work Phone: [facility] 07-01-2023 08:38-0400 Respiratory rate 19 /min Soraida Godoy DO Work Phone: [facility] 07-01-2023 08:38-0400 SaO2% (BldA) [Mass fraction] 98 % Soraida Godoy DO Work Phone: [facility] 07-01-2023 08:38-0400 Systolic blood pressure 101 mm[Hg] Soraida Godoy DO Work Phone: [facility] 06-17-2023 15:13-0400 Diastolic Blood Pressure Non-Invasive 74 1 JUNI JULIO MD [facility] 06-17-2023 15:13-0400 Heart rate 93 /min JUNI JULIO MD [facility] 06-17-2023 15:13-0400 Respiratory rate 16 /min JUNI JULIO MD [facility] 06-17-2023 15:13-0400 Systolic Blood Pressure Non-Invasive 107 1 JUNI JULIO MD [facility] 06-17-2023 14:45-0400 Diastolic Blood Pressure Non-Invasive 83 1 JUNI JULIO MD [facility] 06-17-2023 14:45-0400 Heart rate 97 /min JUNI JULIO MD [facility] 06-17-2023 14:45-0400 Respiratory rate 16 /min JUNI JULIO MD [facility] 06-17-2023 14:45-0400 Systolic Blood Pressure Non-Invasive 128 1 JUNI JULIO MD [facility] 06-17-2023 14:20-0400 Diastolic Blood Pressure Non-Invasive 61 1 JUNI JULIO MD [facility] 06-17-2023 14:20-0400 Heart rate 97 /min JUNI JULIO MD [facility] 06-17-2023 14:20-0400 Respiratory rate 16 /min JUNI JULIO MD [facility] 06-17-2023 14:20-0400 Systolic Blood Pressure Non-Invasive 97 1 JUNI JULIO MD [facility] 06-17-2023 12:01-0400 Heart rate 81 /min JUNI JULIO MD [facility] 06-17-2023 12:01-0400 Mean blood pressure 86 mm[Hg] JUNI JULIO MD [facility] 06-17-2023 11:55-0400 Body temperature 97.7 [degF] JUNI JULIO MD [facility] 06-17-2023 11:55-0400 Heart rate 86 /min JUNI JULIO MD [facility] 06-17-2023 11:55-0400 Mean blood pressure 81 mm[Hg] JUNI JULIO MD [facility] 06-17-2023 11:47-0400 Heart rate 85 /min JUNI JULIO MD [facility] 06-17-2023 11:47-0400 Mean blood pressure 75 mm[Hg] JUNI JULIO MD [facility] 06-17-2023 11:30-0400 Body temperature 97.7 [degF] JUNI JULIO MD [facility] 06-17-2023 11:10-0400 Blood Pressure Cuff Size JUNI JULIO MD [facility] 06-17-2023 11:10-0400 Blood Pressure Location JUNI JULIO MD [facility] 06-17-2023 11:10-0400 Blood Pressure Method JUNI JULIO MD [facility] 06-17-2023 11:10-0400 Body temperature 97.7 [degF] JUNI JULIO MD [facility] 06-17-2023 11:10-0400 Reason For Taking VItal Signs JUNI JULIO MD [facility] 06-17-2023 08:33-0400 Body height 165.1 cm JUNI JULIO MD [facility] 06-17-2023 08:33-0400 Body weight 16.69 kg/m2 JUNI JULIO MD [facility] 06-17-2023 08:33-0400 Body weight 45.5 kg JUNI JULIO MD [facility] 05-22-2023 02:46-0400 Body temperature 98.24 [degF] LENCHO KIMBROUGH MD [facility] 05-22-2023 02:46-0400 Diastolic Blood Pressure Non-Invasive 68 1 LENCHO KIMBROUGH MD [facility] 05-22-2023 02:46-0400 Heart rate 69 /min LENCHO KIMBROUGH MD [facility] 05-22-2023 02:46-0400 Respiratory rate 18 /min LENCHO KIMBROUGH MD [facility] 05-22-2023 02:46-0400 Systolic Blood Pressure Non-Invasive 134 1 LENCHO KIMBROUGH MD [facility] 05-22-2023 01:17-0400 Body height 167.6 cm LENCHO KIMBROUGH MD [facility] 05-22-2023 01:17-0400 Body temperature 97.7 [degF] LENCHO KIMBROUGH MD [facility] 05-22-2023 01:17-0400 Body weight 56.9 kg LENCHO KIMBROUGH MD [facility] 05-22-2023 01:17-0400 Diastolic Blood Pressure Non-Invasive 67 1 LENCHO KIMBROUGH MD [facility] 05-22-2023 01:17-0400 Heart rate 75 /min LENCHO KIMBROUGH MD [facility] 05-22-2023 01:17-0400 Respiratory rate 20 /min LENCHO KIMBROUGH MD [facility] 05-22-2023 01:17-0400 Systolic Blood Pressure Non-Invasive 125 1 LENCHO KIMBROUGH MD [facility] 04-17-2023 09:52-0400 Diastolic blood pressure 73 mm[Hg] Soraida Godoy DO Work Phone: [facility] 04-17-2023 09:52-0400 Heart rate 98 /min Soraida Godoy DO Work Phone: [facility] 04-17-2023 09:52-0400 Respiratory rate 18 /min Soraida Godoy DO Work Phone: [facility] 04-17-2023 09:52-0400 SaO2% (BldA) [Mass fraction] 99 % Soraida Godoy DO Work Phone: [facility] 04-17-2023 09:52-0400 Systolic blood pressure 127 mm[Hg] Soraida Godoy DO Work Phone: [facility] 04-17-2023 09:10-0400 Body temperature 98.71 [degF] Soraida Godoy DO Work Phone: [facility] 04-02-2023 10:11-0400 Body height 170.7 cm Soraida Godoy DO Work Phone: [facility] 04-02-2023 10:11-0400 Body weight 51.71 kg Soraida Godoy DO Work Phone: [facility] 04-02-2023 10:11-0400 Diastolic blood pressure 75 mm[Hg] Soraida Godoy DO Work Phone: [facility] 04-02-2023 10:11-0400 Heart rate 86 /min Soraida Godoy DO Work Phone: [facility] 04-02-2023 10:11-0400 Respiratory rate 19 /min Soraida Godoy DO Work Phone: [facility] 04-02-2023 10:11-0400 SaO2% (BldA) [Mass fraction] 98 % Soraida Godoy DO Work Phone: [facility] 04-02-2023 10:11-0400 Systolic blood pressure 124 mm[Hg] Soraida Godoy DO Work Phone: [facility] 11-12-2022 09:25-0400 Diastolic blood pressure 90 mm[Hg] Matilde [place] TELEPHONE ORDER CLERK.PAPER BUNDLER Work Phone: [facility] 11-12-2022 09:25-0400 Heart rate 80 /min Matilde [place] TELEPHONE ORDER CLERK.PAPER BUNDLER Work Phone: [facility] 11-12-2022 09:25-0400 Respiratory rate 16 /min Matilde Lius TELEPHONE ORDER CLERK.PAPER BUNDLER Work Phone: [facility] 11-12-2022 09:25-0400 SaO2% (BldA) [Mass fraction] 95 % Matilde [place] TELEPHONE ORDER CLERK.PAPER BUNDLER Work Phone: [facility] 11-12-2022 09:25-0400 Systolic blood pressure 143 mm[Hg] Matilde [place] TELEPHONE ORDER CLERK.PAPER BUNDLER Work Phone: [facility] 08-14-2022 10:55-0500 Diastolic blood pressure 72 mm[Hg] Matilde Luis TELEPHONE ORDER CLERK.PAPER BUNDLER Work Phone: [facility] 08-14-2022 10:55-0500 Heart rate 96 /min Matilde [place] TELEPHONE ORDER CLERK.PAPER BUNDLER Work Phone: [facility] 08-14-2022 10:55-0500 SaO2% (BldA) [Mass fraction] 98 % Matilde Luis TELEPHONE ORDER CLERK.PAPER BUNDLER Work Phone: [facility] 08-14-2022 10:55-0500 Systolic blood pressure 121 mm[Hg] Matilde Luis TELEPHONE ORDER CLERK.PAPER BUNDLER Work Phone: [facility] 03-20-2022 09:38-0400 Diastolic blood pressure 97 mm[Hg] Matilde Luis TELEPHONE ORDER CLERK.PAPER BUNDLER Work Phone: [facility] 03-20-2022 09:38-0400 Heart rate 78 /min Matilde Luis TELEPHONE ORDER CLERK.PAPER BUNDLER Work Phone: [facility] 03-20-2022 09:38-0400 SaO2% (BldA) [Mass fraction] 96 % Matilde Luis TELEPHONE ORDER CLERK.PAPER BUNDLER Work Phone: [facility] 03-20-2022 09:38-0400 Systolic blood pressure 136 mm[Hg] Matilde Luis TELEPHONE ORDER CLERK.PAPER BUNDLER Work Phone: [facility] Encounters Encounter Date Encounter Type Care [...] with pelvis minimum 5 views Matilde Hayward PAPER BUNDLER Work Phone: Start: 10-28-2019 Esophagogastroduodenoscopy ERIN RODRIGUEZ TELEPHONE ORDER CLERK-WOOD STOCK BLANK HANDLER Start: 11-17-2018 Entitic (property) (qualifier value) ERIN RODRIGUEZ TELEPHONE ORDER CLERK-WOOD STOCK BLANK HANDLER Plan of Treatment Date Care Activity Detail Author Start: 04-15-2032 Urine microalbumin profile DTaP,Tdap,Td Vaccine (2 - Td or Tdap) [facility] Start: 10-03-2024 BP Controlled (<130/80) BP Controlled (<130/80) [facility] Start: 07-01-2024 BP Controlled (<130/80) BP Controlled (<130/80) [facility] Start: 04-02-2024 BP CONTROLLED (<130/80) BP CONTROLLED (<130/80) [facility] Start: 09-02-2023 Advance Directive Discussion Advance Directive Discussion [facility] Start: 09-02-2023 Depression Assessment Depression Assessment [facility] Start: 08-14-2023 BP CONTROLLED (<130/80) BP CONTROLLED (<130/80) [facility] Start: 07-01-2023 End: 09-30-2023 TOXASSURE FLEX 23, URINE TOXASSURE FLEX 23, URINE Lab Routine Chronic pain syndrome Osteoarthritis of both hips, unspecified osteoarthritis type Greater trochanteric bursitis of both hips Expected: 07/01/2023, Expires: 09/30/2023 [facility] Work Phone: Immunizations Immunization Date Immunization Notes Care Provider Jackie keys 06-25-2023 influenza, high dose seasonal, preservative-free; Translations: [Fluad Quadrivalent PF ] ERIN RODRIGUEZ TELEPHONE ORDER CLERK-WOOD STOCK BLANK HANDLER [facility] 04-15-2022 influenza virus vaccine, unspecified formulation ERIN RODRIGUEZ TELEPHONE ORDER CLERK-WOOD STOCK BLANK HANDLER [facility] 04-15-2022 tetanus toxoid, reduced diphtheria toxoid, and acellular pertussis vaccine, adsorbed ERIN RODRIGUEZ TELEPHONE ORDER CLERK-WOOD STOCK BLANK HANDLER [facility] 01-31-2022 pneumococcal (PCV20) vaccine, 20 valent (PREVNAR 20) Matilde Hayward APRN.PAPER BUNDLER Work Phone: [facility] 01-31-2022 pneumococcal 20-neo nt conjugate [facility] ORDER CLERK-WOOD STOCK BLANK HANDLER [facility] 10-01-2021 SARS-CoV-2 mRNA (qockazmeqtf-zyyy-fxgk ose) vaccine [facility] ORDER CLERK-WOOD STOCK BLANK HANDLER [facility] 08-07-2021 influenza virus vaccine, unspecified formulation ERIN RODRIGUEZ TELEPHONE ORDER CLERK-WOOD STOCK BLANK HANDLER [facility] 08-07-2021 influenza, injectabl e, quadrivalent, contains preservative Soraida Godoy Work Phone: [facility] 08-07-2021 influenza, injectabl e, quadrivalent, preservative [facility] Work Phone: [facility] 02-09-2021 SARS-CoV-2 mRNA (tozinameran) vaccine [facility] TELEPHONE ORDER CLERK-WOOD STOCK BLANK HANDLER [facility] Payers Date Payer Category Payer Private Health Insurance [id number] 2023 Unknown [id number] 2022 Unknown [id number] 2022 Unknown [id number] 2022 Unknown [id number] 2022 Medicare [id number] 2021 Medicaid [id number] 2021 Unknown [id number] 2014 Medicaid [place] [employer] [place] [id number] 2014-Present [phone] [address] [place] [address] Medicaid [id number] 1957 Unknown [id number] 27 1957 Unknown [id number] 27 1957 Unknown [id number] 27 1957 Unknown [id number] 27 1957 Unknown [id number] 27 1957 Unknown [id number] 27 1957 Unknown [id number] 27 Social History Date Type Detail Facility Start: 06-29-2020 Light tobacco smoker (finding) [facility] Sex Assigned At Female [facility] Start: 05-11-2015 End: 07-01-2023 Tobacco smoking status NHIS Smokes tobacco daily [facility] Work Phone: Start: 05-11-2015 End: 07-01-2023 Tobacco use and exposure Smokeless tobacco non-user [facility] Work Phone: Start: 09-19-2015 End: 04-02-2023 Alcohol intake Current drinker of alcohol (finding) [facility] Start: 1955 End: 1955 Sex Assigned At Not on file [facility] History of tobacco use Cigarette Smoker [facility] Work Phone: Start: 05-11-2015 End: 10-03-2023 Cigarettes smoked current (pack per day) - Reported 0.5 [facility] Start: 03-20-2022 History SDOH Alcohol Comment on holidays [facility] Start: 03-10-2022 End: 03-20-2022 Exposure to SARS-CoV-2 (event) Not sure [facility] Start: 04-02-2023 End: 10-03-2023 Tobacco use panel [facility] National Score (1-100), lower number is lower risk 74 [facility] Start: 04-02-2023 Tobacco Comment Started age 16 yo [facility] Start: 06-14-2023 Tobacco smoking status Heavy t obacco smoker (finding) [facility] Start: 07-01-2023 End: 10-03-2023 Alcohol intake Ex-drinker (finding) [facility] Start: 07-01-2023 Tobacco Comment Started age 16 yo, down to 2 cigs/day [facility] NEGATED: Highlighted row - - [facility] Work Phone: Functional Status Date Assessment Result Facility 08-30-2023 Functional Status NPO Status Maintained A [facility] 06-17-2023 Functional Status Awake [facility] 06-17-2023 Functional Status Room check performed [facility] 06-17-2023 Functional Status Hospital bed [facility] 06-17-2023 Functional Status Maintained [facility] 05-22-2023 Functional Status Assistive Device None A [facility] NEGATED: Highlighted row Functional performance Functional status health issues are not documented Disease [facility] Work Phone: Mental Status Date Assessment Result Facility 06-17-2023 [facility]23 Mental Status Orientation Orie nted x 4 [facility] NEGATED: Highlighted row Cognitive function [Interpretation] Cognitive status health issues are not documented Disease [facility] Work Phone: Clinical Notes 01-02-2021 to [...] 2023 12:41 PM documented in this encounter [facility] 10-03-2023 Note HNO ID: [id number] Author: JAYDON RITCHIE MD Service: ? Author [...] notes, patient was to be maintained on [place] 10/325 3 times a day, Flexeril 5 [...] notes, patient was to be maintained on [place] 10/325 3 times a day, Flexeril 5 mg 3 times a day, avoid NSAIDs due to GERD and gastric ulcers, reduce tobacco use, remain as active as possible. This again is a first visit for this patient with me. OARRS Checked The patient has been off of [place] for over 4 months. She would like [...] primary care physician's office, Dr. Rodriguez, in [place] to see if they can reorder her blood thinner. Follow-up office visit in 4 months. Patient agrees to the above. [facility] 10-03-2023 History of Presen t illness [...] notes, patient was to be maintained on [place] 10/325 3 times a day, Flexeril 5 [...] notes, patient was to be maintained on [place] 10/325 3 times a day, Flexeril 5 mg 3 times a day, avoid NSAIDs due to GERD and gastric ulcers, reduce tobacco use, remain as active as possible. This again is a first visit for this patient with me. OARRS Checked The patient has been off of [place] for over 4 months. She would like [...] primary care physician's office, Dr. Rodriguez, in [place] to see if they can reorder her blood thinner. Follow-up office visit in 4 months. Patient agrees to the above. documented in this encounter [facility]ri Saldana 10-30-2023 NoteHNO ID: [id number] Author: Soraida Godoy, DO Service: ? Author Type: Physician Type: Progress Notes Filed: 07/01/2023 9:06 AM Note Text: Summary: Pain management office follow-up visit DATE: July 01, 2023 Chief Complaint: Low back pain History of Present Illness: Sonam Casillas is a 68 year old female being seen at [facility] for a evaluation and/or [...] UDS obtained Followup in 3 months with COMPUTER CLERK Pain level:06/11 Location: back, b/l hip pain [...] segment severe stenosis of the IIA. Moderate AGRICULTURE PROFESSOR stenosis. Multifocal moderate and severe SFA stenoses [...] Result Flag Units Drug Present Ethyl Glucuronide 765749 ng/mg creat Ethyl Sulfate 87587 ng/mg creat EtG and EtS are metabolites [...] be compromised. Interpret resu (more content not included)...[facility]10-30-2023 Instructions* Patient Instructions* Soraida Godoy, DO [...] obtained Followup in 3 months with or COMPUTER CLERK Patient scheduled to follow-up with Dr. Julio, vascular surgeon on July 04 for multiple vascular occlusions. Patient currently on Plavix. [facility] History of Present illness Narrative* Soraida Godoy DO - 07/01/2023 8:45 AM EDTSummary: Pain management office follow-up visit DATE: July 01, 2023 Chief Complaint: Low back pain History of Present Illness: Sonam Casillas is a 68 year old female [facility] management [...] UDS obtained Followup in 3 months with COMPUTER CLERK Pain level:06/11 Location: back, b/l hip pain [...] segment severe stenosis of the IIA. Moderate AGRICULTURE PROFESSOR stenosis. Multifocal moderate and severe SFA stenoses [...] Result Flag Units Drug Present Ethyl Glucuronide 223346 ng/mg creat Ethyl Sulfate 67538 ng/mg creat EtG and EtS are metabolites [...] Soraida Godoy DO, by Roberta Rincon medical management specialist, July 01, 2023. [facility] Miscellaneous Notes* Telephone Encounter - Soraida [...] Result Flag Units Drug Present Ethyl Glucuronide 107554 ng/mg creat Ethyl Sulfate 47982 ng/mg creat EtG and EtS are metabolites [...] provided. For clinical consultation, please call . @FLOW([id number])@ Lab Results Component Value Date SUMM FINAL [...] advise. Denise Farmer RN [facility] Summary of episode note Discharge Instructions Thank you for allowing [facility] to assist you with your healthcare needs. The following is importantdischarge information regarding your hospital visit. Your Care Team BALTES, ERIN TELEPHONE ORDER CLERK-WOOD STOCK BLANK HANDLER What to do next Scheduled Follow-Up Appointments Appointment Type When With Where Contact InformationGI OV Consult 06/19/2023 10:00 AM EDT [facility] [address] [phone] PC OV 08/01/2023 11:00 AM WIL ERIN RODRIGUEZ KAROL-WOOD STOCK BLANK HANDLER [address] [address] Follow Up Appointments Follow Up with JUNI JULIO MD, [facility], Surgery, Vascular Surgeons When Within 1-2 days Why: Follow-up as scheduled Where: [address] [facility] [address] [facility] [place] [address] [phone] The Following Activity and Diet Have Been Ordered for You Discharge Activity - Ordered -- Lifting Restricted less than 10 pounds May Shower No bending, twisting, crawling or squatt Sexual Patten Restricted, No driving x 2 days, 06/17/23 [...] until you are awake and alert. Take uvhk-qur-rypznko and prescription medicines only as told by [...] 06/09/2014 Document Revised: 08/01/2018 Document Reviewed: 12/08/2016 [employer] Patient Education 2020 [employer] Additional Information VACCINATE! IT SAVES LIVES! Members of the community who have not yet received the COVID-19 vaccine and would like to receive it can visit one of [facility] vaccine clinics. There are many vaccine clinic locations within the [facility]. For locations and available times, please visit [email or web address] It is important to note that some COVID mobile vaccine clinics are held outdoors and may be canceled in rainy or stormy conditions. To learn more about pediatric vaccinations (ages 5-11), we invite you to visit the [facility] webpage. [email or web address].[email or web address]/[email or web address]-[email or web address] [email or web address] learn more about the COVID-19 vaccine, we invite you to visit the CDC website for a list of frequently asked questions.https://www.cdc.gov/coronavirus/2019-ncov/vaccines/faq.html [email or web address] Patient Portal Access Instructions: Stay connected with your healthcare team and access your personal medical information anytime with the ADIKTIVO Patient Portal. Please follow the directions below to create your ADIKTIVO account: 1.Access the email account you provided upon registration to the hospital/physician office.2.Look for an invitation email from [facility].3.Open the email and access the invitation link: AcceptInvitation to ADIKTIVO.4.Fill in the required ferreira to create your account. To access your account, visit [email or web address]. Click the blue button labeled Access Patient [...] who you will allowto register on the ADIKTIVO Patient Portal for access to your information. You can also access the ADIKTIVO Patient Portal on the Startapp Anywhere obdulio. Simply click on Patient Portal and then log into your account. If you would like to receive a full copy of your medical records, please contact the [facility] Medical Records Department by calling [phone], Saturday through Saturday between 8 a.m. and [...] Call your local pharmacy or go to http://hoozin.atCollab/1H2Ij0d to find one close to you.3.Make use of household items: Use cat litter or old coffee grounds to dispose medications if other options arenot available. Mix your drugs with these household products, seal them in an airtight container andthrow it into the garbage. Call [facility]: [phone] to be sure your drugs can be [...] aware that I should contact my doctor. 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 Signature: Date/Time: Relationship to Patient: Witness Name/Signature: Date/Time: [id number] Hospital Discharge instructions Patient Education 06/17/2023 12:35:16 [...] until you are awake and alert. Take zzld-kdt-hmphrtt and prescription medicines only as told by [...] 06/09/2014 Document Revised: 08/01/2018 Document Reviewed: 12/08/2016 [employer] Patient Education 2020 [employer]. Follow Up Care 06/11/2023 12:30:21 With:JUNI JULIO MD, [facility], Surgery, Vascular Surgeons Address: [address] [place] [address] [place] [address] [phone] When:1-2 days Comments:Follow-up as scheduled [facility] 10-16-2023 Note ORIGINAL Images acquired, not reported on this accession number.[facility] 06-17-2023 Anesthesiology Consult note Patient: SONAM [...] Problem list: Medical Alcoholism / SNOMED CT 26883189 / Confirmed Arthritis / SNOMED CT [id number] / Confirmed Bronchitis / SNOMED CT [id number] / Confirmed Chronic back pain / SNOMED CT [id number] / Confirmed Antral gastritis / SNOMED CT 7511369 / Confirmed Hard of hearing / SNOMED CT 652029587 / Confirmed Hyperlipidemia / SNOMED CT [id number] / Confirmed Hypertension / SNOMED CT [id number] / Confirmed Insomnia / SNOMED CT 103415486 / Confirmed Moderate COPD (chronic obstructive pulmonary disease) / SNOMED CT 784098438 / Confirmed Osteoporosis / SNOMED CT 379857517 / Confirmed Overactive bladder / SNOMED CT 8752966119 / Confirmed Screening mammogram, encounter for / SNOMED CT 551140547 / Confirmed Screening for colon cancer / SNOMED CT 092828017 / Confirmed Polyneuropathy / SNOMED CT 91591258 / Confirmed Tobacco use / SNOMED CT 8582155842 / Confirmed, Active Problems (23) Alcoholism Antral gastritis Arthritis Asthma Bronchitis Chronic back pain Colon polyps GERD (gastroesophageal reflux disease) Hard of hearing Hearing aid Hyperlipidemia Hypertension Insomnia Moderate COPD (chronic obstructive pulmonary disease) On anticoagulant therapy Osteoporosis Overactive bladder Polyneuropathy Screening for colon cancer Screening mammogram, encounter for Seasonal allergy Stricture of artery Tobacco use Histories Past Medical History: Active Bronchitis ([id number]) Arthritis ([id number]) Hyperlipidemia (W7T6MH90-[id number]) Hypertension ([id number]) Chronic back pain (V7K70S5N-[id number]-7H057MJSPP73) Alcoholism (48228732) Family History: Diabetes mellitus Daughter Heart disease Father Arthritis Father Comments: 03/30/2019 6:53 EDT - Parul Estrella LPN Rheumatoid Hyperchloremia Daughter Malignant tumor of lung Mother MS - Myocardial infarction Father HTN - Hypertension Daughter Procedure history: Esophagogastroduodenoscopy (307464527) on 10/28/2019 at 64 Years. ENT, ear surgery ([id number]) on 11/17/2018 at 63 Years. Comments: 03/30/2019 7:54 EDT - Chandni Grimm LPN surgery to replace metal tube Mammogram (741749144) on 04/09/2018 at 63 Years. Colonoscopy (790690350) on 06/18/2016 at 61 Years. Comments: 07/19/2020 15:33 Parul Razo LPN Diverticular disease, polyectomy-repeat 3 yrs. [facility] Arthroscopy knee (49990188) in 2001 at 46 Years. Comments: 03/30/2019 7:56 EDT - Alfa Chandni LPN right knee Rotator cuff repair (80839886) in 1999 at 44 Years. Resection of large bowel (579238436) in 1997 at 42 Years. Myringoplasty (0985525722) in 1987 at 32 Years. Hysterectomy (038135132). Hearing aid (46406924). Comments: 10/28/2019 7:37 WIL - SONYA HORAN [...] I'm done - 01/06/2020 10:11 - Parul Estrlela LPN; States I drink a beer once [...] Resp Rate 16 br/min (JUN 17 08:33) QMJ763 mmHg (JUN 17 08:33) DBP72 mmHg (JUN [...] range of motion. Integumentary: Intact, Warm, Dry, [place]. Neurologic: Alert, Oriented. Review / Management Results review: Labs (Last four charted values) WBC 4.9(JUN 17) Hgb 15.0(JUN 17) Hct 44.0(JUN 17) Plt 237(JUN 17) Na L 133(JUN 17) K 3.8(JUN 17) CO2 28(JUN 17) Cl 100(JUN 17) Cr 0.50(JUN 17) BUN L <5.0(JUN 17) Glucose 99(JUN 17) Ca 9.2(JUN 17) . Assessment and Plan [place] [employer] Anesthesiologists (ASA) physical status classification: [...] KILEY ARTHUR DO on 06/17/2023 10:14 AM [facility] Miscellaneous Notes* Telephone Encounter - Soraida Godoy [...] Result Flag Units Drug Present Ethyl Glucuronide 704229 ng/mg creat Ethyl Sulfate 14540 ng/mg creat EtG and EtS are metabolites [...] provided. For clinical consultation, please call . @FLOW([id number])@ Lab Results Component Value Date SUMM FINAL [...] advise. Elizabeth Mena RN documented in this encounterBrown [facility] Hospital10-05-2023 Miscellaneous Notes* Telephone Encounter - Soraida Godoy, [...] Result Flag Units Drug Present Ethyl Glucuronide 114226 ng/mg creat Ethyl Sulfate 98947 ng/mg creat EtG and EtS are metabolites [...] provided. For clinical consultation, please call . @FLOW([id number])@ Lab Results Component Value Date SUMM FINAL [...] advise. Elizabeth Mena RN documented in this encounterBrown Memorial Hospital09-28-2023 Miscellaneous Notes* Telephone Encounter - Sanjuana Murdock RN - 05/30/2023 8:42 AM EDT Called and spoke with Jose Antonio Lopez, they had the pt's birthday date as [birth year], according to her last IDscanned into the chart it is 59. Called pt and verified her birthday, she states 59. Jose Antonio Lopez filled the [place] today 05/30/23 and they will work on [...] filled. Per Dr. Godoy documented in this encounterBrown Memorial Hospital09-20-2023 Hospital Discharge instructions Patient Education 05/22/2023 [...] thin towel or cloth. You may use mqqt-idx-yolzxbq pain medicine (NSAIDS or nonsteroidal anti- inflammatory [...] or is irritated You re-injure your ankle [id number] [employer]. [address] [place] [address]. All rights reserved. This information is not intended as a substitute for professional medical care. Always follow yourhealthcare professional's instructions. Follow Up Care 05/22/2023 01:10:44 With:ERIN RODRIGUEZ Address: [address] [place] [address]- [phone] Business (1) When:Within 1 Week(s) Comments:Follow-up as needed if not improving.Limit weightbearing as tolerated, use crutches for assistance with ambulation.Use Eagle wrap for compression and support.Continue to ice and elevate the injured ankle as much as possible.Continue Tylenol for pain as needed.Return to the ED if symptoms worsen. [facility] 09-20-2023 Note Discharge Instructions Thank you for allowing [facility] to assist you with your healthcare needs. [...] to the ED if symptoms worsen. Where: [address] [place] [address] [phone] Business (1) Allergies acetaminophen-tramadol (UPSET STOMACHE) ibuprofen [...] thin towel or cloth. You may use wzma-ges-dpdipnd pain medicine (NSAIDS or nonsteroidal anti- inflammatory [...] or is irritated You re-injure your ankle [phone] [employer]. [address] [place] [address], [place] [address]. All rights reserved. This information is not intended as a substitute for professional medical care. Always follow yourhealthcare professional's instructions. Additional Information VACCINATE! IT SAVES LIVES! Members of the community who have not yet received the COVID-19 vaccine and would like to receive it can visit one of [facility] vaccine clinics. There are many vaccine clinic locations within the [facility]. For locations and available times, please visit www.gettheshot.coronavirus.[place].gov/. It is important to note that some COVID mobile vaccine clinics are held outdoors and may be canceled in rainy or stormy conditions. To learn more about pediatric vaccinations (ages 5-11), we invite you to visit the [facility] webpage. https://www.Now Technologiess.org/pages/0027-Skzws-Lawslfsbwbl-Rfovozfhsk-Llbjc-Ptm stions.htmlTo learn more about the COVID-19 vaccine, we invite you to visit the CDC website for a list of frequently asked questions. https://www.cdc.gov/coronavirus/2019-ncov/vaccines/faq.html Sher[facility] ([email or web address]) Patient Portal Access Instructions: Stay connected with your healthcare team and access your personal medical information anytime with the SherriRollCall ([email or web address]) Patient Portal. If you would like a full copy of your medical records please contact the [facility] Medical Records Department Saturday through Saturday between 8a.m. and 4:30p.m. Please follow the directions below to access the portal: 1.Access the email account you provided upon registration to the hospital.2.Look for an invitation email from [facility].3.Open the email and access the invitation link: Accept Invitation to [facility]Call ([email or web address])4.Fill in the required ferreira to create your account. Sign into [email or web address] with your username and password that you [...] you will allow to register on the ADIKTIVO Patient Portal for access to your information. You can also access the ADIKTIVO Patient Portal on the [employer] obdulio. Simply click on Health Records under [place] and then click on the Startapp logo. HOW TO SAFELY DISPOSE OF PRESCRIPTION [...] Call your local pharmacy or go to http://hoozin.atCollab/[email or web address] to find one close to you.3.Make use of household items: Use cat litter or old coffee grounds to dispose medications if other options arenot available. Mix your drugs with these household products, seal them in an airtight container andthrow it into the garbage. Call [facility]: [phone] to be sure your drugs can be [...] aware that I should contact my doctor. 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 Signature: Date/Time: Relationship to Patient: Witness Name/Signature: Date/Time: [facility]09-[facility]-2023 Note ORIGINAL EXAMINATION: THREE XRAY [...] Date: 05/22/2023 2:35:31 AM Ordering Provider: LENCHO [facility]09-13-2023 Miscellaneous Notes* Telephone Encounter - Dick, Zana Chandler APRN.WOOD STOCK BLANK HANDLER - 05/15/2023 11:11 AM EDT The following [...] to the pharmacist and she said the [place] was last filled on 05/09/23 for a [...] Result Flag Units Drug Present Ethyl Glucuronide 655622 ng/mg creat Ethyl Sulfate 50279 ng/mg creat EtG and EtS are metabolites [...] provided. For clinical consultation, please call . @FLOW([id number])@ Lab Results Component Value Date SUMM FINAL [...] advise. Elizabeth Mena RN documented in this encounterBrown Memorial Hospital09-07-2023 Miscellaneous Notes* Telephone Encounter - Elizabeth Mena RN - 05/09/2023 10:24 AM EDT Fy, last ov states 1 week at a time for compliance Elizabeth Mena RN May 09, 2023 10:25 AM documented in this encounterBrown Memorial Hospital08-23-2023 Miscellaneous Notes* Telephone Encounter - Soraida Godoy DO - 04/24/2023 9:05 PM EDT We need to have the updated OARRS in her chart and the pharmacy is responsible for putting her correct information in OARRS. We have no control over this in Psychiatric.Will only send 7 day supply. * Telephone Encounter - Denise Farmer RN - 04/24/2023 3:[address] Godoy- Please check pharmacy with medication refills. I do not see any prescriptions for [place] being filled on the OARRS report. This [...] 24, 2023 4:02 PM documented in this encounterBrown Memorial Hospital08-23-2023 Miscellaneous Notes* Telephone Encounter - Soraida [...] Result Flag Units Drug Present Ethyl Glucuronide 156184 ng/mg creat Ethyl Sulfate 57416 ng/mg creat EtG and EtS are metabolites [...] provided. For clinical consultation, please call . @FLOW([id number])@ Lab Results Component Value Date SUMM FINAL [...] advise. Denise Farmer, RN documented in this encounterBrown Memorial Hospital08-17-2023 Miscellaneous Notes* Telephone Encounter - Matilde [...] Result Flag Units Drug Present Ethyl Glucuronide 723785 ng/mg creat Ethyl Sulfate 33404 ng/mg creat EtG and EtS are metabolites [...] provided. For clinical consultation, please call . @FLOW([id number])@ Lab Results Component Value Date SUMM FINAL [...] advise. Sanjuana Murdock RN documented in this encounterBrown Memorial Hospital08-16-2023 Surgical operation note* Operative Report - [...] encounter was entered by Marya Tony, medical management specialist for Dr. Soraida Godoy on April 17, [...] Godoy. April 17, 2023. documented in this encounterBrown Memorial Hospital08-10-2023 Miscellaneous Notes* Telephone Encounter - Matilde [...] Result Flag Units Drug Present Ethyl Glucuronide 366298 ng/mg creat Ethyl Sulfate 19239 ng/mg creat EtG and EtS are metabolites [...] provided. For clinical consultation, please call . @FLOW([id number])@ Lab Results Component Value Date SUMM FINAL [...] advise. Elizabeth Mena RN documented in this encounterBrown Memorial Hospital08-01-2023 NoteHNO ID: [id number] Author: Soraida Godoy, DO Service: ? Author Type: Physician Type: Progress Notes Filed: 04/08/2023 10:27 PM Note Text: Summary: Pain Management follow-up DATE: April 02, 2023 Chief Complaint: Back and B/L hip pain History of Present Illness: Sonam Casillas is a 68 year old female being seen at [facility] for a evaluation and/or [...] Result Flag Units Drug Present Ethyl Glucuronide 174486 ng/mg creat Ethyl Sulfate 39574 ng/mg creat EtG and EtS are metabolites [...] 11 L mg/dL >=20 (more content not included)...[facility]08-01-2023 Instructions* Patient Instructions* Soraida Godoy DO [...] UDS obtained Followup in 3 months with COMPUTER CLERK documented in this encounterBrown Memorial Hospital08-01-2023 History of Present illness Narrative* Soraida Godoy DO - 04/02/2023 9:45 AM EDTSummary: Pain Management follow-up DATE: April 02, 2023 Chief Complaint: Back and B/L hip pain History of Present Illness: Sonam Casillas is a 68 year old female [facility]or management [...] Result Flag Units Drug Present Ethyl Glucuronide 769642 ng/mg creat Ethyl Sulfate 35926 ng/mg creat EtG and EtS are metabolites [...] encounter was entered by Marya Tony medical management specialist for Dr. Soraida Godoy on April 02, [...] Godoy. April 02, 2023. documented in this encounterBrown Memorial Hospital05-26-2023 Note. MICRO - Microbiology PROCEDURE: Urine [...] Locations *1: This test was performed at: [facility], [address] [place] [address], [address] , [facility])12-12-2022 Miscellaneous Notes* Telephone Encounter - Matilde Hayward [...] December 14, 2022. Authorizing Provider: MATILDE HAYWARD APRN.PAPER BUNDLER * Telephone Encounter - Denise Farmer RN [...] provided. For clinical consultation, please call . @FLOW([id number])@ Lab Results Component Value Date SUMM FINAL [...] advise. Denise Farmer RN documented in this encounterBrown Memorial Hospital03-13-2023 NoteHNO ID: [id number] Author: Matilde Hayward APRN.PAPER BUNDLER Service: ? Author Type: Clinical Nurse Specialist Type: Progress Notes Filed: 11/12/2022 9:48 AM Note Text: SUBJECTIVE: Sonam Casillas [facility] for a follow-up [...] verbalized understanding. Matilde Hayward APRN.CNS November 12, 2022[facility]03-13-2023 Instructions* Patient Instructions * Matilde Hayward [...] Followup in 3 months documented in this encounterBrown Memorial Hospital03-13-2023 History of Present illness Narrative* Matilde Hayward APRN.PAPER BUNDLER - 11/12/2022 9:30 AM EDT SUBJECTIVE: Sonam Casillas [facility] for a follow-up [...] APRN.CNS November 12, 2022 documented in this encounterBrown Memorial Hospital01-09-2023 Miscellaneous Notes* Telephone Encounter - Matilde [...] advise. Sanjuana Murdock RN documented in this encounterBrown Memorial Hospital12-13-2022 History of Present illness Narrative* RT Meredith(R) [...] 14, 2022 12:41 PM documented in this encounterBrown Memorial Hospital12-13-2022 Instructions* Patient Instructions* Matilde Hayward APRN.PAPER BUNDLER - 08/14/2022 11:11 AM EST Patient has [...] Followup in 3 months documented in this encounterBrown Memorial Hospital12-13-2022 History of Present illness Narrative* Matilde Hayward APRN.CNS - 08/14/2022 10:00 AM EST Patient was last seen by me on 03/20/22 for back and hip pain Plan of care: Continue [place] 10-325 mg TID PRN. This helps patient [...] level States her daughter took her to [facility] last month after fell and hit [...] muscle strength lower extremities. documented in this encounterBrown Memorial Hospital07-19-2022 Instructions* Patient Instructions* Matilde Hayward APRN.CNS - 03/20/2022 9:19 AM EDT Continue [place] 10-325 mg TID PRN. This helps patient [...] Follow-up in 3 months documented in this encounterBrown Memorial Hospital07-18-2022 History of Present illness Narrative* Matilde Hayward APRN.CNS - 03/19/2022 11:30 AM EDT Patient was last seen by me for back and hip pain on 12/18/2021 Plan of care: 1) Continue [place] 10-325 mg TID PRN. This helps patient [...] Negative Spurling sign bilaterally. documented in this encounterBrown Memorial Hospital06-09-2021 NotePhysical Therapy Outpatient Progress Summary Medical [...] No significant change in pain during session. [facility] PATIENT NAME: SONAM CASILLAS [address] [place] MEDICAL REC #: [id number] [place] [address] ADMIT DATE: SERVICE DATE: 02/08/21 Physical Therapy [...] balance; TUG completed in [address] [facility] PATIENT NAME: SONAM CASILLAS [address] [place] MEDICAL REC #: [id number] [place] [address] ADMIT DATE: SERVICE DATE: 02/08/21 Physical Therapy [...] Demographics: Age: 65Y Gender: Female Primary Language: Chinese Preferred Language: Chinese Initial Evaluation Date: 01/02/2021 Referring Clinician: Soraida [...] with anyone with a confirmed or suspected [facility] PATIENT NAME: SONAM CASILLAS [address] [place] MEDICAL REC #: [id number] [place] [address] ADMIT DATE: SERVICE DATE: 01/02/21 Physical Therapy Assessment Report ATTENDING PHY: Soraida Godoy DO diagnosis of COVID-19? No Medical Care Prior to Current Episode: OP PT last year in [facility] Past Medical History: asthma, [place], OA, chronic pain History of Present Illness: [...] years until participating in outpatient PT in [facility] last year with no significant improvements. Patient notes that she has more recently bee experiencing LLE instability with feeling that leg may go out. Patient describes an incident of falling in kitchen around [place] time. Patient now referred to OP PT [...] by: prolonged positioning, standing ADLs (dishes, sweeping), [facility] PATIENT NAME: SONAM CASILLAS [address] [place] MEDICAL REC #: [id number] [place] [address] ADMIT DATE: SERVICE DATE: 01/02/21 Physical Therapy [...] Appointment Date:12/19/2021 09:30:00 AM Scheduled Provider:ERIN RODRIGUEZ Location:[facility] Appointment Type:PC OV Future [...] MA Mammo Screening Bilateral w/ Jake 07/21/21 [facility] Evaluation + Plan note Future Appointments Appointment Date:12/19/2021 09:30:00 AM Scheduled Provider:ERIN RODRIGUEZ Location:[facility] Appointment Type:[facility] Future Scheduled Tests Laboratory* Complete Blood Count [...] Ribs 2 Views Left/PA Chest (AO) 07/13/21 [facility] Evaluation + Plan note Future Appointments Appointment Date:04/12/2022 09:00:00 AM Scheduled Provider:ERIN RODRIGUEZ Location:[facility] Appointment Type:PC Wellness Medicare Future Scheduled Tests Laboratory* Complete Blood Count 06/20/21 * Complete Blood Count 01/04/22 * Lipid Profile 06/20/21 * Lipid Profile 01/04/22 * Complete Metabolic Panel 06/20/21 * Complete Metabolic Panel 01/04/22 Radiology* XR Ribs 2 Views Left/PA Chest (AO) 07/13/21 * XR Knee 3 Views Left 01/04/22 * XR Shoulder Minimum 2 Views Right 07/13/21 [facility] Evaluation + Plan note Future Appointments Appointment Date:07/31/2022 10:30:00 AM Scheduled Provider:ERIN RODRIGUEZ Location:[facility] Appointment Type:PC OV Future Scheduled Tests Laboratory* [...] XR Shoulder Minimum 2 Views Right 07/13/21 [facility] Evaluation + Plan note Future Appointments Appointment Date:01/30/2023 09:00:00 AM Scheduled Provider:ERIN RODRIGUEZ Location:[facility] Appointment Type:PC OV Future Scheduled Tests Laboratory* Complete Blood Count 04/26/22 * Complete Blood Count 01/04/22 * Lipid Profile 04/26/22 * Lipid Profile 01/04/22 * Microalbumin Level Urine 04/26/22 * Complete Metabolic Panel 04/26/22 * Complete Metabolic Panel 01/04/22 Radiology* MA Mammo Screening Bilateral w/ Jake 08/26/22 * XR Knee 3 Views Left 01/04/22 [facility] Evaluation + Plan note Future Appointments Appointment Date:08/01/2023 11:00:00 AM Scheduled Provider:ERIN RODRIGUEZ Location:[facility] Appointment Type:PC OV Future Scheduled Tests Laboratory* Microalbumin Level Urine 04/26/22 Radiology* MA Mammo Screening Bilateral w/ Jake 08/26/22 [facility] Evaluation + Plan note Future Appointments Appointment Date:08/01/2023 11:00:00 AM Scheduled Provider:ERIN RODRIGUEZ Location:[facility] Appointment Type:PC OV Future Scheduled Tests Radiology* MA Mammo Screening Bilateral w/ Jake 08/26/22 [facility] Evaluation + Plan note Future Appointments Appointment Date:06/19/2023 10:00:00 AM Scheduled Provider: Location:[facility] Appointment Type:GI OV Consult Appointment Date:08/01/2023 11:00:00 AM Scheduled Provider:ERIN RODRIGUEZ Location:[facility] Appointment Type:PC OV Future Scheduled Tests Radiology* MA Mammo Screening Bilateral w/ Jake 08/26/22 [facility] Evaluation + Plan note Future Appointments Appointment Date:07/30/2023 12:30:00 PM Scheduled Provider:ERIN RODRIGUEZ Location:[facility] Appointment Type:PC OV Appointment Date:07/31/2023 11:00:00 AM Scheduled Provider: Location:[facility] Appointment Type:GI OV Consult Future Scheduled Tests Radiology* MA Mammo Screening Bilateral w/ Jake 08/26/22 [facility] Evaluation + Plan note Future Appointments Appointment Date:11/13/2023 10:30:00 AM Scheduled Provider:ERIN RODRIGUEZ Location:[facility] Appointment Type:PC OV Future Scheduled Tests Radiology* MA Mammo Screening Bilateral w/ Jake 08/26/22 [facility] evaluation note* Diagnosis Lumbar spondylosis- [...] of other medications [facility] Chronic [facility] syndrome- Primary DDD (degenerative disc disease), lumbar Degeneration of lumbar or lumbosacral intervertebral disc Pain in right hip Pain in joint, pelvic region and thigh Spinal stenosis, lumbar region with neurogenic claudication High risk medication use Encounter for long-term (current) use of other medications [facility] Diagnosis Pain in right hip Pain in joint, pelvic region and thigh Chronic pain syndrome [facility] Diagnosis Chronic pain syndrome [facility] Diagnosis Spinal stenosis, lumbar region with neurogenic claudication- Primary Chronic pain syndrome Lumbar radiculopathy Thoracic or lumbosacral neuritis or radiculitis, unspecified Osteoarthritis of both hips, unspecified osteoarthritis type High risk medication use Encounter for long-term (current) use of other medications documented [facility] Diagnosis Chronic pain syndrome [facility] Diagnosis Spinal [...] of hip region [facility] Diagnosis Chronic pain syndrome Trochanteric bursitis of both hips Enthesopathy of hip region [facility] Diagnosis Chronic pain syndrome [facility] Diagnosis Chronic pain syndrome [facility] Diagnosis [facility] pain syndrome [facility]* Diagnosis Chronic pain syndrome [facility] Diagnosis Chronic pain syndrome [facility] Diagnosis Chronic [...] history of alcoholism [facility] Diagnosis Chronic pain syndrome- Primary History of alcoholism (HCC) Personal history of alcoholism Myofascial pain syndrome Mylagia and myositis, unspecified Myofascial pain syndrome Mylagia and myositis, unspecified documented in this encounter [facility] course Narrative No data available for this section [facility] Hospital Discharge instructions No data available for this section [facility] Progress note No data available for this section [facility] Reason for referral (narrative)* Diagnostic Procedure Only (Routine) - Closed Specialty Diagnoses / Procedures Referred By Contac t Referred To Contact XR IMAGING Diagnoses Pain in right hip Chronic pain syndrome Procedures XR HIP BILATERAL 5V PEL/AP/LAT EACH HIP RADEX HIPS BILATERAL WITH PELVIS MINIMUM 5 VIEWS Matilde Hayward APRN.P[employer]ER [employer]UNDLER [address] [place] [address] Xr Imaging Referral ID Status Reason Start Date Expiration Date V isits Requested Visits Authorized [id number] Closed Auto-Generate d Referral 08/14/2022 09/13/2023 1 1 [facility] for referral (narrative)* Diagnostic Procedure Only (Routine) - Closed Specialty Diagnoses / Procedures Referred By Contac t Referred To Contact XR IMAGING Diagnoses Pain in right hip Chronic pain syndrome Procedures XR HIP BILATERAL 5V PEL/AP/LAT EACH HIP RADEX HIPS BILATERAL WITH PELVIS MINIMUM 5 VIEWS Matilde Hayward APRN.CNS [address] [place] [address] Xr Imaging Referral ID Status Reason Start Date Expiration Date V isits Requested Visits Authorized [id number] Closed Auto-Generate d Referral 08/14/2022 09/13/[facility]23 [facility] Diagnostic Procedure Only (Routine) - Closed Specialty Diagnoses / Procedures Referred By Iraida diaz Referred To Contact XR IMAGING Diagnoses Pain in right hip Chronic pain syndrome Procedures XR HIP BILATERAL 5V PEL/AP/LAT EACH HIP RADEX HIPS BILATERAL WITH PELVIS MINIMUM 5 VIEWS Matilde Hayward APRN.CNS [address] [place] [address] Xr Imaging Referral ID Status Reason Start Date Expiration Date V isits Requested Visits Authorized [id number] Closed Auto-Generate d Referral 08/14/2022 09/13/2023 1 1 [facility] Family History No Family History Records [...] DATE CREATED AUTHOR AUTHOR'S ORGANIZ ATION 12/18/2021 [facility] Sonya Dhaliwal DATE CREATED AUTHOR AUTHOR'S ORGANIZ ATION 09/10/2023 [facility] ([place] DATE CREATED AUTHOR AUTHOR'S ORGANIZ ATION 10/04/2023 [facility] Sonya menendez Source Comments (unrecognize d section and content) In the event this informatio n is protected by the Federal Confidentiality of Alcohol and Drug Abuse Patient Records regulations: The Federal rules restrict any use of the information to criminally investigate or prosecute any alcohol or drug abuse patient.[facility] the event this information is protected by the Federal Confidentiality of Alcohol and Drug Abuse Patient Records regulations: The Federal rules restrict any use of the information to criminally investigate or prosecute any alcohol or drug abuse patient.[facility] HospitalIn the event this information is protected by the Federal Confidentiality of Alcohol and Drug Abuse Patient Records regulations: The Federal rules restrict any use of the information to criminally investigate or prosecute any alcohol or drug abuse patient.[facility] HospitalIn the event this information is protected by the Federal Confidentiality of Alcohol and Drug Abuse Patient Records regulations: The Federal rules restrict any use of the information to criminally investigate or prosecute any alcohol or drug abuse patient.[facility] HospitalIn the event this information is protected by the Federal Confidentiality of Alcohol and Drug Abuse Patient Records regulations: The Federal rules restrict any use of the information to criminally investigate or prosecute any alcohol or drug abuse patient.[facility] HospitalIn the event this information is protected by the Federal Confidentiality of Alcohol and Drug Abuse Patient Records regulations: The Federal rules restrict any use of the information to criminally investigate or prosecute any alcohol or drug abuse patient.[facility] HospitalIn the event this information is protected by the Federal Confidentiality of Alcohol and Drug Abuse Patient Records regulations: The Federal rules restrict any use of the information to criminally investigate or prosecute any alcohol or drug abuse patient.[facility] HospitalIn the event this information is protected by the Federal Confidentiality of Alcohol and Drug Abuse Patient Records regulations: The Federal rules restrict any use of the information to criminally investigate or prosecute any alcohol or drug abuse patient.[facility] HospitalIn the event this information is protected by the Federal Confidentiality of Alcohol and Drug Abuse Patient Records regulations: The Federal rules restrict any use of the information to criminally investigate or prosecute any alcohol or drug abuse patient.[facility] HospitalIn the event this information is protected by the Federal Confidentiality of Alcohol and Drug Abuse Patient Records regulations: The Federal rules restrict any use of the information to criminally investigate or prosecute any alcohol or drug abuse patient.[facility] HospitalIn the event this information is protected by the Federal Confidentiality of Alcohol and Drug Abuse Patient Records regulations: The Federal rules restrict any use of the information to criminally investigate or prosecute any alcohol or drug abuse patient.[facility] HospitalIn the event this information is protected by the Federal Confidentiality of Alcohol and Drug Abuse Patient Records regulations: The Federal rules restrict any use of the information to criminally investigate or prosecute any alcohol or drug abuse patient.[facility] HospitalIn the event this information is protected by the Federal Confidentiality of Alcohol and Drug Abuse Patient Records regulations: The Federal rules restrict any use of the information to criminally investigate or prosecute any alcohol or drug abuse patient.[facility] HospitalIn the event this information is protected by the Federal Confidentiality of Alcohol and Drug Abuse Patient Records regulations: The Federal rules restrict any use of the information to criminally investigate or prosecute any alcohol or drug abuse patient.[facility] HospitalIn the event this information is protected by the Federal Confidentiality of Alcohol and Drug Abuse Patient Records regulations: The Federal rules restrict any use of the information to criminally investigate or prosecute any alcohol or drug abuse patient.[facility] HospitalIn the event this information is protected by the Federal Confidentiality of Alcohol and Drug Abuse Patient Records regulations: The Federal rules restrict any use of the information to criminally investigate or prosecute any alcohol or drug abuse patient.[facility] HospitalIn the event this information is protected by the Federal Confidentiality of Alcohol and Drug Abuse Patient Records regulations: The Federal rules restrict any use of the information to criminally investigate or prosecute any alcohol or drug abuse patient.[facility] HospitalIn the event this information is protected by the Federal Confidentiality of Alcohol and Drug Abuse Patient Records regulations: The Federal rules restrict any use of the information to criminally investigate or prosecute any alcohol or drug abuse patient.[facility] HospitalIn the event this information is protected by the Federal Confidentiality of Alcohol and Drug Abuse Patient Records regulations: The Federal rules restrict any use of the information to criminally investigate or prosecute any alcohol or drug abuse patient.[facility] HospitalIn the event this information is protected by the Federal Confidentiality of Alcohol and Drug Abuse Patient Records regulations: The Federal rules restrict any use of the information to criminally investigate or prosecute any alcohol or drug abuse patient.[facility] HospitalIn the event this information is protected by the Federal Confidentiality of Alcohol and Drug Abuse Patient Records regulations: The Federal rules restrict any use of the information to criminally investigate or prosecute any alcohol or drug abuse patient.[facility] HospitalIn the event this information is protected by the Federal Confidentiality of Alcohol and Drug Abuse Patient Records regulations: The Federal rules restrict any use of the information to criminally investigate or prosecute any alcohol or drug abuse patient.[facility] HospitalIn the event this information is protected by the Federal Confidentiality of Alcohol and Drug Abuse Patient Records regulations: The Federal rules restrict any use of the information to criminally investigate or prosecute any alcohol or drug abuse patient.[facility] HospitalIn the event this information is protected by the Federal Confidentiality of Alcohol and Drug Abuse Patient Records regulations: The Federal rules restrict any use of the information to criminally investigate or prosecute any alcohol or drug abuse patient.[facility] HospitalIn the event this information is protected by the Federal Confidentiality of Alcohol and Drug Abuse Patient Records regulations: The Federal rules restrict any use of the information to criminally investigate or prosecute any alcohol or drug abuse patient.[facility] Care Teams (unrecognized sec tion and content) Licensed Midwife Relationship Specialty Start Date End Date Juni Zamora[address] [place] [address], [place] [phone] PCP - General 02/01/05 Licensed Midwife Relationship Specialty Start Date End Date Juni Zamora [address] [place] [address], [place] [phone] PCP - General 02/01/05 Licensed Midwife Relationship Specialty Start Date End Date Juni Zamora[address] [place] [address], [place] [phone] PCP - General 02/01/05 Licensed Midwife Relationship Specialty Start Date End Date Juni Zamora[address] [place] [address], [place] [address] PCP - General 02/01/05 Licensed Midwife Relationship Specialty Start Date End Date Juni Zamora[address] [place] [address], [place] [phone] PCP - General 02/01/05 Licensed Midwife Relationship Specialty Start Date End Date Juni Zamora[address] [place] [phone] PCP - General 02/01/05 Licensed Midwife Relationship Specialty Start Date End Date ZamoraJuni [address] [place] [phone] PCP - General 02/01/05 Licensed Midwife Relationship Specialty Start Date End Date Juni Zamora [address] [place] [phone] PCP - General 02/01/05 Licensed Midwife Relationship Specialty Start Date End Date Erin Rodriguez TELEPHONE ORDER CLERK.WOOD STOCK BLANK HANDLER [address] [place] [address] PCP - General Family Medicine 04/15/23 Licensed Midwife Relationship Specialty Start Date End Date Erin Rodriguez TELEPHONE ORDER CLERK.WOOD [employer]OCK BLANK HANDLER [address] [place] [address] PCP - General Family Medicine 04/15/23 Licensed Midwife Relationship Specialty Start Date End Date Erin Rodriguez TELEPHONE ORDER CLERK.WOOD [employer]OCK BLANK HANDLER [address] [place] [address] PCP - General Family Medicine 04/15/23 Licensed Midwife Relationship Specialty Start Date End Date Erin Rodriguez TELEPHONE ORDER CLERK.WOOD STOCK BLANK HANDLER [address] [place] [address] PCP - General Family Medicine 04/15/23 Licensed Midwife Relationship Specialty Start Date End Date Erin Rodriguez TELEPHONE ORDER CLERK.WOOD STOCK BLANK HANDLER [address] [place] [address] PCP - General Family Medicine 04/15/23 Licensed Midwife Relationship Specialty Start Date End Date Erin Rodriguez TELEPHONE ORDER CLERK.WOOD STOCK BLANK HANDLER [address] [place] [phone] PCP - General Family Medicine 04/15/23 Licensed Midwife Relationship Specialty Start Date End Date Erin Rodriguez APRN.WO[employer] HAND[employer]ER [address] [place] [address] PCP - General Family Medicine 04/15/23 Licensed Midwife Relationship Specialty Start Date End Date Erin Rodriguez TELEPHONE ORDER CLERK.WOOD STOCK BLANK HANDLER [address] [place] [address] PCP - General Family Medicine 04/15/23 Licensed Midwife Relationship Specialty Start Date End Date Erin Rodriguez APRN.WO[employer] BLANK HANDLER [address] [place] [phone] PCP - General Family Medicine 04/15/23 Licensed Midwife Relationship Specialty Start Date End Date Erin Rodriguez CNP [address] [place] [address] PCP - General Family Medicine 04/15/23 Licensed Midwife Relationship Specialty Start Date End Date Erin Rodriguez CNP [address] [place] [address] PCP - General Family Medicine 04/15/23 Reason [...] EST PATIENT Erin Rodriguez CNP [address] [place] [address] Jaydon Ritchie MD [address] [place] [address] Referral ID Status Reason Start Date Expiration Date Visits Re quested Visits Authorized [id number] Closed 09/13/2023 09/01/2024 1 1 Specialty Diagnoses / Procedures Referred By Contac t Referred To Contact PAIN MANAGEMENT Diagnoses Encounter for general adult medical examination without abnormal findings Procedures EST PATIENT VISIT LEVEL 1 Soraida Godoy, DO [address] [place] [address] [facility] [address] [place] [address] Referral ID Status Reason Start Date Expiration Date V isits Requested Visits Authorized [id number] Closed OON/Self Pay Override 05/01/2023 07/30/2023 1 [...] GUIDANCE [facility] [address] [place] [address] Referral ID Status Reason Start Date Expiration Date Visits Re quested Visits Authorized [id number] 1 1 Reason Onset Date Comments Refill [...] Physician Address: Address: [address] Name: Nicole Church PT Position: P3 Scheduling - Clinical Laboratory Scientist Advanced Member Role: Other Name: MATILDE HAYWARD CNP Address: Address: [address] [place] [address] [address] Name: SORAIDA GODOY DO Address: Address: [address] Care Team Related Persons Name: BLAS STEWART Name: DINA MARTINEZ Care Team Personnel Name: ERIN RODRIGUEZWOOD STOCK BLANK HANDLER Position: P4 Advanced Practice Nurse Member Role: Primary Care Physician Address: Address: [address] [place] [address] Name: Nicole Church PT Position: P3 Scheduling - Clinical Laboratory Scientist Advanced Member Role: Other Name: MATILDE HAYWARD CNP Member Role: Pain Management Address: Address: [address] [place] [address] [address] Name: SORAIDA GODOY DO Member Role: Pain Management Address: Address: [address] Care Team Related Persons Name: BLAS [...] BE BASED ON THE PRIMARY CLINICAL RECORDS. [employer] provides no warranty or guarantee of the accuracy or completeness of information in this document.
--- NOTE | 2023-10-10 05:55 | US_ITS ---
HISTORY: Alcoholic hepatitis, upper GI bleed. TECHNIQUE: Loredo scale and color doppler imaging was performed of the right upper quadrant. 114 images. COMPARISON: None. FINDINGS: LIVER: 15.2 cm in length. Heterogeneous echotexture without focal lesion demonstrated. No intrahepatic ductal dilatation. MAIN PORTAL VEIN: Patent with flow in the appropriate direction. COMMON BILE DUCT: 6 mm in diameter. GALLBLADDER: No gallstones. 2 mm wall thickness, within normal limits. No pericholecystic fluid. Sonographic Narvaez sign negative. PANCREAS: Visualized proximal portion unremarkable. RIGHT KIDNEY: 9.1 cm in length with a cortical thickness of 1.7 cm. No hydronephrosis. 2.3 cm and 1.4 cm upper pole cysts. US/Abdomen Limited IMPRESSION: Heterogeneous liver from hepatic steatosis or other hepatocellular disease. No sonographic evidence of cholelithiasis. Small right renal cysts. Electronically Signed: Jerrica Bruner MD at 9:56 EST ,
[2023-10-10] MEDS: Octreotide 0.5 MG in Dextrose 5%-Water (250mL Bag) 250 ML 12.5 MG CONT INF (06:10)
[2023-10-10 07:30] LABS: Absolute Lymphocyte Count 1.29 X10^3/uL (0.83-4.51); Absolute Neutrophil Count 3.4 X10^3/uL (2.0-7.7); Basophil# 0.06 X10^3/uL; Basophil% 1.1 % (0-1); Eosinophil# 0.12 X10^3/uL; Eosinophils% 2.2 % (0-5); Hematocrit 41.8 % (37-47); Hemoglobin 13.8 g/dL (12.0-15.0); Lymphocyte # 1.29 X10^3/ul (0.83-4.51); Lymphocyte % 23.8 % (19-41); Mean Corpuscular Hgb 31.9 pg (27.0-32.0); Mean Corpuscular Volume 96.8 fL (81-99); Mean Platelet Vol. 10.2 fl (6.2-12.0); Monocyte# 0.59 X10^3/uL; Monocyte% 10.9 % (0-10); NRBC Flagged by Analyzer 0 % (0-5); Neutrophil # 3.35 X10^3/uL (2.7-7.7); Neutrophil % 61.6 % (47-70); Platelet Count 263 K/mm3 (150-450); RBC Distribution Width CV 13.6 % (11.6-14.6); RBC Distribution Width SD 48.8 fl (35.1-43.9); Red Blood Count 4.32 M/mm3 (4.2-5.4); White Blood Count 5.4 K/mm3 (4.4-11.0)
[2023-10-10 08:08] LABS: ALB/GLOB Ratio 0.9 RATIO (0.9-2.4); AST(SGOT) 40 U/L (15-37); Alanine Aminotransfer ALT/SGPT 22 U/L (13-56); Albumin, Serum 2.9 g/dL (3.2-5.0); Alkaline Phosphatase 115 U/L (45-117); Anion Gap 4 (5-15); BUN 7 mg/dL (7-18); BUN/Creat Ratio 15.5 RATIO (10-20); Calcium,Total 8.6 mg/dL (8.5-10.1); Chloride 107 mmol/L (98-107); Creatinine, Serum 0.45 mg/dL (0.55-1.02); EST Glomerular Filtration Rate 148 mL/min (>60); Est Glom Filt Rate - Afr Amer 179 mL/min (>60); Estimated Creatinine Clearance 52.96 ml/min; Globulin 3.4 g/dL (2.2-4.2); Glucose 158 mg/dL (74-106); Potassium 4.2 mmol/L (3.5-5.1); Protein, Total 6.3 g/dL (6.4-8.2); Sodium Level 137 mmol/L (136-145); Thyroid Stim Hormone (TSH) 0.73 uIU/mL (0.358-3.74)
[2023-10-10] MEDS: DULoxetine Hcl 60 MG Capsule PO (08:29)
--- NOTE | 2023-10-10 10:55 | CASEMGMT ---
Addendum entered and electronically signed by Elizabeth Ponce RN 10/10/23 11:39: Pt denied any difficulty with navigating the stairs and states she uses the handrails. JOSUÉ Damico Original Note: JOSUÉ MORE DC Planning Assessment: Face to Face with patient for initial transition planning/care coordination assessment.?JOSUÉ MORE introduced self and role at [facility], pt alert, voices understanding, and is agreeable to participating in assessment.? Care providers, pharmacy,?and demographics verified. ? Admitting Dx: hematemesis PCP: MERLYN Thomas (has an appt in December) Specialists: [facility] for back pain (has an appointment this month ) Preferred Pharmacy: [facility] Insurance: Danae Puga Prescription Benefit:?yes LNOK: daughter Mary Living Arrangements: Pt moved into her daughter's apartment in June,. Pt states the apt is 2 stories with her bedroom and bathroom on the 2nd floor. There are 12-13 steps to the second story with a handrail and no steps to enter the apt. Pt states she is independent with ADLs and attends [employer] daily Saturday through Saturday where she enjoys completing puzzles. Transportation: pt does not drive. [employer] provides transportation to and from daycare and her grandson provides transportation to appointments. DME: walker, grab bars, and shower chair. Pt states she also has canes but they are still at her previous home in [place]. States her grandson could provide transport for her to go get them if needed. SNF: denies HHC: Pt states she had a nurse come to her home to check on her but is unable to recall from what agency this nurse was from. ETOH: pt states she drinks 2 beers each evening after dinner Tobacco: pt states she smokes approximately 5 cigarettes each evening. Pt's goal/plan: Return to her daughter's home and continue to attend [employer] Plan: Same as above JOSUÉ Damico
[2023-10-10] MEDS: Lactated Ringers 1,000 ML 15 ML IV (11:44)
--- NOTE | 2023-10-10 12:30 | EGD_PTH ---
PATHOLOGY RESULTS PATIENT: SONAM LUGO LOC: [facility] U#:[id number] AGE/SX: 68/F ROOM: [facility] RE10/09/[address]: Dr. Bryce Colindres DO : 1955 BED: 1 DIS: 10/11/2023 SPEC #: [id number] RECD: 10/10/23 13:35 STATUS: ADRIANA REQ #: [id number] [place]: 10/10/23 12:[address]: Greg Maguire DEPT: SURGICAL PATHOLOGY RECD BY: Keli Meneses ENTERED: 10/10/23 13:43 SP TYPE: EGD BIOPSY OTHR DR: DO Dr. Anuj Rubalcava MD Ryan Baltes, FASHION ADVISER-C Tissues: Esophagus, NOS Procedures: Special Stain Group II Surgery Specimen Level IV Alcian Blue/PAS (control) Comments: @ Ordering doctor for SUIV edited from to @ yady OBREGON at 10/10/23 1452 @ Submitting doctor edited from to @ yady OBREGON at 10/10/231451 HEADER OPERATION: EGD, biopsy, bipolar electrohemostasis PRE-OP DIAGNOSIS: GI bleed TISSUE SUBMITTED: Distal esophagus biopsy MICROSCOPIC DIAGNOSIS Distal esophagus, biopsy: Fragments of gastroesophageal mucosa with focal intestinal metaplasia (goblet cell metaplasia), consistent with Chou's esophagus. Moderate chronic inflammation and mild acute inflammation. Negative for dysplasia. See comment. SJ:yarelis 10/11/2023 COMMENT Alcian blue/PAS stain with matched control is used in the evaluation of the specimen. Immunohistochemistry ([id number]) for P53 and Ki-67 will be performed and results will be reported separately. Case has been reviewed in consultation with Dr. Chaparro who concurs with the above diagnosis. IDC:AM MICROSCOPIC DESCRIPTION Slides are reviewed. GROSS DESCRIPTION Received in fixative is one container labeled with the patient's name and designated distal esophagus. The specimen consists of two irregular fragments of light friedman soft tissue that in aggregate measure 0.8 x 0.2 x 0.1 cm. The specimen is totally submitted in one cassette. / AM:yarelis 10/10/2023 TC:3 CPT: 65391, 67933
--- NOTE | 2023-10-10 13:02 | PCM.PN.HOSP ---
Reason for Visit Reason for Visit: Diagnoses Gastrointestinal hemorrhage, unspecified (10/09/23) Subjective Subjective Patient admitted yesterday evening for hematemesis. Stable overnight, no further episodes of hematemesis. Patient seen at bedside this morning. Patient was sitting up comfortably in bed, conversing normally, no acute distress. She was scheduled for EGD later in the morning and was looking forward to having this done. She has had EGDs in the past and tolerated them without issue. She currently denies any acute pain or discomfort. No other acute concerns this time. Objective Data Objective Data Vital Signs: Vital Signs Temp Pulse Resp BP Pulse Ox O2 Del Method 98.5 F 97 18 114/82 H 92 Room Air 10/10/23 08:27 10/10/23 08:27 10/10/23 08:27 10/10/23 08:27 10/10/23 08:27 10/10/23 08:27 Oxygen Delivery Method Room Air Weight: 48.5 kg Body Mass Index (BMI) 17.2 Intake & Output: Intake and Output for Last 24 Hours 10/08/23 10/09/23 10/10/23 23:59 23:59 23:59 Intake Total 35 / 35 942.17 / 942.17 Balance 35 / 35 942.17 / 942.17 Lab / Micro Data 10/10/23 07:05 10/10/23 07:05 Labs: Laboratory Results - last 24 hr 10/09/23 20:55: WBC 5.3, RBC 4.18 L, Hgb 13.6, Hct 40.2, MCV 96.2, MCH 32.5 H, MCHC 33.8, RDW Std Deviation 49.4 H, RDW Coeff of Talon 13.8, Plt Count 245, MPV 10.2, Immature Gran % (Auto) 0.600, Neut % (Auto) 52.0, Lymph % (Auto) 34.5, Tama % (Auto) 9.5, Eos % (Auto) 2.3, Baso % (Auto) 1.1 H, Absolute Neuts (auto) 2.8, Absolute Lymphs (auto) 1.82, Nucleated RBC % 0, PT 12.6, INR 0.9, APTT 30.6, Sodium 138, Potassium 3.5, Chloride 104, Carbon Dioxide 31.0, Anion Gap 3 L, BUN 12, Creatinine 0.67, Estim Creat Clear Calc 59.73, Est GFR (MDRD) Af Amer 112, Est GFR (MDRD) Non-Af 93, BUN/Creatinine Ratio 17.8, Glucose 86, Calcium 8.6, Magnesium 1.9, Total Bilirubin 0.30, AST 25, ALT 21, Alkaline Phosphatase 99, Total Protein 6.4, Albumin 3.1 L, Globulin 3.3, Albumin/Globulin Ratio 0.9, Lipase 28, Ethyl Alcohol 103.0 10/09/23 21:10: Blood Type O NEGATIVE, Antibody Screen NEGATIVE 10/10/23 01:54: Hgb 14.6, Hct 43.5 10/10/23 07:05: WBC 5.4, RBC 4.32, Hgb 13.8, Hct 41.8, MCV 96.8, MCH 31.9, MCHC 33.0, RDW Std Deviation 48.8 H, RDW Coeff of Talon 13.6, Plt Count 263, MPV 10.2, Immature Gran % (Auto) 0.400, Neut % (Auto) 61.6, Lymph % (Auto) 23.8, Tama % (Auto) 10.9 H, Eos % (Auto) 2.2, Baso % (Auto) 1.1 H, Absolute Neuts (auto) 3.4, Absolute Lymphs (auto) 1.29, Nucleated RBC % 0, Sodium 137, Potassium 4.2, Chloride 107, Carbon Dioxide 26.0, Anion Gap 4 L, BUN 7, Creatinine 0.45 L, Estim Creat Clear Calc 52.96, Est GFR (MDRD) Af Amer 179, Est GFR (MDRD) Non-Af 148, BUN/Creatinine Ratio 15.5, Glucose 158 H, Calcium 8.6, Total Bilirubin 0.40, AST 40 H, ALT 22, Alkaline Phosphatase 115, Total Protein 6.3 L, Albumin 2.9 L, Globulin 3.4, Albumin/Globulin Ratio 0.9, TSH 0.73 Radiography Diagnostic Testing: Radiology Impression Abdomen Ultrasound 10/10/23 05:55 IMPRESSION: Heterogeneous liver from hepatic steatosis or other hepatocellular disease. No sonographic evidence of cholelithiasis. Small right renal cysts. Electronically Signed: Jerrica Bruner MD at 9:56 EST Reading Location ID and State: [facility] / [place] Tel , Service support , Rhythm Strip Rhythm Strip: Sinus Rhythm Rate: 80 Ectopy: None Physical Exam Const alert, oriented x3 and no apparent distress Constitutional Narrative: Elderly female, thin and somewhat cachectic appearing, otherwise sitting up comfortably in bed, conversing normally, no acute distress. General Appearance: cooperative and comfortable HEENT normocephalic, head/scalp atraumatic, hearing grossly normal bilaterally and nasal mucous membranes and turbinates normal Eyes PERRL, EOMs intact bilaterally and conjunctivae normal Neck full ROM, no lymphadenopathy and supple Lymph Lymphatic: no lymphadenopathy noted Chest inspection of chest normal Resp normal respiratory effort, normal air movement, no use of accessory muscles and clear to auscultation bilaterally Cardio regular rate, regular rhythm, no murmurs and peripheral pulses 2+ throughout GI normal to inspection, nondistended, normoactive bowel sounds, soft to palpation, non-tender and non-distended Back/Spine normal ROM Extremity normal to inspection, full ROM and no pedal edema Skin no rashes or lesions noted Neuro no focal motor deficits and no sensory deficits noted Speech: speech normal Psych mental status grossly normal Assessment & Plan Assessment/Plan (1) GI bleed: QUALIFIERS: GI bleed type/associated pathology: unspecified gastrointestinal hemorrhage type Qualified Code(s): K92.2 - Gastrointestinal hemorrhage, unspecified (2) Hematemesis: PLAN: Plan Patient is a 68-year-old female who presented to [facility] ED on 10/09/2023 with hematemesis. 1. Hematemesis due to upper GI bleed, improved Patient reported 3-4 episodes of vomiting dark blood on day of admission. Hemoglobin stable at baseline of 13-15. S/p EGD on 10/10 that showed Bridget-Dunaway tear that was injected and treated with heater probe, oozing duodenal ulcers with visible vessel that was injected and treated with heater probe, acute gastritis and esophageal mucosal changes consistent with long segment Chou's esophagus. Has remained hemodynamically stable during admission. ? Gastroenterology following. Okay for clear liquid diet post EGD. Will continue IV PPI twice daily, octreotide drip and ceftriaxone for now. 2. Chronic alcohol use disorder with hepatic steatosis ? Previous heavy drinker, reports drinking only 1-2 beers daily at this time. Alcohol level 103 on admit. Reported mild right upper quadrant pain on admission, right upper quadrant ultrasound showed hepatic steatosis with no other abnormalities. LFTs normal. [facility] protocol okay for now. 3. History of CAD ? On home Plavix, no history of recent stent placed, Plavix was held on admission. Will likely plan to restart on discharge. 4. COPD/asthma and current everyday smoker ? No shortness of breath, not in acute COPD exacerbation. Continue DuoNebs as needed. Nicotine patch ordered. Encouraged alcohol and smoking cessation. 5. Suspected moderate to severe malnutrition ? BMI 17 on admit. Very thin and somewhat cachectic appearing. Presumed secondary to poor p.o. intake with pulmonary cachexia. Nutrition consulted. 6. Debility ? PT/OT/case management consulted. Patient goes to outpatient physical therapy on daily basis, will likely be okay for home with outpatient physical therapy on discharge. DVT prophylaxis: SCDs CODE STATUS: DNR CCA, DNI Expected disposition: Home, 1 to 2 days Total clinical time spent by myself addressing the patient's medical issues, reviewing all the data, and collaborating with patient's care team: 35 minutes. Charges/Coding Visit Charges Inpatient E&M: 99811 Subs Hosp L2
--- NOTE | 2023-10-10 13:20 | OP.CCLET_ITS ---
10/10/2023 Nikkie Galaviz Re : Upper GI endoscopy procedure for Gunjan Loydr Martha This procedure was performed on October. My impressions and recommendations are as follows: Impressions : - Esophageal mucosal changes consistent with long-segment Chou's esophagus. Biopsied. - Bridget-Dunaway tear. Injected. Treated with a heater probe. - Acute gastritis. - Non-bleeding gastric ulcers with no stigmata of bleeding. - Oozing duodenal ulcers with a visible vessel. Injected. Treated with a heater probe. Recommendations : - [facility]. - Clear liquid diet. - Continue present medications. - Await pathology results. My findings are described in the full procedure note, which is enclosed. If I can be of further assistance, please feel free to contact me at . Sincerely, Greg Maguire, 10/10/2023 1:20:03 PM This report has been signed electronically.
--- NOTE | 2023-10-10 13:20 | OP.EGD_ITS ---
Patient Name: Gunjan Casillas Procedure Date: 10/10/2023 12:53 PM Date of : 1955 Age: 68 Procedure: Upper GI endoscopy Indications: Hematemesis Providers: Greg Maguire DO Medicines: Monitored Anesthesia Care Patient Profile: This is a 68 year old female. Refer to note in patient chart for documentation of history and physical. Patient has symptoms of acute vomiting. Complications: No immediate complications. Procedure: Pre-Anesthesia Assessment: - Prior to the procedure, a History and Physical was performed, and patient medications and allergies were reviewed. The patient is competent. The risks and benefits of the procedure and the sedation options and risks were discussed with the patient. All questions were answered and informed consent was obtained. Patient identification and proposed procedure were verified by the physician in the pre-procedure area. Mental Status Examination: alert and oriented. Airway Examination: normal oropharyngeal airway and neck mobility. Respiratory Examination: clear to auscultation. CV Examination: normal. Prophylactic Antibiotics: The patient does not require prophylactic antibiotics. Prior Anticoagulants: The patient has taken no anticoagulant or antiplatelet agents except for NSAID medication. ASA Grade Assessment: II - A patient with mild systemic disease. After reviewing the risks and benefits, the patient was deemed in satisfactory condition to undergo the procedure. The anesthesia plan was to use monitored anesthesia care (MAC). Immediately prior to administration of medications, the patient was re-assessed for adequacy to receive sedatives. The heart rate, respiratory rate, oxygen saturations, blood pressure, adequacy of pulmonary ventilation, and response to care were monitored throughout the procedure. The physical status of the patient was re-assessed after the procedure. After obtaining informed consent, the endoscope was passed under direct vision. Throughout the procedure, the patient's blood pressure, pulse, and oxygen saturations were monitored continuously. The Endoscope was introduced through the mouth, and advanced to the second part of duodenum. The upper GI endoscopy was accomplished without difficulty. The patient tolerated the procedure well. Scope In: 1:05:57 PM Scope Out: 1:15:11 PM Total Procedure Duration Time 0 hours 9 minutes 14 seconds Findings: There were esophageal mucosal changes consistent with long-segment Chou's esophagus present in the lower third of the esophagus. The maximum longitudinal extent of these mucosal changes was 5 cm in length. Mucosa was biopsied with a cold forceps for histology in a targeted manner at intervals of 1 cm in the lower third of the esophagus. One specimen bottle was sent to pathology. Verification of patient identification for the specimen was done. Estimated blood loss was minimal. A 6 mm bleeding Bridget-Dunaway tear with stigmata of recent bleeding was found. Area was successfully injected with 5 mL of a 0.1 mg/mL solution of epinephrine for drug delivery. Coagulation for hemostasis using heater probe was successful. Estimated blood loss was minimal. Diffuse severe inflammation characterized by congestion (edema), erosions, erythema, friability, granularity and linear erosions was found in the entire examined stomach. Two non-bleeding linear gastric ulcers with no stigmata of bleeding were found in the gastric body. The largest lesion was 3 mm in largest dimension. Three oozing linear duodenal ulcers with a visible vessel were found in the duodenal bulb. The largest lesion was 10 mm in largest dimension. Area was successfully injected with 10 mL of a 0.1 mg/mL solution of epinephrine for hemostasis. Coagulation for hemostasis using heater probe was successful. Estimated blood loss was minimal. Impression: - Esophageal mucosal changes consistent with long-segment Chou's esophagus. Biopsied. - Bridget-Dunaway tear. Injected. Treated with a heater probe. - Acute gastritis. - Non-bleeding gastric ulcers with no stigmata of bleeding. - Oozing duodenal ulcers with a visible vessel. Injected. Treated with a heater probe. Recommendation: - [facility] patient to [facility] for [facility] care. - Clear liquid diet. - Continue present medications. - Await pathology results. Procedure Code(s): --- Professional --- 09637, 59, Esophagogastroduodenoscopy, flexible, transoral; with control of bleeding, any method 36892, Esophagogastroduodenoscopy, flexible, transoral; with biopsy, single or multiple 31494, 59,51, Esophagogastroduodenoscopy, flexible, transoral; with directed submucosal injection(s), any substance CPT copyright 2021 [employer]. All rights reserved. The codes documented in this report are preliminary and upon buyer assistant review may be revised to meet current compliance requirements. Greg Maguire DO 10/10/2023 1:20:03 PM This report has been signed electronically. Number of Addenda: 0 Note Initiated On: 10/10/2023 12:53 PM
--- NOTE | 2023-10-10 15:04 | CASEMGMT ---
Addendum entered by Feli Roberts 10/11/23 09:20: SW did talk with patient to see if she has any concerns with her home, utilities, food, or abuse. Patient denies any concerns. Patient stated she is looking forward to going back to [place] Saturday. Feli HERNÁNDEZ Original Note: Patient triggered an SDOH, however patient's responses to the SDOH questions did not indicate any concerns. This must have been entered in error. Feli HERNÁNDEZ
[2023-10-10 16:15] LABS: Hematocrit 40.9 % (37-47); Hemoglobin 13.7 g/dL (12.0-15.0)
[2023-10-10 19:28] LABS: Hematocrit 42.3 % (37-47); Hemoglobin 13.8 g/dL (12.0-15.0)
[2023-10-10] MEDS: Pantoprazole Sodium 40 MG in 0.9% Normal Saline (100mL MB+) 100 ML 330 MG IV (20:05)
[2023-10-10] MEDS: Acetaminophen 325 MG Tablet 650 MG PO (22:16)
[2023-10-11 02:02] VITALS: BP 117/84; PULSE 81; RESP 18; TEMP 36.2; O2SAT 95
[2023-10-11] MEDS: Sucralfate 1 GM Tablet PO ×3 (02:37→10:07)
[2023-10-11] MEDS: oxyCODONE 5 MG Tablet PO (02:37)
[2023-10-11] MEDS: 0.9% Saline Lock 10 ML Syringe IV (02:38)
[2023-10-11 06:00] VITALS: BMI 17.6
[2023-10-11 06:03] VITALS: BP 129/90; PULSE 88; RESP 18; TEMP 36.4; O2SAT 95
[2023-10-11 08:27] VITALS: O2SAT 95
[2023-10-11] MEDS: Ondansetron 8 MG Tablet PO (10:07)
[2023-10-11] MEDS: DULoxetine Hcl 60 MG Capsule PO (10:07)
[2023-10-11] MEDS: Pantoprazole Sodium 40 MG Tablet PO (10:07)
--- NOTE | 2023-10-11 12:00 | PCM.DC ---
Discharge Instructions Diet Discharge Diet: No restrictions Activity Discharge Activity: No Restrictions Weight Bearing Status: Full weight bearing Follow Up Care Test Results: Test results from this visit will be discussed in further detail at your follow-up appointment, if applicable. Discharge Plan Admission Admit Date/Time: 10/09/23 23:33 Primary Reason for Your Visit: GI bleed Attending Provider: Bryce Colindres Primary Care Provider: Marcus Thomas NP Consulting Providers: Anuj Abad Instructions Additional Instructions / Restrictions: Stop taking Plavix and start taking new medications as noted below. Follow-up with your primary care doctor as needed. Follow-up with the GI doctor as discussed with him. Discharge Orders/Prescriptions Prescriptions: New sucralfate 1 gram Tablet 1 g PO 1HR_ACHS 30 Days Qty: 90 0RF pantoprazole 40 mg Tablet,Delayed Release (Dr/Ec) 40 mg PO BID 30 Days Qty: 60 0RF aspirin [Adult Low Dose Aspirin] 81 mg tablet,delayed release (DR/EC) 81 mg PO DAILY Qty: 30 0RF Continued duloxetine 60 mg capsule,delayed release(DR/EC) 60 mg PO DAILY Patient Comments: take 1 capsule by mouth once daily Discontinued clopidogrel 75 mg tablet 75 mg PO DAILY Patient Comments: take 1 tablet by mouth daily Referrals / Follow Up: Marcus Thomas NP, [employer] [Primary Care Provider] - Disposition Disposition (needs filled in before D/C Order can be placed): Home, Self Care
--- NOTE | 2023-10-11 12:02 | DS.PCM_ITS ---
Providers Date of Admission: 10/09/23 Primary Care Physician: ROZINA Galaviz Consultations 10/10/23 01:09 Consult: Gastroenterology Routine Consulting Provider: Mark [facility] Reason for Consult: GI bleed EMERGENT Consult: No MD Notified: Yes Date Notified: 10/09/23 Time Notified: 23:34 Method of Notification: Verbal Reason For Visit: HEMETESIS Diagnosis Discharge Diagnosis (1) GI bleed: Status: Acute Code(s): K92.2 - Gastrointestinal hemorrhage, unspecified Qualifiers: GI bleed type/associated pathology: unspecified gastrointestinal hemorrhage type Qualified Code(s): K92.2 - Gastrointestinal hemorrhage, unspecified (2) Hematemesis: Status: Acute Code(s): K92.0 - Hematemesis Plan Patient is a 68-year-old female who presented to [facility] ED on 10/09/2023 with hematemesis. 1. Hematemesis due to upper GI bleed, improved Patient reported 3-4 episodes of vomiting dark blood on day of admission. Hemoglobin stable at baseline of 13-15. S/p EGD on 10/10 that showed Bridget- Dunaway tear that was injected and treated with heater probe, oozing duodenal ulcers with visible vessel that was injected and treated with heater probe, acute gastritis and esophageal mucosal changes consistent with long segment Chou's esophagus. Has remained hemodynamically stable during admission. ? Gastroenterology following. Okay for clear liquid diet post EGD. Will continue IV PPI twice daily, octreotide drip and ceftriaxone for now. 2. Chronic alcohol use disorder with hepatic steatosis ? Previous heavy drinker, reports drinking only 1-2 beers daily at this time. Alcohol level 103 on admit. Reported mild right upper quadrant pain on admission, right upper quadrant ultrasound showed hepatic steatosis with no other abnormalities. LFTs normal. [facility] protocol okay for now. 3. History of CAD ? On home Plavix, no history of recent stent placed, Plavix was held on admission. Will likely plan to restart on discharge. 4. COPD/asthma and current everyday smoker ? No shortness of breath, not in acute COPD exacerbation. Continue DuoNebs as needed. Nicotine patch ordered. Encouraged alcohol and smoking cessation. 5. Suspected moderate to severe malnutrition ? BMI 17 on admit. Very thin and somewhat cachectic appearing. Presumed se condary to poor p.o. intake with pulmonary cachexia. Nutrition consulted. 6. Debility ? PT/OT/case management consulted. Patient goes to outpatient physical therapy on daily basis, will likely be okay for home with outpatient physical therapy on discharge. DVT prophylaxis: SCDs CODE STATUS: DNR CCA, DNI Expected disposition: Home, 1 to 2 days Total clinical time spent by myself addressing the patient's medical issues, reviewing all the data, and collaborating with patient's care team: 35 minutes. Medications at Discharge Home Medications duloxetine 60 mg capsule,delayed release 60 mg PO DAILY DEPRESSION/ANXIETY 09/10/23 aspirin 81 mg tablet,delayed release (Adult Low Dose Aspirin) 81 mg PO DAILY #30 tabs 10/11/23 pantoprazole 40 mg tablet,delayed release 40 mg PO BID 30 days #60 tabs 10/11/23 sucralfate 1 gram tablet 1 g PO 1HR_ACHS 30 days #90 tabs 10/11/23 Weight / BMI Weight Weight: 49.7 kg Body Mass Index (BMI) 17.6 ABG / Lab / Microbiology Data 10/10/23 19:17 10/10/23 07:05 Laboratory: Laboratory Results - last 24 hr 10/10/23 15:55: Hgb 13.7, Hct 40.9 10/10/23 19:17: Hgb 13.8, Hct 42.3 D/C Instructions Discharge Diet: No restrictions Weight Bearing Status: Full weight bearing Discharge Plan Admission Admit Date/Time: 10/09/23 23:33 Primary Reason for Your Visit: GI bleed Attending Provider: Bryce Colindres Primary Care Provider: Marcus Thomas NP Consulting Providers: Anuj Abad Instructions Additional Instructions / Restrictions: Stop taking Plavix and start taking new medications as noted below. Follow-up with your primary care doctor as needed. Follow-up with the GI doctor as discussed with him. Discharge Orders/Prescriptions Prescriptions: New sucralfate 1 gram Tablet 1 g PO 1HR_ACHS 30 Days Qty: 90 0RF pantoprazole 40 mg Tablet,Delayed Release (Dr/Ec) 40 mg PO BID 30 Days Qty: 60 0RF aspirin [Adult Low Dose Aspirin] 81 mg tablet,delayed release (DR/EC) 81 mg PO DAILY Qty: 30 0RF Continued duloxetine 60 mg capsule,delayed release(DR/EC) 60 mg PO DAILY Patient Comments: take 1 capsule by mouth once daily Discontinued clopidogrel 75 mg tablet 75 mg PO DAILY Patient Comments: take 1 tablet by mouth daily Referrals / Follow Up: Marcus Thomas NP, [employer] [Primary Care Provider] - Disposition Disposition (needs filled in before D/C Order can be placed): Home, Self Care
--- NOTE | 2023-10-11 12:02 | PCM.DC.SUM ---
Providers Date of Admission: 10/09/23 Date of Discharge: 10/11/23 Primary Care Physician: ROZINA Galaviz Consultations 10/10/23 01:09 Consult: Gastroenterology Routine Consulting Provider: Mark [facility] Reason for Consult: GI bleed EMERGENT Consult: No MD Notified: Yes Date Notified: 10/09/23 Time Notified: 23:34 Method of Notification: Verbal Reason For Visit: HEMETESIS Diagnosis Discharge Diagnosis (1) GI bleed: Status: Acute Code(s): K92.2 - Gastrointestinal hemorrhage, unspecified Qualifiers: GI bleed type/associated pathology: unspecified gastrointestinal hemorrhage type Qualified Code(s): K92.2 - Gastrointestinal hemorrhage, unspecified (2) Hematemesis: Status: Acute Code(s): K92.0 - Hematemesis Medications at Discharge Home Medications duloxetine 60 mg capsule,delayed release 60 mg PO DAILY DEPRESSION/ANXIETY 09/10/23 aspirin 81 mg tablet,delayed release (Adult Low Dose Aspirin) 81 mg PO DAILY #30 tabs 10/11/23 pantoprazole 40 mg tablet,delayed release 40 mg PO BID 30 days #60 tabs 10/11/23 sucralfate 1 gram tablet 1 g PO 1HR_ACHS 30 days #90 tabs 10/11/23 Hospital Course Operations None Procedures EGD, EKG and - (Abdominal ultrasound) Summary of Care Provided Minutes Spent on Discharge: 35 Hospital Course: Patient is a 68-year-old female who presented to [facility] ED on 10/09/2023 with hematemesis. Hospital course as noted below. Patient discharged home in stable condition on 10/11. 1. Hematemesis due to upper GI bleed, resolved Patient reported 3-4 episodes of vomiting dark blood on day of admission. Hemoglobin stable at baseline of 13-15. S/p EGD on 10/10 that showed Bridget-Dunaway tear that was injected and treated with heater probe, oozing duodenal ulcers with visible vessel that was injected and treated with heater probe, acute gastritis and esophageal mucosal changes consistent with long segment Chou's esophagus. ? Gastroenterology followed. Patient remained hemodynamically stable during hospitalization. Hemoglobin stable post EGD. Treated with IV PPI twice daily, octreotide drip and ceftriaxone during hospitalization, okay for only p.o. PPI twice daily on discharge. 2. Chronic alcohol use disorder with hepatic steatosis ? Previous heavy drinker, reports drinking only 1-2 beers daily at this time. Alcohol level 103 on admit. Reported mild right upper quadrant pain on admission, right upper quadrant ultrasound showed hepatic steatosis with no other abnormalities. LFTs normal. Encouraged alcohol cessation on discharge. 3. History of CAD ? On home Plavix, no history of recent stent placed, Plavix was held on admission. Discontinued Plavix, started baby aspirin on discharge. 4. COPD/asthma and current everyday smoker ? No shortness of breath, not in acute COPD exacerbation. Continue DuoNebs as needed. Nicotine patch provided during hospitalization. Encouraged smoking cessation. 5. Malnutrition ? BMI 17 on admit. Very thin and somewhat cachectic appearing. Presumed secondary to poor p.o. intake with pulmonary cachexia. Nutrition followed. 6. Mild debility ? PT/OT/case management followed. Patient notably attends adult daycare on a daily basis, uses walker at home and does fairly well for herself. Patient okay for discharge home without any home health care needs. Total clinical time spent by myself addressing the patient's discharge needs: 35 minutes. Physical Exam Const alert, oriented x3 and no apparent distress Constitutional Narrative: Elderly female, thin and somewhat cachectic appearing, otherwise sitting up comfortably in bed, conversing normally, no acute distress. General Appearance: cooperative and comfortable HEENT normocephalic, head/scalp atraumatic, hearing grossly normal bilaterally and nasal mucous membranes and turbinates normal Eyes PERRL, EOMs intact bilaterally and conjunctivae normal Neck full ROM, no lymphadenopathy and supple Lymph Lymphatic: no lymphadenopathy noted Chest inspection of chest normal Resp normal respiratory effort, normal air movement, no use of accessory muscles and clear to auscultation bilaterally Cardio regular rate, regular rhythm, no murmurs and peripheral pulses 2+ throughout GI normal to inspection, nondistended, normoactive bowel sounds, soft to palpation, non-tender and non-distended Back/Spine normal ROM Extremity normal to inspection, full ROM and no pedal edema Skin no rashes or lesions noted Neuro no focal motor deficits and no sensory deficits noted Speech: speech normal Psych mental status grossly normal Weight / BMI Weight Weight: 49.7 kg Body Mass Index (BMI) 17.6 ABG / Lab / Microbiology Data 10/10/23 19:17 10/10/23 07:05 Laboratory: Laboratory Results - last 24 hr 10/10/23 15:55: Hgb 13.7, Hct 40.9 10/10/23 19:17: Hgb 13.8, Hct 42.3 D/C Instructions Discharge Diet: No restrictions Weight Bearing Status: Full weight bearing Meaningful Use Info Meaningful Use Diagnoses (Choose all that apply): None applicable Discharge Plan Admission Admit Date/Time: 10/09/23 23:33 Primary Reason for Your Visit: GI bleed Attending Provider: Bryce Colindres Primary Care Provider: Marcus Thomas NP Consulting Providers: Anuj Abad Instructions Additional Instructions / Restrictions: Stop taking Plavix and start taking new medications as noted below. Follow-up with your primary care doctor as needed. Follow-up with the GI doctor as discussed with him. Discharge Orders/Prescriptions Prescriptions: New sucralfate 1 gram Tablet 1 g PO 1HR_ACHS 30 Days Qty: 90 0RF pantoprazole 40 mg Tablet,Delayed Release (Dr/Ec) 40 mg PO BID 30 Days Qty: 60 0RF aspirin [Adult Low Dose Aspirin] 81 mg tablet,delayed release (DR/EC) 81 mg PO DAILY Qty: 30 0RF Continued duloxetine 60 mg capsule,delayed release(DR/EC) 60 mg PO DAILY Patient Comments: take 1 capsule by mouth once daily Discontinued clopidogrel 75 mg tablet 75 mg PO DAILY Patient Comments: take 1 tablet by mouth daily Referrals / Follow Up: Marcus Thomas NURSE RESEARCH, NURSE RESEARCH-C [Primary Care Provider] - Disposition Disposition (needs filled in before D/C Order can be placed): Home, Self Care Charges/Coding Visit Charges Inpatient E&M: 97855 Disch Hosp >30min
--- NOTE | 2023-10-11 12:07 | CASEMGMT ---
RN CM into pt room, pt denies any homegoing needs. No PT recommended after eval. Pt states she feels safe to dc and is ready.
--- NOTE | 2023-10-11 12:23 | PHA.DC.MC.R ---
Pharmacy [facility] has performed discharge medication reconciliation and counseling for this patient. The patient's discharge medication list was reviewed for discrepancies and discrepancies were resolved. The patient was counseled on the following discharge medications and changes in medications for homegoing were reviewed. The Reason for Use, instructions for use, and potential side effects were reviewed for all new medications. The patient's questions regarding all of their medications were answered. 1. Aspirin 81 mg PO daily 2.Pantoprazole 40 mg PO BID 3. Sucralfate 1 gram PO QID 1 hr_ACHS The patient was able to verbally demonstrate an understanding of their discharge medications. Medications at Discharge Home Medications duloxetine 60 mg capsule,delayed release 60 mg PO DAILY DEPRESSION/ANXIETY 09/10/23 aspirin 81 mg tablet,delayed release (Adult Low Dose Aspirin) 81 mg PO DAILY #30 tabs 10/11/23 pantoprazole 40 mg tablet,delayed release 40 mg PO BID 30 days #60 tabs 10/11/23 sucralfate 1 gram tablet 1 g PO 1HR_ACHS 30 days #90 tabs 10/11/23
--- NOTE | 2023-10-11 12:35 | CASEMGMT ---
[facility]. Radha's phone number is [phone]. YOGI called Radha and left her a voice mail letting her know patient is being discharged home today with no additional services. Feli HERNÁNDEZ
== END 2023-10-11 13:35 | disposition home or self-care (01) | DRG 370 ==
LOC: ED 23:26 → PCU 10-10 02:49
PROVIDERS: Internal Medicine Gastroenterology; Admitting Provider Internal Medicine; Emergency Provider Emergency Medicine; PCP Nurse Practitioner Primary Care; Visit Provider Hospitalist
PROC: 0DJ08ZZ Inspection of Upper Intestinal Tract, Via Natural or Artificial Opening Endoscopic (ICD-10-PCS; CPT 43235; principal; 2023-10-10 12:25)
DX: K22.6 Gastro-esophageal laceration-hemorrhage syndrome (principal); K29.01 Acute gastritis with bleeding; K70.10 Alcoholic hepatitis without ascites; K76.0 Fatty (change of) liver, not elsewhere classified; J44.9 Chronic obstructive pulmonary disease, unspecified; F17.210 Nicotine dependence, cigarettes, uncomplicated; I25.10 Atherosclerotic heart disease of native coronary artery without angina pectoris; K22.70 Barrett's esophagus without dysplasia; F10.10 Alcohol abuse, uncomplicated; K26.4 Chronic or unspecified duodenal ulcer with hemorrhage; Y90.5 Blood alcohol level of 100-119 mg/100 ml; R53.81 Other malaise; Z66 Do not resuscitate; Z63.79 Other stressful life events affecting family and household; Z79.02 Long term (current) use of antithrombotics/antiplatelets; Z79.899 Other long term (current) drug therapy
CPT/HCPCS: 36415; 76705; 80053; 80320; 83690; 83735; 84443; 85014; 85018; 85025; 85610; 85730; 86850; 86900; 86901; 88305; 88313; 88341; 88342; 93005; 94668; 97161; 97802; 99284; J7120; A4216; G0480; J2354; J2405; J3490

== ENCOUNTER 2023-10-11 19:36 | Emergency (ER) | payer MEDICARE, MEDICAID, SELFPAY ==
[2023-10-11 19:38] VITALS: BP 89/67; PULSE 90; RESP 22; TEMP 36.6; O2SAT 100; BMI 22.6
--- NOTE | 2023-10-11 19:59 | EDS_ITS ---
HPI History of Present Illness Chief Complaint: Fall Informant: patient Onset/Context/Timing Onset: Today and Hours (4) Context: Sudden Onset Timing: Continuous Quality: Heaviness Location: Substernal Worsened by: Nothing Relieved by: Nothing Narrative Narrative: Patient presents with chest pain that began approximately 4 hours prior to arrival. Patient describes it as a heaviness. Patient states it is over the substernal area. Patient states nothing makes it better nothing makes it worse. Patient admits to some shortness of breath and cough with it. Patient admits to a low-grade fever of 100. Patient admits to some pain in her neck or back. Patient also admits to a mild headache. Patient denies any nausea or vomiting. Patient denies any melena, hematemesis, coffee-ground emesis, or hematochezia. Patient denies any urinary complaints. [facility] Medical History Asthma CAD (coronary artery disease) COPD (chronic obstructive pulmonary disease) Deficient knowledge of percutaneous coronary intervention (PCI) and stenting ETOH abuse Tobacco abuse Home Medications duloxetine 60 mg capsule,delayed release 60 mg PO DAILY DEPRESSION/ANXIETY 09/10/23 [History Last Taken Unknown] aspirin 81 mg tablet,delayed release (Adult Low Dose Aspirin) 81 mg PO DAILY #30 tabs 10/11/23 [Rx Last Taken Unknown] pantoprazole 40 mg tablet,delayed release 40 mg PO BID 30 days #60 tabs 10/11/23 [Rx Last Taken Unknown] sucralfate 1 gram tablet 1 g PO 1HR_ACHS 30 days #90 tabs 10/11/23 [Rx Last Taken Unknown] Allergy/AdvReac Type Severity Reaction Status Date / Time No Known Allergies Allergy Verified 10/11/23 19:42 Surgical History History of hysterectomy Social History Smoking Status: Current every day smoker tobacco type: cigarettes ROS ROS ED Constitutional Constitutional ED: Reports fever(s); Denies chills Eyes Eyes: Denies blurry vision or change in vision ENT ENT ED: Denies rhinorrhea or sore throat Cardiovascular Cardiovascular: Reports chest pain; Denies palpitations Respiratory/Chest Respiratory/Chest: Reports cough and dyspnea Gastrointestinal Gastrointestinal: Denies nausea or vomiting Genitourinary Genitourinary ED: Denies dysuria or hematuria Musculoskeletal Musculoskeletal: Reports back pain and neck pain Integumentary Denies abscess or rash Neurologic Neurologic: Reports headache(s); Denies weakness Allergic/Immunologic Allergic/Immunologic ED: Denies mouth swelling or urticaria EXAM Physical Exam Const Vital Signs: 10/11/23 19:38 10/11/23 20:17 Temperature 97.9 F Temperature Source Temporal Pulse Rate 90 Respiratory Rate 22 H Respiratory Effort Normal Respiratory Depth Normal Respiratory Pattern Normal Blood Pressure 89/67 L Blood Pressure Mean 74 Pulse Ox 100 Oxygen Delivery Method Room Air Positive well nourished and well developed General Appearance ED: well developed and NAD HEENT Reports moist mucous membranes Neck supple and no JVD Resp normal respiratory effort and clear to auscultation bilaterally Cardio regular rate and regular rhythm GI non-distended Palpation: soft and tender epigastric, LUQ and RUQ; Negative for guarding or rebound tenderness present Neuro oriented x3, CN's II-XII intact bilaterally and no sensory deficits noted Sensorium / Orientation: alert Motor Exam: strength 5/5 throughout MDM MDM MDM Narrative Medical decision making narrative: Differential diagnosis includes cardiac dysrhythmia, cardiac ischemia, pneumonia, pneumothorax, electrolyte abnormality, GERD, and anxiety. EKG will be obtained to assess for cardiac dysrhythmia and cardiac ischemia. Chest x-ray will be obtained to assess for pneumonia and pneumothorax. CBC will be obtained to assess for leukocytosis and anemia. Basic metabolic profile will be obtained to assess for electrolyte abnormality and renal function. Urinalysis will be obtained to assess for urinary tract infection and hematuria. High-sensitivity troponin will be obtained to assess for cardiac ischemia. Serum alcohol level will be obtained to assess for alcohol intoxication. Urine drug screen will be obtained to assess for substance abuse. Lab Data Attestation: I reviewed the patient's lab results. Lab results narrative: CBC was reviewed and was within normal limits. Basic metabolic profile was reviewed and was within normal limits. High-sensitivity troponin was reviewed and was normal at 15. Urinalysis was reviewed. There is no evidence of urinary tract infection or hematuria. Serum alcohol level was reviewed and was elevated at 292. Labs: Laboratory Results - last 24 hr 10/11/23 10/11/23 20:08 20:20 WBC 8.2 RBC 4.36 Hgb 14.2 Hct 41.9 MCV 96.1 MCH 32.6 H MCHC 33.9 RDW Std Deviation 46.5 H RDW Coeff of Talon 13.1 Plt Count 220 MPV 10.3 Immature Gran % (Auto) 0.400 Neut % (Auto) 55.5 Lymph % (Auto) 35.4 [place] % (Auto) 7.5 Eos % (Auto) 0.7 Baso % (Auto) 0.5 Absolute Neuts (auto) 4.5 Absolute Lymphs (auto) 2.89 Nucleated RBC % 0 Differential Comment SCANNED Sodium 128 L Potassium 3.5 Chloride 93 L Carbon Dioxide 28.0 Anion Gap 7 BUN 6 L Creatinine 0.52 L Estim Creat Clear Calc 52.20 Est GFR (MDRD) Af Amer 153 Est GFR (MDRD) Non-Af 126 BUN/Creatinine Ratio 11.6 Glucose 108 H Calcium 8.6 Troponin I High Sens 15 Urine Color Yellow Urine Clarity Clear Urine pH 6.5 Ur Specific [place] 1.010 Urine Protein Negative Urine Glucose (UA) Normal Urine Ketones Negative Urine Occult Blood Negative Urine Nitrite Negative Urine Bilirubin Negative Urine Urobilinogen Normal Ur Leukocyte Esterase Negative Urine RBC 0 SEEN Urine WBC 0 SEEN Ur Squamous Epith Cells 0 SEEN Urine Bacteria 0 SEEN Urine Mucus 0 SEEN Urine Opiates Screen NEGATIVE Urine Methadone Screen NEGATIVE Ur Barbiturates Screen NEGATIVE Ur Phencyclidine Scrn NEGATIVE Ur Amphetamines Screen NEGATIVE MDMA (Ecstasy) Screen NEGATIVE U Benzodiazepines Scrn NEGATIVE Urine Cocaine Screen NEGATIVE U Cannabinoids Screen NEGATIVE Ur Drug Screen Comment Ethyl Alcohol 292.0 Radiography Diagnostic Testing: Clinical Impression(s) from Imaging Studies Chest X-Ray 10/11/23 20:06 IMPRESSION: No acute cardiopulmonary disease. Electronically Signed: Edith Marte MD at 20:57 EST , Portable 1 view chest x-ray was obtained. On my independent interpretation, lung ferreira are clear. There is normal cardiac silhouette. Bony thorax is normal. There is no acute process noted. Radiologist also interpreted the x- ray and agrees. EKG Initial EKG: Attestation: I personally reviewed and interpreted this EKG as follows: Interpretation: Sinus Rhythm and Non-Specific ST Changes Comments: EKG was obtained. On my independent interpretation, it showed a normal sinus rhythm with a rate of 84. NV interval, QRS interval, and QTc intervals were all normal. [place] was normal. There are nonspecific ST-T wave changes. Prior EKG tracings: available for review Prior: Unchanged (09/10/2023) Treatment and Re-Evaluation :: Patient was given IV fluids. Patient was advised of her findings. Patient has a HEART score of 3. Patient was advised that this is low risk for acute cardiac event. Patient was instructed to follow-up with her primary care physician in 5 to 7 days. Patient was instructed return if worse in any way. Patient was instructed to stop drinking alcohol. Patient understood and was agreeable with the plan. All questions were answered. Discharge Plan Triage Chief Complaint: Fall ED Provider: Alan Medrano Dx/Rx/DC Orders Clinical Impression: Alcohol intoxication, Chest pain of uncertain etiology Instructions: ED Chest Pain, Uncertain Cause, ED Alcohol Intoxication Prescriptions: No Action duloxetine 60 mg capsule,delayed release(DR/EC) 60 mg PO DAILY Patient Comments: take 1 capsule by mouth once daily sucralfate 1 gram Tablet 1 g PO 1HR_ACHS 30 Days Qty: 90 0RF pantoprazole 40 mg Tablet,Delayed Release (Dr/Ec) 40 mg PO BID 30 Days Qty: 60 0RF aspirin [Adult Low Dose Aspirin] 81 mg tablet,delayed release (DR/EC) 81 mg PO DAILY Qty: 30 0RF Primary Care Provider: Marcus Thomas NP Referrals: Marcus Thomas NP, INFORMATICS SPECIALIST-C [Primary Care Provider] - 3-5 Days Disposition Disposition: Home, Self Care
--- NOTE | 2023-10-11 20:06 | RAD_ITS ---
STUDY: X-RAY CHEST REASON FOR EXAM: Female, 68 years old. Chest pain TECHNIQUE: Single AP portable view of the chest. COMPARISON: 09/10/2023. FINDINGS: There is a calcification projecting over the right lower lung measuring 1.6 cm. Otherwise lung ferreira are clear. There is no demonstrated pleural abnormality. Normal size heart. There are right-sided hilar calcified lymph nodes, largest measuring 1.6 cm. There is a calcified lymph node within the mediastinum measuring approximately 3.2 cm. Normal visualized pulmonary arteries. There is atherosclerotic calcification of the aortic arch with tortuosity. There are diffuse degenerative changes of the visualized thoracic spine. Normal visualized ribs, clavicles, and shoulders. There is no demonstrated abnormality of the visualized soft tissue structures of the upper abdomen. RAD/Chest 1 View (Portable) IMPRESSION: No acute cardiopulmonary disease. Electronically Signed: Edith Marte MD at 20:57 EST ,
[2023-10-11] MEDS: 0.9% Normal Saline (1000mL) 1,000 ML 1000 ML IV (20:13)
--- OUTSIDE RECORDS SUMMARY | 2023-10-11 20:17 | XMS RPT_ITS | CCD ---
Author Name Unknown Address [address] [place] [address] Organization [facility] Care Team Providers Care Mixing Technician Name Role Phone Erin Rodriguez Unavailable Unavailable JENNIFER MOLDER FLOOR-SYSTEMS SOFTWARE SPECIALIST, ERIN Primary Care Physician ([phone]) Elizabeth Church PT Unavailable Unavailable Juni Zamora Primary Care Provider Juni Zamora Primary Care Provider JENNIFER MOLDER FLOOR-SYSTEMS SOFTWARE SPECIALIST, ERIN Primary Care Physician ([phone]) Jennifer MOLDER FLOOR.SYSTEMS SOFTWARE SPECIALIST, Erin Primary Care Provider [phone] DAYAMITES MOLDER FLOOR-SYSTEMS SOFTWARE SPECIALIST, ERIN Primary Care Unavailelizabeth GALLAGHER MD, PEBBLES W Attending Unavailable JIGNESH SANDHU, DR PERCY Mas Attending Guille RODRIGUEZ MOLDER FLOOR-SYSTEMS SOFTWARE SPECIALIST, ERIN Primary Care Unavailabl e BALTES MOLDER FLOOR-SYSTEMS SOFTWARE SPECIALIST, ERIN Primary Care UnavailJUNI Rodriguez MD Attending Unavailable LENCHO KIMBROUGH MD Attending Unavailable BALTES MOLDER FLOOR-SYSTEMS SOFTWARE SPECIALIST, ERIN Primary Care Unavailabl e BALTES MOLDER FLOOR-SYSTEMS SOFTWARE SPECIALIST, ERIN Attending Unavailabl e BALTES MOLDER FLOOR-SYSTEMS SOFTWARE SPECIALIST, ERIN Primary Care Unavailabl e BALTES MOLDER FLOOR-SYSTEMS SOFTWARE SPECIALIST, ERIN Attending Unavailabl e BALTES MOLDER FLOOR-SYSTEMS SOFTWARE SPECIALIST, ERIN Primary Care Unavailabl e BALTES MOLDER FLOOR-SYSTEMS SOFTWARE SPECIALIST, ERIN Primary Care Unavailabl e BALTES MOLDER FLOOR-SYSTEMS SOFTWARE SPECIALIST, ERIN Attending Unavailabl e Baltes LIGIA, [place] Primary Care Provider [phone] SORAIDA GODOY Admitting Unavailable SORAIDA GODOY Attending [...] Ibuprofen; Translations: [ibuprofen] Drug Allergy 2 Unknown [facility] Work Phone: (20 sources) Naproxen; Translations: [Naproxen] Drug Allergy 2 Unknown [facility] Work Phone: (20 sources) Acetaminophen / traMADol; Translations: [acetaminophen-tr amadol] Drug Allergy 2 [facility] (1 source) Ibuprofen; Translations: [IBUPROFEN] Drug Allergy 2 [facility] (1 source) TRAMADOL-ACETAMIN OPHEN; Translations: [TRAMADOL-ACETAMI NOPHEN] Propensity to adverse reactions to drug (disorder) 2 [facility] Medications Current Medications Medication Drug [...] sources) Taking high risk medication; Translations: [Other exterminator helper termite (current) drug therapy] Episodic Other connective tissue [...] aftercare (20 sources) Patient encounter status; Translations: [retirement (current) use of opiate analgesic] Onset: 09-05-2016 04-02-2023 Episodic Other aftercare (1 source) Other exterminator helper termite (current) drug therapy; Translations: [High risk medication [...] 51.62 kg Jaydon Ritchie MD Work Phone: [facility] 10-03-2023 09:43-0500 Diastolic blood pressure 75 mm[Hg] Jaydon Ritchie MD Work Phone: [facility] 10-03-2023 09:43-0500 Heart rate 56 /min Jaydon Ritchie MD Work Phone: [facility] 10-03-2023 09:43-0500 SaO2% (BldA) [Mass fraction] 87 % Jaydon Ritchie MD Work Phone: [facility] 10-03-2023 09:43-0500 Systolic blood pressure 101 mm[Hg] Jaydon Ritchie MD Work Phone: [facility] 07-01-2023 08:38-0400 Body height 173.7 cm Soraida Godoy DO Work Phone: [facility] 07-01-2023 08:38-0400 Body weight 48.53 kg Soraida Godoy DO Work Phone: [facility] 07-01-2023 08:38-0400 Diastolic blood pressure 69 mm[Hg] Soraida Godoy DO Work Phone: [facility] 07-01-2023 08:38-0400 Heart rate 118 /min Soraida Godoy DO Work Phone: [facility] 07-01-2023 08:38-0400 Respiratory rate 19 /min Soraida Godoy DO Work Phone: [facility] 07-01-2023 08:38-0400 SaO2% (BldA) [Mass fraction] 98 % Soraida Godoy DO Work Phone: [facility] 07-01-2023 08:38-0400 Systolic blood pressure 101 mm[Hg] Soraida Godoy DO Work Phone: [facility] 06-17-2023 15:13-0400 Diastolic Blood Pressure Non-Invasive 74 1 JUNI JULIO MD [facility] 06-17-2023 15:13-0400 Heart rate 93 /min JUNI JULIO MD [facility] 06-17-2023 15:13-0400 Respiratory rate 16 /min JUNI JULIO MD [facility] 06-17-2023 15:13-0400 Systolic Blood Pressure Non-Invasive 107 1 JUNI JULIO MD [facility] 06-17-2023 14:45-0400 Diastolic Blood Pressure Non-Invasive 83 1 JUNI JULIO MD [facility] 06-17-2023 14:45-0400 Heart rate 97 /min JUNI JULIO MD [facility] 06-17-2023 14:45-0400 Respiratory rate 16 /min JUNI JULIO MD [facility] 06-17-2023 14:45-0400 Systolic Blood Pressure Non-Invasive 128 1 JUNI JULIO MD [facility] 06-17-2023 14:20-0400 Diastolic Blood Pressure Non-Invasive 61 1 JUNI JULIO MD [facility] 06-17-2023 14:20-0400 Heart rate 97 /min JUNI JULIO MD [facility] 06-17-2023 14:20-0400 Respiratory rate 16 /min JUNI JULIO MD [facility] 06-17-2023 14:20-0400 Systolic Blood Pressure Non-Invasive 97 1 JUNI JULIO MD [facility] 06-17-2023 12:01-0400 Heart rate 81 /min JUNI JULIO MD [facility] 06-17-2023 12:01-0400 Mean blood pressure 86 mm[Hg] JUNI JULIO MD [facility] 06-17-2023 11:55-0400 Body temperature 97.7 [degF] JUNI JULIO MD [facility] 06-17-2023 11:55-0400 Heart rate 86 /min JUNI JULIO MD [facility] 06-17-2023 11:55-0400 Mean blood pressure 81 mm[Hg] JUNI JULIO MD [facility] 06-17-2023 11:47-0400 Heart rate 85 /min JUNI JULIO MD [facility] 06-17-2023 11:47-0400 Mean blood pressure 75 mm[Hg] JUNI JULIO MD [facility] 06-17-2023 11:30-0400 Body temperature 97.7 [degF] JUNI JULIO MD [facility] 06-17-2023 11:10-0400 Blood Pressure Cuff Size JUNI JULIO MD [facility] 06-17-2023 11:10-0400 Blood Pressure Location JUNI JULIO MD [facility] 06-17-2023 11:10-0400 Blood Pressure Method JUNI JULIO MD [facility] 06-17-2023 11:10-0400 Body temperature 97.7 [degF] JUNI JULIO MD [facility] 06-17-2023 11:10-0400 Reason For Taking VItal Signs JUNI JULIO MD [facility] 06-17-2023 08:33-0400 Body height 165.1 cm JUNI JULIO MD [facility] 06-17-2023 08:33-0400 Body weight 16.69 kg/m2 JUNI JULIO MD [facility] 06-17-2023 08:33-0400 Body weight 45.5 kg JUNI JULIO MD [facility] 05-22-2023 02:46-0400 Body temperature 98.24 [degF] LENCHO KIMBROUGH MD [facility] 05-22-2023 02:46-0400 Diastolic Blood Pressure Non-Invasive 68 1 LENCHO KIMBROUGH MD [facility] 05-22-2023 02:46-0400 Heart rate 69 /min LENCHO KIMBROUGH MD [facility] 05-22-2023 02:46-0400 Respiratory rate 18 /min LENCHO KIMBROUGH MD [facility] 05-22-2023 02:46-0400 Systolic Blood Pressure Non-Invasive 134 1 LENCHO KIMBROUGH MD [facility] 05-22-2023 01:17-0400 Body height 167.6 cm LENCHO KIMBROUGH MD [facility] 05-22-2023 01:17-0400 Body temperature 97.7 [degF] LENCHO KIMBROUGH MD [facility] 05-22-2023 01:17-0400 Body weight 56.9 kg LENCHO KIMBROUGH MD [facility] 05-22-2023 01:17-0400 Diastolic Blood Pressure Non-Invasive 67 1 LENCHO KIMBROUGH MD [facility] 05-22-2023 01:17-0400 Heart rate 75 /min LENCHO KIMBROUGH MD [facility] 05-22-2023 01:17-0400 Respiratory rate 20 /min LENCHO KIMBROUGH MD [facility] 05-22-2023 01:17-0400 Systolic Blood Pressure Non-Invasive 125 1 LENCHO KIMBROUGH MD [facility] 04-17-2023 09:52-0400 Diastolic blood pressure 73 mm[Hg] Soraida Godoy DO Work Phone: [facility] 04-17-2023 09:52-0400 Heart rate 98 /min Soraida Godoy DO Work Phone: [facility] 04-17-2023 09:52-0400 Respiratory rate 18 /min Soraida Godoy DO Work Phone: [facility] 04-17-2023 09:52-0400 SaO2% (BldA) [Mass fraction] 99 % Soraida Godoy DO Work Phone: [facility] 04-17-2023 09:52-0400 Systolic blood pressure 127 mm[Hg] Soraida Godoy DO Work Phone: [facility] 04-17-2023 09:10-0400 Body temperature 98.71 [degF] Soraida Godoy DO Work Phone: [facility] 04-02-2023 10:11-0400 Body height 170.7 cm Soraida Godoy DO Work Phone: [facility] 04-02-2023 10:11-0400 Body weight 51.71 kg Soraida Godoy DO Work Phone: [facility] 04-02-2023 10:11-0400 Diastolic blood pressure 75 mm[Hg] Soraida Godoy DO Work Phone: [facility] 04-02-2023 10:11-0400 Heart rate 86 /min Soraida Godoy DO Work Phone: [facility] 04-02-2023 10:11-0400 Respiratory rate 19 /min Soraida Godoy DO Work Phone: [facility] 04-02-2023 10:11-0400 SaO2% (BldA) [Mass fraction] 98 % Soraida Godoy DO Work Phone: [facility] 04-02-2023 10:11-0400 Systolic blood pressure 124 mm[Hg] Soraida Godoy DO Work Phone: [facility] 11-12-2022 09:25-0400 Diastolic blood pressure 90 mm[Hg] Matilde Saint Augustine MOLDER FLOOR.HORTICULTURE INSTRUCTOR Work Phone: [facility] 11-12-2022 09:25-0400 Heart rate 80 /min Matilde [place] MOLDER FLOOR.HORTICULTURE INSTRUCTOR Work Phone: [facility] 11-12-2022 09:25-0400 Respiratory rate 16 /min Matilde Luis MOLDER FLOOR.HORTICULTURE INSTRUCTOR Work Phone: [facility] 11-12-2022 09:25-0400 SaO2% (BldA) [Mass fraction] 95 % Matilde [place] Augustine MOLDER FLOOR.HORTICULTURE INSTRUCTOR Work Phone: [facility] 11-12-2022 09:25-0400 Systolic blood pressure 143 mm[Hg] Matilde [place] Augustine MOLDER FLOOR.HORTICULTURE INSTRUCTOR Work Phone: [facility] 08-14-2022 10:55-0500 Diastolic blood pressure 72 mm[Hg] Matilde Luis MOLDER FLOOR.HORTICULTURE INSTRUCTOR Work Phone: [facility] 08-14-2022 10:55-0500 Heart rate 96 /min Matilde [place] MOLDER FLOOR.HORTICULTURE INSTRUCTOR Work Phone: [facility] 08-14-2022 10:55-0500 SaO2% (BldA) [Mass fraction] 98 % Matilde Luis MOLDER FLOOR.HORTICULTURE INSTRUCTOR Work Phone: [facility] 08-14-2022 10:55-0500 Systolic blood pressure 121 mm[Hg] Matilde Luis MOLDER FLOOR.HORTICULTURE INSTRUCTOR Work Phone: [facility] 03-20-2022 09:38-0400 Diastolic blood pressure 97 mm[Hg] Matilde Luis MOLDER FLOOR.HORTICULTURE INSTRUCTOR Work Phone: [facility] 03-20-2022 09:38-0400 Heart rate 78 /min Matilde Luis MOLDER FLOOR.HORTICULTURE INSTRUCTOR Work Phone: [facility] 03-20-2022 09:38-0400 SaO2% (BldA) [Mass fraction] 96 % Matilde Luis MOLDER FLOOR.HORTICULTURE INSTRUCTOR Work Phone: [facility] 03-20-2022 09:38-0400 Systolic blood pressure 136 mm[Hg] Matilde Luis MOLDER FLOOR.HORTICULTURE INSTRUCTOR Work Phone: [facility] Encounters Encounter Date Encounter Type [...] with pelvis minimum 5 views Matilde Hayward HORTICULTURE INSTRUCTOR Work Phone: Start: 10-28-2019 Esophagogastroduodenoscopy ERIN RODRIGUEZ MOLDER FLOOR-SYSTEMS SOFTWARE SPECIALIST Start: 11-17-2018 Entitic (property) (qualifier value) ERIN RODRIGUEZ MOLDER FLOOR-SYSTEMS SOFTWARE SPECIALIST Plan of Treatment Date Care Activity Detail Author Start: 04-15-2032 Urine microalbumin profile DTaP,Tdap,Td Vaccine (2 - Td or Tdap) [facility] Start: 10-03-2024 BP Controlled (<130/80) BP Controlled (<130/80) [facility] in Start: 07-01-2024 BP Controlled (<130/80) BP Controlled (<130/80) [facility] Start: 04-02-2024 BP CONTROLLED (<130/80) BP CONTROLLED (<130/80) [facility] Start: 09-02-2023 Advance Directive Discussion Advance Directive Discussion [facility] Start: 09-02-2023 Depression Assessment Depression Assessment [facility] Start: 08-14-2023 BP CONTROLLED (<130/80) BP CONTROLLED (<130/80) [facility] in Start: 07-01-2023 End: 09-30-2023 TOXASSURE FLEX 23, URINE TOXASSURE FLEX 23, URINE Lab Routine Chronic pain syndrome Osteoarthritis of both hips, unspecified osteoarthritis type Greater trochanteric bursitis of both hips Expected: 07/01/2023, Expires: 09/30/[address] [facility] Work Phone: Immunizations Immunization Date Immunization Notes Care Provider Jackie keys 06-25-2023 influenza, high dose seasonal, preservative-free; Translations: [Fluad Quadrivalent PF ] ERIN RODRIGUEZ MOLDER FLOOR-SYSTEMS SOFTWARE SPECIALIST [facility] 04-15-2022 influenza virus vaccine, unspecified formulation ERIN RODRIGUEZ MOLDER FLOOR-SYSTEMS SOFTWARE SPECIALIST [facility] 04-15-2022 tetanus toxoid, reduced diphtheria toxoid, and acellular pertussis vaccine, adsorbed ERIN RODRIGUEZ MOLDER FLOOR-SYSTEMS SOFTWARE SPECIALIST [facility] 01-31-2022 pneumococcal (PCV20) vaccine, 20 valent (PREVNAR 20) Matilde Hayward APRN.HORTICULTURE INSTRUCTOR Work Phone: [facility] 01-31-2022 pneumococcal 20-neo nt conjugate [facility] MOLDER FLOOR-SYSTEMS SOFTWARE SPECIALIST [facility] 10-01-2021 SARS-CoV-2 mRNA (qudicdctnlj-erue-aiwe ose) vaccine [facility] MOLDER FLOOR-SYSTEMS SOFTWARE SPECIALIST [facility] 08-07-2021 influenza virus vaccine, unspecified formulation ERIN RODRIGUEZ MOLDER FLOOR-SYSTEMS SOFTWARE SPECIALIST [facility] 08-07-2021 influenza, injectabl e, quadrivalent, contains preservative Soraida Godoy Work Phone: [facility] 08-07-2021 influenza, injectabl e, quadrivalent, preservative free [facility] Work Phone: [facility] 02-09-2021 SARS-CoV-2 mRNA (tozinameran) vaccine [facility] MOLDER FLOOR-SYSTEMS SOFTWARE SPECIALIST [facility] Payers Date Payer Category Payer Private Health Insurance [id number] 2023 Unknown [id number] 2022 Unknown [id number] 2022 Unknown [id number] 2022 Unknown [id number] 2022 Medicare [id number] 2021 Medicaid [id number] 2021 Unknown [id number] 2014 Medicaid [place] [employer] [place] [employer] [id number] 2014-Present [phone] [address] [place] [address] Medicaid [id number] 1957 Unknown [id number] 27 1957 Unknown [id number] 27 1957 Unknown [id number] 27 1957 Unknown [id number] 27 1957 Unknown [id number] 27 1957 Unknown [id number] 27 1957 Unknown [id number] 27 Social History Date Type Detail Facility Start: 06-29-2020 Light tobacco smoker (finding) [facility] Sex Assigned At Female [facility] Start: 05-11-2015 End: 07-01-2023 Tobacco smoking status NHIS Smokes tobacco daily [facility] Work Phone: Start: 05-11-2015 End: 07-01-2023 Tobacco use and exposure Smokeless tobacco non-user [facility] Work Phone: Start: 09-19-2015 End: 04-02-2023 Alcohol intake Current drinker of alcohol (finding) [facility] Start: 1955 End: 1955 Sex Assigned At Not on file [facility] History of tobacco use Cigarette Smoker C [facility] Work Phone: Start: 05-11-2015 End: 10-03-2023 Cigarettes smoked current (pack per day) - Reported 0.5 [facility] Start: 03-20-2022 History SDOH Alcohol Comment on holidays [facility] Start: 03-10-2022 End: 03-20-2022 Exposure to SARS-CoV-2 (event) Not sure [facility] Start: 04-02-2023 End: 10-03-2023 Tobacco use panel [facility] National Score (1-100), lower number is lower risk 74 [facility] Start: 04-02-2023 Tobacco Comment Started age 16 yo [facility] Start: 06-14-2023 Tobacco smoking status Heavy t obacco smoker (finding) [facility] Start: 07-01-2023 End: 10-03-2023 Alcohol intake Ex-drinker (finding) [facility] Start: 07-01-2023 Tobacco Comment Started age 16 yo, down to 2 cigs/day [facility] NEGATED: Highlighted row - - [facility] Work Phone: Functional Status Date Assessment Result Facility 08-30-2023 Functional Status NPO Status Maintained A [facility] 06-17-2023 Functional Status Awake [facility] 06-17-2023 Functional Status Room check performed [facility] 06-17-2023 Functional Status Hospital bed [facility] 06-17-2023 Functional Status Maintained [facility] 05-22-2023 Functional Status Assistive Device None A [facility] NEGATED: Highlighted row Functional performance Functional status health issues are not documented Disease [facility] Work Phone: Mental Status Date Assessment Result Facility 06-17-2023 [facility] [facility] [facility] [facility]-22-[facility]23 Mental Status Orientation Orie nted x 4 [facility] NEGATED: Highlighted row Cognitive function [Interpretation] Cognitive status health issues are not documented Disease [facility] Work Phone: Clinical Notes 01-02-2021 to [...] 2023 12:41 PM documented in this encounter [facility] 10-03-2023 Note HNO ID: [id number] Author: JAYDON RITCHIE MD Service: ? Author [...] notes, patient was to be maintained on Carrizozo 10/325 3 times a day, Flexeril 5 [...] notes, patient was to be maintained on Carrizozo 10/325 3 times a day, Flexeril 5 mg 3 times a day, avoid NSAIDs due to GERD and gastric ulcers, reduce tobacco use, remain as active as possible. This again is a first visit for this patient with me. OARRS Checked The patient has been off of Carrizozo for over 4 months. She would like [...] primary care physician's office, Dr. Rodriguez, in [place] to see if they can reorder her blood thinner. Follow-up office visit in 4 months. Patient agrees to the above. [facility] 10-03-2023 History of Presen t illness [...] notes, patient was to be maintained on Carrizozo 10/325 3 times a day, Flexeril 5 [...] notes, patient was to be maintained on Carrizozo 10/325 3 times a day, Flexeril 5 mg 3 times a day, avoid NSAIDs due to GERD and gastric ulcers, reduce tobacco use, remain as active as possible. This again is a first visit for this patient with me. OARRS Checked The patient has been off of Carrizozo for over 4 months. She would like [...] primary care physician's office, Dr. Rodriguez, in [place] to see if they can reorder her blood thinner. Follow-up office visit in 4 months. Patient agrees to the above. documented in this encounter [facility] Saldana 10-30-2023 NoteHNO ID: [id number] Author: Soraida Godoy, DO Service: ? Author Type: Physician Type: Progress Notes Filed: 07/01/2023 9:06 AM Note Text: Summary: Pain management office follow-up visit DATE: July 01, 2023 Chief Complaint: Low back pain History of Present Illness: Sonam Casillas is a 68 year old female being seen at [facility] for a evaluation [...] UDS obtained Followup in 3 months with GUN STOCK CHECKER Pain level:06/11 Location: back, b/l hip pain [...] segment severe stenosis of the IIA. Moderate HEALTH THERAPIST stenosis. Multifocal moderate and severe SFA stenoses [...] Result Flag Units Drug Present Ethyl Glucuronide 800862 ng/mg creat Ethyl Sulfate 07689 ng/mg creat EtG and EtS are metabolites [...] be compromised. Interpret resu (more content not included)...[facility]10-30-2023 Instructions* Patient Instructions* Soraida Godoy, DO [...] obtained Followup in 3 months with or GUN STOCK CHECKER Patient scheduled to follow-up with Dr. Julio, vascular surgeon on July 04 for multiple vascular occlusions. Patient currently on Plavix. [facility] History of Present illness Narrative* Soraida Godoy DO - 07/01/2023 8:45 AM EDTSummary: Pain management office follow-up visit DATE: July 01, 2023 Chief Complaint: Low back pain History of Present Illness: Sonam Casillas is a 68 year old female [facility] and/or [...] UDS obtained Followup in 3 months with GUN STOCK CHECKER Pain level:06/11 Location: back, b/l hip pain [...] segment severe stenosis of the IIA. Moderate HEALTH THERAPIST stenosis. Multifocal moderate and severe SFA stenoses [...] Result Flag Units Drug Present Ethyl Glucuronide 306170 ng/mg creat Ethyl Sulfate 00328 ng/mg creat EtG and EtS are metabolites [...] Soraida Godoy DO, by Roberta Rincon medical consultant, July 01, 2023. [facility] Miscellaneous Notes* Telephone Encounter - [...] Result Flag Units Drug Present Ethyl Glucuronide 689256 ng/mg creat Ethyl Sulfate 49967 ng/mg creat EtG and EtS are metabolites [...] provided. For clinical consultation, please call . @FLOW([id number])@ Lab Results Component Value Date SUMM FINAL [...] advise. Denise Farmer RN [facility] Summary of episode note Discharge Instructions Thank you for allowing [facility] to assist you with your healthcare needs. The following is importantdischarge information regarding your hospital visit. Your Care Team BALTES, ERIN MOLDER FLOOR-SYSTEMS SOFTWARE SPECIALIST What to do next Scheduled Follow-Up Appointments Appointment Type When With Where Contact InformationGI OV Consult 06/19/2023 10:00 AM EDT [facility] [address] [phone] PC OV 08/01/2023 11:00 AM WIL ERIN RODIRGUEZ KAROL-SYSTEMS SOFTWARE SPECIALIST [address] [address] Follow Up Appointments Follow Up with JUNI JULIO MD, [facility], Surgery, Vascular Surgeons When Within 1-2 days Why: Follow-up as scheduled Where: [address] [facility] [address] [facility] [place] [id number] The Following Activity and Diet Have Been Ordered for You Discharge Activity - Ordered -- Lifting Restricted less than 10 pounds May Shower No bending, twisting, crawling or squatt Sexual [place] Restricted, No driving x 2 days, 06/17/23 [...] until you are awake and alert. Take adjs-rpk-ldxfihv and prescription medicines only as told by [...] 06/09/2014 Document Revised: 08/01/2018 Document Reviewed: 12/08/2016 [email or web address] Patient Education 2020 [employer] Additional Information VACCINATE! IT SAVES LIVES! Members of the community who have not yet received the COVID-19 vaccine and would like to receive it can visit one of [facility] vaccine clinics. There are many vaccine clinic locations within the [facility]. For locations and available times, please visit [email or web address] It is important to note that some COVID mobile vaccine clinics are held outdoors and may be canceled in rainy or stormy conditions. To learn more about pediatric vaccinations (ages 5-11), we invite you to visit the [facility] webpage. [email or web address] learn more about the COVID-19 vaccine, we invite you to visit the CDC website for a list of frequently asked questions.https://www.cdc.gov/coronavirus/2019-ncov/vaccines/faq.html [facility] Patient Portal Access Instructions: Stay connected with your healthcare team and access your personal medical information anytime with the [facility] Patient Portal. Please follow the directions below to create your [facility] account: 1.Access the email account you provided upon registration to the hospital/physician office.2.Look for an invitation email from [facility].3.Open the email and access the invitation link: AcceptInvitation to [facility].4.Fill in the required ferreira to create your account. To access your account, visit [email or web address]. Click the blue button labeled Access Patient [...] who you will allowto register on the [facility] Patient Portal for access to your information. You can also access the [facility] Patient Portal on the Syncronex Anywhere obdulio. Simply click on Patient Portal and then log into your account. If you would like to receive a full copy of your medical records, please contact the [facility] Medical Records Department by calling [phone], Saturday through Saturday between 8 a.m. and [...] Call your local pharmacy or go to [email or web address] to find one close to you.3.Make use of household items: Use cat litter or old coffee grounds to dispose medications if other options arenot available. Mix your drugs with these household products, seal them in an airtight container andthrow it into the garbage. Call [facility]: [phone] to be sure your drugs can be [...] aware that I should contact my doctor. Patient/Voice Over Artist Signature: Date/Time: Relationship to Patient: Witness Name/Signature: Date/Time: [id number] Hospital Discharge instructions Patient Education 06/17/2023 12:35:16 [...] until you are awake and alert. Take fgbe-wtd-vdmelnp and prescription medicines only as told by [...] 06/09/2014 Document Revised: 08/01/2018 Document Reviewed: 12/08/2016 TORCH.sh Patient Education 2020 [employer]. Follow Up Care 06/11/2023 12:30:21 With:JUNI JULIO MD, [facility], Surgery, Vascular Surgeons Address: [address] [place] [address] [place] [address] [phone] When:1-2 days Comments:Follow-up as scheduled [facility] 10-16-2023 Note ORIGINAL Images acquired, not reported on this accession number.[facility] 06-17-2023 Anesthesiology Consult note Patient: SONAM CASILLAS Age: 68 years Sex: Female : 1955 Associated Diagnoses: None Author: KILYE ARTHUR DO Preoperative Information Greater than 6 [...] Problem list: Medical Alcoholism / SNOMED CT 00646312 / Confirmed Arthritis / SNOMED CT [id number]-[id number]-MFD5D212W763 / Confirmed Bronchitis / SNOMED CT N78877OC-[id number] / Confirmed Chronic back pain / SNOMED CT N9K01U7U-[id number]-[id number] / Confirmed 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 / Confirmed Hard of hearing / SNOMED CT 135654188 / Confirmed Hyperlipidemia / SNOMED CT [id number] / Confirmed Hypertension / SNOMED CT EF47E7H8-98MJ-5680-R1F1-O0AM5JI28O80 / Confirmed Insomnia / SNOMED CT 538197512 / Confirmed Moderate COPD (chronic obstructive pulmonary disease) / SNOMED CT 461655830 / Confirmed Osteoporosis / SNOMED CT 685500335 / Confirmed Overactive bladder / SNOMED CT 9265900216 / Confirmed Screening mammogram, encounter for / SNOMED CT 127616001 / Confirmed Screening for colon cancer / SNOMED CT 604188813 / Confirmed Polyneuropathy / SNOMED CT 29326937 / Confirmed Tobacco use / SNOMED CT 0816866035 / Confirmed, Active Problems (23) Alcoholism Antral gastritis Arthritis Asthma Bronchitis Chronic back pain Colon polyps GERD (gastroesophageal reflux disease) Hard of hearing Hearing aid Hyperlipidemia Hypertension Insomnia Moderate COPD (chronic obstructive pulmonary disease) On anticoagulant therapy Osteoporosis Overactive bladder Polyneuropathy Screening for colon cancer Screening mammogram, encounter for Seasonal allergy Stricture of artery Tobacco use Histories Past Medical History: Active Bronchitis ([id number]-[id number]) Arthritis ([id number]-57W5-7G8U-POC4Q319M213) Hyperlipidemia (K6P7FL18-C375-2QT7-KH69-9E773180LI3E) Hypertension (UF57P5Y3-85HV-0004-U6H7-J0FI8CT31H81) Chronic back pain (G4F76O6H-0R98-39B1-FB8C-8I691WQYDU16) Alcoholism (01055677) Family History: Diabetes mellitus Daughter Heart disease Father Arthritis Father Comments: 03/30/2019 6:53 EDT - Parul Estrella LPN Rheumatoid Hyperchloremia Daughter Malignant tumor of lung Mother NM - Myocardial infarction Father HTN - Hypertension Daughter Procedure history: Esophagogastroduodenoscopy ([id number]) on 10/28/2019 at 64 Years. ENT, ear surgery ([id number]) on 11/17/2018 at 63 Years. Comments: 03/30/2019 7:54 EDT - Chandni Grimm LPN surgery to replace metal tube Mammogram (609013034) on 04/09/2018 at 63 Years. Colonoscopy (945016857) on 06/18/2016 at 61 Years. Comments: 07/19/2020 15:33 Parul Razo LPN Diverticular disease, polyectomy-repeat 3 yrs. [facility] Arthroscopy knee (13051950) in 2001 at 46 Years. Comments: 03/30/2019 7:56 EDT - Alfa Chandni LPN right knee Rotator cuff repair (84952581) in 1999 at 44 Years. Resection of large bowel (746919894) in 1997 at 42 Years. Myringoplasty (0586086899) in 1987 at 32 Years. Hysterectomy (290687257). Hearing aid (01392995). Comments: 10/28/2019 7:37 WIL - SONYA HORAN [...] Resp Rate 16 br/min (JUN 17 08:33) RWO464 mmHg (JUN 17 08:33) DBP72 mmHg (JUN [...] range of motion. Integumentary: Intact, Warm, Dry, [place]. Neurologic: Alert, Oriented. Review / Management Results review: Labs (Last four charted values) WBC 4.9(JUN 17) Hgb 15.0(JUN 17) Hct 44.0(JUN 17) Plt 237(JUN 17) Na L 133(JUN 17) K 3.8(JUN 17) CO2 28(JUN 17) Cl 100(JUN 17) Cr 0.50(JUN 17) BUN L <5.0(JUN 17) Glucose 99(JUN 17) Ca 9.2(JUN 17) . Assessment and Plan [place] Society of Anesthesiologists (ASA) physical status classification: [...] KILEY ARTHUR DO on 06/17/2023 10:14 AM [id number] Miscellaneous Notes* Telephone Encounter - Soraida Godoy [...] Result Flag Units Drug Present Ethyl Glucuronide 126857 ng/mg creat Ethyl Sulfate 43038 ng/mg creat EtG and EtS are metabolites [...] provided. For clinical consultation, please call . @FLOW([id number])@ Lab Results Component Value Date SUMM FINAL [...] advise. Elizabeth Mena RN documented in this encounterLicking [facility] Hospital10-05-2023 Miscellaneous Notes* Telephone Encounter - [...] Result Flag Units Drug Present Ethyl Glucuronide 094991 ng/mg creat Ethyl Sulfate 81916 ng/mg creat EtG and EtS are metabolites [...] provided. For clinical consultation, please call . @FLOW([id number])@ Lab Results Component Value Date SUMM FINAL [...] advise. Elizabeth Mena RN documented in this encounterLicking Memorial Hospital09-28-2023 Miscellaneous Notes* Telephone Encounter - Sanjuana Murdock RN - 05/30/2023 8:42 AM EDT Called and spoke with Jose Antonio Lopez, they had the pt's birthday date as [birth year], according to her last IDscanned into the chart it is [birth year]. Called pt and verified her birthday, she states 59. Jose Antonio Lopez filled the Carrizozo today 05/30/23 and they will work on [...] filled. Per Dr. Godoy documented in this encounterLicking Memorial Hospital09-20-2023 Hospital Discharge instructions Patient Education [...] thin towel or cloth. You may use jkir-hkt-wwfistd pain medicine (NSAIDS or nonsteroidal anti- inflammatory [...] or is irritated You re-injure your ankle 1793-9887 The [employer]. [address] [place] [address]. All rights reserved. This information is not intended as a substitute for professional medical care. Always follow yourhealthcare professional's instructions. Follow Up Care 05/22/2023 01:10:44 With:ERIN RODRIGUEZ Address: [address] [place] [address]- [phone] Business (1) When:Within 1 Week(s) Comments:Follow-up as needed if not improving.Limit weightbearing as tolerated, use crutches for assistance with ambulation.Use Eagle wrap for compression and support.Continue to ice and elevate the injured ankle as much as possible.Continue Tylenol for pain as needed.Return to the ED if symptoms worsen. [facility] 09-20-2023 Note Discharge Instructions Thank you for allowing [facility] to assist you with your healthcare needs. [...] to the ED if symptoms worsen. Where: [address] [place] [address] [phone] Business (1) Allergies acetaminophen-tramadol (UPSET STOMACHE) ibuprofen [...] thin towel or cloth. You may use raoe-imc-izganqt pain medicine (NSAIDS or nonsteroidal anti- inflammatory [...] or is irritated You re-injure your ankle 6825-0755 [employer]. [address] [place] [address], [place] [address]. All rights reserved. This information is not intended as a substitute for professional medical care. Always follow yourhealthcare professional's instructions. Additional Information VACCINATE! IT SAVES LIVES! Members of the community who have not yet received the COVID-19 vaccine and would like to receive it can visit one of [facility] vaccine clinics. There are many vaccine clinic locations within the [facility]. For locations and available times, please visit [email or web address].[email or web address]/. It is important to note that some COVID mobile vaccine clinics are held outdoors and may be canceled in rainy or stormy conditions. To learn more about pediatric vaccinations (ages 5-11), we invite you to visit the [facility] webpage. https://www.HipGeos.org/[email or web address]-Jeeuadfvuk-Ydgbe-[email or web address] stions.htmlTo learn more about the COVID-19 vaccine, we invite you to visit the CDC website for a list of frequently asked questions. https://www.cdc.gov/coronavirus/2019-ncov/vaccines/faq.html [facility] Patient Portal Access Instructions: Stay connected with your healthcare team and access your personal medical information anytime with the [facility] Patient Portal. If you would like a full copy of your medical records please contact the [facility] Medical Records Department Saturday through Saturday between 8a.m. and 4:30p.m. Please follow the directions below to access the portal: 1.Access the email account you provided upon registration to the hospital.2.Look for an invitation email from [facility].3.Open the email and access the invitation link: Accept Invitation to [facility]4.Fill in the required ferreira to create your account. Sign into [email or web address] with your username and password that you [...] you will allow to register on the [facility] Patient Portal for access to your information. You can also access the [facility] Patient Portal on the [employer]Rock obdulio. Simply click on Health Records under TopVisible and then click on the Syncronex logo. HOW TO SAFELY DISPOSE OF PRESCRIPTION [...] Call your local pharmacy or go to [email or web address] to find one close to you.3.Make use of household items: Use cat litter or old coffee grounds to dispose medications if other options arenot available. Mix your drugs with these household products, seal them in an airtight container andthrow it into the garbage. Call [facility]: [phone] to be sure your drugs can be [...] aware that I should contact my doctor. Patient/Voice Over Artist Signature: Date/Time: Relationship to Patient: Witness Name/Signature: Date/Time: [facility]09-20-2023 Note ORIGINAL EXAMINATION: THREE XRAY VIEWS OF [...] Date: 05/22/2023 2:35:31 AM Ordering Provider: LENCHO [facility]09-13-2023 Miscellaneous Notes* Telephone Encounter - Dick, Zana Chandler APRN.SYSTEMS SOFTWARE SPECIALIST - 05/15/2023 11:11 AM EDT The [...] to the pharmacist and she said the Carrizozo was last filled on 05/09/23 for a [...] Result Flag Units Drug Present Ethyl Glucuronide 891400 ng/mg creat Ethyl Sulfate 60885 ng/mg creat EtG and EtS are metabolites [...] provided. For clinical consultation, please call . @FLOW([id number])@ Lab Results Component Value Date SUMM FINAL [...] advise. Elizabeth Mena RN documented in this encounterLicking Memorial Hospital09-07-2023 Miscellaneous Notes* Telephone Encounter - Elizabeth Mena RN - 05/09/2023 10:24 AM EDT Fy, last ov states 1 week at a time for compliance Elizabeth Mena RN May 09, 2023 10:25 AM documented in this encounterLicking Memorial Hospital08-23-2023 Miscellaneous Notes* Telephone Encounter - Soraida Godoy DO - 04/24/2023 9:05 PM EDT We need to have the updated OARRS in her chart and the pharmacy is responsible for putting her correct information in OARRS. We have no control over this in [facility].Will only send 7 day supply. * Telephone Encounter - Denise Farmer RN - 04/24/2023 3:[address] Godoy- Please check pharmacy with medication refills. I do not see any prescriptions for Carrizozo being filled on the OARRS report. This [...] 24, 2023 4:02 PM documented in this encounterLicking Memorial Hospital08-23-2023 Miscellaneous Notes* Telephone Encounter - [...] Result Flag Units Drug Present Ethyl Glucuronide 585911 ng/mg creat Ethyl Sulfate 93766 ng/mg creat EtG and EtS are metabolites [...] provided. For clinical consultation, please call . @FLOW([id number])@ Lab Results Component Value Date SUMM FINAL [...] advise. Denise Farmer, RN documented in this encounterLicking Memorial Hospital08-17-2023 Miscellaneous Notes* Telephone Encounter - [...] Result Flag Units Drug Present Ethyl Glucuronide 623778 ng/mg creat Ethyl Sulfate 71148 ng/mg creat EtG and EtS are metabolites [...] provided. For clinical consultation, please call . @FLOW([id number])@ Lab Results Component Value Date SUMM FINAL [...] advise. Sanjuana Murdock RN documented in this encounterLicking Memorial Hospital08-16-2023 Surgical operation note* Operative Report [...] encounter was entered by Marya Tony, medical consultant for Dr. Soraida Godoy on April 17, [...] Godoy. April 17, 2023. documented in this encounterLicking Memorial Hospital08-10-2023 Miscellaneous Notes* Telephone Encounter - [...] Result Flag Units Drug Present Ethyl Glucuronide 490216 ng/mg creat Ethyl Sulfate 39185 ng/mg creat EtG and EtS are metabolites [...] provided. For clinical consultation, please call . @FLOW([id number])@ Lab Results Component Value Date SUMM FINAL [...] advise. Elizabeth Mena RN documented in this encounterLicking Memorial Hospital08-01-2023 NoteHNO ID: [id number] Author: Soraida Godoy, DO Service: ? Author Type: Physician Type: Progress Notes Filed: 04/08/2023 10:27 PM Note Text: Summary: Pain Management follow-up DATE: April 02, 2023 Chief Complaint: Back and B/L hip pain History of Present Illness: Sonam Casillas is a 68 year old female being seen at [facility] for a evaluation [...] Result Flag Units Drug Present Ethyl Glucuronide 664404 ng/mg creat Ethyl Sulfate 69871 ng/mg creat EtG and EtS are metabolites [...] 11 L mg/dL >=20 (more content not included)...[facility]08-01-2023 Instructions* Patient Instructions* Soraida Godoy DO [...] UDS obtained Followup in 3 months with [employer] ST[employer]ER documented in this encounterLicking Memorial Hospital08-01-2023 History of Present illness Narrative* Soraida Godoy DO - 04/02/2023 9:45 AM EDTSummary: Pain Management follow-up DATE: April 02, 2023 Chief Complaint: Back and B/L hip pain History of Present Illness: Sonam Casillas is a 68 year old female being [facility] and/or [...] Result Flag Units Drug Present Ethyl Glucuronide 560289 ng/mg creat Ethyl Sulfate 16774 ng/mg creat EtG and EtS are metabolites [...] encounter was entered by Marya Tony medical consultant for Dr. Soraida Godoy on April 02, [...] Godoy. April 02, 2023. documented in this encounterLicking Memorial Hospital05-26-2023 Note. MICRO - Microbiology PROCEDURE: [...] Locations *1: This test was performed at: [facility], [address] [place] [address], [id number] , [facility] ([place])12-12-2022 Miscellaneous Notes* Telephone Encounter - Matilde Hayward [...] December 14, 2022. Authorizing Provider: MATILDE HAYWARD APRN.HORTICULTURE INSTRUCTOR * Telephone Encounter - Denise aFrmer RN - 12/12/2022 8:36 AM EDT Patient [...] provided. For clinical consultation, please call . @FLOW([id number])@ Lab Results Component Value Date SUMM FINAL [...] advise. Denise Farmer RN documented in this encounterLicking Memorial Hospital03-13-2023 NoteHNO ID: [id number] Author: Matilde Hayward APRN.HORTICULTURE INSTRUCTOR Service: ? Author Type: Clinical Nurse Specialist Type: Progress Notes Filed: 11/12/2022 9:48 AM Note Text: SUBJECTIVE: Sonam Casillas [facility] [...] verbalized understanding. Matilde Hayward APRN.CNS November 12, 2022[facility]03-13-2023 Instructions* Patient Instructions * Matilde Hayward [...] Followup in 3 months documented in this encounterLicking Memorial Hospital03-13-2023 History of Present illness Narrative* Matilde Hayward APRN.HORTICULTURE INSTRUCTOR - 11/12/2022 9:30 AM EDT SUBJECTIVE: Sonam Casillas [facility] a [...] APRN.CNS November 12, 2022 documented in this encounterLicking Memorial Hospital01-09-2023 Miscellaneous Notes* Telephone Encounter - [...] advise. Sanjuana Murdock RN documented in this encounterLicking Memorial Hospital12-13-2022 History of Present illness Narrative* [...] 14, 2022 12:41 PM documented in this encounterLicking Memorial Hospital12-13-2022 Instructions* Patient Instructions* Matilde Hayward APRN.HORTICULTURE INSTRUCTOR - 08/14/2022 11:11 AM EST Patient has [...] Followup in 3 months documented in this encounterLicking Memorial Hospital12-13-2022 History of Present illness Narrative* Matilde Hayward APRN.CNS - 08/14/2022 10:00 AM EST Patient was last seen by me on 03/20/22 for back and hip pain Plan of care: Continue Carrizozo 10-325 mg TID PRN. This helps patient [...] level States her daughter took her to [facility] ED last month after fell and hit [...] muscle strength lower extremities. documented in this encounterLicking Memorial Hospital07-19-2022 Instructions* Patient Instructions* Matilde Hayward APRN.CNS - 03/20/2022 9:19 AM EDT Continue Carrizozo 10-325 mg TID PRN. This helps patient [...] Follow-up in 3 months documented in this encounterLicking Memorial Hospital07-18-2022 History of Present illness Narrative* Matilde Hayward APRN.CNS - 03/19/2022 11:30 AM EDT Patient was last seen by me for back and hip pain on 12/18/2021 Plan of care: 1) Continue Carrizozo 10-325 mg TID PRN. This helps patient [...] Negative Spurling sign bilaterally. documented in this encounterLicking Memorial Hospital06-09-2021 NotePhysical Therapy Outpatient Progress Summary [...] No significant change in pain during session. [facility] PATIENT NAME: SONAM CASILLAS [address] [place] MEDICAL REC #: [id number] [place] [address] ADMIT DATE: SERVICE DATE: 02/08/21 Physical Therapy [...] balance; TUG completed in 11 sec with [facility] PATIENT NAME: SONAM CASILLAS [address] [place] MEDICAL REC #: [id number] [place] [address] ADMIT DATE: SERVICE DATE: 02/08/21 Physical Therapy [...] is number 10 Medicare (more content not included)...[facility]05-03-2021 NotePhysical Therapy Outpatient Low Spine and Sacroiliac [...] Demographics: Age: 65Y Gender: Female Primary Language: Romanian Preferred Language: Romanian Initial Evaluation Date: 01/02/2021 Referring Clinician: Soraida [...] with anyone with a confirmed or suspected [facility] PATIENT NAME: SONAM CASILLAS [address] [place] MEDICAL REC #: [id number] [place] [address] ADMIT DATE: SERVICE DATE: 01/02/21 Physical Therapy Assessment Report ATTENDING PHY: Soraida Godoy DO diagnosis of COVID-19? No Medical Care Prior to Current Episode: OP PT last year in [facility] Past Medical History: asthma, JACKSON, OA, chronic pain History of Present Illness: [...] years until participating in outpatient PT in [facility] last year with no significant improvements. Patient notes that she has more recently bee experiencing LLE instability with feeling that leg may go out. Patient describes an incident of falling in kitchen around [place] time. Patient now referred to OP PT [...] by: prolonged positioning, standing ADLs (dishes, sweeping), [facility] PATIENT NAME: SONAM CASILLAS [address] [place] MEDICAL REC #: [id number] [place] [address] ADMIT DATE: SERVICE DATE: 01/02/21 Physical Therapy [...] on disability Paresthesia: Colleen (more content not included)...[facility] Evaluation + Plan note Future Appointments Appointment Date:07/21/2021 01:30:00 PM Scheduled Provider: Location:[facility] Appointment Type:BD Bone Density DEXA Axial Skeleton Appointment Date:07/21/2021 02:30:00 PM Scheduled Provider: Location:[facility] Appointment Type:MA Mammogram Screening Bilateral w/ Jake Appointment Date:12/19/2021 09:30:00 AM Scheduled Provider:ERIN RODRIGUEZ Location:[facility] Appointment Type:PC OV Future Scheduled [...] MA Mammo Screening Bilateral w/ Jake 07/21/21 [facility] Evaluation + Plan note Future Appointments Appointment Date:12/19/2021 09:30:00 AM Scheduled Provider:ERIN RODRIGUEZ Location:[facility] Appointment Type:[facility] Future Scheduled Tests Laboratory* Complete Blood Count [...] Ribs 2 Views Left/PA Chest (AO) 07/13/21 [facility] Evaluation + Plan note Future Appointments Appointment Date:04/12/2022 09:00:00 AM Scheduled Provider:ERIN RODRIGUEZ Location:[facility] Appointment Type:PC Wellness Medicare Future Scheduled Tests Laboratory* Complete Blood Count 06/20/21 * Complete Blood Count 01/04/22 * Lipid Profile 06/20/21 * Lipid Profile 01/04/22 * Complete Metabolic Panel 06/20/21 * Complete Metabolic Panel 01/04/22 Radiology* XR Ribs 2 Views Left/PA Chest (AO) 07/13/21 * XR Knee 3 Views Left 01/04/22 * XR Shoulder Minimum 2 Views Right 07/13/21 [facility] Evaluation + Plan note Future Appointments Appointment Date:07/31/2022 10:30:00 AM Scheduled Provider:ERIN RODRIGUEZ Location:[facility] Appointment Type:PC OV Future Scheduled Tests Laboratory* [...] XR Shoulder Minimum 2 Views Right 07/13/21 [facility] Evaluation + Plan note Future Appointments Appointment Date:01/30/2023 09:00:00 AM Scheduled Provider:ERIN RODRIGUEZ Location:[facility] Appointment Type:PC OV Future Scheduled Tests Laboratory* Complete Blood Count 04/26/22 * Complete Blood Count 01/04/22 * Lipid Profile 04/26/22 * Lipid Profile 01/04/22 * Microalbumin Level Urine 04/26/22 * Complete Metabolic Panel 04/26/22 * Complete Metabolic Panel 01/04/22 Radiology* MA Mammo Screening Bilateral w/ Jake 08/26/22 * XR Knee 3 Views Left 01/04/22 [facility] Evaluation + Plan note Future Appointments Appointment Date:08/01/2023 11:00:00 AM Scheduled Provider:ERIN RODRIGUEZ Location:[facility] Appointment Type:PC OV Future Scheduled Tests Laboratory* Microalbumin Level Urine 04/26/22 Radiology* MA Mammo Screening Bilateral w/ Jake 08/26/22 [facility] Evaluation + Plan note Future Appointments Appointment Date:08/01/2023 11:00:00 AM Scheduled Provider:ERIN RODRIGUEZ Location:[facility] Appointment Type:PC OV Future Scheduled Tests Radiology* MA Mammo Screening Bilateral w/ Jake 08/26/22 [facility] Evaluation + Plan note Future Appointments Appointment Date:06/19/2023 10:00:00 AM Scheduled Provider: Location:[facility] Appointment Type:GI OV Consult Appointment Date:08/01/2023 11:00:00 AM Scheduled Provider:ERIN RODRIGUEZ Location:[facility] Appointment Type:PC OV Future Scheduled Tests Radiology* MA Mammo Screening Bilateral w/ Jake 08/26/22 [facility] Evaluation + Plan note Future Appointments Appointment Date:07/30/2023 12:30:00 PM Scheduled Provider:ERIN RODRIGUEZ Location:[facility] Appointment Type:PC OV Appointment Date:07/31/2023 11:00:00 AM Scheduled Provider: Location:[facility] Appointment Type:GI OV Consult Future Scheduled Tests Radiology* MA Mammo Screening Bilateral w/ Jake 08/26/22 [facility] Evaluation + Plan note Future Appointments Appointment Date:11/13/2023 10:30:00 AM Scheduled Provider:ERIN RODRIGUEZ Location:[facility] Appointment Type:PC OV Future Scheduled Tests Radiology* MA Mammo Screening Bilateral w/ Jake 08/26/22 [facility] evaluation note* Diagnosis Lumbar spondylosis- Primary Lumbosacral [...] of other medications [facility] Chronic [facility] syndrome- Primary DDD (degenerative disc disease), lumbar Degeneration of lumbar or lumbosacral intervertebral disc Pain in right hip Pain in joint, pelvic region and thigh Spinal stenosis, lumbar region with neurogenic claudication High risk medication use Encounter for long-term (current) use of other medications [facility] Diagnosis Pain in right hip Pain in joint, pelvic region and thigh Chronic pain syndrome [facility] Diagnosis Chronic [facility] syndrome [facility] Diagnosis Spinal stenosis, lumbar region with neurogenic claudication- Primary Chronic pain syndrome Lumbar radiculopathy Thoracic or lumbosacral neuritis or radiculitis, unspecified Osteoarthritis of both hips, unspecified osteoarthritis type High risk medication use Encounter for long-term (current) use of other medications [facility] Diagnosis Chronic pain syndrome [facility] Diagnosis Spinal stenosis, lumbar region with [...] of hip region [facility] Diagnosis Chronic pain syndrome Trochanteric bursitis of both hips Enthesopathy of hip region [facility] Diagnosis Chronic pain syndrome [facility] Diagnosis Chronic pain syndrome [facility] Diagnosis Chronic pain syndrome [facility] Diagnosis [facility] pain syndrome [facility] Diagnosis Chronic pain syndrome [facility] Diagnosis Chronic pain syndrome- Primary Osteoarthritis [...] history of alcoholism [facility] Diagnosis Chronic pain syndrome- Primary History of alcoholism (HCC) Personal history of alcoholism Myofascial pain syndrome Mylagia and myositis, unspecified Myofascial pain syndrome Mylagia and myositis, unspecified documented in this encounter [facility] Narrative No data available for this section [facility] Discharge instructions No data available for this section [facility] Progress note No data available for this section [facility] Reason for referral (narrative)* Diagnostic Procedure Only (Routine) - Closed Specialty Diagnoses / Procedures Referred By Contac t Referred To Contact XR IMAGING Diagnoses Pain in right hip Chronic pain syndrome Procedures XR HIP BILATERAL 5V PEL/AP/LAT EACH HIP RADEX HIPS BILATERAL WITH PELVIS MINIMUM 5 VIEWS Matilde Hayward APRN.HORTICULTURE INSTRUCTOR [address] [place] [address] Xr Imaging Referral ID Status Reason Start Date Expiration Date V isits Requested Visits Authorized [id number] Closed Auto-Generate d Referral 08/14/2022 09/13/2023 1 1 [facility] for referral (narrative)* Diagnostic Procedure Only (Routine) - Closed Specialty Diagnoses / Procedures Referred By Contac t Referred To Contact XR IMAGING Diagnoses Pain in right hip Chronic pain syndrome Procedures XR HIP BILATERAL 5V PEL/AP/LAT EACH HIP RADEX HIPS BILATERAL WITH PELVIS MINIMUM 5 VIEWS Matilde Hayward APRN.CNS [address] [place] [address] Xr Imaging Referral ID Status Reason Start Date Expiration Date V isits Requested Visits Authorized [id number] Closed Auto-Generate d Referral 08/14/2022 09/13/2023 1 [facility] Diagnostic Procedure Only (Routine) - Closed Specialty Diagnoses / Procedures Referred By Iraida diaz Referred To Contact XR IMAGING Diagnoses Pain in right hip Chronic pain syndrome Procedures XR HIP BILATERAL 5V PEL/AP/LAT EACH HIP RADEX HIPS BILATERAL WITH PELVIS MINIMUM 5 VIEWS Matilde Hayward APRN.CNS [address] [place] [address] Xr Imaging Referral ID Status Reason Start Date Expiration Date V isits Requested Visits Authorized [id number] Closed Auto-Generate d Referral 08/14/2022 09/13/2023 1 1 [facility] Family History No Family History [...] DATE CREATED AUTHOR AUTHOR'S ORGANIZ ATION 12/18/2021 [facility] Sonya Dhaliwal DATE CREATED AUTHOR AUTHOR'S ORGANIZ ATION 09/10/2023 [facility] ([place]) DATE CREATED AUTHOR AUTHOR'S ORGANIZ ATION 10/04/2023 [facility] Sonya menendez Source Comments (unrecognize d section and content) In the event this informatio n is protected by the Federal Confidentiality of Alcohol and Drug Abuse Patient Records regulations: The Federal rules restrict any use of the information to criminally investigate or prosecute any alcohol or drug abuse patient.[facility] the event this information is protected by the Federal Confidentiality of Alcohol and Drug Abuse Patient Records regulations: The Federal rules restrict any use of the information to criminally investigate or prosecute any alcohol or drug abuse patient.[facility] the event this information is protected by the Federal Confidentiality of Alcohol and Drug Abuse Patient Records regulations: The Federal rules restrict any use of the information to criminally investigate or prosecute any alcohol or drug abuse patient.[facility] the event this information is protected by the Federal Confidentiality of Alcohol and Drug Abuse Patient Records regulations: The Federal rules restrict any use of the information to criminally investigate or prosecute any alcohol or drug abuse patient.[facility] the event this information is protected by the Federal Confidentiality of Alcohol and Drug Abuse Patient Records regulations: The Federal rules restrict any use of the information to criminally investigate or prosecute any alcohol or drug abuse patient.[facility] the event this information is protected by the Federal Confidentiality of Alcohol and Drug Abuse Patient Records regulations: The Federal rules restrict any use of the information to criminally investigate or prosecute any alcohol or drug abuse patient.[facility] the event this information is protected by the Federal Confidentiality of Alcohol and Drug Abuse Patient Records regulations: The Federal rules restrict any use of the information to criminally investigate or prosecute any alcohol or drug abuse patient.[facility] the event this information is protected by the Federal Confidentiality of Alcohol and Drug Abuse Patient Records regulations: The Federal rules restrict any use of the information to criminally investigate or prosecute any alcohol or drug abuse patient.[facility] Hospital[facility] the event this information is protected by the Federal Confidentiality of Alcohol and Drug Abuse Patient Records regulations: The Federal rules restrict any use of the information to criminally investigate or prosecute any alcohol or drug abuse patient.[facility] Hospital[facility] the event this information is protected by the Federal Confidentiality of Alcohol and Drug Abuse Patient Records regulations: The Federal rules restrict any use of the information to criminally investigate or prosecute any alcohol or drug abuse patient.[facility] Hospital[facility] the event this information is protected by the Federal Confidentiality of Alcohol and Drug Abuse Patient Records regulations: The Federal rules restrict any use of the information to criminally investigate or prosecute any alcohol or drug abuse patient.[facility] Hospital[facility] the event this information is protected by the Federal Confidentiality of Alcohol and Drug Abuse Patient Records regulations: The Federal rules restrict any use of the information to criminally investigate or prosecute any alcohol or drug abuse patient.[facility] the event this information is protected by the Federal Confidentiality of Alcohol and Drug Abuse Patient Records regulations: The Federal rules restrict any use of the information to criminally investigate or prosecute any alcohol or drug abuse patient.[facility] the event this information is protected by the Federal Confidentiality of Alcohol and Drug Abuse Patient Records regulations: The Federal rules restrict any use of the information to criminally investigate or prosecute any alcohol or drug abuse patient.[facility] HospitalIn the event this information is protected by the Federal Confidentiality of Alcohol and Drug Abuse Patient Records regulations: The Federal rules restrict any use of the information to criminally investigate or prosecute any alcohol or drug abuse patient.[facility] Hospital[facility] the event this information is protected by the Federal Confidentiality of Alcohol and Drug Abuse Patient Records regulations: The Federal rules restrict any use of the information to criminally investigate or prosecute any alcohol or drug abuse patient.[facility] Hospital[facility] the event this information is protected by the Federal Confidentiality of Alcohol and Drug Abuse Patient Records regulations: The Federal rules restrict any use of the information to criminally investigate or prosecute any alcohol or drug abuse patient.[facility] HospitalIn the event this information is protected by the Federal Confidentiality of Alcohol and Drug Abuse Patient Records regulations: The Federal rules restrict any use of the information to criminally investigate or prosecute any alcohol or drug abuse patient.[facility] HospitalIn the event this information is protected by the Federal Confidentiality of Alcohol and Drug Abuse Patient Records regulations: The Federal rules restrict any use of the information to criminally investigate or prosecute any alcohol or drug abuse patient.[facility] HospitalIn the event this information is protected by the Federal Confidentiality of Alcohol and Drug Abuse Patient Records regulations: The Federal rules restrict any use of the information to criminally investigate or prosecute any alcohol or drug abuse patient.[facility] HospitalIn the event this information is protected by the Federal Confidentiality of Alcohol and Drug Abuse Patient Records regulations: The Federal rules restrict any use of the information to criminally investigate or prosecute any alcohol or drug abuse patient.[facility] HospitalIn the event this information is protected by the Federal Confidentiality of Alcohol and Drug Abuse Patient Records regulations: The Federal rules restrict any use of the information to criminally investigate or prosecute any alcohol or drug abuse patient.[facility] HospitalIn the event this information is protected by the Federal Confidentiality of Alcohol and Drug Abuse Patient Records regulations: The Federal rules restrict any use of the information to criminally investigate or prosecute any alcohol or drug abuse patient.[facility] HospitalIn the event this information is protected by the Federal Confidentiality of Alcohol and Drug Abuse Patient Records regulations: The Federal rules restrict any use of the information to criminally investigate or prosecute any alcohol or drug abuse patient.[facility] HospitalIn the event this information is protected by the Federal Confidentiality of Alcohol and Drug Abuse Patient Records regulations: The Federal rules restrict any use of the information to criminally investigate or prosecute any alcohol or drug abuse patient.[facility] Care Teams (unrecognized sec tion and content) Mixing Technician Relationship Specialty Start Date End Date Juni Zamora[address] [place] [address], [place] [address] PCP - General 02/01/05 Mixing Technician Relationship Specialty Start Date End Date Juni Zamora [address] [place] [address], [place] [phone] PCP - General 02/01/05 Mixing Technician Relationship Specialty Start Date End Date Juni Zamora[address] [place] [address], [place] [address] PCP - General 02/01/05 Mixing Technician Relationship Specialty Start Date End Date Juni Zamora[address] [place] [address], [place] [address] PCP - General 02/01/05 Mixing Technician Relationship Specialty Start Date End Date Juni Zamora[address] [place] [address], [place] [address] PCP - General 02/01/05 Mixing Technician Relationship Specialty Start Date End Date Juni Zamora[address] [place] [phone] PCP - General 02/01/05 Mixing Technician Relationship Specialty Start Date End Date ZamoraJuni [address] [place] [phone] PCP - General 02/01/05 Mixing Technician Relationship Specialty Start Date End Date Juni Zamora [address] [place] [phone] PCP - General 02/01/05 Mixing Technician Relationship Specialty Start Date End Date Erin Rodriguez MOLDER FLOOR.SYSTEMS SOFTWARE SPECIALIST [address] [place] [address] PCP - General Family Medicine 04/15/23 Mixing Technician Relationship Specialty Start Date End Date Erin Rodriguez MOLDER FLOOR.SYSTEMS SOFTWARE SPECIALIST [address] [place] [address] PCP - General Family Medicine 04/15/23 Mixing Technician Relationship Specialty Start Date End Date Erin Rodriguez MOLDER FLOOR.SYSTEMS SOFTWARE SPECIALIST [address] [place] [address] PCP - General Family Medicine 04/15/23 Mixing Technician Relationship Specialty Start Date End Date Erin Rodriguez MOLDER FLOOR.SYSTEMS SOFTWARE SPECIALIST [address] [place] [address] PCP - General Family Medicine 04/15/23 Mixing Technician Relationship Specialty Start Date End Date Erin Rodriguez MOLDER FLOOR.SYSTEMS SOFTWARE SPECIALIST [address] [place] [address] PCP - General Family Medicine 04/15/23 Mixing Technician Relationship Specialty Start Date End Date Erin Rodirguez MOLDER FLOOR.SYSTEMS SOFTWARE SPECIALIST [address] [place] [address] PCP - General Family Medicine 04/15/23 Mixing Technician Relationship Specialty Start Date End Date Erin Rodriguez APRN.SYSTEMS SOFTWARE SPECIALIST [address] [place] [address] PCP - General Family Medicine 04/15/23 Mixing Technician Relationship Specialty Start Date End Date Erin Rodriguez MOLDER FLOOR.SYSTEMS SOFTWARE SPECIALIST [address] [place] [address] PCP - General Family Medicine 04/15/23 Mixing Technician Relationship Specialty Start Date End Date Erin Rodriguez APRN.SYSTEMS SOFTWARE SPECIALIST [address] [place] [address] PCP - General Family Medicine 04/15/23 Mixing Technician Relationship Specialty Start Date End Date Erin Rodriguez CNP [address] [place] [address] PCP - General Family Medicine 04/15/23 Mixing Technician Relationship Specialty Start Date End Date Erin Rodriguez CNP [address] [place] [address] PCP - General Family Medicine 04/15/23 Reason [...] EST PATIENT Erin Rodriguez CNP [address] [place] [address] Jaydon Ritchie MD [address] [place] [address] Referral ID Status Reason Start Date Expiration Date Visits Re quested Visits Authorized [id number] Closed 09/13/2023 09/01/2024 1 1 Specialty Diagnoses / Procedures Referred By Contac t Referred To Contact PAIN MANAGEMENT Diagnoses Encounter for general adult medical examination without abnormal findings Procedures EST PATIENT VISIT LEVEL 1 Soraida Godoy, DO [address] [place] [address] [facility] [address] [place] [address] Referral ID Status Reason Start Date Expiration Date V isits Requested Visits Authorized [id number] Closed OON/Self Pay Override 05/01/2023 07/30/2023 1 [...] GUIDANCE [facility] [address] [place] [address] Referral ID Status Reason Start Date Expiration Date Visits Re quested Visits Authorized [id number] 1 1 Reason Onset Date Comments Refill [...] Physician Address: Address: [address] Name: Nicole Church PT Position: P3 Scheduling - Machine Attendant Advanced Member Role: Other Name: MATILDE HAYWARD CNP Address: Address: [address] [place] [address] [id number] Name: SORAIDA GODOY DO Address: Address: [address] Care Team Related Persons Name: BLAS STEWART Name: DINA MARTINEZ Care Team Personnel Name: ERIN RODRIGUEZSYSTEMS SOFTWARE SPECIALIST Position: P4 Advanced Practice Nurse Member Role: Primary Care Physician Address: Address: [address] [place] [address] Name: Nicole Church PT Position: P3 Scheduling - Machine Attendant Advanced Member Role: Other Name: MATILDE HAYWARD CNP Member Role: Pain Management Address: Address: [address] [place] [address] [id number] Name: SORAIDA GODOY DO Member Role: Pain Management Address: Address: [address] Care Team Related Persons Name: BLAS [...] BE BASED ON THE PRIMARY CLINICAL RECORDS. [employer] provides no warranty or guarantee of the accuracy or completeness of information in this document.
[2023-10-11 20:29] LABS: Bacteria 0 SEEN /hpf (None Seen); Mucous, Urine 0 SEEN /hpf (<or=2+); Red Blood Cells-Urine 0 SEEN /hpf (0-5); Squamous Epithelial Cells - UA 0 SEEN /hpf (5-10); White Blood Cells 0 SEEN /hpf (0-5)
[2023-10-11 20:31] LABS: Color, Urine Yellow (Yellow); Glucose, Dipstick Normal (Normal); Ketone-Dipstick Negative (Negative); Leukocyte Esterase-Dipstick Negative /ul (Negative); Nitrite-Dipstick Negative (Negative); Occult Blood-Urine Negative /ul (Negative); Protein-Dipstick Negative (Negative); Urine Bilirubin Dipstick Negative (Negative); Urine Clarity Clear (Clear); Urine Urobilinogen Normal (Normal); Urine pH 6.5 (5.0 - 8.0)
[2023-10-11 20:31] LABS: Absolute Lymphocyte Count 2.89 X10^3/uL (0.83-4.51); Absolute Neutrophil Count 4.5 X10^3/uL (2.0-7.7); Basophil# 0.04 X10^3/uL; Basophil% 0.5 % (0-1); Eosinophil# 0.06 X10^3/uL; Eosinophils% 0.7 % (0-5); Hematocrit 41.9 % (37-47); Hemoglobin 14.2 g/dL (12.0-15.0); Lymphocyte # 2.89 X10^3/ul (0.83-4.51); Lymphocyte % 35.4 % (19-41); Mean Corp Hgb Conc 33.9 g/dL (32-36); Mean Corpuscular Hgb 32.6 pg (27.0-32.0); Mean Corpuscular Volume 96.1 fL (81-99); Mean Platelet Vol. 10.3 fl (6.2-12.0); Monocyte# 0.61 X10^3/uL; Monocyte% 7.5 % (0-10); NRBC Flagged by Analyzer 0 % (0-5); Neutrophil # 4.54 X10^3/uL (2.7-7.7); Neutrophil % 55.5 % (47-70); POSITIVE COUNT YES; Platelet Count 220 K/mm3 (150-450); RBC Distribution Width CV 13.1 % (11.6-14.6); RBC Distribution Width SD 46.5 fl (35.1-43.9); Red Blood Count 4.36 M/mm3 (4.2-5.4); White Blood Count 8.2 K/mm3 (4.4-11.0)
--- NOTE | 2023-10-11 20:31 | ED.RN ---
daughter called for an update. this RN informed daughter that we were running some tests right now but would give her an update when the results are back. ensured daughter that her phone number is accurate in the pts chart.
[2023-10-11 20:35] LABS: Differential Indicated SCAN CRITERIA MET
[2023-10-11 20:44] LABS: Anion Gap 7 (5-15); BUN 6 mg/dL (7-18); BUN/Creat Ratio 11.6 RATIO (10-20); Calcium,Total 8.6 mg/dL (8.5-10.1); Chloride 93 mmol/L (98-107); Creatinine, Serum 0.52 mg/dL (0.55-1.02); EST Glomerular Filtration Rate 126 mL/min (>60); Est Glom Filt Rate - Afr Amer 153 mL/min (>60); Glucose 108 mg/dL (74-106); Potassium 3.5 mmol/L (3.5-5.1); Sodium Level 128 mmol/L (136-145); Troponin-I HS (w/2H Reflex) 15 pg/mL (3.0-54.0)
[2023-10-11 20:46] LABS: Amphetamine Urine VISTA NEGATIVE (<1000 ng/mL); Barbiturate Urine VISTA NEGATIVE (< 200 ng/mL); Benzodiazepine Urine VISTA NEGATIVE (< 200 ng/mL); Cocaine Urine VISTA NEGATIVE (< 300 ng/mL); Ecstacy Urine VISTA NEGATIVE (< 500 ng/mL); Methadone Urine VISTA NEGATIVE (< 300 ng/mL); PCP Urine VISTA NEGATIVE (< 25 ng/mL); THC Urine VISTA NEGATIVE (< 50 ng/mL); Vista UDS pH Range 6
[2023-10-11 20:53] LABS: Differential Comment SCANNED
[2023-10-11 21:45] VITALS: BP 136/92; PULSE 75; RESP 18; O2SAT 97
[2023-10-11 22:15] LABS: Reflex Troponin-HS? (from REC) Y
[2023-10-11 22:21] VITALS: BP 133/69; PULSE 92; RESP 24
[2023-10-11 22:49] VITALS: BP 121/98
== END 2023-10-11 22:50 | disposition home or self-care (01) ==
PROVIDERS: Emergency Provider Emergency Medicine; PCP Nurse Practitioner Primary Care; Visit Provider Emergency Medicine
DX: R07.9 Chest pain, unspecified (principal); J44.9 Chronic obstructive pulmonary disease, unspecified; F10.129 Alcohol abuse with intoxication, unspecified; Y90.8 Blood alcohol level of 240 mg/100 ml or more; F17.210 Nicotine dependence, cigarettes, uncomplicated; I25.10 Atherosclerotic heart disease of native coronary artery without angina pectoris; Z79.82 Long term (current) use of aspirin; Z79.899 Other long term (current) drug therapy
CPT/HCPCS: 71045; 80048; 80307; 80320; 81001; 84484; 85025; 93005; 96360; 99284; J7030; A4216; G0480

== ENCOUNTER 2023-11-26 12:24 | Day surgery (SDC) | payer MEDICARE, MEDICAID, SELFPAY ==
[2023-11-26] MEDS: Lactated Ringers 1,000 ML 15 ML IV (12:50)
[2023-11-26 12:53] VITALS: BP 163/90; PULSE 80; RESP 18; TEMP 36.1; O2SAT 99; BMI 18.3
--- NOTE | 2023-11-26 13:15 | EGD_PTH ---
PATIENT: SONAM LUGO LOC: EN U#:[id number] AGE/SX: 68/F ROOM: RE11/26/[address]: Dr. Greg Maguire DO : 1955 BED: DIS: 11/26/2023 SPEC #: [id number] RECD: 11/26/23 13:55 STATUS: ADRIANA REVilma #: [id number] [place]: 11/26/23 13:[address]: Greg Maguire DEPT: SURGICAL PATHOLOGY RECD BY: Keli Meneses ENTERED: 11/26/23 14:16 SP TYPE: EGD BIOPSY OTHR DR: Marcus Thomas, CORPORATE SECRETARY-C Tissues: Esophagus, NOS Procedures: Special Stain Group II Surgery Specimen Level IV Alcian Blue/PAS (control) HEADER OPERATION: EGD with biopsy PRE-OP DIAGNOSIS: Gi bleed TISSUE SUBMITTED: Distal esophagus biopsy MICROSCOPIC DIAGNOSIS Distal esophagus, biopsy; Fragments of gastric mucosa with chronic inflammation. No evidence of goblet cell metaplasia. See comment. /mr 11/27/2023 COMMENT Alcian blue/PAS stain with matched control supports the above diagnosis. MICROSCOPIC DESCRIPTION Slides are reviewed. GROSS DESCRIPTION Received in fixative is one container labeled with the patient's name and designated Distal esophagus biopsy. The specimen consists of multiple irregular fragments of light friedman soft tissue that in aggregate measure 1.0 x 0.3 x 0.1 cm. The specimen is totally submitted in one cassette. / 11/26/2023 TC:3 CPT: 00431,07304
--- NOTE | 2023-11-26 13:22 | HP.PCM_ITS ---
History and Physical Date of Admission: 11/26/23 GI bleeding HPI Narrative: SONAM LUGO, is a 68 F who presents vomiting blood. She has a history of chronic alcohol use was brought to ED by EMS for vomiting blood. As per EMS report, her mother states that her mother has been drinking all day and mother and the patient in verbal altercation and stated that she does not want her mother to return to her residence. In ED, she told me that she drinks 1 beer but it appears he drinks more than that. She had 3-4 times dark red vomiting blood. She also complained of abdominal pain all over but predominantly right upper quadrant, states continuous 1-2/10 intensity, sharp which radiates to the midline chest but not below the jaws, shoulder or arm or tingling or numbness. Patient further states that she drinks 12 pack beer daughter drinks the most current she drinks 1-2 beer about 3 to 4 days a week but appears that she drinks more than what she narrates.No fever or chills. Patient has darker stool but denies black tarry or red blood. Patient is on Plavix and duloxetine but denies NSAID Aleve Motrin or diclofenac. Not on oral anticoagulant. In ED vitals in normal parameters. H&H 13.6/40, platelet count 245,000. Patient was admitted for management of upper GI bleed [facility] Medical History Asthma CAD (coronary artery disease) COPD (chronic obstructive pulmonary disease) Deficient knowledge of percutaneous coronary intervention (PCI) and stenting ETOH abuse Tobacco abuse Home Medications clopidogrel 75 mg tablet 75 mg PO DAILY CHOLESTEROL 07/30/23 [History Last Taken Unknown] duloxetine 60 mg capsule,delayed release 60 mg PO DAILY DEPRESSION/ANXIETY 09/10/23 [History Last Taken Unknown] Allergy/AdvReac Type Severity Reaction Status Date / Time No Known Allergies Allergy Verified 10/09/23 19:51 Surgical History History of hysterectomy Social History Smoking Status: Current every day smoker tobacco type: cigarettes ROS ROS Narrative Constitutional: Reports fatigue and weakness. No fever. HEENT: Reports systems reviewed and no addt'l complaints, except as documented Respiratory/Chest: No acute shortness of breath or respiratory distress or wheezing. CVS: Abdominal pain with radiation to midline chest. Does not seem cardiac. Gastrointestinal: As described in detail in HPI Genitourinary: Denies burning urination or new urinary tract symptoms Musculoskeletal: Denies acute joint pain or limited range of motion. No acute injury Neurologic: Denies seizure-like symptoms. skin: No ulcer. No rash Endocrinology: Reports systems reviewed and no addt'l complaints, except as documented Hematologic/Lymphatic: Reports systems reviewed and no addt'l complaints, except as documented Rest 14 ROS are negative except as mentioned in HPI Physical Exam Narrative General: Alert, Oriented x3, Cooperative, BMI 21.3 kg/m?. HEENT: Atraumatic, PERRLA, EOMI, Normocephalic Oral: No Gingival or Mucosal Lesions/ Ulcerations Neck: Supple, No JVD, Negative Carotid Bruits Chest wall/Lungs: Air entry diminished in bilateral lung bases. No crepitation/rhonchi Cardiovascular: Regular rate, Regular Rhythm, Normal S1, Normal S2, No M/G/R Abdomen: Diffuse tenderness predominantly right upper quadrant. No guarding/rigidity. No rebound tenderness. Bowel Sounds Present, Non-Distended clinically does not seem ascites. : No dysuria. No renal angle tenderness. No suprapubic tenderness. Extremities: No edema, Capillary Refill Less than 3 Seconds Skin: No rashes, No breakdown Musculoskeletal: No Tenderness to Palpation of Joints or Extremities. Mild decrease in muscle bulk of extremities, thighs and calf muscles. Loss of subcutaneous fat. Neurological: Cranial nerves II-XII grossly intact, DTR 2+/4. No acute focal neurological deficit. Psych/Mental Status: Flat affect. Lab / Micro Data 10/10/23 07:05 10/10/23 07:05 Labs: Laboratory Results - last 24 hr 10/09/23 20:55: WBC 5.3, RBC 4.18 L, Hgb 13.6, Hct 40.2, MCV 96.2, MCH 32.5 H, MCHC 33.8, RDW Std Deviation 49.4 H, RDW Coeff of Talon 13.8, Plt Count 245, MPV 10.2, Immature Gran % (Auto) 0.600, Neut % (Auto) 52.0, Lymph % (Auto) 34.5, [place] % (Auto) 9.5, Eos % (Auto) 2.3, Baso % (Auto) 1.1 H, Absolute Neuts (auto) 2.8, Absolute Lymphs (auto) 1.82, Nucleated RBC % 0, PT 12.6, INR 0.9, APTT 30.6, Sodium 138, Potassium 3.5, Chloride 104, Carbon Dioxide 31.0, Anion Gap 3 L, BUN 12, Creatinine 0.67, Estim Creat Clear Calc 59.73, Est GFR (MDRD) Af Amer 112, Est GFR (MDRD) Non-Af 93, BUN/Creatinine Ratio 17.8, Glucose 86, Calcium 8.6, Magnesium 1.9, Total Bilirubin 0.30, AST 25, ALT 21, Alkaline Phosphatase 99, Total Protein 6.4, Albumin 3.1 L, Globulin 3.3, Albumin/Globulin Ratio 0.9, Lipase 28, Ethyl Alcohol 103.0 10/09/23 21:10: Blood Type O NEGATIVE, Antibody Screen NEGATIVE 10/10/23 01:54: Hgb 14.6, Hct 43.5 10/10/23 07:05: WBC 5.4, RBC 4.32, Hgb 13.8, Hct 41.8, MCV 96.8, MCH 31.9, MCHC 33.0, RDW Std Deviation 48.8 H, RDW Coeff of [place] 13.6, Plt Count 263, MPV 10.2, Immature Gran % (Auto) 0.400, Neut % (Auto) 61.6, Lymph % (Auto) 23.8, [place] % (Auto) 10.9 H, Eos % (Auto) 2.2, Baso % (Auto) 1.1 H, Absolute Neuts (auto) 3.4, Absolute Lymphs (auto) 1.29, Nucleated RBC % 0, Sodium 137, Potassium 4.2, Chloride 107, Carbon Dioxide 26.0, Anion Gap 4 L, BUN 7, Creatinine 0.45 L, Estim Creat Clear Calc 52.96, Est GFR (MDRD) Af Amer 179, Est GFR (MDRD) Non-Af 148, BUN/Creatinine Ratio 15.5, Glucose 158 H, Calcium 8.6, Total Bilirubin 0.40, AST 40 H, ALT 22, Alkaline Phosphatase 115, Total Protein 6.3 L, Albumin 2.9 L, Globulin 3.4, Albumin/Globulin Ratio 0.9, TSH 0.73 Rhythm Strip Rhythm Strip: Sinus Rhythm Rate: 80 Ectopy: None Imaging Radiology Impression Abdomen Ultrasound 10/10/23 05:55 IMPRESSION: Heterogeneous liver from hepatic steatosis or other hepatocellular disease. No sonographic evidence of cholelithiasis. Small right renal cysts. Electronically Signed: Jerrica Bruner MD at 9:56 EST , Assessment & Plan Assessment/Plan (1) GI bleed: QUALIFIERS: GI bleed type/associated pathology: unspecified gastrointestinal hemorrhage type Qualified Code(s): K92.2 - Gastrointestinal hemorrhage, unspecified PLAN: Plan This is a 68-year-old female being admitted for hematemesis and abdominal pain acute upper GI bleed most likely due to chronic alcohol use Acute upper GI bleed most likely due to chronic alcohol use disorder: She will need to undergo emergent EGD. A Right upper quadrant sonogram ordered. She was started on IV fluid normal saline +20 mEq KCl. Blood type and group match. Patient started on pantoprazole 40 mg IV every 12 hourly and octreotide drip and IV ceftriaxone. Patient does not have clinically ascites. If varices is not found in EGD, can discontinue octreotide drip and IV ceftriaxone. Serum m agnesium 1.9. Right upper quadrant abdominal pain most likely due to chronic alcoholic hepatitis due to chronic alcohol use: Liver chemistry shows normal ALT AST alkaline phosphatase and total bilirubin. A/G ratio 0.9. Right upper quadrant sonogram ordered. CAD: Patient on Plavix. hold plavix I have examined the patient and the H&P has been reviewed. There are no clinical changes since date of exam.
--- NOTE | 2023-11-26 13:43 | OP.EGD_ITS ---
Patient Name: Gunjan Casillas Procedure Date: 11/26/2023 1:24 PM Date of : 1955 Age: 68 Procedure: Upper GI endoscopy Indications: Iron deficiency anemia, Heartburn Providers: Greg Maguire DO Referring MD: Nikkie Galaviz Medicines: Monitored Anesthesia Care Patient Profile: This is a 68 year old female. Refer to note in patient chart for documentation of history and physical. Patient has symptoms of acute vomiting. Complications: No immediate complications. Procedure: Pre-Anesthesia Assessment: - Prior to the procedure, a History and Physical was performed, and patient medications and allergies were reviewed. The risks and benefits of the procedure and the sedation options and risks were discussed with the patient. All questions were answered and informed consent was obtained. Patient identification and proposed procedure were verified by the physician. Mental Status Examination: normal. Prophylactic Antibiotics: The patient does not require prophylactic antibiotics. Prior Anticoagulants: The patient has taken no anticoagulant or antiplatelet agents. ASA Grade Assessment: III - A patient with severe systemic disease. After reviewing the risks and benefits, the patient was deemed in satisfactory condition to undergo the procedure. The anesthesia plan was to use monitored anesthesia care (MAC). Immediately prior to administration of medications, the patient was re-assessed for adequacy to receive sedatives. The heart rate, respiratory rate, oxygen saturations, blood pressure, adequacy of pulmonary ventilation, and response to care were monitored throughout the procedure. The physical status of the patient was re-assessed after the procedure. After obtaining informed consent, the endoscope was passed under direct vision. Throughout the procedure, the patient's blood pressure, pulse, and oxygen saturations were monitored continuously. The Endoscope was introduced through the mouth, and advanced to the second part of duodenum. The upper GI endoscopy was accomplished without difficulty. The patient tolerated the procedure well. Scope In: 1:36:46 PM Scope Out: 1:38:56 PM Total Procedure Duration Time 0 hours 2 minutes 10 seconds Findings: There were esophageal mucosal changes suggestive of short-segment Chou's esophagus present in the lower third of the esophagus. The maximum longitudinal extent of these mucosal changes was 3 cm in length. Mucosa was biopsied with a cold forceps for histology in a targeted manner at intervals of 1 cm in the lower third of the esophagus. One specimen bottle was sent to pathology. Verification of patient identification for the specimen was done. Estimated blood loss was minimal. A medium-sized hiatal hernia was present. Patchy mildly erythematous mucosa without bleeding was found in the gastric body and in the gastric antrum. No gross lesions were noted in the first portion of the duodenum. Impression: - Esophageal mucosal changes suggestive of short-segment Chou's esophagus. Biopsied. - Medium-sized hiatal hernia. - Erythematous mucosa in the gastric body and antrum. - No gross lesions in the first portion of the duodenum. Recommendation: - Discharge patient to home. - Resume previous diet. - Continue present medications. - Await pathology results. Procedure Code(s): --- Professional --- 67705, Esophagogastroduodenoscopy, flexible, transoral; with biopsy, single or multiple CPT copyright 2021 [employer]. All rights reserved. The codes documented in this report are preliminary and upon plastic straightening roll operator review may be revised to meet current compliance requirements. Greg Maguire DO 11/26/2023 1:43:09 PM This report has been signed electronically. Number of Addenda: 0 Note Initiated On: 11/26/2023 1:24 PM
--- NOTE | 2023-11-26 13:43 | OP.CCLET_ITS ---
11/26/2023 Nikkie Galaviz Re : Upper GI endoscopy procedure for Gunjan Loydr Martha This procedure was performed on Sunday, November 26, 2023. My impressions and recommendations are as follows: Impressions : - Esophageal mucosal changes suggestive of short-segment Chou's esophagus. Biopsied. - Medium-sized hiatal hernia. - Erythematous mucosa in the gastric body and antrum. - No gross lesions in the first portion of the duodenum. Recommendations : - Discharge patient to home. - Resume previous diet. - Continue present medications. - Await pathology results. My findings are described in the full procedure note, which is enclosed. If I can be of further assistance, please feel free to contact me at . Sincerely, Greg Maguire, 11/26/2023 1:43:09 PM This report has been signed electronically.
[2023-11-26 13:46] VITALS: BP 163/90; BP 81/67; PULSE 88; RESP 16; TEMP 36.5; O2SAT 96
[2023-11-26 13:50] VITALS: BP 163/90; BP 81/62; PULSE 86; RESP 16; O2SAT 96
[2023-11-26 13:55] VITALS: BP 102/73; BP 163/90; PULSE 83; RESP 16; O2SAT 95
[2023-11-26 14:05] VITALS: BP 104/75; BP 163/90; PULSE 78; RESP 16; TEMP 36.3; O2SAT 93
[2023-11-26 14:35] VITALS: BP 163/90
== END 2023-11-26 14:48 | disposition home or self-care (01) ==
LOC: EN 12:28 → AC 12:28
PROVIDERS: PCP Nurse Practitioner Primary Care; Referring Provider Nurse Practitioner Primary Care; Visit Provider Internal Medicine Gastroenterology
PROC: 0DJ08ZZ Inspection of Upper Intestinal Tract, Via Natural or Artificial Opening Endoscopic (ICD-10-PCS; CPT 43235; principal; 2023-11-26 13:10)
DX: K31.89 Other diseases of stomach and duodenum (principal); J44.9 Chronic obstructive pulmonary disease, unspecified; K44.9 Diaphragmatic hernia without obstruction or gangrene; F17.210 Nicotine dependence, cigarettes, uncomplicated; D50.9 Iron deficiency anemia, unspecified; R12 Heartburn; I25.10 Atherosclerotic heart disease of native coronary artery without angina pectoris; K21.00 Gastro-esophageal reflux disease with esophagitis, without bleeding; E78.00 Pure hypercholesterolemia, unspecified; Z79.51 Long term (current) use of inhaled steroids; Z79.82 Long term (current) use of aspirin; Z79.899 Other long term (current) drug therapy; Z95.5 Presence of coronary angioplasty implant and graft
CPT/HCPCS: 43239; 88305; 88313; J7120; J2405

== ENCOUNTER 2023-12-12 09:29 | Emergency (ER) | payer MEDICARE, MEDICAID, SELFPAY ==
[2023-12-12] VITALS (7 sets, daily range): BP systolic 125–141; BP diastolic 60–99; PULSE 70–91; RESP 16–18; TEMP 36–36.8; O2SAT 94–97; BMI 18.1
--- NOTE | 2023-12-12 09:34 | RAD_ITS ---
STUDY: X-RAY - LEFT RADIUS AND ULNA REASON FOR EXAM: Female, 68 years old. Injury TECHNIQUE: 2 view(s) of the forearm. COMPARISON: None. FINDINGS: There is no demonstrated soft tissue swelling. Normal visualized radius. Normal visualized ulna. RAD/Forearm 2 Views IMPRESSION: Normal x-ray examination of the radius and ulna. Electronically Signed: Vincent Robles MD at 11:00 EDT ,
--- NOTE | 2023-12-12 09:34 | RAD_ITS ---
STUDY: X-RAY - LEFT SHOULDER REASON FOR EXAM: Female, 68 years old. Injury TECHNIQUE: 2 view(s) of the shoulder. COMPARISON: None. FINDINGS: Normal glenohumeral articulation. Normal acromioclavicular joint. Normal acromion. Normal humeral head and visualized proximal humerus. The soft tissue structures are unremarkable. Normal visualized pulmonary apex. RAD/Shoulder min 2 Views IMPRESSION: Normal x-ray examination of the shoulder. Electronically Signed: Vincent Robles MD at 11:00 EDT ,
--- NOTE | 2023-12-12 09:34 | RAD_ITS ---
STUDY: X-RAY - LEFT HUMERUS REASON FOR EXAM: Female, 68 years old. Pain following a fall. TECHNIQUE: 2 view(s) of the humerus. COMPARISON: None. FINDINGS: Normal visualized humerus. There is no demonstrated fracture or osseous destructive process. There is no demonstrated soft tissue abnormality. RAD/Humerus min 2 Views IMPRESSION: Normal x-ray examination of the humerus. Electronically Signed: Vincent Robles MD at 10:31 EDT ,
--- NOTE | 2023-12-12 09:34 | RAD_ITS ---
STUDY: X-RAY - LEFT HAND REASON FOR EXAM: Female, 68 years old. Injury due to a fall. TECHNIQUE: 3 view(s) of the hand. COMPARISON: Comparison is made with prior study dated June 13, 2011. FINDINGS: Normal radiocarpal articulation. Normal distal radioulnar joint. Normal visualized carpal bones. Normal carpal articulations Normal carpometacarpal articulation of the thumb. Normal second through fifth carpometacarpal joints. Normal metacarpi. Normal metacarpophalangeal joint of the thumb. Normal interphalangeal joint of the thumb. Normal proximal and distal phalanges of the thumb. Normal metacarpophalangeal joints of the second through fifth fingers. Normal proximal and distal interphalangeal joints of the second through fifth fingers. 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 The soft tissue structures are unremarkable. 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 No acute abnormality is seen. Electronically Signed: Vincent Robles MD at 10:30 EDT ,
--- NOTE | 2023-12-12 09:37 | EDS_ITS ---
HPI History of Present Illness Chief Complaint: Upper Extremity Injury Informant: patient and EMS Narrative Narrative: 68-year-old female who lives with her daughter states she fell 1 week ago and injured her left arm. It has been hurting ever since and this is the first time she has sought evaluation for this. She states a week ago she was making dinner, she turned around her legs seem to give out on her, causing her to fall onto left outstretched hand, I tried to break my fall. States has been having pain throughout the entire left upper extremity ever since, from her shoulder blade all the way down to her fingers. She denies injury elsewhere. She has been able to walk since the injury. She presents at 9:30 AM stating I have only had 1 beer this morning. She states she has been taking aspirin for the pain but the pain is getting worse. Other than arthritis in her knees that she states she has been ignoring for years, she denies symptoms elsewhere right now. [facility] Medical History Alcohol abuse Alcohol use Asthma Back pain CAD (coronary artery disease) Cardiology follow-up encounter Chronic cough COPD (chronic obstructive pulmonary disease) Deficient knowledge of percutaneous coronary intervention (PCI) and stenting Depression Easy bruising ETOH abuse Gastric reflux High cholesterol History of IBS History of pain when walking Incontinence Post-menopausal Shortness of breath on exertion Smoker Tobacco abuse Walker as ambulation aid Wears glasses Home Medications duloxetine 60 mg capsule,delayed release 60 mg PO DAILY DEPRESSION/ANXIETY 09/10/23 [History Last Taken 11/25/23] aspirin 81 mg tablet,delayed release (Adult Low Dose Aspirin) 81 mg PO DAILY #30 tabs 10/11/23 [Rx Last Taken 11/23/23] pantoprazole 40 mg tablet,delayed release 40 mg PO BID 30 days #60 tabs 10/11/23 [Rx Last Taken 11/25/23] sucralfate 1 gram tablet 1 g PO 1HR_ACHS 30 days #90 tabs 11/05/23 [Rx Last Taken 11/25/23] albuterol sulfate 90 mcg/actuation breath activated powder inhaler 1 inh inhalation Q6H 11/20/23 [History Last Taken Unknown] atorvastatin 40 mg tablet 40 mg PO DAILY 11/20/23 [History Last Taken 11/25/23] cyclobenzaprine 5 mg tablet 5 mg PO TID PRN PRN muscle spasm 11/20/23 [History Last Taken Unknown] Allergy/AdvReac Type Severity Reaction Status Date / Time No Known Allergies Allergy Verified 12/12/23 09:35 Surgical History History of coronary artery stent placement History of esophagogastroduodenoscopy (EGD) History of hysterectomy Social History Smoking Status: Current every day smoker tobacco type: cigarettes ROS ROS ED Constitutional Constitutional ED: Denies chills or fever(s) Musculoskeletal Musculoskeletal: Reports as per HPI, arthralgias and extremity pain; Denies neck pain Integumentary Denies Abrasions, rash or wounds Neurologic Neurologic: Denies paresthesias or weakness EXAM Physical Exam Const Vital Signs: 12/12/23 09:30 Temperature 96.8 F L Temperature Source Temporal Pulse Rate 85 Respiratory Rate 16 Blood Pressure 141/99 H Blood Pressure Mean 113 Pulse Ox 96 Oxygen Delivery Method Room Air Positive well nourished and well developed General Appearance ED: well developed and NAD HEENT Reports moist mucous membranes HEENT Narrative: Edentulous Eyes PERRL and EOMs intact bilaterally Neck full ROM and supple Chest Wall inspection of chest normal and palpation of chest normal Resp normal respiratory effort and clear to auscultation bilaterally GI non-tender and non-distended Back/Spine normal ROM and normal to inspection Extremity Extremity Narrative: Limited range of motion left upper extremity, which she is actively holding up in front of her. Barely touching any part of her left upper extremity, the patient yells at the examiner to stop touching her. This includes her scapula but not her spine/back otherwise. There is an abrasion near the radial aspect of her left elbow but there are no other signs of trauma. No swelling. No deformity. All compartments are soft and nondistended within the limits of the exam. She has an intact radial pulse 2+. The other 3 extremities move actively and passively without any major difficulty, she does have some pain in the right knee which limits her range there but she is able to bend almost 90 degrees. There are no effusions. Neuro oriented x3, no focal motor deficits and no sensory deficits noted Sensorium / Orientation: alert Psych thought process normal and cooperative Psych Narrative: Appears mildly intoxicated. Somewhat anxious. Skin no wounds Rashes: no rashes MDM MDM MDM Narrative Medical decision making narrative: I obtained x-rays of all parts of her left upper extremity. Three-view x-ray of the left shoulder on my interpretation negative for fracture dislocation. 2 view x-ray of the left humerus negative on my interpretation for fracture. 2 view x-ray of the left forearm on my interpretation negative for acute fracture. Three-view x-ray of the left hand monitor potation negative for acute fracture. Radiology interpreted all of these as same. I reexamined the patient. She had been given a [place] and she was doing a little better. Asked if her neck was hurting. She states yes that is on the left side she states she has been having headache she thinks since her fall. Therefore I am sending her for CT of the head and cervical spine to evaluate for fracture, she may have a radiculopathy and she agrees that the left upper extremity is tingling and painful at the same time which may be consistent with this. I spoke with her more about her alcohol use. She states she is drinking more than she wants to, because of her daughter. She states that her daughter drinks all the time and a lot more than she does. She states in the mornings, she typically drinks coffee because she is getting ready for adult daycare. When asked if she goes there because her daughter works, she states no, her daughter is mostly home, but she needs care whenever her daughter does leave the home. When asked if the patient wants assisted living, she states no she wants to stay at home. When asked about the beer this morning, she states that her daughter wakes her up in the middle of the night to give her beer which she does not want. Given this, I am asking social work to get involved as well. I reviewed images of CT head and cervical spine, I agree with the radiologist interpretation which I reviewed as well and agree with. Basically nothing acute. As I discussed with the patient this does not rule out the possibility of a disc issue and radicular pain down the left upper extremity causing her pain. Starting her on gabapentin may be helpful. Patient's daughter arrived a little later, and I discussed with her and social media project manager together. Apparently she was seen here in the ER several weeks ago and had an overdose that was intentional but the patient was not admitting to that and it did not come out at the time. The patient has said things to the daughter about wanting to kill herself. The daughter initially keeps saying that she needs to be admitted for detox, however after discussing all of this she may be more appropriate for psych and not detox, since repeatedly when we asked her to the patient states that the daughter drinks more than she does and she does not need to stop drinking, if it was up to her she would just drink occasionally in the evenings. In addition she admits to some suicidal thoughts at times. Therefore do more of a medical workup in addition to the imaging above. In further discussion with the social media project manager, the daughter states in actuality with regards to the 2 of them drinking, the opposite is true; last night they both went to the store and bought some alcohol, the patient drank half of hers and then also drank some of the daughter's beers in addition. In discussing this at the bedside in front of her mother, she, the patient, states shut up! I reviewed all the labs, in addition to a urinalysis which is negative, her alcohol level is still up. At this point, she is medically cleared for psychiatric evaluation, and I discussed with crisis to evaluate the patient for possible placement and further psychiatric evaluation. History & Record Review Additional record(s) reviewed:: Prior ED visit Lab Data Attestation: I reviewed the patient's lab results. Lab results narrative: Impressions Forearm X-Ray 12/12/23 09:34 IMPRESSION: Normal x-ray examination of the radius and ulna. 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 No acute abnormality is seen. Electronically Signed: Vincent Robles MD at 10:30 EDT , Humerus X-Ray 12/12/23 09:34 IMPRESSION: Normal x-ray examination of the humerus. Electronically Signed: Vincent Robles MD at 10:31 EDT , Shoulder X-Ray 12/12/23 09:34 IMPRESSION: Normal x-ray examination of the shoulder. Electronically Signed: Vincent Robles MD at 11:00 EDT , Brain CT 12/12/23 11:45 IMPRESSION: Chronic involutional changes of the brain. Electronically Signed: Vincent Robles MD at 12:16 EDT , Cervical Spine CT 12/12/23 11:45 IMPRESSION: Multilevel degenerative changes, as described above. Electronically Signed: Vincent Robles MD at 12:18 EDT , 12/12/23 09:34 Forearm 2 Views [RAD] Stat Hand Min 3 Views [RAD] Stat Humerus min 2 Views [RAD] Stat Shoulder min 2 Views [RAD] Stat 12/12/23 11:45 CT Cervical [Spine Cervical without Contras] [CT] Stat CT Head [Brain/Head without Contrast] [CT] Stat Laboratory Results 12/12/23 12/12/23 14:23 15:10 WBC 5.5 RBC 4.40 Hgb 14.0 Hct 42.1 MCV 95.7 MCH 31.8 MCHC 33.3 RDW Std Deviation 45.9 H RDW Coeff of [place] 13.0 Plt Count 249 MPV 10.2 Immature Gran % (Auto) 0.500 Neut % (Auto) 42.7 L Lymph % (Auto) 45.3 H [place] % (Auto) 7.8 Eos % (Auto) 2.3 Baso % (Auto) 1.4 H Absolute Neuts (auto) 2.4 Absolute Lymphs (auto) 2.51 Nucleated RBC % 0 PT 13.4 INR 1.0 Sodium 139 Potassium 3.8 Chloride 102 Carbon Dioxide 31.0 Anion Gap 6 BUN 6 L Creatinine 0.44 L Estim Creat Clear Calc 55.80 Est GFR (MDRD) Af Amer 183 Est GFR (MDRD) Non-Af 151 BUN/Creatinine Ratio 13.6 Glucose 89 Calcium 8.4 L Total Bilirubin 0.20 AST 18 ALT 16 Alkaline Phosphatase 120 H Total Protein 6.8 Albumin 3.2 Globulin 3.6 Albumin/Globulin Ratio 0.9 Urine Color Yellow Urine Clarity Clear Urine pH 6.0 Ur Specific [place] 1.010 Urine Protein Negative Urine Glucose (UA) Normal Urine Ketones Negative Urine Occult Blood Negative Urine Nitrite Negative Urine Bilirubin Negative Urine Urobilinogen Normal Ur Leukocyte Esterase Negative Ur Drug Screen Comment Ethyl Alcohol 233.0 Management Discussion w/another healthcare provider: child protective services social worker/Case management Discharge Plan Triage Chief Complaint: Upper Extremity Injury ED Provider: Jed Madrigal Dx/Rx/DC Orders Clinical Impression: Suicidal thoughts, Cervical radiculopathy, acute, Acute cervical myofascial strain, Accidental fall, Depression, Dementia Prescriptions: No Action duloxetine 60 mg capsule,delayed release(DR/EC) 60 mg PO DAILY Patient Comments: take 1 capsule by mouth once daily pantoprazole 40 mg Tablet,Delayed Release (Dr/Ec) 40 mg PO BID 30 Days Qty: 60 0RF aspirin [Adult Low Dose Aspirin] 81 mg tablet,delayed release (DR/EC) 81 mg PO DAILY Qty: 30 0RF atorvastatin 40 mg tablet 40 mg PO DAILY cyclobenzaprine 5 mg tablet 5 mg PO TID PRN PRN (Reason: muscle spasm) albuterol sulfate 90 mcg/actuation aerosol powdr breath activated 1 inh inhalation Q6H sucralfate 1 gram tablet 1 g PO 1HR_ACHS 30 Days Qty: 90 0RF Primary Care Provider: Marcus Thomas NP Referrals: Marcus Thomas NP, [facility] [Primary Care Provider] - Disposition Disposition: Psychiatric Hospital or Unit
[2023-12-12] MEDS: HYDROcodone Bitartrate/Apap 5/325 Tablet PO (09:38)
--- NOTE | 2023-12-12 10:18 | ED.RN ---
PTS DAUGHTER BLAS STEWART CALLED ([phone]) TO ASK ABOUT UPDATE ON HER MOTHERS CONDITION. PT VERBALIZES SHE IS OK WITH SHARING HER MEDICAL INFORMATION WITH HER DAUGHTER BLAS. BLAS STATES SHE WOULD LIKE HER MOTHER PLACED ON A 72 HOUR HOLD FOR ALCOHOL DETOX, STATES THAT SHE IS BASICALLY HER POA BECAUSE SHE LIVES WITH HER. IT IS EXPLAINED WHAT THE BOUNDARIES FOR A POA ARE. BLAS STATES PT HAS ALSO HAD SEVERE STOMACH ULCERS, CARDIAC STENT AND BEING RULED OUT FOR EARLY DEMEMNTIA BY HER DOC IN [place].
--- NOTE | 2023-12-12 11:08 | ED.RN ---
spoke with daughter Mary for update.
--- NOTE | 2023-12-12 11:45 | CT_ITS ---
STUDY: CT CERVICAL SPINE WITHOUT CONTRAST REASON FOR EXAM: Female, 68 years old. Neck trauma RADIATION DOSAGE (If Supplied By Facility): CTDIvol = ( 14.07 ) mGy, DLP = ( 294.77 ) mGycm TECHNIQUE: High resolution transaxial imaging was performed without contrast material. Sagittal and coronal images were reconstructed. Individualized dose optimization techniques were used for this CT. COMPARISON: None FINDINGS: Normal craniovertebral junction. There are degenerative changes of the anterior atlantoaxial articulation. Normal odontoid process. Normal cervical lordosis. Normal vertebral bodies and posterior osseous elements. C2-3: Anterior spondylosis. Mild uncovertebral arthrosis. No significant stenosis is seen. C3-4: Moderate degree of anterior spondylolisthesis. Uncovertebral arthrosis. No significant neural foraminal stenosis is seen. C4-5: Mild degree of disc space narrowing and spondylosis. Bilateral uncovertebral arthrosis with bilateral neural foraminal stenosis. C5-6: Disc space narrowing with spondylosis. Bilateral neural foraminal and central canal stenosis. C6-7: Disc space narrowing. Spondylosis. C7-T1: Normal endplates. Normal disc height and morphology. Normal central canal and intervertebral neuroforamina. Atherosclerotic plaque formation of the carotid bifurcations bilaterally. CT/Spine Cervical without Contras IMPRESSION: Multilevel degenerative changes, as described above. Electronically Signed: Vincent Robles MD at 12:18 EDT ,
--- NOTE | 2023-12-12 11:45 | CT_ITS ---
STUDY: CT BRAIN WITHOUT CONTRAST REASON FOR EXAM: Female, 68 years old. Head injury due to a fall. RADIATION DOSAGE (If Supplied By Facility): CTDIvol = ( 44.99 ) mGy, DLP = ( 812.98 ) mGycm TECHNIQUE: Transaxial CT imaging of the brain was performed without administration of intravenous contrast material. Individualized dose optimization techniques were used for this CT. COMPARISON: No relevant priors. FINDINGS: Normal soft tissue structures. Normal calvarium. There is mild cerebral atrophy with widening of the extra-axial spaces and ventricular dilatation. There are areas of decreased attenuation within the white matter tracts of the supratentorial brain, consistent with microvascular disease changes. Small bilateral lacunar infarcts. Normal brainstem. There is mild cerebellar atrophy. There is no intracranial hemorrhage. There are no findings of an acute ischemic infarction. Normal visualized paranasal sinuses. CT/Brain/Head without Contrast IMPRESSION: Chronic involutional changes of the brain. Electronically Signed: Vincent Robles MD at 12:16 EDT ,
[2023-12-12] MEDS: Gabapentin 300 MG Capsule PO (13:27)
--- NOTE | 2023-12-12 14:15 | CM.ED ---
Social Work - Emergency Department First SW encounter: Consulted by ED physician due to reports of patient having alcohol usage, and patient making comments to the physician about the daughter waking patient up in the middle of the night to give patient beer. Concern for safety and possible APS referral. Met with patient in room, introducing to self and social work role. Patient cooperative and willing to speak with social media assistant. Per patient: Reason for visit: Reports fell a couple of weeks ago in the bathroom, hit arm and the arm is still hurting. Housing: Lives with daughter Mary and stated to this greeting card writer that the daughter takes good care of me. 2 story apartment, bedroom on the second floor with railings at the stairs. Support system: Reports daughter Mary and [facility]. Reports to have a kitten named Nimisha who patient loves and enjoys spending time with. Basic needs: Reports to have safe housing, food, utilities, to feel safe in home, and gets assist with transportation. Transportation: [facility] or patient's grandson Community Supports: Adult daycare center through [employer], Saturday through Saturday from about 8 am to 4 pm. Behavioral Health: Patient does not endorse any emotional health issues to this greeting card writer. Reports to drink alcohol, usually about 1-2, 24 ounce Icehouse Beers a day, usually in the night after returning from the daycare center. Patient reports belief alcohol use is not a problem for the patient, but more for the patient's daughter. Stressors: Patient reports the daughter wakes patient up around 8 or 9 at night and give patient beer. Patient reports usually tells the daughter that patient is trying to sleep, as has to go to daycare, but the daughter still gives patient alcohol anyway. Patient reports belief the daughter give patient beer because, I guess she is lonely. Summary from conversation with patient: Patient reports to feel she can go home, is not interested in any type of placement such as assisted living. This greeting card writer broached medical detox, but patient declines and reports to feel this is not needed. Reports would just go home, and that her daughter will come to pick patient up. This greeting card writer spoke with physician, discussed calling APS to do a home check, since patient is not willing to take any intervention right now. Patient was calm during social work visit, cooperative, answered questions, was talkative about the things she likes such as daycare center and her kitten. Patient was alert and oriented during social work visit to person, place, year, month (though initially thought it was October, but able to self correct to December). Could not state the current President. Second SW encounter: Daughter Mary then arrived to the ED. This greeting card writer apprised by Odette MOSES about daughter being present and wanting to speak with someone. Presented back to patient's room. Spoke with patient and daughter Mary together. Per Mary: Reports patient has had alcohol use issues for over 30 years, specifically since about 1985 when the patient's /father of children . Mary reports patient lost custody of all 3 daughters at one point, and Mary is the only child willing to have anything to do with the patient at this point. Mary reports to also have alcohol use issues, but reports to be extremely concerned for patient's safety and wants the truth told. Mary reports patient tends to lie to staff about what is happening and is done being quiet. Mary reports patient drinks daily and last evening Mary and patient went to the store where patient bought a 12 pack of 24 ounce beers and Mary bought 5. Mary reports patient drank 6 of own beers and then 3 of Mary's. Mary reports concern patient is depressed, has been making comments about wanting to , no use of living, and that patient has taken too many pills in the past. Mary reports patient has been skipping adult day programming as well. Mary reports last being aware of patient ingesting too many pills a couple of months ago. Mary reports patient came to ED a couple of months ago, but when came to lied about what happened. Daughter reports patient refuses to seek treatment or go to a mental health provider. Patient's response: Patient lying in bed during Mary's visit, staring at Mary and repeatedly telling Mary to shut up, shut up. Patient told Mary to go away and leave, and at one point, patient pointed her finger at Mary and stated You are the reason I am drinking. After Mary voice patient has been depressed and has talked about dying, the patient did admit to this greeting card writer that does think of suicide when I'm depressed and feel like no one cares about patient. Patient admits to this greeting card writer to taking too many pills in the past, with an intent and desire to . Patient reports this was a while ago, but initially could not be specific (The daughter stated last occurrence was within the last couple of months; did not get treatment as was not honest.) Later on in the conversation, patient reports the daughter's timeframe incorrect and it was 5 or 6 years ago that attempted suicide by overdose. Patient did become visibly upset at one point, holding self, rocking back and forth crying (which was when talking about when thinks of suicide). Patient then went on to say that wants to go to daycare and be with patients kitten. Explored whether patient been missing day programming lately, which patient did admit to because I haven't been feeling good. Patient repeated several times that can stop drinking on her own, after this greeting card writer suggested detox or seeing help for patient's mental health. Physician to room in middle of this greeting card writer's conversation with the patient and daughter. Updated physician to information gleaned from the daughter's visit. Decision made to have patient worked up medically, for possible inpatient treatment. Plan: Social work or crisis to follow up for further assessment, once patient is medically cleared. -JUWAN Gurrola
[2023-12-12 14:34] LABS: Absolute Lymphocyte Count 2.51 X10^3/uL (0.83-4.51); Absolute Neutrophil Count 2.4 X10^3/uL (2.0-7.7); Basophil# 0.08 X10^3/uL; Basophil% 1.4 % (0-1); Eosinophil# 0.13 X10^3/uL; Eosinophils% 2.3 % (0-5); Hematocrit 42.1 % (37-47); Lymphocyte # 2.51 X10^3/ul (0.83-4.51); Lymphocyte % 45.3 % (19-41); Mean Corp Hgb Conc 33.3 g/dL (32-36); Mean Corpuscular Hgb 31.8 pg (27.0-32.0); Mean Corpuscular Volume 95.7 fL (81-99); Mean Platelet Vol. 10.2 fl (6.2-12.0); Monocyte# 0.43 X10^3/uL; Monocyte% 7.8 % (0-10); NRBC Flagged by Analyzer 0 % (0-5); Neutrophil # 2.36 X10^3/uL (2.7-7.7); Neutrophil % 42.7 % (47-70); Platelet Count 249 K/mm3 (150-450); RBC Distribution Width SD 45.9 fl (35.1-43.9); White Blood Count 5.5 K/mm3 (4.4-11.0)
[2023-12-12 14:47] LABS: ALB/GLOB Ratio 0.9 RATIO (0.9-2.4); AST(SGOT) 18 U/L (15-37); Alanine Aminotransfer ALT/SGPT 16 U/L (13-56); Albumin, Serum 3.2 g/dL (3.2-5.0); Alkaline Phosphatase 120 U/L (45-117); Anion Gap 6 (5-15); BUN 6 mg/dL (7-18); BUN/Creat Ratio 13.6 RATIO (10-20); Calcium,Total 8.4 mg/dL (8.5-10.1); Chloride 102 mmol/L (98-107); Creatinine, Serum 0.44 mg/dL (0.55-1.02); EST Glomerular Filtration Rate 151 mL/min (>60); Est Glom Filt Rate - Afr Amer 183 mL/min (>60); Globulin 3.6 g/dL (2.2-4.2); Glucose 89 mg/dL (74-106); Potassium 3.8 mmol/L (3.5-5.1); Protein, Total 6.8 g/dL (6.4-8.2); Sodium Level 139 mmol/L (136-145)
[2023-12-12 15:18] LABS: Prothrombin Time (Protime)PT. 13.4 SECONDS (11.7-14.9)
[2023-12-12 15:49] LABS: Bacteria 0 SEEN /hpf (None Seen); Mucous, Urine 0 SEEN /hpf (<or=2+); Red Blood Cells-Urine 0 SEEN /hpf (0-5); Squamous Epithelial Cells - UA 0 SEEN /hpf (5-10); White Blood Cells 0 SEEN /hpf (0-5)
[2023-12-12 15:53] LABS: Color, Urine Yellow (Yellow); Glucose, Dipstick Normal (Normal); Ketone-Dipstick Negative (Negative); Leukocyte Esterase-Dipstick Negative /ul (Negative); Nitrite-Dipstick Negative (Negative); Occult Blood-Urine Negative /ul (Negative); Protein-Dipstick Negative (Negative); Urine Bilirubin Dipstick Negative (Negative); Urine Clarity Clear (Clear); Urine Urobilinogen Normal (Normal)
[2023-12-12 17:04] LABS: Amphetamine Urine VISTA NEGATIVE (<1000 ng/mL); Barbiturate Urine VISTA NEGATIVE (< 200 ng/mL); Benzodiazepine Urine VISTA NEGATIVE (< 200 ng/mL); Cocaine Urine VISTA NEGATIVE (< 300 ng/mL); Ecstacy Urine VISTA NEGATIVE (< 500 ng/mL); Methadone Urine VISTA NEGATIVE (< 300 ng/mL); PCP Urine VISTA NEGATIVE (< 25 ng/mL); THC Urine VISTA NEGATIVE (< 50 ng/mL); Vista UDS pH Range 6
--- NOTE | 2023-12-12 19:27 | CASEMGMT ---
Social Work Patient alcohol level showing above legal limit. Spoke with Radha from Crisis at [facility] this afternoon, who reports crisis can see patient when patient's alcohol level has come down. Verbal update to Radha from this functional tester typewriters's interactions with patient and daughter today. For continuity of care of patient, to help Crisis in workup in assessing patient for appropriate level of care, this functional tester typewriters faxed over SW note from interactions with patient and daughter. Plan: Crisis to assess patent once medically cleared. -JUWAN Gurrola
[2023-12-13 04:17] VITALS: BP 148/90; PULSE 95; RESP 18
[2023-12-13 04:40] VITALS: BP 148/90; PULSE 95; RESP 18; TEMP 36.7; O2SAT 96
== END 2023-12-13 04:42 | disposition home or self-care (01) ==
PROVIDERS: Emergency Provider Emergency Medicine; PCP Nurse Practitioner Primary Care; Visit Provider Emergency Medicine
DX: R45.851 Suicidal ideations (principal); F03.90 Unspecified dementia, unspecified severity, without behavioral disturbance, psychotic disturbance, mood disturbance, and anxiety; M47.22 Other spondylosis with radiculopathy, cervical region; S16.1XXA Strain of muscle, fascia and tendon at neck level, initial encounter; F17.210 Nicotine dependence, cigarettes, uncomplicated; I25.10 Atherosclerotic heart disease of native coronary artery without angina pectoris; Z95.5 Presence of coronary angioplasty implant and graft; F32.A Depression, unspecified; W19.XXXA Unspecified fall, initial encounter
CPT/HCPCS: 70450; 72125; 73030; 73060; 73090; 73130; 80053; 80307; 80320; 81001; 85025; 85610; 99285; A4216; G0480

== ENCOUNTER 2024-01-08 10:24 | Emergency (ER) | payer MEDICARE, MEDICAID, SELFPAY ==
[2024-01-08 10:25] VITALS: BP 131/66; PULSE 64; RESP 18; TEMP 36.9; O2SAT 99; BMI 19.0
--- NOTE | 2024-01-08 10:43 | EDS_ITS ---
HPI History of Present Illness HPI Narrative: Six 8-year-old female sees pain management and has a history of asthma. States she fell 1 week ago last Saturday in her bathroom she tripped landed awkwardly on her left wrist has had pain in her left wrist since that time. She has not seen anybody or any x-rays done on it. She said it is getting harder to use her left hand because of the wrist pain. He came in today to have it evaluated. Denies any other injuries. No LOC. She is not on any blood thinners. Chief Complaint: Upper Extremity Injury Informant: patient Occured/Mechanism Mechanism/Context: Yes injury and Yes blunt trauma Onset/Context/Timing Onset: Days Context: Sudden Onset Timing: Continuous Quality of Pain: Sharp Current Severity: Moderate Maximum Severity: Moderate Associated Symptoms Associated Symptoms: Negative for Parasthesia, Weakness or Loss of Funtion Narrative Narrative: 68-year-old female fell in her bathroom 1 week ago. Complaining of left wrist pain. Has had a prior fracture of the wrist but no prior left upper extremity surgery. Denies any other injuries or complaints. Prior similar symptoms: Yes Recent Illness/Hospitalization: No PFSH PFSH Medical History Alcohol abuse Alcohol use Asthma Back pain CAD (coronary artery disease) Cardiology follow-up encounter Chronic cough COPD (chronic obstructive pulmonary disease) Deficient knowledge of percutaneous coronary intervention (PCI) and stenting Depression Easy bruising ETOH abuse Gastric reflux High cholesterol History of IBS History of pain when walking Incontinence Post-menopausal Shortness of breath on exertion Smoker Tobacco abuse Walker as ambulation aid Wears glasses Home Medications duloxetine 60 mg capsule,delayed release 60 mg PO DAILY DEPRESSION/ANXIETY 09/10/23 [History Last Taken 11/25/23] aspirin 81 mg tablet,delayed release (Adult Low Dose Aspirin) 81 mg PO DAILY #30 tabs 10/11/23 [Rx Last Taken 11/23/23] pantoprazole 40 mg tablet,delayed release 40 mg PO BID 30 days #60 tabs 10/11/23 [Rx Last Taken 11/25/23] sucralfate 1 gram tablet 1 g PO 1HR_ACHS 30 days #90 tabs 11/05/23 [Rx Last Take n 11/25/23] albuterol sulfate 90 mcg/actuation breath activated powder inhaler 1 inh inhalation Q6H 11/20/23 [History Last Taken Unknown] atorvastatin 40 mg tablet 40 mg PO DAILY 11/20/23 [History Last Taken 11/25/23] cyclobenzaprine 5 mg tablet 5 mg PO TID PRN PRN muscle spasm 11/20/23 [History Last Taken Unknown] Allergy/AdvReac Type Severity Reaction Status Date / Time No Known Allergies Allergy Verified 01/08/24 10:25 Surgical History History of coronary artery stent placement History of esophagogastroduodenoscopy (EGD) History of hysterectomy Social History Smoking Status: Current every day smoker tobacco type: cigarettes ROS ROS ED ROS Narrative Denies recent illness. Review of Systems ROS Unobtainable: Denies due to encephalopathy Constitutional Constitutional ED: Denies chills or fever(s) Eyes Eyes: Denies blurry vision ENT ENT ED: Denies ear pain or rhinorrhea Cardiovascular Cardiovascular: Denies chest pain or palpitations Respiratory/Chest Respiratory/Chest: Denies cough or dyspnea Gastrointestinal Gastrointestinal: Denies abdominal pain or constipation Genitourinary Genitourinary ED: Denies dysuria or hematuria Musculoskeletal Musculoskeletal: Denies back pain, myalgias or neck pain Integumentary Denies abscess, Abrasions or rash Neurologic Neurologic: Denies headache(s) Psychiatric Psychiatric: Denies anxiety Endocrine Endocrinology: Denies cold intolerance Hematologic/Lymphatic Hematologic/Lymphatic: Denies easy bleeding, easy bruising or lymphadenopathy Allergic/Immunologic Allergic/Immunologic ED: Denies mouth swelling, tongue swelling or urticaria EXAM Physical Exam Narrative Exam Narrative: C8-year-old female no acute distress vital signs stable afebrile. HEENT exam unremarkable atraumatic. Pupils round react light. Hearing aid in place. No hematomas or tenderness to her scalp. Neck nontender. Lungs clear. Heart regular rhythm no murmur rate about 65. Chest wall and ribs nontender. Abdomen soft nontender. Pelvic girdle intact. Hips nontender. Legs nontender. Normal range of motion. No deformity. Normal dorsi plantarflexion. 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 Right upper extremity nontender. Left shoulder and elbow nontender left hand nontender tenderness of her left wrist. No gross bony deformity. Limited flexion extension due to pain. Minimal swelling. Normal radial pulse. Patient is awake and alert no focal motor deficits. Answering questions foll owing commands. Const Vital Signs: 01/08/24 10:25 Temperature 98.4 F Temperature Source Temporal Pulse Rate 64 Respiratory Rate 18 Blood Pressure 131/66 H Blood Pressure Mean 87 Pulse Ox 99 Oxygen Delivery Method Room Air Positive well nourished and well developed; Negative for obese, cachectic, contractures or unkempt General Appearance ED: well developed and NAD; Negative for unkempt, cachectic, contractures, cyanotic or diaphoretic Nutritional Appearance: Negative for cachectic or obese HEENT Reports moist mucous membranes normocephalic and atraumatic; Negative for trauma or tenderness Eyes PERRL and EOMs intact bilaterally General Eye ED: Negative for other Neck full ROM and supple General: Negative for tenderness Lymph Lymphatic: Negative for other Chest Wall inspection of chest normal and palpation of chest normal Chest: Negative for other Resp normal respiratory effort and clear to auscultation bilaterally Effort and Inspection: Negative for pain with movement Auscultation: Negative for rales, rhonchi or wheezes Cardio regular rate, regular rhythm, S1 normal heart sound, S2 normal heart sound and no murmurs Rate: Negative for bradycardia or tachycardic Rhythm: Negative for abnormal rhythm GI non-tender, non-distended and no masses Inspection: Negative for abdominal distention Auscultation: normoactive bowel sounds Palpation: soft; Negative for tender, guarding or rebound tenderness present Back/Spine no CVA tenderness General Back: Negative for CVA tenderness Cervical Spine: Negative for cervical spine tenderness Thoracic Spine / Upper Back: Negative for thoracic spinal tenderness Lumbar Spine / Lower Back: Negative for lumbar spinal tenderness Extremity Negative for normal to inspection or full ROM Extremity Narrative: Left wrist tender to palpation distally. No gross bony deformity. Limited flexion extension due to pain. Limited swelling. Hand is nontender neurovascular intact with normal radial pulse. Proximal forearm and elbow is n ontender. General Extremety ED: Negative for other findings General Extremity: Negative for other findings Neuro oriented x3, CN's II-XII intact bilaterally, moves all extremities, no focal motor deficits and no sensory deficits noted Sensorium / Orientation: alert, oriented to person, oriented to place and oriented to time; Negative for orientation impaired, lethargic or stuporous Motor Exam: strength 5/5 throughout Psych mental status grossly normal Appearance: Negative for unkempt Attitude: No agitated Mood & Affect: Negative for depressed, anxious or tearful Skin General Skin Exam: Negative for petechiae Lesions: no lesions Rashes: no rashes MDM MDM MDM Narrative Medical decision making narrative: 68-year-old fell 1 week ago complaint of left wrist pain. X-ray being obtained. Left wrist x-ray showed a nondisplaced distal radius fracture that is healing. Patient was placed in a well-padded short arm AP splint. She will follow-up with and orthopedics. Ice and elevate. Tylenol for pain. History & Record Review Discussion w/independent historian: Patient Radiography Diagnostic Testing: Left wrist x-ray, 3 views, interpreted by myself and radiologist shows a Left wrist x-ray, 3 views, interpreted both by myself and the radiologist shows a nondisplaced ring fracture of the left distal radius. Discharge Plan Triage Chief Complaint: Upper Extremity Injury ED Provider: Boom Coughlin Dx/Rx/DC Orders Clinical Impression: Fracture of left wrist, Fall Instructions: ED Fracture, Wrist, General Prescriptions: No Action duloxetine 60 mg capsule,delayed release(DR/EC) 60 mg PO DAILY Patient Comments: take 1 capsule by mouth once daily pantoprazole 40 mg Tablet,Delayed Release (Dr/Ec) 40 mg PO BID 30 Days Qty: 60 0RF aspirin [Adult Low Dose Aspirin] 81 mg tablet,delayed release (DR/EC) 81 mg PO DAILY Qty: 30 0RF atorvastatin 40 mg tablet 40 mg PO DAILY cyclobenzaprine 5 mg tablet 5 mg PO TID PRN PRN (Reason: muscle spasm) albuterol sulfate 90 mcg/actuation aerosol powdr breath activated 1 inh inhalation Q6H sucralfate 1 gram tablet 1 g PO 1HR_ACHS 30 Days Qty: 90 0RF Primary Care Provider: Marcus Thomas NP Referrals: Wang Freitas DO [Med Staff - Active Staff] - As soon as possible Marcus Thomas NP, STAMP MACHINE SERVICER-C [Primary Care Provider] - Activity Restrictions/Additional Instructions: Your x-ray look like you have a nondisplaced fracture of your left wrist that is already healing. Splint was placed to immobilize and let it continue to heal. You should not need any surgery. Ice and elevate. Tylenol for pain. Call and follow-up with orthopedics. They may place you in a cast. Disposition Disposition: Home, Self Care
--- NOTE | 2024-01-08 10:46 | RAD_ITS ---
STUDY: X-RAY - LEFT WRIST REASON FOR EXAM: Female, 68 years old. Left wrist pain following a fall. TECHNIQUE: 3 view(s) of the wrist were obtained. COMPARISON: Comparison is made with prior study dated December 12, 2023. FINDINGS: Findings suggestive of a healing nondisplaced fracture of the distal radial metaphysis. This was not seen on prior examination. Normal radiocarpal articulation. Normal distal radioulnar articulation. Normal carpal bones. Normal carpal articulations. Normal carpometacarpal articulation of the thumb. Normal second through fifth carpometacarpal articulations. Normal visualized metacarpal bones. Soft tissue swelling. RAD/Wrist min 3 Views IMPRESSION: Findings suggestive of a nondisplaced healing fracture of the distal radial metaphysis. This was not seen on prior study. Electronically Signed: Vincent Robles MD at 11:20 EDT ,
== END 2024-01-08 12:24 | disposition home or self-care (01) ==
PROVIDERS: Emergency Provider Emergency Medicine; PCP Nurse Practitioner Primary Care; Visit Provider Emergency Medicine
DX: S52.509D Unspecified fracture of the lower end of unspecified radius, subsequent encounter for closed fracture with routine healing (principal); J44.9 Chronic obstructive pulmonary disease, unspecified; M79.642 Pain in left hand; F17.210 Nicotine dependence, cigarettes, uncomplicated; I25.10 Atherosclerotic heart disease of native coronary artery without angina pectoris; W01.0XXD Fall on same level from slipping, tripping and stumbling without subsequent striking against object, subsequent encounter
CPT/HCPCS: 29126; 73110; 99282

== ENCOUNTER 2024-01-23 23:00 | Emergency (ER) | payer MEDICARE, MEDICAID, SELFPAY ==
[2024-01-23 23:01] VITALS: BP 162/93; PULSE 75; RESP 14; TEMP 36.9; O2SAT 94
--- NOTE | 2024-01-23 23:50 | EDS_ITS ---
HPI History of Present Illness Chief Complaint: General Illness Informant: patient and family Narrative Narrative: Patient is a 68-year-old female with past medical history of of hypertension as well as tobacco abuse and history of EtOH abuse. Daughter states that she sends her to adult daycare during the day. She states when she returned home around 3 in the afternoon she noticed that her blood pressure was running high intermittently. She states that there has been no excessive stimulant use and she denies any illicit drug use. Daughter also states that she has noticed intermittent slurred speech. She states that she felt she needed to be evaluated secondary to these intermittent symptoms that had been reoccurring throughout the day and therefore brought her in for evaluation. [facility] Medical History Alcohol abuse Alcohol use Asthma Back pain CAD (coronary artery disease) Cardiology follow-up encounter Chronic cough COPD (chronic obstructive pulmonary disease) Deficient knowledge of percutaneous coronary intervention (PCI) and stenting Depression Easy bruising ETOH abuse Gastric reflux High cholesterol History of IBS History of pain when walking Incontinence Post-menopausal Shortness of breath on exertion Smoker Tobacco abuse Walker as ambulation aid Wears glasses Home Medications ?Medication ?Instructions ?Recorded ?Last Taken ?Type duloxetine 60 mg capsule,delayed 60 mg PO DAILY DEPRESSION/ANXIETY 09/10/23 11/25/23 History release aspirin 81 mg tablet,delayed 81 mg PO DAILY #30 tabs 10/11/23 11/23/23 Rx release (Adult Low Dose Aspirin) pantoprazole 40 mg tablet,delayed 40 mg PO BID 30 days #60 tabs 10/11/23 11/25/23 Rx release sucralfate 1 gram tablet 1 g PO 1HR_ACHS 30 days #90 tabs 11/05/23 11/25/23 Rx albuterol sulfate 90 mcg/actuation 1 inh inhalation Q6H 11/20/23 Unknown History breath activated powder inhaler atorvastatin 40 mg tablet 40 mg PO DAILY 11/20/23 11/25/23 History cyclobenzaprine 5 mg tablet 5 mg PO TID PRN PRN muscle spasm 11/20/23 Unknown History metoprolol succinate 25 mg 25 mg PO 01/23/24 Unknown History tablet,extended release 24 hr Allergy/AdvReac Type Severity Reaction Status Date / Time No Known Allergies Allergy Verified 01/23/24 23:29 Surgical History History of coronary artery stent placement History of esophagogastroduodenoscopy (EGD) History of hysterectomy Social History Smoking Status: Current every day smoker tobacco type: cigarettes ROS ROS ED Constitutional Constitutional ED: Denies chills or fever(s) Eyes Eyes: Reports other Details: Positive eye redness ; Denies blurry vision, change in vision or diplopia ENT ENT ED: Reports rhinorrhea; Denies sore throat Cardiovascular Cardiovascular: Denies chest pain, palpitations or racing heartbeat Respiratory/Chest Respiratory/Chest: Reports cough; Denies dyspnea Gastrointestinal Gastrointestinal: Denies abdominal pain, diarrhea, nausea or vomiting Genitourinary Genitourinary ED: Denies dysuria Musculoskeletal Musculoskeletal: Reports myalgias Integumentary Denies rash Neurologic Neurologic: Denies headache(s), paresthesias or weakness Hematologic/Lymphatic Hematologic/Lymphatic: Denies easy bleeding or easy bruising EXAM Physical Exam Const Vital Signs: 01/23/24 23:01 01/23/24 23:19 01/23/24 23:55 Temperature 98.5 F 98 F Temperature Source Temporal Pulse Rate 75 71 Respiratory Rate 14 16 Respiratory Effort Normal Blood Pressure 162/93 H 167/87 H Blood Pressure Mean 116 113 Pulse Ox 94 94 Oxygen Delivery Method Room Air Positive well nourished and well developed General Appearance ED: well developed; Negative for pallor HEENT HEENT Narrative: No tongue or lip swelling no oral lesions no airway edema or compromise Eyes PERRL and EOMs intact bilaterally General Eye ED: Negative for scleral icterus Neck supple Neck Narrative: No nuchal rigidity or meningeal signs noted Resp normal respiratory effort Resp Narrative: Breath sounds are diminished throughout with diffuse rhonchi without nasal flaring retractions tachypnea or accessory muscle use Cardio regular rate and regular rhythm Rate: other Other Details: Radial and carotid pulses are equal and symmetric GI normal to inspection, nondistended, normoactive bowel sounds, non-tender, non- distended and no masses GI Narrative: No voluntary guarding or rigidity or pulsatile mass Auscultation: normoactive bowel sounds Palpation: soft Extremity Extremity Narrative: Patient has a splint in place to the left forearm consistent with history of recent fall Otherwise no signs of trauma Neuro oriented x3 Neuro Narrative: Patient is awake and alert to person place and time. She received an NIH stroke scale score of 1 for intermittent slurred speech. Otherwise there is no weakness to her extremities tongue deviation sensory loss or facial droop. Sensorium / Orientation: alert Motor Exam: strength 5/5 throughout Psych Psych Narrative: Patient has a nervous/anxious affect Skin no rashes or lesions noted General Skin Exam: Negative for jaundice or pallor MDM MDM MDM Narrative Medical decision making narrative: Patient arrived to the ER hypertensive but otherwise with stable vitals. Daughter reported that when she returned home from adult daycare around 3 in the afternoon she noticed intermittent slurred speech and intermittent high blood pressure. At this time there is mild dysarthria but it does occur intermittently. Based on the dysarthria should be given NIH stroke scale of 1. However she is outside any window for TNK based on daughter reporting that symptoms had occurred at 3:00 in the afternoon or prior. I discussed with daughter and patient the ability to perform a CTA of the head and neck to check for stenosis or obstruction as well as basic laboratory studies and even potential admission based on her symptoms. We discussed workup regarding reported hypertension at home and ruling out endorgan damage. The patient states she has an appointment with her family doctor in the morning. She states she does not want worked up at this time. She is awake alert and oriented to person place and time and she is capable to make this decision. Therefore as patient does not want a workup at this time and she is outside any type of anticoagulant window and her stroke scale score is very low at a value of 1 I will comply with the patient's wishes and discharge her home. She agrees to continue her normal medication and will follow-up with her family doctor as previously scheduled to discuss further testing or treatment options if symptoms persist. History & Record Review Discussion w/independent historian: Patient and Family Discharge Plan Triage Chief Complaint: General Illness ED Provider: Temo Noguera Dx/Rx/DC Orders Clinical Impression: HTN (hypertension), Tobacco abuse, History of ETOH abuse Instructions: Emphysema Dc, Hypertension Dc Prescriptions: No Action duloxetine 60 mg capsule,delayed release(DR/EC) 60 mg PO DAILY Patient Comments: take 1 capsule by mouth once daily pantoprazole 40 mg Tablet,Delayed Release (Dr/Ec) 40 mg PO BID 30 Days Qty: 60 0RF aspirin [Adult Low Dose Aspirin] 81 mg tablet,delayed release (DR/EC) 81 mg PO DAILY Qty: 30 0RF atorvastatin 40 mg tablet 40 mg PO DAILY cyclobenzaprine 5 mg tablet 5 mg PO TID PRN PRN (Reason: muscle spasm) albuterol sulfate 90 mcg/actuation aerosol powdr breath activated 1 inh inhalation Q6H metoprolol succinate 25 mg tablet extended release 24 hr 25 mg PO sucralfate 1 gram tablet 1 g PO 1HR_ACHS 30 Days Qty: 90 0RF Primary Care Provider: Marcus Thomas NP Referrals: Marcus Thomas NP, TOPOGRAPHICAL SURVEYOR-C [Primary Care Provider] - Activity Restrictions/Additional Instructions: Continue all your home medications as previously directed follow-up with your family doctor to discuss further outpatient testing and if you have any further concerns or change your mind about workup in the ER please return for repeat evaluation Print Language: Indian Disposition Disposition: Home, Self Care Discharge Date/Time: 01/23/24 23:56
[2024-01-23 23:55] VITALS: BP 167/87; PULSE 71; RESP 16; TEMP 36.6; O2SAT 94
== END 2024-01-23 23:56 | disposition home or self-care (01) ==
PROVIDERS: Emergency Provider Emergency Medicine; PCP Nurse Practitioner Primary Care; Visit Provider Emergency Medicine
DX: I10 Essential (primary) hypertension (principal); J44.9 Chronic obstructive pulmonary disease, unspecified; R47.81 Slurred speech; I25.10 Atherosclerotic heart disease of native coronary artery without angina pectoris; F17.210 Nicotine dependence, cigarettes, uncomplicated; F10.10 Alcohol abuse, uncomplicated; Y90.9 Presence of alcohol in blood, level not specified; Z95.5 Presence of coronary angioplasty implant and graft; Z79.51 Long term (current) use of inhaled steroids; Z79.82 Long term (current) use of aspirin; Z79.899 Other long term (current) drug therapy
CPT/HCPCS: 99282

== ENCOUNTER 2024-03-15 21:15 | Emergency (ER) | payer MEDICARE, MEDICAID, SELFPAY ==
[2024-03-15 21:16] VITALS: BP 119/70; PULSE 84; RESP 16; TEMP 36.7; O2SAT 98
--- NOTE | 2024-03-15 21:28 | CT_ITS ---
INDICATION: fall EXAMINATION: CT BRAIN - CT Head or Brain W/O Contrast Injection TECHNIQUE: Multiple axial images were obtained of the head without intravenous contrast. A radiation dose optimization technique was used for this scan. IV Contrast dosage and agent: None. RADIATION DOSAGE (If Supplied By Facility): CTDIvol = ( 44.99 ) mGy, DLP = ( 796.11 ) mGycm COMPARISON: Prior study dated: 12/12/2023 FINDINGS: BRAIN PARENCHYMA: No intra- or extra-axial hemorrhage. No evidence of acute infarct. No intracranial mass or mass effect. There is preservation of the thompson/white matter interface. Posterior fossa structures are unremarkable. Patchy periventricular and deep white matter hypoattenuation is consistent with mild small vessel ischemic change. CSF SPACES: Proportional prominence of the ventricles and sulcal spaces is consistent with mild cerebral volume loss. No hydrocephalus. Basal cisterns are patent. CALVARIUM, SKULL BASE, PARANASAL SINUSES AND MASTOID AIR CELLS: Near complete opacification of the right maxillary sinus. The mastoid air cells and visualized paranasal sinuses are otherwise well aerated. The calvarium is intact. No discrete lytic or blastic abnormalities. ORBITS: Both globes, extraocular muscles, optic nerves and retrobulbar fat appear unremarkable. CT/Brain/Head without Contrast IMPRESSION: No acute intracranial finding. Electronically Signed: Jian Woodson MD at 22:12 EDT ,
--- NOTE | 2024-03-15 21:30 | ED.VIS.FALL ---
HPI HPI - Fall History of Present Illness Chief Complaint: Fall Informant: patient and EMS Narrative Narrative: Patient presents via EMS after a fall at home. She states she was trying to straighten up her bedroom when she fell and got caught between the bed and the wall. She laid there for 5 or 10 minutes yelling for her daughter to come help her up. She is complaining of right hip pain. She does report striking her head but did not lose consciousness. PFSH PFSH Medical History Wears glasses Post-menopausal Depression Alcohol use Walker as ambulation aid Incontinence High cholesterol Easy bruising Back pain History of IBS Gastric reflux Smoker Shortness of breath on exertion Chronic cough History of pain when walking Cardiology follow-up encounter Alcohol abuse COPD (chronic obstructive pulmonary disease) Deficient knowledge of percutaneous coronary intervention (PCI) and stenting CAD (coronary artery disease) Asthma Tobacco abuse ETOH abuse Home Medications ?Medication ?Instructions ?Recorded ?Last Taken ?Type duloxetine 60 mg capsule,delayed 60 mg PO DAILY DEPRESSION/ANXIETY 09/10/23 11/25/23 History release aspirin 81 mg tablet,delayed 81 mg PO DAILY #30 tabs 10/11/23 11/23/23 Rx release (Adult Low Dose Aspirin) pantoprazole 40 mg tablet,delayed 40 mg PO BID 30 days #60 tabs 10/11/23 11/25/23 Rx release sucralfate 1 gram tablet 1 g PO 1HR_ACHS 30 days #90 tabs 11/05/23 11/25/23 Rx albuterol sulfate 90 mcg/actuation 1 inh inhalation Q6H 11/20/23 Unknown History breath activated powder inhaler atorvastatin 40 mg tablet 40 mg PO DAILY 11/20/23 11/25/23 History cyclobenzaprine 5 mg tablet 5 mg PO TID PRN PRN muscle spasm 11/20/23 Unknown History metoprolol succinate 25 mg 25 mg PO 01/23/24 Unknown History tablet,extended release 24 hr potassium chloride 20 mEq 20 meq PO BID #6 tabs 03/15/24 Unknown Rx tablet,extended release Allergy/AdvReac Type Severity Reaction Status Date / Time No Known Allergies Allergy Verified 03/15/24 21:16 Surgical History History of coronary artery stent placement History of esophagogastroduodenoscopy (EGD) History of hysterectomy Social History Smoking Status: Current every day smoker tobacco type: cigarettes ROS ROS ED Constitutional Constitutional ED: Denies chills or fever(s) Eyes Eyes: Denies discharge from eye(s) ENT ENT ED: Denies discharge from eye(s), rhinorrhea or sore throat Cardiovascular Cardiovascular: Denies chest pain Respiratory/Chest Respiratory/Chest: Denies cough or dyspnea Gastrointestinal Gastrointestinal: Denies abdominal pain, nausea or vomiting Musculoskeletal Musculoskeletal: Reports extremity pain; Denies back pain Integumentary Denies Abrasions or rash Neurologic Neurologic: Reports weakness; Denies headache(s) Allergic/Immunologic Allergic/Immunologic ED: Denies lip swelling or urticaria EXAM Physical Exam Const Vital Signs: 03/15/24 21:16 03/15/24 21:16 03/15/24 23:16 Temperature 98.1 F Temperature Source Temporal Pulse Rate 84 87 Respiratory Rate 16 16 Respiratory Effort Normal Non-Labored Respiratory Depth Normal Respiratory Pattern Normal Blood Pressure 119/70 131/73 H Blood Pressure Mean 86 92 Pulse Ox 98 95 Oxygen Delivery Method Room Air Room Air Room Air Positive well nourished and well developed General Appearance ED: well developed HEENT Reports normocephalic atraumatic Eyes EOMs intact bilaterally Neck full ROM Neck Narrative: No C-spine tenderness. Chest Wall inspection of chest normal and palpation of chest normal Resp normal respiratory effort and no retractions Cardio regular rate and regular rhythm GI non-tender Palpation: soft Extremity Extremity Narrative: Mild tender palpation over the anterior right hip. Equal leg lengths are noted. No significant pain with logroll. Good distal pulses. Neuro Neuro Narrative: Patient alert and converses appropriately. No focal neurologic deficits, although decreased range of motion at the right lower extremity noted secondary to pain. Skin Rashes: no rashes MDM MDM MDM Narrative Medical decision making narrative: IV line established. Labwork obtained to evaluate for leukocytosis, anemia, and electrolyte derangement. CT scan of the head to be obtained to evaluate for any acute intracranial injury, bleed, fracture. Pelvis and right hip x-rays to be obtained to evaluate for potential fracture. History & Record Review Discussion w/independent historian: Patient Lab Data Attestation: I reviewed the patient's lab results. Labs: Laboratory Results - last 24 hr 03/15/24 21:43 WBC 10.8 RBC 3.86 L Hgb 12.2 Hct 35.5 L MCV 92.0 MCH 31.6 MCHC 34.4 RDW Std Deviation 42.9 RDW Coeff of Talon 13.0 Plt Count 196 MPV 9.6 Immature Gran % (Auto) 0.800 Neut % (Auto) 58.9 Lymph % (Auto) 30.7 [place]umas % (Auto) 7.2 Eos % (Auto) 1.8 Baso % (Auto) 0.6 Absolute Neuts (auto) 6.4 Absolute Lymphs (auto) 3.30 Nucleated RBC % 0 PT 12.8 INR 1.0 APTT 31.8 Sodium 124 L Potassium 2.8 L Chloride 89 L Carbon Dioxide 21.0 Anion Gap 14 BUN 8 Creatinine 0.86 Est GFR (MDRD) Af Amer 85 Est GFR (MDRD) Non-Af 70 BUN/Creatinine Ratio 9.3 L Glucose 97 Calcium 8.3 L Ethyl Alcohol 208.0 Radiography Diagnostic Testing: Clinical Impression(s) from Imaging Studies Brain CT 03/15/24 21:28 IMPRESSION: No acute intracranial finding. Electronically Signed: Jian Woodson MD at 22:12 EDT , Hip/Pelvis X-Ray 03/15/24 21:54 IMPRESSION: No evidence of displaced pelvic or hip fracture. Moderate degenerative changes of the hips. Electronically Signed: Jian Woodson MD at 22:19 EDT , Treatment and Re-Evaluation Narrative: CBC was normal white count at 10.8 with normal differential. Hemoglobin is 12.2. Coags are unremarkable. Chemistry studies significant for a sodium of 124. On review of prior records her sodium was 128 in October but then did increase to 139 when it was checked in December. She will be given a 500 cc IV fluid bolus. Potassium tonight is low at 2.8. This is replaced orally and I will write her prescription for potassium replacement at home. Coags are unremarkable. EtOH is 208. Pelvis and right hip x-rays per my interpretation reveal no obvious fracture. Radiology interpretation reviewed and agrees. CT scan of the head reveals no acute intracranial findings. Test results discussed with the patient. She was able to tolerate p.o. potassium replacement here. She will be observed and ambulated. I will send a prescription for potassium replacement to the pharmacy for her. Discharge Plan Triage Chief Complaint: Fall ED Provider: Radha Lazar Dx/Rx/DC Orders Clinical Impression: Fall, Contusion of hip, Elevated ETOH level, Hyponatremia, Hypokalemia Instructions: ED Mechanical Fall, ED Hip Contusion, ED Hyponatremia, ED Hypokalemia Prescriptions: New potassium chloride 20 mEq tablet extended release 20 meq PO BID Qty: 6 0RF No Action duloxetine 60 mg capsule,delayed release(DR/EC) 60 mg PO DAILY Patient Comments: take 1 capsule by mouth once daily pantoprazole 40 mg Tablet,Delayed Release (Dr/Ec) 40 mg PO BID 30 Days Qty: 60 0RF aspirin [Adult Low Dose Aspirin] 81 mg tablet,delayed release (DR/EC) 81 mg PO DAILY Qty: 30 0RF atorvastatin 40 mg tablet 40 mg PO DAILY cyclobenzaprine 5 mg tablet 5 mg PO TID PRN PRN (Reason: muscle spasm) albuterol sulfate 90 mcg/actuation aerosol powdr breath activated 1 inh inhalation Q6H metoprolol succinate 25 mg tablet extended release 24 hr 25 mg PO sucralfate 1 gram tablet 1 g PO 1HR_ACHS 30 Days Qty: 90 0RF Primary Care Provider: Marcus Thomas NP Referrals: Marcus Thomas NP, IT COMPLIANCE MANAGER-C [Primary Care Provider] - 1 Week Print Language: Kazakh Disposition Disposition: Home, Self Care
[2024-03-15 21:51] LABS: Absolute Neutrophil Count 6.4 X10^3/uL (2.0-7.7); Basophil# 0.06 X10^3/uL; Basophil% 0.6 % (0-1); Eosinophil# 0.19 X10^3/uL; Eosinophils% 1.8 % (0-5); Hematocrit 35.5 % (37-47); Hemoglobin 12.2 g/dL (12.0-15.0); Lymphocyte % 30.7 % (19-41); Mean Corp Hgb Conc 34.4 g/dL (32-36); Mean Corpuscular Hgb 31.6 pg (27.0-32.0); Mean Platelet Vol. 9.6 fl (6.2-12.0); Monocyte# 0.77 X10^3/uL; Monocyte% 7.2 % (0-10); NRBC Flagged by Analyzer 0 % (0-5); Neutrophil # 6.35 X10^3/uL (2.7-7.7); Neutrophil % 58.9 % (47-70); Platelet Count 196 K/mm3 (150-450); RBC Distribution Width SD 42.9 fl (35.1-43.9); Red Blood Count 3.86 M/mm3 (4.2-5.4); White Blood Count 10.8 K/mm3 (4.4-11.0)
--- NOTE | 2024-03-15 21:54 | RAD_ITS ---
INDICATION: injury EXAMINATION/TECHNIQUE: X-RAY - XR Hip Unilateral with Pelvis when performed; 2-3 Views COMPARISON: No relevant prior comparison study available FINDINGS: PELVIC BONES: No displaced fracture, destructive or sclerotic lesions. Note that overlapping bowel shadows may however obscure fine detail. Sacroiliac joints are unremarkable. No widening of the pubic symphysis. HIPS: Hips are well aligned. Degenerative changes of both hips. Joint space narrowing with sclerosis and osteophytes. No displaced fracture seen in this frontal view. SOFT TISSUES: No soft tissue swelling or gas. Vascular stents with diffuse vascular calcifications. RAD/HIP, UNI W/ Pelvis 2-3 Views IMPRESSION: No evidence of displaced pelvic or hip fracture. Moderate degenerative changes of the hips. Electronically Signed: Jian Woodson MD at 22:19 EDT ,
[2024-03-15 22:00] LABS: Prothrombin Time (Protime)PT. 12.8 SECONDS (11.7-14.9)
[2024-03-15 22:01] LABS: Partial Thromboplast Time 31.8 Seconds (24.1-36.2)
[2024-03-15 22:15] LABS: Anion Gap 14 (5-15); BUN 8 mg/dL (7-18); BUN/Creat Ratio 9.3 RATIO (10-20); Calcium,Total 8.3 mg/dL (8.5-10.1); Chloride 89 mmol/L (98-107); Creatinine, Serum 0.86 mg/dL (0.55-1.02); EST Glomerular Filtration Rate 70 mL/min (>60); Est Glom Filt Rate - Afr Amer 85 mL/min (>60); Glucose 97 mg/dL (74-106); Potassium 2.8 mmol/L (3.5-5.1); Sodium Level 124 mmol/L (136-145)
--- NOTE | 2024-03-15 22:36 | ED.RN ---
Daughter updated on pt status.
[2024-03-15] MEDS: Potassium Chloride Oral Tablet 20 MEQ 40 MEQ PO (22:54)
[2024-03-15 23:16] VITALS: BP 131/73; PULSE 87; RESP 16; O2SAT 95
[2024-03-15] MEDS: 0.9% Normal Saline (500mL Bag) 500 ML 999 ML IV (23:44)
--- NOTE | 2024-03-16 00:42 | ED.RN ---
attempted to call daughter for a ride.
--- NOTE | 2024-03-16 00:51 | ED.RN ---
Pt has dementia and uses a walker at home, but does not have walker with her.
[2024-03-16 01:00] VITALS: PULSE 85
[2024-03-16 01:20] VITALS: BP 123/67; PULSE 86; RESP 16; TEMP 36.6; O2SAT 95
== END 2024-03-16 01:23 | disposition home or self-care (01) ==
PROVIDERS: Emergency Provider Emergency Medicine; PCP Nurse Practitioner Primary Care; Visit Provider Emergency Medicine
DX: S70.01XA Contusion of right hip, initial encounter (principal); J44.9 Chronic obstructive pulmonary disease, unspecified; W18.39XA Other fall on same level, initial encounter; Y92.003 Bedroom of unspecified non-institutional (private) residence as the place of occurrence of the external cause; Y93.E9 Activity, other interior property and clothing maintenance; E87.1 Hypo-osmolality and hyponatremia; I25.10 Atherosclerotic heart disease of native coronary artery without angina pectoris; F17.210 Nicotine dependence, cigarettes, uncomplicated; E78.00 Pure hypercholesterolemia, unspecified; E87.6 Hypokalemia; F10.10 Alcohol abuse, uncomplicated; Y90.7 Blood alcohol level of 200-239 mg/100 ml; Z79.51 Long term (current) use of inhaled steroids; Z79.82 Long term (current) use of aspirin; Z79.899 Other long term (current) drug therapy
CPT/HCPCS: 70450; 73502; 80048; 82077; 85025; 85610; 85730; 96360; 96361; 99283; J7040; A4216

== ENCOUNTER 2024-04-17 00:53 | Emergency (ER) | payer MEDICARE, MEDICAID, SELFPAY ==
[2024-04-17 00:56] VITALS: BP 105/76; PULSE 85; RESP 18; TEMP 36.3; O2SAT 97; BMI 20.9
--- NOTE | 2024-04-17 01:01 | RAD_ITS ---
INDICATION: recurrent injury EXAMINATION/TECHNIQUE: X-RAY - RIGHT XR Wrist Min 3 Views 3 VIEWS COMPARISON: No relevant prior comparison study available FINDINGS: SOFT TISSUES: No soft tissue swelling or gas. No radiopaque foreign body. BONES/JOINTS: There is mild degenerative arthrosis of the wrist. No sclerotic or destructive changes observed. 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 Electronically Signed: Justina Espinoza MD at 2:03 EDT ,
--- NOTE | 2024-04-17 01:01 | CT_ITS ---
INDICATION: polytrauma EXAMINATION: CT CERVICAL SPINE - CT Spine Cervical W/O Contrast Injection TECHNIQUE: Helically acquired images were obtained of the cervical spine. 2D reformatted images were reviewed. The protocol utilizes one or more of the following dose reduction techniques: automated exposure control, adjustment of mA and/or kV according to patient size,and/or use of iterative reconstruction technique. IV Contrast dosage and agent: None. RADIATION DOSAGE (If Supplied By Facility): CTDIvol = ( 12.89 ) mGy, DLP = ( 268.06 ) mGycm COMPARISON: FINDINGS: Normal craniovertebral junction. Normal anterior atlantoaxial articulation. Normal odontoid process. There is straightening of the normal cervical lordosis. Normal vertebral bodies and posterior osseous elements. C2-3: Normal endplates. Normal disc height and morphology. Normal central canal and intervertebral neuroforamina. C3-4, C4-5, C5-6, C6-7: Endplate spondylosis. Central and paracentral disc bulge. Degenerative changes of the bilateral facet joints and uncovertebral joints. Moderate to severe narrowing of the central canal and the bilateral intervertebral neural foramina. C7-T1: Normal endplates. Normal disc height and morphology. Normal central canal and intervertebral neuroforamina. Normal visualized soft tissue structures. CT/Spine Cervical without Contras IMPRESSION: Multilevel degenerative changes, as described above. Electronically Signed: Justina Espinoza MD at 3:13 EDT ,
--- NOTE | 2024-04-17 01:01 | CT_ITS ---
INDICATION: head injury EXAMINATION: CT BRAIN - CT Head or Brain W/O Contrast Injection TECHNIQUE: Multiple axial images were obtained of the head without intravenous contrast. The protocol utilizes one or more of the following dose reduction techniques: automated exposure control, adjustment of mA and/or kV according to patient size,and/or use of iterative reconstruction technique. IV Contrast dosage and agent: None. RADIATION DOSAGE (If Supplied By Facility): CTDIvol = ( 44.99 ) mGy, DLP = ( 796.11 ) mGycm COMPARISON: No relevant prior comparison study available FINDINGS: BRAIN PARENCHYMA: No intra- or extra-axial hemorrhage. No evidence of acute infarct. No intracranial mass or mass effect. There is preservation of the thompson/white matter interface. Posterior fossa structures are unremarkable. CSF SPACES: Appropriate for age. No hydrocephalus. Basal cisterns are patent. CALVARIUM, SKULL BASE, PARANASAL SINUSES AND MASTOID AIR CELLS: There is mild mucosal thickening in the paranasal sinuses. No discrete lytic or blastic abnormalities. ORBITS: Both globes, extraocular muscles, optic nerves and retrobulbar fat appear unremarkable. ASPECTS Score for Acute Strokes: 10 CT/Brain/Head without Contrast IMPRESSION: No acute intracranial abnormality. Electronically Signed: Justina Espinoza MD at 3:01 EDT ,
--- NOTE | 2024-04-17 01:01 | ED.VIS.FALL ---
HPI HPI - Fall History of Present Illness Chief Complaint: Fall Informant: patient Narrative Narrative: Brought in by EMS from home for reported fall while walking to the bathroom. States her leg gave out. Positive alcohol reporting only drank 2 drinks. She states she hit her head hard. She denies loss of conscious. Reports increasing right wrist pain. She had a recent fracture with current wrist splint. No chest or back pain no lower extremity pain. Prior similar symptoms: Yes PFSH PFSH Medical History Dementia Fracture of right distal radius Wears glasses Post-menopausal Depression Alcohol use Walker as ambulation aid Incontinence High cholesterol Easy bruising Back pain History of IBS Gastric reflux Smoker Shortness of breath on exertion Chronic cough History of pain when walking Cardiology follow-up encounter Alcohol abuse COPD (chronic obstructive pulmonary disease) Deficient knowledge of percutaneous coronary intervention (PCI) and stenting CAD (coronary artery disease) Asthma Tobacco abuse ETOH abuse Home Medications ?Medication ?Instructions ?Recorded ?Last Taken ?Type duloxetine 60 mg capsule,delayed 60 mg PO DAILY DEPRESSION/ANXIETY 09/10/23 11/25/23 History release aspirin 81 mg tablet,delayed 81 mg PO DAILY #30 tabs 10/11/23 11/23/23 Rx release (Adult Low Dose Aspirin) pantoprazole 40 mg tablet,delayed 40 mg PO BID 30 days #60 tabs 10/11/23 11/25/23 Rx release sucralfate 1 gram tablet 1 g PO 1HR_ACHS 30 days #90 tabs 11/05/23 11/25/23 Rx albuterol sulfate 90 mcg/actuation 1 inh inhalation Q6H 11/20/23 Unknown History breath activated powder inhaler atorvastatin 40 mg tablet 40 mg PO DAILY 11/20/23 11/25/23 History cyclobenzaprine 5 mg tablet 5 mg PO TID PRN PRN muscle spasm 11/20/23 Unknown History metoprolol succinate 25 mg 25 mg PO 01/23/24 Unknown History tablet,extended release 24 hr potassium chloride 20 mEq 20 meq PO BID #6 tabs 03/15/24 Unknown Rx tablet,extended release Allergy/AdvReac Type Severity Reaction Status Date / Time No Known Allergies Allergy Verified 04/17/24 00:56 Surgical History History of coronary artery stent placement History of esophagogastroduodenoscopy (EGD) History of hysterectomy Social History Smoking Status: Current every day smoker tobacco type: cigarettes ROS ROS ED Constitutional Constitutional ED: Denies chills, fever(s) or sweats Eyes Eyes: Denies change in vision ENT ENT ED: Denies dysphagia or sore throat Cardiovascular Cardiovascular: Denies chest pain, leg edema, palpitations or racing heartbeat Respiratory/Chest Respiratory/Chest: Denies cough, dyspnea or dyspnea on exertion Gastrointestinal Gastrointestinal: Denies abdominal pain, diarrhea, nausea or vomiting Genitourinary Genitourinary ED: Denies dysuria, hematuria or urinary frequency Musculoskeletal Musculoskeletal: Reports extremity pain; Denies back pain or neck pain Integumentary Denies rash or wounds Neurologic Neurologic: Reports headache(s); Denies paresthesias or weakness EXAM Physical Exam Const Vital Signs: 04/17/24 00:56 04/17/24 01:32 04/17/24 01:32 Temperature 97.3 F L Temperature Source Temporal Pulse Rate 85 Respiratory Rate 18 Respiratory Effort Normal Non-Labored Normal Non-Labored Respiratory Depth Normal Respiratory Pattern Normal Normal Blood Pressure 105/76 Blood Pressure Mean 85 Pulse Ox 97 Oxygen Delivery Method Room Air Room Air 04/17/24 02:55 04/17/24 03:30 Temperature 98.0 F Temperature Source Pulse Rate 82 77 Respiratory Rate 16 16 Respiratory Effort Respiratory Depth Respiratory Pattern Blood Pressure 135/103 H 120/77 Blood Pressure Mean 113 91 Pulse Ox 99 96 Oxygen Delivery Method Room Air Positive well nourished and well developed Constitutional Narrative: Alcohol smell, is answering questions, moving all 4 extremities. General Appearance ED: well developed and NAD HEENT Reports TM's normal bilaterally and moist mucous membranes normocephalic and atraumatic Eyes EOMs intact bilaterally and conjunctivae normal General Eye ED: Yes normal appearance of both eyes Neck no lymphadenopathy and supple Neck Narrative: Paracervical tenderness bilaterally. No midline tenderness or step-offs. General: tenderness Chest Wall inspection of chest normal and palpation of chest normal Chest: Negative for tenderness Resp normal respiratory effort and normal air movement Resp Narrative: Symmetric breath sounds Effort and Inspection: symmetric chest movement; Negative for respiratory distress Cardio regular rate, regular rhythm and no murmurs Peripheral Pulses: pulses 2+ throughout GI normal to inspection, nondistended, normoactive bowel sounds and non-tender Palpation: Negative for guarding or rebound tenderness present Back/Spine no CVA tenderness and no thoracic nor lumbar tenderness Extremity Extremity Narrative: Right upper extremity: Velcro wrist splint removed tender palpation distal radius. Slight swelling noted. Skin intact. Left upper extremity: Full range of motion without any tenderness. Neuro vas intact distally. Negative logroll of the lower extremities. General Extremety ED: Yes tenderness; Negative for edema General Extremity: Negative for edema Neuro oriented x3 and no sensory deficits noted Sensorium / Orientation: awake and alert Skin no rashes or lesions noted and no wounds MDM MDM MDM Narrative Medical decision making narrative: Interventions / MDM: Differential diagnosis: Alcoholism, wrist contusion, head injury Diagnosis considered but do not suspect: Intracranial hemorrhage, fractures however image studies all negative. My EKG interpretation: N/A Imaging independently reviewed and interpreted by myself: CT brain/cervical spine: No intracranial hemorrhage. Degenerative change cervical spine noted with no fractures. Right wrist x-ray 3 views: No fracture noted. External documents reviewed: Images of wrist and forearm reviewed from recently. December had forearm x-rays negative. In December x-ray of the wrist had healing fractures of distal radius. Earlier this month 10 days ago, normal x-ray of the wrist. Test considered but not ordered:N/A ED course: Patient fall head injury with alcohol. CT head and neck ordered. Will reimage right wrist as she reports increasing pain since the fall. 1515: CT scan results were negative. X-ray wrist negative. She will maintain the splint. Updated on the findings. Will work on ride back home for patient. Re-evaluation: stable Disposition discussed with patient/family/significant other: Patient Case discussed with consulting clinician: N/A This note was generated with [employer] dictation software. It may contain incorrect words, spelling, and punctuation that were not noted in checking the note before signing. Radiography Diagnostic Testing: Clinical Impression(s) from Imaging Studies Brain CT 04/17/24 01:01 IMPRESSION: No acute intracranial abnormality. Electronically Signed: Justina Espinoza MD at 3:01 EDT Reading Location ID and State: [facility] / [place] Tel , Service support , Cervical Spine CT 04/17/24 01:01 IMPRESSION: Multilevel degenerative changes, as described above. Electronically Signed: Justina Espinoza MD at 3:13 EDT , Wrist X-Ray 04/17/24 01:01 IMPRESSION: There is mild degenerative arthrosis of the wrist. Electronically Signed: Justina Espinoza MD at 2:03 EDT , Discharge Plan Triage Chief Complaint: Fall Other Complaint: Other, Pain/Inj ED Provider: Osmani Bach Dx/Rx/DC Orders Clinical Impression: Fall, Closed head injury, Alcohol dependence, Contusion of right wrist Instructions: Alcoholism: Getting Help, ED Soft Tissue Contusion, ED Head Injury (Adult) Prescriptions: No Action duloxetine 60 mg capsule,delayed release(DR/EC) 60 mg PO DAILY Patient Comments: take 1 capsule by mouth once daily pantoprazole 40 mg Tablet,Delayed Release (Dr/Ec) 40 mg PO BID 30 Days Qty: 60 0RF aspirin [Adult Low Dose Aspirin] 81 mg tablet,delayed release (DR/EC) 81 mg PO DAILY Qty: 30 0RF atorvastatin 40 mg tablet 40 mg PO DAILY cyclobenzaprine 5 mg tablet 5 mg PO TID PRN PRN (Reason: muscle spasm) albuterol sulfate 90 mcg/actuation aerosol powdr breath activated 1 inh inhalation Q6H metoprolol succinate 25 mg tablet extended release 24 hr 25 mg PO potassium chloride 20 mEq tablet extended release 20 meq PO BID Qty: 6 0RF sucralfate 1 gram tablet 1 g PO 1HR_ACHS 30 Days Qty: 90 0RF Primary Care Provider: Marcus Thomas NP Referrals: Marcus Thomas NP, SOCIAL AND HUMAN SERVICES ASSISTANT-C [Primary Care Provider] - 1 Week Activity Restrictions/Additional Instructions: CAT scan of your head and neck were negative for any new acute process. Your right wrist films shows no new fractures, healed fractures from previous. Continue wrist splint for comfort. Follow-up with your doctor. Print Language: Greenlandic Disposition Disposition: Home, Self Care
[2024-04-17 02:55] VITALS: BP 135/103; PULSE 82; RESP 16; O2SAT 99
[2024-04-17 03:30] VITALS: BP 120/77; PULSE 77; RESP 16; TEMP 36.7; O2SAT 96
[2024-04-17 04:00] VITALS: BP 118/69; PULSE 75; RESP 16
== END 2024-04-17 06:09 | disposition home or self-care (01) ==
PROVIDERS: Emergency Provider Emergency Medicine; PCP Nurse Practitioner Primary Care; Visit Provider Emergency Medicine
DX: S09.90XA Unspecified injury of head, initial encounter (principal); J44.9 Chronic obstructive pulmonary disease, unspecified; F10.20 Alcohol dependence, uncomplicated; F17.210 Nicotine dependence, cigarettes, uncomplicated; E78.00 Pure hypercholesterolemia, unspecified; I25.10 Atherosclerotic heart disease of native coronary artery without angina pectoris; S60.211A Contusion of right wrist, initial encounter; W18.39XA Other fall on same level, initial encounter; Y93.01 Activity, walking, marching and hiking; F32.A Depression, unspecified; K21.9 Gastro-esophageal reflux disease without esophagitis; Z79.899 Other long term (current) drug therapy; Z95.5 Presence of coronary angioplasty implant and graft; Z90.710 Acquired absence of both cervix and uterus
CPT/HCPCS: 70450; 72125; 73110; 99284

== ENCOUNTER 2024-05-19 09:30 | Outpatient (RCR) | payer MEDICARE, MEDICAID, SELFPAY ==
--- NOTE | 2024-04-17 11:43 | HP.OTEVAL ---
Patient's Visit Information Visit Information Visit Information: SONMA LUGO is a 69 year old F, referred to Occupational Therapy by Dr. Bal West MD, with a diagnosis of fx of right distal radius. Date of Evaluation: 04/17/24 Occupational Therapist: Roberta Moran, NICOLE/Jeannette, CHT Subjective Subjective: This 69 year old female arrives with dx of R distal radius fx. Pt fell off chair hanging curtains 2 months ago. Fell again 04/17 getting out of bed. Pt states having level 10 pain. PT RUE demo decreased ROM and strength compared to L. Pt states wearing wrist brace and taking it off throughout the day. using cold tap water 10min. Pt lives with daughter who does not assist. Pt states can cook, clean, eat, shower, get groceries and get dressed I however everything takes longer due to pain. Currently not taking anything for pain. Pt has shower chair, grab bars, and is R handed. Pt enjoys doing puzzles, cooking, spending time with grandkids. pt report is not consistent with objective measures. Pain R wrist: Current Pain Intensity: 10 Objective Objective/Observation: pt arrives using rollator as means of mobility ROM Shoulder: WFL Elbow: WFL Forearm: L pro 90 sup 75 R not tested due to pain Wrist: L 45/40 R 20/20 ROM Comments: L ulnar dev 30 L radial dev 20 R ulnar dev 20 R radial dev 10 Strength Tiltrotor Crew Chief: L 35# R 5# Lateral Pinch: L 12# R NT Tripod Pinch: L 11# R NT Strength Comments: R pinch not tested due to pain Sensation Sensation Comments: denies Quick DASH-Disab of Arm,Shoulder& Hand Quick DASH Score: 75.0000 Goals Goal:: pt will increase RUE strength equal to or greater than unaffected side to increase I in daily functional tasks. pt to increase R preflight inspector strength by 25# in order to complete daily functional tasks. Goal:: pt to increase R wrist extension by 20* or more in order to complete self-care and other daily functional tasks. pt to increase R wrist flex by 20* or more in order to complete self-care and other daily functional tasks. Goal:: pt will report pain level of 0 to increase I in ADLs/IADLs by end of POC. Goal:: pt will demo 100% adherence to joint protection to increase safety and I in daily functional tasks by end of POC. Goal:: pt will report increase I in all ADLs/IADLs by end of POC. Goal:: pt will improve QuickDASH score by 50 points or more to maximize use of RUE. (75.0) Rehabilitation General Assessment: This 69-year-old female arrives with dx of R distal radius fx resulting in impairments in RUE strength, ROM, and pain impacting pt ability to perform daily functional tasks including cooking, cleaning, self-care, and carrying heavy items. pt is recommended to complete OT 2x a week for 4 weeks to address above impairments. Therapy session was directly supervised and doc. approved by Roberta Moran OTR/Jeannette,CHT. Rehabilitation Potential: Good Anticipated Interventions Anticipated Interventions: A/AAROM/PROM, Strengthening, Modalities, Joint Protection/Energy Conservation, Ergonomic Education, Education re assistive Equipment, Education re Diagnosis and Home Program Visit Plan Frequency: 2x /Week Duration: 4 Weeks General Plan: decrease pain improve ROM increase strength use hand/wrist/arm normally again TEXT: Thank you for the opportunity to evaluate your patient. For Medicare and Medicare HMO plans, please review the plan of care and approve it. It will need to be FAXED BACK to us at [phone] for Medicare purposes. Please let me know if there are questions or concerns regarding this plan of care. Physician Signature: Date:
--- NOTE | 2024-05-19 09:58 | HP.OTDCSUM_ITS ---
Discharge Summary D/C Summary: It has been my pleasure to treat SONAM LUGO under orders from Dr. Bal West MD, for the diagnosis of fx of right distal radius for a total of 2 visit(s). Please see the following information for a summary of their discharge status. Overall Improvement % Improvement: 90 Objective Objective/Function: right surgical nurse practitioner strength 40# left 40# right lateral 14# left 13# right tripod pinch 12# left 12# right wrist 60/65 pt demo functional ROM of right wrist and strength to preform ADLs. Therapist ed. pt of healing fx and that pain will come and go. Pt demo understanding. Pt was demo over stretching of wrist (therapist advised to not do that motion-pt verbalized understanding) Pt agrees with D/C Goals Patient Goals: Regain Strength, Decrease Pain, Use Hand/Wrist/Arm Normally Again, Sleep Better, Decrease Tingling/Numbness, Increase ROM, Be More Independent in ADLS, Resume Former Household Responsibilities (Cooking,Cleaning,Yard, etc.) and Resume Hobbies Goal:: pt will increase RUE strength equal to or greater than unaffected side to increase I in daily functional tasks. (goal met) pt to increase R surgical nurse practitioner strength by 25# in order to complete daily functional tasks. ( goal met) Goal:: pt to increase R wrist extension by 20* or more in order to complete self-care and other daily functional tasks. (goal met) pt to increase R wrist flex by 20* or more in order to complete self-care and other daily functional tasks. (goal met) Goal:: pt will report pain level of 0 to increase I in ADLs/IADLs by end of POC. goal met Goal:: pt will demo 100% adherence to joint protection to increase safety and I in daily functional tasks by end of POC. ( goal met) Goal:: pt will report increase I in all ADLs/IADLs by end of POC. (goal met) Goal:: pt will improve QuickDASH score by 50 points or more to maximize use of RUE. (75.0) D/C Information Discharge Comments: pt arrives after 30 days from initial OT eval demo ROM WNL and strength equal to unaffected side. Pt reports she is IND with all bathing and dressing tasks. Pt states she attends the adult day [facility] daily. pt at this time has met OT goals and is d/c d/c sentence: If there are questions or concerns regarding this patient's occupational therapy, please fell free to call me at [phone]. Thank you for the referral of this patient. Sincerely, Roberta Moran, OTR/L, CHT
== END 2024-05-19 12:37 | disposition home or self-care (01) ==
LOC: OT 09:30
PROVIDERS: PCP Nurse Practitioner Primary Care; Referring Provider Orthopaedic Surgery Sports Medicine; Visit Provider Orthopaedic Surgery Sports Medicine
DX: S52.501D Unspecified fracture of the lower end of right radius, subsequent encounter for closed fracture with routine healing (principal)
CPT/HCPCS: 97110; 97165; 97166; 97530